=== PATIENT | female | born 1980 | race Two or more races ===

== ENCOUNTER 2017-01-30 10:25 | Emergency (ER) | payer SELFPAY ==
--- NOTE | 2017-01-30 10:45 | ER Document Report ---
ED Medical Screen (RME) - General Chief Complaint: Fever Stated Complaint: FEVER, THROAT PAIN Notes: Patient states she has fever, sore throat, nausea, headache and body aches since yesterday. States entire family has the flu. Denies anybody in the family having strep at this time. Patient denies receiving flu shot this year. I have greeted and performed a rapid initial assessment of this patient. A comprehensive ED assessment and evaluation of the patient, analysis of test results and completion of the medical decision making process will be conducted by additional ED providers. TRAVEL OUTSIDE OF THE [place] IN LAST 30 DAYS: No - Related Data Allergies/Adverse Reactions: avocado [Avocado] Allergy (Severe, Verified 01/30/17 10:40) Anaphylaxis NSAIDS (Non-Steroidal Anti-Inflamma [Nsaids] Allergy (Verified 01/30/17 10:40) throat swelling pineapple [Pineapple] Allergy (Verified 01/30/17 10:40) Sulfa (Sulfonamide Antibiotics) Allergy (Verified 01/30/17 10:40) throat swelling tree nuts Allergy (Uncoded 01/30/17 10:40) Past Medical History - Social History Family history: Reviewed & Not Pertinent Neurological Medical History: Reports: Hx Migraine Endocrine Medical History: Reports: Hx Hypothyroidism GI Medical History: Reports: Hx Gastritis Musculoskeltal Medical History: Reports Hx Musculoskeletal Trauma Psychiatric Medical History: Reports: Hx Anxiety Traumatic Medical History: Reports: Hx Fractures - Elbow clavicle and ribs Past Surgical History: Reports: Hx Appendectomy, Hx Cholecystectomy, Hx Hysterectomy, Hx Thyroid Surgery - Thyroidectomy - Immunizations Immunizations up to date: Yes Hx Diphtheria, Pertussis, Tetanus Vaccination: Yes - 2010 Physical Exam - Vital signs Vitals: Temp Pulse Resp BP Pulse Ox 98.5 F 81 14 108/74 96 01/30/17 10:01/30/17 10:01/30/17 10:01/30/17 10:01/30/17 10:29 - HEENT Notes: Oropharynx with mild erythema, tonsils 2+. No exudates, patient states her tonsils are normally enlarged. No airway compromise. Course - Vital Signs Vital signs: Temp Pulse Resp BP Pulse Ox 98.5 F 81 14 108/74 96 01/30/17 10:29 01/30/17 10:01/30/17 10:29 01/30/17 10:29 01/30/17 10:29
[2017-01-30] MEDS ORDERED: ONDANSETRON ODT 4 MG TAB (6 TAB/DSPK) PO PRN (12:01)
--- NOTE | 2017-01-30 12:01 | ER Document Report ---
HPI - HPI Patient complains to provider of: sore throat Onset: This morning Onset/Duration: Sudden Quality of pain: Achy Severity: Severe Pain Level: 4 Context: She presents to the emergency department with complaints of sore throat headache nausea vomiting diarrhea. Patient reports symptoms started today. Patient reports she took Pepto-Bismol for the diarrhea and that has stopped. Patient reports family sick with the flu. She reports fever of 102 earlier today. Associated Symptoms: Diarrhea, Fever, Vomiting Exacerbated by: Denies Relieved by: Denies Similar symptoms previously: No Recently seen / treated by doctor: No - CARDIOVASCULAR Cardiovascular: DENIES: Chest pain - REPRODUCTIVE Reproductive: DENIES: : - DERM Skin Color: Normal Past Medical History - General Information source: Patient Last Menstrual Period: 7 years ago - Social History Smoking Status: Never Smoker Chew tobacco use (# tins/day): No Frequency of alcohol use: None Drug Abuse: None Occupation: [employer] Lives with: Family Family History: DM, Hyperlipidemia, Hypertension, Thyroid Disfunction, Other - Epilepsy Patient has suicidal ideation: No Patient has homicidal ideation: No Neurological Medical History: Reports: Hx Migraine Endocrine Medical History: Reports: Hx Hypothyroidism Renal/ Medical History: Denies: Hx Peritoneal Dialysis GI Medical History: Reports: Hx Gastritis Musculoskeltal Medical History: Reports Hx Musculoskeletal Trauma Psychiatric Medical History: Reports: Hx Anxiety Traumatic Medical History: Reports: Hx Fractures - Elbow clavicle and ribs Past Surgical History: Reports: Hx Appendectomy - 2005, Hx Cholecystectomy - 2009, Hx Hysterectomy, Hx Thyroid Surgery - Thyroidectomy 2005 - Immunizations Immunizations up to date: Yes Hx Diphtheria, Pertussis, Tetanus Vaccination: Yes - 2010 Vertical Provider Document - CONSTITUTIONAL Agree With Documented VS: Yes Exam Limitations: No Limitations General Appearance: WD/WN, No Apparent Distress - INFECTION CONTROL TRAVEL OUTSIDE OF THE [place] IN LAST 30 DAYS: No - HEENT HEENT: Atraumatic, Normocephalic, PERRLA, Pharyngeal Erythema - No peritonsillar abscess good clear voice no trismus. negative: Conjuctival Injection, Pharyngeal Exudate, Tympanic Membrane Red, Tympanic Membrane Bulging - NECK Neck: Normal Inspection, Supple. negative: Lymphadenopathy-Left, Lymphadenopathy-Right - RESPIRATORY Respiratory: Breath Sounds Normal, No Respiratory Distress O2 Sat by Pulse Oximetry: 96 - CARDIOVASCULAR Cardiovascular: Regular Rate - GI/ABDOMEN Gastrointestinal: Abdomen Soft, Abdomen Non-Tender - MUSCULOSKELETAL/EXTREMETIES Musculoskeletal/Extremeties: VICTORIA, FROM - NEURO Level of Consciousness: Awake, Alert, Appropriate Motor/Sensory: No Motor Deficit - DERM Integumentary: Warm, Dry, No Rash Course - Re-evaluation Re-evalutation: 01/30/17 12:06 Patient looks nontoxic. Instructed on Zofran. Instructed to follow up with her primary care provider Dr. Henriquez within 1 week for recheck. She verbalized understanding to all instructions. - Vital Signs Vital signs: Temp Pulse Resp BP Pulse Ox 98.5 F 81 14 108/74 96 01/30/17 10:29 01/30/17 10:29 01/30/17 10:29 01/30/17 10:29 01/30/17 10:29 Discharge - Discharge Clinical Impression: Sore throat Vomiting Qualifiers: Vomiting type: unspecified Vomiting Intractability: non-intractable Nausea presence: with nausea Qualified Code(s): R11.2 - Nausea with vomiting, unspecified Diarrhea Qualifiers: Diarrhea type: unspecified type Qualified Code(s): R19.7 - Diarrhea, unspecified Fever Qualifiers: Fever type: unspecified Qualified Code(s): R50.9 - Fever, unspecified Condition: Stable Disposition: HOME, SELF-CARE Instructions: Fever ([facility]), Vomiting ([facility]), Diarrhea, Nonspecific ([facility]), Acetaminophen, Antinausea Medication ([facility]), OTC Antidiarrhea Medication ([facility]) Additional Instructions: *You have been evaluated for sore throat, fever, nausea/vomiting/diarrhea *Take medication as prescribed *Take tylenol or motrin for your headache *Good handwashing *Over the counter anti-diarrheal as indicated *Ensure adequate fluid intake as discussed to prevent dehydration *Follow up with a primary care provider within one week for recheck *Return to ED for worsening condition, changes, needs, concerns Forms: Return to Work Referrals: JUSTINE GARIBAY FNP [Primary Care Provider] - Follow up as needed
[2017-01-30 12:15] VITALS: BP 110/75
== END 2017-01-30 12:15 | disposition home or self-care (01) ==
LOC: ER 10:25
DX: J02.9 Acute pharyngitis, unspecified (principal); R51 Headache; R11.2 Nausea with vomiting, unspecified; R50.9 Fever, unspecified; R19.7 Diarrhea, unspecified; Z90.49 Acquired absence of other specified parts of digestive tract; Z90.710 Acquired absence of both cervix and uterus
CPT/HCPCS: 87070; 87804; 87880; 99283

== ENCOUNTER 2017-02-16 00:45 | Emergency (ER) | payer SELFPAY ==
[2017-02-16 01:02] VITALS: BP 110/68
== END 2017-02-16 06:30 | disposition left against medical advice (07) ==
LOC: ER 00:45
DX: Z53.21 Procedure and treatment not carried out due to patient leaving prior to being seen by health care provider (principal)

== ENCOUNTER 2017-05-13 21:48 | Emergency (ER) | payer SELFPAY ==
[2017-05-13 22:36] VITALS: BP 125/80
[2017-05-13] MEDS ORDERED: PENICILLIN V POTASSIUM 500 MG TABLET PO ONE (22:45)
[2017-05-13] MEDS ORDERED: HYDROCODONE/ACETAMINOPHEN 5-325 MG 6 TAB/DSPK PO PRN (22:45)
--- NOTE | 2017-05-13 22:47 | ER Document Report ---
HPI - HPI Patient complains to provider of: Dental pain Pain Level: 4 Context: Patient is a 36-year-old female who comes emergency department for chief complaint of right lower tooth pain, she states she has a known fracture in that area, she has had a lot of dental work done in the past, she currently does not have dental insurance and is looking for a place to takes pain meds. She states symptoms of increased pain started yesterday, today she had swelling of the right cheek area. She denies sore throat, neck pain, fever. LMP last month. - REPRODUCTIVE LMP: na Reproductive: DENIES: : - DERM Skin Color: Normal Past Medical History - General Information source: Patient - Social History Smoking Status: Never Smoker Frequency of alcohol use: None Drug Abuse: None Lives with: Family Family History: DM, Hyperlipidemia, Hypertension, Thyroid Disfunction, Other - Epilepsy Patient has suicidal ideation: No Patient has homicidal ideation: No Neurological Medical History: Reports: Hx Migraine Endocrine Medical History: Reports: Hx Hypothyroidism Renal/ Medical History: Denies: Hx Peritoneal Dialysis GI Medical History: Reports: Hx Gastritis Musculoskeltal Medical History: Reports Hx Musculoskeletal Trauma Psychiatric Medical History: Reports: Hx Anxiety Traumatic Medical History: Reports: Hx Fractures - Elbow clavicle and ribs Past Surgical History: Reports: Hx Appendectomy - 2005, Hx Cholecystectomy - 2009, Hx Hysterectomy, Hx Thyroid Surgery - Thyroidectomy 2005 - Immunizations Immunizations up to date: Yes Hx Diphtheria, Pertussis, Tetanus Vaccination: Yes - 2010 Vertical Provider Document - CONSTITUTIONAL General Appearance: WD/WN, No Apparent Distress - INFECTION CONTROL TRAVEL OUTSIDE OF THE [place] IN LAST 30 DAYS: No - HEENT HEENT: Atraumatic, Normocephalic. negative: Normal ENT Exam Mouth Diagram: 1 - Dental fracture, surrounding dental decay with multiple previous fillings on both sides of the lower teeth. No abscess. Normal oral exam otherwise. - NECK Neck: Normal Inspection - RESPIRATORY Respiratory: Breath Sounds Normal, No Respiratory Distress O2 Sat by Pulse Oximetry: 98 - CARDIOVASCULAR Cardiovascular: Regular Rate, Regular Rhythm - GI/ABDOMEN Gastrointestinal: Abdomen Soft, Abdomen Non-Tender - BACK Back: Normal Inspection - NEURO Level of Consciousness: Awake, Alert, Appropriate - DERM Integumentary: Warm, Dry, No Rash Course - Re-evaluation Re-evalutation: Patient requesting and was provided with discount dental list contact information - Vital Signs Vital signs: Temp Pulse Resp BP Pulse Ox 99.1 F 76 20 125/80 98 05/13/17 22:34 05/13/17 22:34 05/13/17 22:34 05/13/17 22:34 05/13/17 22:34 Discharge - Discharge Clinical Impression: Dental infection Condition: Stable Disposition: HOME, SELF-CARE Additional Instructions: Take the antibiotics to completion. Take pain medication as prescribed if needed. Follow-up with the dentist for repair or this will continue to happen. Return to the emergency department for any concerning or worsening symptoms including increased swelling. Prescriptions: Hydrocodone/Acetaminophen [Desha 5-325 mg Tablet] 1 - 2 tab PO ASDIR #12 tablet Penicillin V Potassium [Penicillin Vk 500 mg Tablet] 500 mg PO BID #20 tablet Forms: Return to Work
== END 2017-05-13 22:53 | disposition home or self-care (01) ==
LOC: ER 21:48
DX: K04.7 Periapical abscess without sinus (principal); K08.9 Disorder of teeth and supporting structures, unspecified; E03.9 Hypothyroidism, unspecified; Z90.49 Acquired absence of other specified parts of digestive tract; Z90.710 Acquired absence of both cervix and uterus
CPT/HCPCS: 99282

== ENCOUNTER 2017-05-19 23:33 | Emergency (ER) | payer SELFPAY ==
[2017-05-20] MEDS ORDERED: MORPHINE SULFATE IR 15 MG TABLET PO ONE (00:49)
[2017-05-20] MEDS ORDERED: PENICILLIN V POTASSIUM 500 MG TABLET PO ONE (00:49)
--- NOTE | 2017-05-20 00:49 | ER Document Report ---
ED General - General Chief Complaint: Toothache Stated Complaint: TOOTHPAIN Time Seen by Provider: 05/20/17 00:20 Notes: Patient is a 37-year-old female who presents with concerns of dental pain. Patient states that she had a tooth extracted today in [place] but that her pain medications were never returned her at that clinic. She notes that they also took her antibiotics away. She is requesting a refill of these medications. She does note a severe, constant, throbbing pain to her right lower jaw. Moving the jaw or trying to eat worsens the pain. Nothing improves the pain. Denies any difficulty breathing, swallowing or fever. TRAVEL OUTSIDE OF THE [place] IN LAST 30 DAYS: No - Related Data Allergies/Adverse Reactions: avocado [Avocado] Allergy (Severe, Verified 01/30/17 10:40) Anaphylaxis NSAIDS (Non-Steroidal Anti-Inflamma [Nsaids] Allergy (Verified 01/30/17 10:40) throat swelling pineapple [Pineapple] Allergy (Verified 01/30/17 10:40) Sulfa (Sulfonamide Antibiotics) Allergy (Verified 01/30/17 10:40) throat swelling tree nuts Allergy (Uncoded 01/30/17 10:40) Past Medical History - General Information source: Patient - Social History Smoking Status: Never Smoker Chew tobacco use (# tins/day): No Frequency of alcohol use: None Drug Abuse: None Lives with: Family Family History: DM, Hyperlipidemia, Hypertension, Thyroid Disfunction, Other - Epilepsy Patient has suicidal ideation: No Patient has homicidal ideation: No Neurological Medical History: Reports: Hx Migraine Endocrine Medical History: Reports: Hx Hypothyroidism Renal/ Medical History: Denies: Hx Peritoneal Dialysis GI Medical History: Reports: Hx Gastritis Musculoskeltal Medical History: Reports Hx Musculoskeletal Trauma Psychiatric Medical History: Reports: Hx Anxiety Traumatic Medical History: Reports: Hx Fractures - Elbow clavicle and ribs Past Surgical History: Reports: Hx Appendectomy - 2005, Hx Cholecystectomy - 2009, Hx Hysterectomy, Hx Thyroid Surgery - Thyroidectomy 2005 - Immunizations Immunizations up to date: Yes Hx Diphtheria, Pertussis, Tetanus Vaccination: Yes - 2010 Review of Systems - Review of Systems Notes: Constitutional: Negative for fever. Cardiovascular: Negative for chest pain. Respiratory: Negative for shortness of breath. Gastrointestinal: Negative for vomiting Musculoskeletal: Negative for back pain. Skin: Negative for rash. Neurological: Negative for weakness or numbness. 10 point ROS negative except as marked above and in HPI. Physical Exam - Vital signs Vitals: Temp Pulse Resp BP Pulse Ox 98.1 F 67 18 126/88 H 96 05/19/17 23:35 05/19/17 23:35 05/19/17 23:35 05/19/17 23:35 05/19/17 23:35 Interpretation: Normal Notes: PHYSICAL EXAMINATION: GENERAL: Well-appearing, well-nourished and in no acute distress. HEAD: Atraumatic, normocephalic. EYES: Pupils equal round and reactive to light, extraocular movements intact, sclera anicteric, conjunctiva are normal. ENT: nares patent, oropharynx clear without exudates. Moist mucous membranes. Extraction tooth #30 site without any evidence of purulent drainage, mucosal swelling. No lymphadenopathy. Airway is patent. NECK: Normal range of motion, supple without lymphadenopathy LUNGS: Breath sounds clear to auscultation bilaterally and equal. No wheezes rales or rhonchi. HEART: Regular rate and rhythm without murmurs ABDOMEN: Soft, nontender, normoactive bowel sounds. No guarding, no rebound. No masses appreciated. EXTREMITIES: Normal range of motion, no pitting or edema. No cyanosis. NEUROLOGICAL: No focal neurological deficits. Moves all extremities spontaneously and on command. PSYCH: Normal mood, normal affect. SKIN: Warm, Dry, normal turgor, no rashes or lesions noted. Course - Re-evaluation Re-evalutation: 05/20/17 00:46 Patient presents with concerns about lost narcotic and antibiotic prescription. She had tooth #30 pulled today had a dental clinic stating she needs a refill of these medications. I have informed that there is not an indication for the pain medication nor will I refill her lost narcotic prescription. Patient is a frequent visitor to the emergency department for pain related complaints and review of the [place] controlled substance database shows 5 narcotic prescriptions in the 2016 calendar year from different providers. At this time will discharge with return precautions and follow-up recommendations. Verbal discharge instructions given a the bedside and opportunity for questions given. Medication warnings reviewed. Patient is in agreement with this plan and has verbalized understanding of return precautions and the need for primary care follow-up in the next 24-72 hours. - Vital Signs Vital signs: Temp Pulse Resp BP Pulse Ox 98.1 F 71 18 119/76 99 05/19/17 23:35 05/20/17 01:08 05/20/17 01:08 05/20/17 01:08 05/20/17 01:08 Discharge - Discharge Clinical Impression: Pain, dental Condition: Good Disposition: HOME, SELF-CARE Additional Instructions: You have been seen for dental pain. Please return if you develop fever greater than 101, swelling in your face, vomiting, difficulty breathing or swallowing, or any other symptoms that are concerning to you. Take tylenol as needed for pain. Prescriptions: Penicillin V Potassium [Penicillin Vk 500 mg Tablet] 500 mg PO BID #14 tablet
[2017-05-20 01:08] VITALS: BP 119/76
== END 2017-05-20 01:07 | disposition home or self-care (01) ==
LOC: ER 23:33
DX: K08.9 Disorder of teeth and supporting structures, unspecified (principal); Z88.2 Allergy status to sulfonamides; Z98.818 Other dental procedure status
CPT/HCPCS: 99282

== ENCOUNTER 2017-07-14 00:36 | Emergency (ER) | payer SELFPAY ==
[2017-07-14] MEDS ORDERED: ONDANSETRON HCL INJ/PF 4 MG/2 ML SDV IV ONE (01:54)
[2017-07-14] MEDS ORDERED: NORMAL SALINE 1000 ML 1,000 ML IV ONE (01:54)
[2017-07-14] MEDS ORDERED: DIPHENHYDRAMINE HCL 50 MG/ML VIAL IV ONE (01:54)
--- NOTE | 2017-07-14 01:57 | ER Document Report ---
ED GI/ - General Chief Complaint: Abdominal Pain Stated Complaint: VOMITING,ABDOMINAL PAIN Time Seen by Provider: 07/14/17 01:45 Notes: Patient is a 37 year old female that comes to the ED for chief complaint of mid to lower abdominal pain. Symptoms started about 4 days ago. She states had an episode of nonbloody emesis earlier today. She denies any vaginal discharge or irritation, she denies dysuria, she does report some flank pain. She reports normal bowel movements, also non-bloody. She has had a total hysterectomy, appendectomy, cholecystectomy. She is treated for hypothyroidism. TRAVEL OUTSIDE OF THE [place] IN LAST 30 DAYS: No - Related Data Allergies/Adverse Reactions: avocado [Avocado] Allergy (Severe, Verified 01/30/17 10:40) Anaphylaxis NSAIDS (Non-Steroidal Anti-Inflamma [Nsaids] Allergy (Verified 01/30/17 10:40) throat swelling pineapple [Pineapple] Allergy (Verified 01/30/17 10:40) Sulfa (Sulfonamide Antibiotics) Allergy (Verified 01/30/17 10:40) throat swelling tree nuts Allergy (Uncoded 01/30/17 10:40) Past Medical History - General Information source: Patient - Social History Smoking Status: Never Smoker Frequency of alcohol use: None Drug Abuse: None Lives with: Family Family History: DM, Hyperlipidemia, Hypertension, Thyroid Disfunction, Other - Epilepsy Patient has suicidal ideation: No Patient has homicidal ideation: No Neurological Medical History: Reports: Hx Migraine Endocrine Medical History: Reports: Hx Hypothyroidism Renal/ Medical History: Denies: Hx Peritoneal Dialysis GI Medical History: Reports: Hx Gastritis Musculoskeltal Medical History: Reports Hx Musculoskeletal Trauma Psychiatric Medical History: Reports: Hx Anxiety Traumatic Medical History: Reports: Hx Fractures - Elbow clavicle and ribs Past Surgical History: Reports: Hx Appendectomy - 2005, Hx Cholecystectomy - 2009, Hx Hysterectomy, Hx Thyroid Surgery - Thyroidectomy 2005 - Immunizations Immunizations up to date: Yes Hx Diphtheria, Pertussis, Tetanus Vaccination: Yes - 2010 Review of Systems - Review of Systems Constitutional: No symptoms reported EENT: No symptoms reported Cardiovascular: No symptoms reported Respiratory: No symptoms reported Gastrointestinal: See HPI Genitourinary: No symptoms reported Female Genitourinary: No symptoms reported Musculoskeletal: No symptoms reported Skin: No symptoms reported Hematologic/Lymphatic: No symptoms reported Neurological/Psychological: No symptoms reported Physical Exam - Vital signs Vitals: Temp Pulse Resp BP Pulse Ox 98.6 F 74 16 120/76 98 07/14/17 01:18 07/14/17 01:18 07/14/17 01:18 07/14/17 01:18 07/14/17 01:18 Interpretation: Normal - General General appearance: Appears well In distress: None - HEENT Head: Normocephalic, Atraumatic Eyes: Normal Conjunctiva: Normal Extraocular movements intact: Yes Eyelashes: Normal Pupils: PERRL Ears: Normal External canal: Normal Tympanic membrane: Normal Sinus: Normal Nasal: Normal Mouth/Lips: Normal Mucous membranes: Normal Pharynx: Normal Neck: Normal - Respiratory Respiratory status: No respiratory distress Chest status: Nontender Breath sounds: Normal. No: Decreased air movement, Wheezing Chest palpation: Normal - Cardiovascular Rhythm: Regular. No: Tachycardia Heart sounds: Normal auscultation, S1 appreciated, S2 appreciated Murmur: No - Abdominal Inspection: Normal Distension: No distension Bowel sounds: Normal Tenderness: Tender - Mild generalized tenderness, nonspecific, no guarding or rigidity Organomegaly: No organomegaly - Back Back: Normal, Nontender. No: Tender, CVA tenderness - Extremities General upper extremity: Normal inspection, Nontender, Normal color, Normal ROM , Normal temperature General lower extremity: Normal inspection, Nontender, Normal color, Normal ROM , Normal temperature, Normal weight bearing. No: Brennan's sign - Neurological Neuro grossly intact: Yes Cognition: Normal Orientation: AAOx4 [place] Coma Scale Eye Opening: Spontaneous [place] Coma Scale Verbal: Oriented [place] Coma Scale Motor: Obeys Commands [place] Coma Scale Total: 15 Speech: Normal Motor strength normal: LUE, RUE, LLE, RLE Sensory: Normal - Psychological Associated symptoms: Normal affect, Normal mood - Skin Skin Temperature: Warm Skin Moisture: Dry Skin Color: Normal Course - Re-evaluation Re-evalutation: Abdominal exam is nonspecific and unremarkable. No guarding, no evidence of surgical abnormality. CBC, chemistry, urinalysis are all completely unremarkable. Patient has already had an appendectomy, cholecystectomy, complete hysterectomy. Patient has been evaluated in this emergency department very numerous times for the same symptoms. Patient actually does state that she feels much better after Zofran, Benadryl, IV fluids. Tolerating fluids by mouth without any difficulty. Discussed workup and possibilities, most likely colon source because of normal urinalysis and previous surgeries. Discussed gastroenterology follow-up, treatment with Bentyl, Phenergan, Colace. Discussed return precautions, patient states understanding and agreement. - Vital Signs Vital signs: Temp Pulse Resp BP Pulse Ox 98.3 F 83 16 106/76 100 07/14/17 05:26 07/14/17 05:26 07/14/17 05:26 07/14/17 05:26 07/14/17 05:26 - Laboratory Result Diagrams: 07/14/17 02:05 07/14/17 02:05 Discharge - Discharge Clinical Impression: Abdominal pain Qualifiers: Abdominal location: generalized Qualified Code(s): R10.84 - Generalized abdominal pain Nausea & vomiting Qualifiers: Vomiting type: unspecified Vomiting Intractability: non-intractable Qualified Code(s): R11.2 - Nausea with vomiting, unspecified Condition: Stable Disposition: HOME, SELF-CARE Additional Instructions: Your workup and examination do not indicate any concerning abnormalities at this time. Take the stool softener Colace as prescribed, take the Phenergan if needed for nausea, take the Bentyl for abdominal cramping. Follow-up with primary care and also follow-up with the gastroenterology referral for additional workup and management. Return to the emergency department for any concerning or worsening symptoms including return or uncontrolled vomiting, severe abdominal pain, fever, or any other concerning symptoms. Prescriptions: Dicyclomine HCl [Bentyl 20 mg Tablet] 20 mg PO QID #20 tablet Docusate Sodium [Colace 100 mg Capsule] 100 mg PO DAILY #30 capsule Promethazine HCl [Phenergan 25 mg Tablet] 1 - 2 tab PO Q6H PRN #20 tablet PRN Reason: Referrals: LISSY BUNCH MD [ACTIVE STAFF] - Follow up as needed
[2017-07-14 02:20] LABS: ABSOLUTE EOSINOPHILS # (AUTO) 0.2 10^3/uL (0.0-0.6); ABSOLUTE LYMPHOCYTES (AUTO) 3.9 10^3/uL (0.5-4.7); ABSOLUTE MONOCYTES (AUTO) 0.6 10^3/uL (0.1-1.4); ABSOLUTE NEUT (AUTO) 4.2 10^3/uL (1.7-8.2); BASOPHILS % (AUTO) 0.4 % (0-2); EOSINOPHILS % (AUTO) 1.8 % (0-6); HEMATOCRIT 39.3 % (36.0-47.0); HEMOGLOBIN 13.3 g/dL (12.0-15.5); HGB HCT DIFFERENCE 0.6; LYMPHOCYTES % (AUTO) 44.1 % (13-45); MEAN CORPUSCULAR HEMOGLOBIN 29.4 pg (27.0-33.4); MEAN CORPUSCULAR HGB CONC 33.7 g/dL (32.0-36.0); MEAN CORPUSCULAR VOLUME 87 fl (80-97); MONOCYTES % (AUTO) 6.3 % (3-13); RED BLOOD COUNT 4.52 10^6/uL (3.72-5.28); RED CELL DISTRIBUTION WIDTH 13.3 % (11.5-14.0); SEGMENTED NEUTROPHILS % (AUTO) 47.4 % (42-78); WHITE BLOOD COUNT 8.9 10^3/uL (4.0-10.5)
[2017-07-14 02:24] LABS: APPEARANCE,URINE CLEAR; BILIRUBIN,URINE NEGATIVE (NEGATIVE); GLUCOSE, URINE NEGATIVE (NEGATIVE); KETONES,URINE NEGATIVE (NEGATIVE); LEUKOCYTE ESTERASE,URINE NEGATIVE (NEGATIVE); NITRITE,URINE NEGATIVE (NEGATIVE); PROTEIN,URINE NEGATIVE (NEGATIVE); URINE SPECIFIC GRAVITY 1.004; UROBILINOGEN,URINE NEGATIVE mg/dL (<2.0)
[2017-07-14 02:36] LABS: ALANINE AMINOTRANSFERASE 26 U/L (9-52); ALBUMIN 4.4 g/dL (3.5-5.0); ALKALINE PHOSPHATASE 78 U/L (38-126); ANION GAP 14 (5-19); ASPARTATE AMINO TRANSFERASE 20 U/L (14-36); BILIRUBIN,DIRECT 0.3 mg/dL (0.0-0.4); BILIRUBIN,TOTAL 0.5 mg/dL (0.2-1.3); BLOOD UREA NITROGEN 12 mg/dL (7-20); CALCIUM 10.1 mg/dL (8.4-10.2); CARBON DIOXIDE 24 mmol/L (22-30); CHLORIDE 105 mmol/L (98-107); CREATININE RESULT 0.91 mg/dL (0.52-1.25); GLUCOSE 96 mg/dL (75-110); POTASSIUM 3.9 mmol/L (3.6-5.0); SODIUM 142.8 mmol/L (137-145); TOTAL PROTEIN 7.5 g/dL (6.3-8.2)
[2017-07-14 05:32] VITALS: BP 106/76
== END 2017-07-14 05:32 | disposition home or self-care (01) ==
LOC: ER 00:36
DX: R11.2 Nausea with vomiting, unspecified (principal); R10.84 Generalized abdominal pain; Z90.710 Acquired absence of both cervix and uterus; Z90.49 Acquired absence of other specified parts of digestive tract; E03.9 Hypothyroidism, unspecified; Z91.018 Allergy to other foods
CPT/HCPCS: 99284; 96374; 96375; 36415; 85025; 80053; 81001; J1200; J2405; J7030

== ENCOUNTER 2017-12-03 00:23 | Emergency (ER) | payer SELFPAY ==
[2017-12-03] MEDS ORDERED: MORPHINE SULFATE 10 MG/ML INJ IV ONE ×2 (03:44→11:42)
[2017-12-03] MEDS ORDERED: ONDANSETRON HCL INJ/PF 4 MG/2 ML SDV IV ONE ×2 (03:44→07:45)
--- NOTE | 2017-12-03 03:44 | ER Document Report ---
ED GI/ - General TRAVEL OUTSIDE OF THE [place] IN LAST 30 DAYS: No <ALIS ROMERO - Last Filed: 12/03/17 06:24> <GREER BEGUM - Last Filed: 12/03/17 12:35> - General Chief Complaint: Abdominal Pain Stated Complaint: ABDOMINAL PAIN Time Seen by Provider: 12/03/17 02:51 Notes: Patient is a 37-year-old female who presents emergency department with a chief complaint of abdominal distention with associated nausea over the past 24 hours with no bowel movement. Patient states that on Thursday she had a normal appetite normal diet, but she states she felt kind of "queasy, off". States on Thursday she woke up with nausea and diarrhea. she states she had multiple loose bowel movement throughout the day. Then, on Thursday she woke up feeling bloated that only got worse throughout the day with nausea. She states she did not eat much today due to decreased appetite but she denies any vomiting. States that she was able to have a bowel movement at all today. States she took MiraLAX kept that down but without any improvement. States that her stomach is never this distended or bloated. Does not have a primary care doctor Past medical history significant for hypothyroidism. Denies any history of ulcerative colitis, Crohn's disease, diverticulitis, bowel obstruction Past surgical history significant for appendectomy, cholecystectomy, hysterectomy, thyroid ectomy Social history significant for rare alcohol use. Denies any tobacco or drug use. (ALIS ROMERO) - Related Data Allergies/Adverse Reactions: avocado [Avocado] Allergy (Severe, Verified 09/29/17 23:31) Anaphylaxis NSAIDS (Non-Steroidal Anti-Inflamma [Nsaids] Allergy (Verified 09/29/17 23:31) throat swelling pineapple [Pineapple] Allergy (Verified 09/29/17 23:31) Sulfa (Sulfonamide Antibiotics) Allergy (Verified 09/29/17 23:31) throat swelling tree nuts Allergy (Uncoded 01/30/17 10:40) Past Medical History - Social History Smoking Status: Unknown if Ever Smoked Chew tobacco use (# tins/day): No Frequency of alcohol use: None Drug Abuse: None Family History: DM, Hyperlipidemia, Hypertension, Thyroid Disfunction, Other - Epilepsy. denies: Arthritis, CAD, COPD, CVA, Malignancy Patient has suicidal ideation: No Patient has homicidal ideation: No Neurological Medical History: Reports: Hx Migraine Endocrine Medical History: Reports: Hx Hypothyroidism Renal/ Medical History: Denies: Hx Peritoneal Dialysis GI Medical History: Reports: Hx Gastritis Musculoskeltal Medical History: Reports Hx Musculoskeletal Deformity, Reports Hx Musculoskeletal Trauma Psychiatric Medical History: Reports: Hx Anxiety Traumatic Medical History: Reports: Hx Fractures - Elbow clavicle and ribs Past Surgical History: Reports: Hx Appendectomy - 2005, Hx Cholecystectomy - 2009, Hx Hysterectomy, Hx Thyroid Surgery - Thyroidectomy 2005 - Immunizations Immunizations up to date: Yes Hx Diphtheria, Pertussis, Tetanus Vaccination: Yes - 2010 <ALIS ROMERO - Last Filed: 12/03/17 06:24> Review of Systems - Review of Systems Constitutional: No symptoms reported Cardiovascular: No symptoms reported Respiratory: No symptoms reported Gastrointestinal: See HPI Musculoskeletal: No symptoms reported Neurological/Psychological: No symptoms reported -: Yes All other systems reviewed and negative <ALIS ROMERO - Last Filed: 12/03/17 06:24> Physical Exam <ALIS ROMERO - Last Filed: 12/03/17 06:24> <GREER BEGUM - Last Filed: 12/03/17 12:35> - Vital signs Vitals: Temp Pulse Resp BP Pulse Ox 97.8 F 75 16 123/75 97 12/03/17 00:23 12/03/17 00:23 12/03/17 00:23 12/03/17 00:23 12/03/17 00:23 - Notes Notes: PHYSICAL EXAM GENERAL: Alert, interacts well. HEAD: Normocephalic, atraumatic. LUNGS: Clear to auscultation bilaterally, no wheezes, rales, or rhonchi. No respiratory distress. HEART: Regular rate and rhythm. No murmurs, gallops, or rubs. ABDOMEN: Moderately distended with diffuse tenderness. No guarding, rebound, or rigidity.. Hypoactive bowel sounds present in all 4 quadrants EXTREMITIES: Moves all 4 extremities spontaneously. No edema, radial and dorsalis pedis pulses 2/4 bilaterally. No cyanosis. NEUROLOGICAL: Alert and oriented x4. Normal speech. PSYCH: Normal affect, normal mood. SKIN: Warm, dry, normal turgor. No rashes or lesions noted. (ALIS ROMERO) Course - Laboratory Result Diagrams: 12/03/17 04:30 12/03/17 04:30 - Diagnostic Test Radiology reviewed: Image reviewed, Reports reviewed <ALIS ROMERO - Last Filed: 12/03/17 06:24> - Laboratory Result Diagrams: 12/03/17 04:30 12/03/17 04:30 <GREER BEGUM - Last Filed: 12/03/17 12:35> - Re-evaluation Re-evalutation: 12/03/17 05:02 Patient is a 37-year-old female is hemodynamically stable, no acute distress afebrile. CBC stable without any leukocytosis or anemia. Chemistry stable without any evidence of elevated liver function, lipase or AK I. Electrolytes stable. Acute abdomen series with nonspecific bowel gas pattern but without any evidence of free air. Patient to be sent for CT abdomen and pelvis to rule out small bowel obstruction. (ALIS ROMERO) 0720-position given by BECKY Swann. This patient at bedside to evaluate patient. Patient is not in any distress. Patient is drinking oral contrast for her CT abdomen and pelvis with IV and oral contrast. Rechecked the patient who is resting comfortably. On re-exam, patient is symptomatically improved. Discussed the results of the labs/radiology as well as the diagnosis at great length. Discussed the need to return to the ER for any new or worsening sx. Patient understands to take the Rx as directed. All questions answered. Patient comfortable with the decision to go home. Patient was seen today for abdominal pain. After review of laboratory studies and radiologic studies there are no signs of acute abdomen or other life- threatening ailments. I did consider acute appendicitis, peritonitis, urinary tract infection, cholelithiasis, cholecystitis, abdominal aortic aneurysm, intestinal obstruction, diverticulitis/ diverticulosis and pyelonephritis. At this time I feel the patient is stable for discharge is instructed to follow up with her primary care physician in 2-3 days return to emergency department for worsening symptoms or lack of resolution of symptoms in the next 24-48 hours. 12/03/17 11:43 (GREER BEGUM) - Vital Signs Vital signs: Temp Pulse Resp BP Pulse Ox 98.4 F 85 16 114/73 97 12/03/17 11:35 12/03/17 11:35 12/03/17 11:35 12/03/17 11:35 12/03/17 11:35 Discharge <ALIS ROMERO - Last Filed: 12/03/17 06:24> <GREER BEGUM - Last Filed: 12/03/17 12:35> - Discharge Clinical Impression: Constipation Qualifiers: Constipation type: other constipation type Qualified Code(s): K59.09 - Other constipation Abdominal pain Qualifiers: Abdominal location: generalized Qualified Code(s): R10.84 - Generalized abdominal pain Condition: Good Disposition: HOME, SELF-CARE Instructions: Abdominal Pain ([facility]), Constipation ([facility]) Additional Instructions: ABDOMINAL PAIN: There are many causes of abdominal pain. Pain can mean a serious problem requiring surgery (such as appendicitis). It can also be an innocent problem that goes away on its own (such as a viral infection). Often, time must pass to determine the cause of pain. The physician does not feel that hospitalization is necessary, at present. Things may change within the next 24 hours. Call the doctor or come back for re- examination if any problems occur, such as: (1) Pain that becomes more severe, steady, or becomes concentrated in one specific area. Also, pain that is more severe with movement or coughing. (2) Vomiting that persists or becomes more frequent. (3) Blood in the vomitus, urine, or bowel movements. Blood in the stool may have a tarry or black appearance. (4) Shaking chills or fever greater than 100 degrees F. (5) The abdomen becomes more distended or swollen. (6) Bowel movements cease. (7) Failure to improve as expected. NORMAL EXAM AND WORKUP: At this time, your examination and workup show no significant abnormality. No significant abnormal physical findings are noted. All laboratory, EKG, and imaging (x-ray, CT scans, ultrasound) studies that were ordered show no significant abnormality. Although your examination and all studies that were ordered showed no significant abnormal finding, there are no examinations and no studies that are 100% accurate. There is always the possibility that some abnormality could exist and not be detected with physical examination or within the limits and capabilities of laboratory and other studies. You should return or follow up as you were instructed on your visit today for further evaluation if your symptoms do not resolve. CONSTIPATION: Constipation is a common problem. It is especially likely as you get older. Constipation is a common cause of abdominal pain, but sometimes causes no symptoms at all. Causes of constipation include certain medications, dehydration, diets, inactivity, and low-fiber intake. Rarely, it can be a symptom of underlying disease. The physician has evaluated you for this. Avoid constipation by eating a diet high in fiber, fruits, and vegetables. Drink plenty of liquids. Get regular exercise. If possible, avoid constipating medicines like narcotic pain medication. Some vitamin tablets can cause constipation. Stool softeners may be needed for difficult cases. An excellent stool softener is Konsyl which is available at [employer], [employer]. Just add a teaspoon to a glass of pineapple or orange juice daily or twice a day if needed. Laxatives are useful for occasional constipation. You should use them only when necessary. Too-frequent use can make your bowels dependent on them. Some over the counter laxatives available without prescription are: Milk of Magnesia, 1-2 tablespoons twice a day Dulcolax, 5 mg pill or 10 mg suppository. Citrate of Magnesia, 4-5 ounces a day for a day or two For acute constipation, Fleet's Enemas and Dulcolax suppositories are helpful. Chronic, product designer use of laxatives or enemas is not a good idea. Your bowel may become dependant on them. You do not need to have a bowel movement every day. Many people do fine with a bowel movement every three or four days. You should call your doctor or return for re-evaluation if you pass blood in the stool, or if you develop fever or increasing abdominal pain. BULK LAXATIVES: Bulk laxatives make the stool softer and bulkier. They're useful for preventing constipation. You can choose between psyllium, methylcellulose, and polycarbophil. They are available without a prescription. Psyllium brand names include Konsyl, Metamucil, Perdiem, Effer-Syllium and Hydrocil. It's available as powder, flavored drink powder, or chewable. The usual dose of psyllium powder is one heaping teaspoon in water each morning, increasing to twice a day if needed. Miner juice can disguise the slightly grainy texture. Methylcellulose is marketed as Citrucel and other brands. The average dose is two grams in a cup of water one to three times a day. Polycarbophil is marketed as Fiber-Con. Take two tablets with a cup of water one to three times a day. LAXATIVE: A laxative agent has been prescribed for your condition. This should result in passage of stool within 12 hours. Some mild intestinal cramping is common as the hard stool begins to move. You may have loose or runny stools for a short time. Contact your doctor if there is severe cramping, vomiting, or passage of blood. Return for further care if this medicine fails to improve your condition. FOLLOW-UP CARE: If you have been referred to a physician for follow-up care, call the physician s office for an appointment as you were instructed or within the next two days. If you experience worsening or a significant change in your symptoms, notify the physician immediately or return to the Emergency Department at any time for re-evaluation.ABDOMINAL PAIN: There are many causes of abdominal pain. Pain can mean a serious problem requiring surgery (such as appendicitis). It can also be an innocent problem that goes away on its own (such as a viral infection). Often, time must pass to determine the cause of pain. The physician does not feel that hospitalization is necessary, at present. Things may change within the next 24 hours. Call the doctor or come back for re- examination if any problems occur, such as: (1) Pain that becomes more severe, steady, or becomes concentrated in one specific area. Also, pain that is more severe with movement or coughing. (2) Vomiting that persists or becomes more frequent. (3) Blood in the vomitus, urine, or bowel movements. Blood in the stool may have a tarry or black appearance. (4) Shaking chills or fever greater than 100 degrees F. (5) The abdomen becomes more distended or swollen. (6) Bowel movements cease. (7) Failure to improve as expected. NORMAL EXAM AND WORKUP: At this time, your examination and workup show no significant abnormality. No significant abnormal physical findings are noted. All laboratory, EKG, and imaging (x-ray, CT scans, ultrasound) studies that were ordered show no significant abnormality. Although your examination and all studies that were ordered showed no significant abnormal finding, there are no examinations and no studies that are 100% accurate. There is always the possibility that some abnormality could exist and not be detected with physical examination or within the limits and capabilities of laboratory and other studies. You should return or follow up as you were instructed on your visit today for further evaluation if your symptoms do not resolve. TORADOL INJECTION: You have been given an injection of ketorolac tromethamine (Toradol). This is an excellent, safe drug for pain control. It also has potent antiinflammatory action. You should have significant pain relief within about one hour. Toradol is not addicting and is non-sedating. It does not interfere with driving or work. Call or return if you develop itching, hives, shortness of breath, or rash. PAIN MEDICATION INJECTION: You have received an injection of a pain medication. You should experience significant pain relief within 45 minutes. This drug is a narcotic - - it will impair your judgement, slow your reaction time and make you sleepy ( as well as relieve your pain). Narcotics also can cause nausea. You should not drive, work with machinery, or perform any task requiring mental alertness until all effects of the medication are gone -- six to eight hours. Do not take any alcohol, or sedatives, and do not take any other medication without checking with your physician. ANTINAUSEA MEDICATION: You have been given a medication to suppress nausea and vomiting. This type of medication can be given as a shot, pill, or suppository. It will usually last for many hours. Pills and shots usually last six to eight hours, suppositories last about 12 hours. For the typical illness, only one or two doses of the medication may be necessary. Mild lightheadedness may occur. This type of medicine can cause drowsiness. Do not drive or operate dangerous machinery while under its influence. Do not mix with alcohol. See your doctor at once if you have muscle spasms or tightness, or uncontrollable motions (particularly of the neck, mouth, or jaw). Persistent vomiting or severe lightheadedness should also be evaluated by the physician. ANTISPASMODICS: You have been given a prescription for an antispasmodic medicine. This type of drug is used to decrease cramping and pain in the intestines. It is also used to decrease secretion of internal fluids (such as stomach acid in ulcer disease or pancreatic juice in pancreas disease). This medicine may cause drowsiness, especially with the first dose. Do not operate machinery or drive until all side effects have resolved. Do not combine with alcohol. Other common side effects include dry mouth and eyes. In older persons, antispasmodics can occasionally cause urinary retention, constipation, or trouble focusing the eyes. Glaucoma may be worsened by this medicine. ORAL NARCOTIC MEDICATION: You have been given a prescription for pain control. This medication is a narcotic. It's best taken with food, as nausea can result if taken on an empty stomach. Don't operate machinery or drive within six hours of taking this medication. Do not combine this medicine with alcohol, or with any medication which can cause sedation (such as cold tablets or sleeping pills) unless you get permission from the physician. Narcotics tend to cause constipation. If possible, drink plenty of fluids and eat a diet high in fiber and fruits. Please be aware that prescription narcotics also have the potential for abuse. People become addicted to these medications because of the general sense of wellbeing that they induce. This feeling along with a significant reduction in tension, anxiety, and aggression provides a stimulating seductive quality to these drugs. Once your pain is under control, we encourage you to discard your unused narcotics. FOLLOW-UP CARE: If you have been referred to a physician for follow-up care, call the physician s office for an appointment as you were instructed or within the next two days. If you experience worsening or a significant change in your symptoms, notify the physician immediately or return to the Emergency Department at any time for re-evaluation. FOLLOW-UP CARE: You should return for re-evaluation in 12 hours. This follow-up visit is important. If you are unable to return, or feel that the return visit is unnecessary, please call us. Return immediately for any new or worsening symptoms. Follow up with primary care provider, call tomorrow to make followup appointment. Prescriptions: Docusate Sodium [Colace 100 mg Capsule] 100 mg PO DAILY #30 capsule
--- NOTE | 2017-12-03 04:34 | RADIOLOGY REPORT (SQ) ---
EXAM DESCRIPTION: ACUTE ABDOMEN SERIES CLINICAL HISTORY: constipation, distended, COMPARISON: 05/17/2015 FINDINGS: Single view of the chest with upright and spine views of the abdomen. Cardiac mediastinal silhouette has normal size and contour. No consolidation, pneumothorax, or pleural effusion. No free intraperitoneal air. Nonobstructive bowel gas pattern. Moderate amount of stool. No definite abnormal calcifications. No acute osseous abnormalities. IMPRESSION: 1. No acute pulmonary process. 2. Nonobstructive bowel gas pattern.
[2017-12-03 04:40] LABS: ABSOLUTE BASOPHILS # (AUTO) 0.1 10^3/uL (0.0-0.2); ABSOLUTE EOSINOPHILS # (AUTO) 0.1 10^3/uL (0.0-0.6); ABSOLUTE LYMPHOCYTES (AUTO) 3.2 10^3/uL (0.5-4.7); ABSOLUTE MONOCYTES (AUTO) 0.4 10^3/uL (0.1-1.4); ABSOLUTE NEUT (AUTO) 4.9 10^3/uL (1.7-8.2); BASOPHILS % (AUTO) 0.7 % (0-2); EOSINOPHILS % (AUTO) 1.6 % (0-6); HEMATOCRIT 36.6 % (36.0-47.0); HEMOGLOBIN 12.5 g/dL (12.0-15.5); LYMPHOCYTES % (AUTO) 36.8 % (13-45); MEAN CORPUSCULAR HEMOGLOBIN 28.9 pg (27.0-33.4); MEAN CORPUSCULAR HGB CONC 34.1 g/dL (32.0-36.0); MEAN CORPUSCULAR VOLUME 85 fl (80-97); MONOCYTES % (AUTO) 4.1 % (3-13); PLATELET COUNT 305 10^3/uL (150-450); RED BLOOD COUNT 4.33 10^6/uL (3.72-5.28); RED CELL DISTRIBUTION WIDTH 12.9 % (11.5-14.0); SEGMENTED NEUTROPHILS % (AUTO) 56.8 % (42-78); TOTAL CELLS COUNTED % (AUTO) 100 %; WHITE BLOOD COUNT 8.7 10^3/uL (4.0-10.5)
[2017-12-03 04:54] LABS: ALANINE AMINOTRANSFERASE 21 U/L (9-52); ALBUMIN 4.4 g/dL (3.5-5.0); ALKALINE PHOSPHATASE 81 U/L (38-126); ANION GAP 13 (5-19); ASPARTATE AMINO TRANSFERASE 24 U/L (14-36); BILIRUBIN,DIRECT 0.3 mg/dL (0.0-0.4); BILIRUBIN,TOTAL 0.3 mg/dL (0.2-1.3); BLOOD UREA NITROGEN 17 mg/dL (7-20); CALCIUM 10.2 mg/dL (8.4-10.2); CARBON DIOXIDE 25 mmol/L (22-30); CHLORIDE 106 mmol/L (98-107); GLUCOSE 93 mg/dL (75-110); POTASSIUM 3.9 mmol/L (3.6-5.0); SODIUM 143.5 mmol/L (137-145); TOTAL PROTEIN 7.4 g/dL (6.3-8.2)
[2017-12-03] MEDS ORDERED: KETOROLAC TROMETHAMINE INJ/PF 30 MG/1 ML SDV IV ONE (05:07)
[2017-12-03 05:44] LABS: APPEARANCE,URINE CLEAR; BILIRUBIN,URINE NEGATIVE (NEGATIVE); COLOR,URINE STRAW; GLUCOSE, URINE NEGATIVE (NEGATIVE); KETONES,URINE NEGATIVE (NEGATIVE); LEUKOCYTE ESTERASE,URINE NEGATIVE (NEGATIVE); NITRITE,URINE NEGATIVE (NEGATIVE); PROTEIN,URINE NEGATIVE (NEGATIVE); URINE SPECIFIC GRAVITY 1.005; UROBILINOGEN,URINE NEGATIVE mg/dL (<2.0)
[2017-12-03 08:44] LABS: CREATINE KINASE MB 1.89 ng/mL (<4.55)
[2017-12-03 08:45] LABS: TROPONIN I < 0.012 ng/mL
--- NOTE | 2017-12-03 09:34 | RADIOLOGY REPORT (SQ) ---
EXAM DESCRIPTION: CT ABD/PELVIS WITH IV ORAL COMPLETED DATE/TIME: 12/03/2017 8:43 am REASON FOR STUDY: eval SBO, abdominal distension, constipation COMPARISON: [address] abdomen and pelvis exams 2011, most recently 04/17/2016 TECHNIQUE: CT scan of the abdomen and pelvis performed using helical scanning technique with dynamic intravenous contrast injection. Patient drank oral contrast. Images reviewed with lung, soft tissue, and bone windows. Reconstructed coronal and sagittal MPR imag es reviewed. Delayed images for evaluation of the urinary system also acquired. All images stored on PACS. All CT scanners at this facility use dose modulation, iterative reconstruction, and/or weight based d osing when appropriate to reduce radiation dose to as low as reasonably achievable (ALARA). [facility]: Dose Right [facility]: CareDose [facility]: Dose Right [facility]: Teradose 4D [facility]: mechatronic system[employer]ik CONTRAST TYPE AND DOSE: contrast/concentration: Isovue 370.00 mg/ml; Total Contrast Delivered: 81.0 ml; Total Saline Delivered: 45.9 ml RENAL FUNCTION: Creatinine 0.84 RADIATION DOSE: CT Rad equipment meets quality standard of care and radiation dose reduction techniq ues were employed. CTDIvol: 13.6 - 17.8 mGy. DLP: 1585 mGy-cm.. LIMITATIONS: None. FINDINGS: LOWER CHEST: No significant findings. No nodules or infiltrates. LIVER: Normal size. No masses. No dilated ducts. SPLEEN: Normal size. Stable 1 cm nodule in the sub-diaphragmatic surface of the spleen axial image 1 6. PANCREAS: No masses. No significant calcifications. No adjacent inflammation or peripancreatic fluid collections. Pancreatic duct not dilated. GALLBLADDER: Surgically absent. ADRENAL GLANDS: No significant masses or asymmetry. RIGHT KIDNEY AND URETER: No solid masses. No significant calcifications. No hydronephrosis or hyd roureter. LEFT KIDNEY AND URETER: No solid masses. No significant calcifications. No hydronephrosis or hydr oureter. AORTA AND VESSELS: No aneurysm. No dissection. Renal arteries, SMA, celiac without stenosis. RETROPERITONEUM: No retroperitoneal adenopathy, hemorrhage or masses. BOWEL AND PERITONEAL CAVITY: No masses or inflammatory changes. No free fluid or peritoneal masses. APPENDIX: Surgically absent post hysterectomy PELVIS: No mass. No free fluid. Normal bladder. Post hysterectomy ABDOMINAL WALL: No masses. No hernias. BONES: No significant or acute findings. OTHER: No other significant finding. IMPRESSION: NO SIGNIFICANT OR ACUTE FINDING IN THE ABDOMEN OR PELVIS ON CT SCAN WITH IV CONTRAST. TECHNICAL DOCUMENTATION: JOB ID: [id number] Quality ID # [id number]: Final reports with documentation of one or more dose reduction techniques (e.g., Au tomated exposure control, adjustment of the mA and/or kV according to patient size, use of iterative reconstruction technique) 2010 [employer]- All Rights Reserved
[2017-12-03 11:47] VITALS: BP 114/73
== END 2017-12-03 12:41 | disposition home or self-care (01) ==
LOC: ER 00:23
DX: K59.00 Constipation, unspecified (principal); R10.84 Generalized abdominal pain; R11.0 Nausea; R63.0 Anorexia; Z88.2 Allergy status to sulfonamides; Z88.8 Allergy status to other drugs, medicaments and biological substances; Z87.892 Personal history of anaphylaxis; Z91.018 Allergy to other foods
CPT/HCPCS: 96376; 99284; 96374; 96375; 36415; 82553; 83690; 84703; 85025; 82272; 80053; 81001; 84484; 74022; 74177; J1885; J2270; J2405

== ENCOUNTER 2018-02-14 16:59 | Emergency (ER) | payer SELFPAY ==
[2018-02-14] MEDS ORDERED: NORMAL SALINE 1000 ML 1,000 ML IV ONE (18:45)
[2018-02-14 19:00] LABS: ABSOLUTE EOSINOPHILS # (AUTO) 0.1 10^3/uL (0.0-0.6); ABSOLUTE LYMPHOCYTES (AUTO) 2.4 10^3/uL (0.5-4.7); ABSOLUTE MONOCYTES (AUTO) 0.3 10^3/uL (0.1-1.4); ABSOLUTE NEUT (AUTO) 4.7 10^3/uL (1.7-8.2); BASOPHILS % (AUTO) 0.6 % (0-2); EOSINOPHILS % (AUTO) 1.6 % (0-6); HEMATOCRIT 40.7 % (36.0-47.0); HEMOGLOBIN 13.3 g/dL (12.0-15.5); INTERNATIONAL RATION (INR) 0.97; LYMPHOCYTES % (AUTO) 31.3 % (13-45); MEAN CORPUSCULAR HEMOGLOBIN 28.2 pg (27.0-33.4); MEAN CORPUSCULAR HGB CONC 32.7 g/dL (32.0-36.0); MEAN CORPUSCULAR VOLUME 86 fl (80-97); MONOCYTES % (AUTO) 4.3 % (3-13); PLATELET COUNT 304 10^3/uL (150-450); PROTHROMBIN TIME 13.5 SEC (11.4-15.4); RED BLOOD COUNT 4.72 10^6/uL (3.72-5.28); RED CELL DISTRIBUTION WIDTH 14.2 % (11.5-14.0); SEGMENTED NEUTROPHILS % (AUTO) 62.2 % (42-78); TOTAL CELLS COUNTED % (AUTO) 100 %; WHITE BLOOD COUNT 7.6 10^3/uL (4.0-10.5)
[2018-02-14 19:02] LABS: ALANINE AMINOTRANSFERASE 25 U/L (9-52); ALBUMIN 4.4 g/dL (3.5-5.0); ALKALINE PHOSPHATASE 72 U/L (38-126); ANION GAP 11 (5-19); ASPARTATE AMINO TRANSFERASE 20 U/L (14-36); BILIRUBIN,DIRECT 0.2 mg/dL (0.0-0.4); BILIRUBIN,TOTAL 0.5 mg/dL (0.2-1.3); BLOOD UREA NITROGEN 15 mg/dL (7-20); CALCIUM 10.2 mg/dL (8.4-10.2); CARBON DIOXIDE 26 mmol/L (22-30); CHLORIDE 105 mmol/L (98-107); CREATINE KINASE 193 U/L (30-135); GLUCOSE 136 mg/dL (75-110); LIPASE 73.2 U/L (23-300); POTASSIUM 3.9 mmol/L (3.6-5.0); SODIUM 142.2 mmol/L (137-145); TOTAL PROTEIN 7.4 g/dL (6.3-8.2)
[2018-02-14 19:14] LABS: CREATINE KINASE MB 1.95 ng/mL (<4.55)
[2018-02-14 19:15] LABS: TROPONIN I < 0.012 ng/mL
[2018-02-14 19:23] LABS: D-DIMER < 0.27 ug/mL (0.00-0.50)
--- NOTE | 2018-02-14 20:22 | RADIOLOGY REPORT (SQ) ---
EXAM DESCRIPTION: CHEST PA/LAT COMPLETED DATE/TIME: 02/14/2018 8:15 pm REASON FOR STUDY: cp COMPARISON: Chest films 10/11/2016, 11/14/2015 EXAM PARAMETERS: NUMBER OF VIEWS: two views TECHNIQUE: Digital Frontal and Lateral radiographic views of the chest acquired. RADIATION DOSE: NA LIMITATIONS: none FINDINGS: LUNGS AND PLEURA: No opacities, masses or pneumothorax. No pleural effusion. MEDIASTINUM AND HILAR STRUCTURES: No masses or contour abnormalities. HEART AND VASCULAR STRUCTURES: Heart normal size. No evidence for failure. BONES: No acute findings. HARDWARE: None in the chest. OTHER: No other significant finding. IMPRESSION: NO SIGNIFICANT RADIOGRAPHIC FINDING IN THE CHEST. TECHNICAL DOCUMENTATION: JOB ID: [id number] [employer]- All Rights Reserved Reading location - IP/workstation name: [email or web address]
--- NOTE | 2018-02-14 20:53 | ER Document Report ---
ED General - General Chief Complaint: Chest Pain Stated Complaint: CHEST PAIN Time Seen by Provider: 02/14/18 17:18 TRAVEL OUTSIDE OF THE [place] IN LAST 30 DAYS: No - HPI Patient complains to provider of: Chest tightness chest pain Notes: Patient coming in with sternal chest tightness and chest pain. Patient states ongoing for approximately 2 days. Patient denies any recent travel denies fevers chills nausea vomiting diarrhea states pain is not associated with deep breath or eating. Patient resting comfortably upon my evaluation. - Related Data Allergies/Adverse Reactions: avocado [Avocado] Allergy (Severe, Verified 09/29/17 23:31) Anaphylaxis NSAIDS (Non-Steroidal Anti-Inflamma [Nsaids] Allergy (Verified 09/29/17 23:31) throat swelling pineapple [Pineapple] Allergy (Verified 09/29/17 23:31) Sulfa (Sulfonamide Antibiotics) Allergy (Verified 09/29/17 23:31) throat swelling tree nuts Allergy (Uncoded 01/30/17 10:40) Past Medical History - Social History Smoking Status: Former Smoker Chew tobacco use (# tins/day): No Frequency of alcohol use: None Drug Abuse: None Family History: DM, Hyperlipidemia, Hypertension, Thyroid Disfunction, Other - Epilepsy. denies: Arthritis, CAD, COPD, CVA, Malignancy Patient has suicidal ideation: No Patient has homicidal ideation: No Neurological Medical History: Reports: Hx Migraine Endocrine Medical History: Reports: Hx Hypothyroidism Renal/ Medical History: Denies: Hx Peritoneal Dialysis GI Medical History: Reports: Hx Gastritis Musculoskeltal Medical History: Reports Hx Musculoskeletal Deformity, Reports Hx Musculoskeletal Trauma Psychiatric Medical History: Reports: Hx Anxiety Traumatic Medical History: Reports: Hx Fractures - Elbow clavicle and ribs Past Surgical History: Reports: Hx Appendectomy - 2005, Hx Cholecystectomy - 2009, Hx Hysterectomy, Hx Thyroid Surgery - Thyroidectomy 2005 - Immunizations Immunizations up to date: Yes Hx Diphtheria, Pertussis, Tetanus Vaccination: Yes - 2010 Review of Systems - Review of Systems Constitutional: No symptoms reported EENT: No symptoms reported Cardiovascular: Chest pain Respiratory: No symptoms reported Gastrointestinal: No symptoms reported Genitourinary: No symptoms reported Female Genitourinary: No symptoms reported Musculoskeletal: No symptoms reported Skin: No symptoms reported Hematologic/Lymphatic: No symptoms reported Neurological/Psychological: No symptoms reported Physical Exam - Vital signs Vitals: Temp Resp 97.9 F 19 02/14/18 17:20 02/14/18 17:20 Interpretation: Normal - General General appearance: Appears well, Alert - HEENT Head: Normocephalic, Atraumatic Eyes: Normal Pupils: PERRL - Respiratory Respiratory status: No respiratory distress Chest status: Nontender Breath sounds: Normal Chest palpation: Normal - Cardiovascular Rhythm: Regular Heart sounds: Normal auscultation Murmur: No - Abdominal Inspection: Normal Distension: No distension Bowel sounds: Normal Tenderness: Nontender Organomegaly: No organomegaly - Back Back: Normal, Nontender - Extremities General upper extremity: Normal inspection, Nontender, Normal color, Normal ROM , Normal temperature General lower extremity: Normal inspection, Nontender, Normal color, Normal ROM , Normal temperature, Normal weight bearing. No: Brennan's sign - Neurological Neuro grossly intact: Yes Cognition: Normal Orientation: AAOx4 [place] Coma Scale Eye Opening: Spontaneous [place] Coma Scale Verbal: Oriented [place] Coma Scale Motor: Obeys Commands Pietro Coma Scale Total: 15 Speech: Normal Motor strength normal: LUE, RUE, LLE, RLE Sensory: Normal - Psychological Associated symptoms: Normal affect, Normal mood - Skin Skin Temperature: Warm Skin Moisture: Dry Skin Color: Normal Course - Re-evaluation Re-evalutation: 02/14/18 23:45 The patient has atypical chest pain as the patient's chest pain is not suggestive of pulmonary embolus, cardiac ischemia, aortic dissection, or other serious etiology. Given the extremely low risk of these diagnoses further testing and evaluation for these possibilities does not appear to be indicated at this time. The patient has been instructed to return if the symptoms worsen or change in any way. - Vital Signs Vital signs: Temp Pulse Resp BP Pulse Ox 97.9 F 23 H 104/75 96 02/14/18 17:20 02/14/18 20:03 02/14/18 20:03 02/14/18 20:03 - Laboratory Result Diagrams: 02/14/18 17:30 02/14/18 17:30 Laboratory results interpreted by me: 02/14/18 02/14/18 17:30 17:30 RDW 14.2 H Glucose 136 H Creatine Kinase 193 H Discharge - Discharge Clinical Impression: Chest tightness or pressure Condition: Good Disposition: HOME, SELF-CARE Instructions: Antacid Therapy ([facility]), Chest Wall Pain ([facility]), Chest Pain of Unclear Cause ([facility]), Reflux Disease (GERD) ([facility]) Additional Instructions: At this time your laboratory studies and chest x-ray did not show any clear cause of your symptoms. I recommend she follow-up primary care physician or clinics provided. I will start you on omeprazole to see if this will aid in your symptoms. Also recommend taking Tylenol and/or anti-inflammatory medication to about your pain return to ER symptoms worsen. Prescriptions: Omeprazole 20 mg PO DAILY #14 capsule.dr Forms: Return to Work
[2018-02-14 20:59] VITALS: BP 104/75
--- NOTE | 2018-02-15 07:12 | EKG REPORT ---
SEVERITY:- NORMAL ECG - SINUS RHYTHM : Confirmed by: Raymond Gross MD 15-Feb-2018 07:11:40
--- NOTE | 2018-02-15 07:13 | EKG REPORT ---
SEVERITY:- NORMAL ECG - SINUS RHYTHM : Confirmed by: Raymond Gross MD 15-Feb-2018 07:12:29
== END 2018-02-14 21:10 | disposition home or self-care (01) ==
LOC: ER 16:59
DX: R07.89 Other chest pain (principal); Z88.2 Allergy status to sulfonamides; Z88.8 Allergy status to other drugs, medicaments and biological substances; Z87.892 Personal history of anaphylaxis; Z91.018 Allergy to other foods; Z87.891 Personal history of nicotine dependence
CPT/HCPCS: 93005; 99285; 96361; 96374; 96375; 36415; 82553; 82550; 83690; 85025; 85610; 80053; 84484; 85379; 71046; 93010; J7030

== ENCOUNTER 2018-03-19 19:06 | Emergency (ER) | payer SELFPAY ==
[2018-03-19] MEDS ORDERED: MORPHINE SULFATE 10 MG/ML INJ IV ONE (19:39)
[2018-03-19] MEDS ORDERED: ONDANSETRON HCL INJ/PF 4 MG/2 ML SDV IV ONE (19:39)
[2018-03-19] MEDS ORDERED: NORMAL SALINE 1000 ML 1,000 ML IV ONE (19:39)
--- NOTE | 2018-03-19 19:41 | ER Document Report ---
ED GI/ - General Chief Complaint: Abdominal Pain Stated Complaint: ABDOMINAL PAIN LEFT SIDE Time Seen by Provider: 03/19/18 19:32 Notes: Patient is a 37 year old female that comes to the ED for chief complaint of abdominal pain that started last night. She states that it worsened today and became sharp, pain is still intermittent, she states occasionally it became sharp and she vomited. Pain is located in the left upper abdomen, she denies any lower abdominal pain. She denies hematemesis, she had a normal bowel movement a few hours ago, she denies flank pain, she denies fever or chills. Patient has had surgeries including hysterectomy, appendectomy, cholecystectomy , only home medication is for thyroid, previous frequent alcohol drinker, states she has not had any alcohol while, denies smoking or recreational drugs. TRAVEL OUTSIDE OF THE [place] IN LAST 30 DAYS: No - Related Data Allergies/Adverse Reactions: avocado [Avocado] Allergy (Severe, Verified 03/19/18 19:08) Anaphylaxis NSAIDS (Non-Steroidal Anti-Inflamma [Nsaids] Allergy (Verified 03/19/18 19:08) throat swelling pineapple [Pineapple] Allergy (Verified 03/19/18 19:08) Sulfa (Sulfonamide Antibiotics) Allergy (Verified 03/19/18 19:08) throat swelling tree nuts Allergy (Uncoded 03/19/18 19:08) Past Medical History - General Information source: Patient - Social History Smoking Status: Never Smoker Frequency of alcohol use: None Drug Abuse: None Lives with: Family Family History: DM, Hyperlipidemia, Hypertension, Thyroid Disfunction, Other - Epilepsy. denies: Arthritis, CAD, COPD, CVA, Malignancy Neurological Medical History: Reports: Hx Migraine Endocrine Medical History: Reports: Hx Hypothyroidism Renal/ Medical History: Denies: Hx Peritoneal Dialysis GI Medical History: Reports: Hx Gastritis Musculoskeltal Medical History: Reports Hx Musculoskeletal Deformity, Reports Hx Musculoskeletal Trauma Psychiatric Medical History: Reports: Hx Anxiety Traumatic Medical History: Reports: Hx Fractures - Elbow clavicle and ribs Past Surgical History: Reports: Hx Appendectomy - 2005, Hx Cholecystectomy - 2009, Hx Hysterectomy, Hx Thyroid Surgery - Thyroidectomy 2005 - Immunizations Immunizations up to date: Yes Hx Diphtheria, Pertussis, Tetanus Vaccination: Yes - 2010 Review of Systems - Review of Systems Constitutional: No symptoms reported EENT: No symptoms reported Cardiovascular: No symptoms reported Respiratory: No symptoms reported Gastrointestinal: See HPI Genitourinary: No symptoms reported Female Genitourinary: No symptoms reported Musculoskeletal: No symptoms reported Skin: No symptoms reported Hematologic/Lymphatic: No symptoms reported Neurological/Psychological: No symptoms reported Physical Exam - Vital signs Vitals: Temp Pulse Resp BP Pulse Ox 98.6 F 82 18 111/71 96 03/19/18 19:11 03/19/18 19:11 03/19/18 19:11 03/19/18 19:11 03/19/18 19:11 Interpretation: Normal - General General appearance: Appears well, Alert - HEENT Head: Normocephalic, Atraumatic Eyes: Normal Pupils: PERRL - Respiratory Respiratory status: No respiratory distress Chest status: Nontender Breath sounds: Normal Chest palpation: Normal - Cardiovascular Rhythm: Regular Heart sounds: Normal auscultation Murmur: No - Abdominal Inspection: Normal Distension: No distension Bowel sounds: Normal Tenderness: Tender - Left upper quadrant tenderness, epigastric, right upper quadrant, and lower abdomen benign. No: Guarding, Rebound Organomegaly: No organomegaly - Back Back: Normal, Nontender - Extremities General upper extremity: Normal inspection, Nontender, Normal color, Normal ROM , Normal temperature General lower extremity: Normal inspection, Nontender, Normal color, Normal ROM , Normal temperature, Normal weight bearing. No: Brennan's sign - Neurological Neuro grossly intact: Yes Cognition: Normal Orientation: AAOx4 [place] Coma Scale Eye Opening: Spontaneous [place] Coma Scale Verbal: Oriented [place] Coma Scale Motor: Obeys Commands Pietro Coma Scale Total: 15 Speech: Normal Motor strength normal: LUE, RUE, LLE, RLE Sensory: Normal - Psychological Associated symptoms: Normal affect, Normal mood - Skin Skin Temperature: Warm Skin Moisture: Dry Skin Color: Normal Course - Re-evaluation Re-evalutation: Patient with left upper quadrant tenderness on evaluation, no guarding, patient does not appear to be in any distress, remaining abdomen is benign. Vital signs unremarkable. CBC, chemistry, lipase unremarkable. Examination does not suggest acute abdomen , suspect this is gastritis. Patient treated with Pepcid, Carafate, patient was reevaluated, patient has had improvement, she is tolerating p.o. without any difficulty. Patient provided with medications, discussed follow-up, return precautions, treatment in detail. Patient states satisfaction and agreement. - Vital Signs Vital signs: Temp Pulse Resp BP Pulse Ox 98.6 F 80 16 105/70 98 03/19/18 19:11 03/20/18 00:21 03/20/18 00:21 03/20/18 00:21 03/20/18 00:21 - Laboratory Result Diagrams: 03/19/18 20:16 03/19/18 20:16 Laboratory results interpreted by me: 03/19/18 03/19/18 20:16 22:08 Est GFR (Non-Af Amer) 57 L Ur Leukocyte Esterase TRACE H Discharge - Discharge Clinical Impression: Left upper quadrant pain Condition: Stable Disposition: HOME, SELF-CARE Additional Instructions: Your laboratory workup does not show any concerning a normality's. Your symptoms and evaluation are most suggestive of gastritis, we are treating this with both Carafate and Pepcid, avoid alcohol, smoking, caffeine, spicy food. Start with bland diet. Follow-up with primary care for additional evaluation and management. Return if you worsen including vomiting, vomiting blood, black stools, severe pain, etc. Prescriptions: Famotidine [Pepcid 20 mg Tablet] 20 mg PO BID #20 tablet Sucralfate [Carafate 1 gm Tablet] 1 gm PO QID #40 tablet
[2018-03-19 20:35] LABS: ABSOLUTE EOSINOPHILS # (AUTO) 0.1 10^3/uL (0.0-0.6); ABSOLUTE LYMPHOCYTES (AUTO) 2.4 10^3/uL (0.5-4.7); ABSOLUTE MONOCYTES (AUTO) 0.4 10^3/uL (0.1-1.4); ABSOLUTE NEUT (AUTO) 3.9 10^3/uL (1.7-8.2); BASOPHILS % (AUTO) 0.6 % (0-2); EOSINOPHILS % (AUTO) 1.5 % (0-6); HEMOGLOBIN 12.7 g/dL (12.0-15.5); LYMPHOCYTES % (AUTO) 34.7 % (13-45); MEAN CORPUSCULAR HEMOGLOBIN 28.6 pg (27.0-33.4); MEAN CORPUSCULAR HGB CONC 33.3 g/dL (32.0-36.0); MEAN CORPUSCULAR VOLUME 86 fl (80-97); PLATELET COUNT 276 10^3/uL (150-450); RED BLOOD COUNT 4.42 10^6/uL (3.72-5.28); RED CELL DISTRIBUTION WIDTH 13.5 % (11.5-14.0); SEGMENTED NEUTROPHILS % (AUTO) 57.2 % (42-78); TOTAL CELLS COUNTED % (AUTO) 100 %; WHITE BLOOD COUNT 6.8 10^3/uL (4.0-10.5)
[2018-03-19 20:54] LABS: ALANINE AMINOTRANSFERASE 27 U/L (9-52); ALBUMIN 4.2 g/dL (3.5-5.0); ALKALINE PHOSPHATASE 65 U/L (38-126); ANION GAP 14 (5-19); ASPARTATE AMINO TRANSFERASE 29 U/L (14-36); BILIRUBIN,DIRECT 0.4 mg/dL (0.0-0.4); BILIRUBIN,TOTAL 0.4 mg/dL (0.2-1.3); BLOOD UREA NITROGEN 20 mg/dL (7-20); CALCIUM 9.5 mg/dL (8.4-10.2); CARBON DIOXIDE 25 mmol/L (22-30); CHLORIDE 106 mmol/L (98-107); GLUCOSE 107 mg/dL (75-110); LIPASE 67.1 U/L (23-300); POTASSIUM 3.7 mmol/L (3.6-5.0); SODIUM 144.8 mmol/L (137-145); TOTAL PROTEIN 7.6 g/dL (6.3-8.2)
[2018-03-19] MEDS ORDERED: SUCRALFATE 1 GM TABLET PO ONE (21:06)
[2018-03-19] MEDS ORDERED: FAMOTIDINE 20 MG TABLET PO ONE (21:06)
[2018-03-19 22:43] LABS: APPEARANCE,URINE CLEAR; BILIRUBIN,URINE NEGATIVE (NEGATIVE); COLOR,URINE YELLOW; GLUCOSE, URINE NEGATIVE (NEGATIVE); KETONES,URINE NEGATIVE (NEGATIVE); LEUKOCYTE ESTERASE,URINE TRACE (NEGATIVE); NITRITE,URINE NEGATIVE (NEGATIVE); PROTEIN,URINE NEGATIVE (NEGATIVE); URINE SPECIFIC GRAVITY 1.013; UROBILINOGEN,URINE NEGATIVE mg/dL (<2.0)
[2018-03-19] MEDS ORDERED: HYDROCODONE/ACETAMINOPHEN 5-325 MG (6 TAB/ER DISP) PO PRN (23:06)
[2018-03-20 00:21] VITALS: BP 105/70
== END 2018-03-20 00:07 | disposition home or self-care (01) ==
LOC: ER 19:06
DX: R10.12 Left upper quadrant pain (principal); R11.10 Vomiting, unspecified; Z88.2 Allergy status to sulfonamides; Z90.710 Acquired absence of both cervix and uterus
CPT/HCPCS: 99284; 96361; 96374; 96375; 36415; 83690; 85025; 80053; 81001; J2270; J2405; J7030

== ENCOUNTER 2018-03-27 13:38 | Emergency (ER) | payer SELFPAY ==
--- NOTE | 2018-03-27 14:40 | ER Document Report ---
ED Medical Screen (RME) - General Chief Complaint: Abdominal Pain Stated Complaint: ABDOMINAL PAIN,VOMITING Time Seen by Provider: 03/27/18 14:32 Notes: This 37-year-old female patient comes emergency room complaining of worsening left upper quadrant and left lateral abdomen pain. She is seen here 8 days ago , had a essentially negative workup at the time with normal CBC, Chem-12, lipase. She was felt to have most likely have gastritis. She states she has not had any alcohol to drink in over a year now. She woke up with nausea and vomiting and worsening pain this morning. Brief exam, she is obese, she is exquisitely tender in her left upper quadrant and left mid abdomen. I have greeted and performed a rapid initial assessment of this patient. A comprehensive ED assessment and evaluation of the patient, analysis of test results and completion of the medical decision making process will be conducted by additional ED providers. TRAVEL OUTSIDE OF THE [place] IN LAST 30 DAYS: No - Related Data Allergies/Adverse Reactions: avocado [Avocado] Allergy (Severe, Verified 03/27/18 14:31) Anaphylaxis NSAIDS (Non-Steroidal Anti-Inflamma [Nsaids] Allergy (Verified 03/27/18 14:31) throat swelling pineapple [Pineapple] Allergy (Verified 03/27/18 14:31) Sulfa (Sulfonamide Antibiotics) Allergy (Verified 03/27/18 14:31) throat swelling tree nuts Allergy (Uncoded 03/27/18 14:31) Past Medical History - Social History Chew tobacco use (# tins/day): No Frequency of alcohol use: None Drug Abuse: None Family history: Reviewed & Not Pertinent Neurological Medical History: Reports: Hx Migraine Endocrine Medical History: Reports: Hx Hypothyroidism Renal/ Medical History: Denies: Hx Peritoneal Dialysis GI Medical History: Reports: Hx Gastritis Musculoskeltal Medical History: Reports Hx Musculoskeletal Deformity, Reports Hx Musculoskeletal Trauma Psychiatric Medical History: Reports: Hx Anxiety Traumatic Medical History: Reports: Hx Fractures - Elbow clavicle and ribs Past Surgical History: Reports: Hx Appendectomy - 2005, Hx Cholecystectomy - 2009, Hx Hysterectomy, Hx Thyroid Surgery - Thyroidectomy 2005 - Immunizations Immunizations up to date: Yes Hx Diphtheria, Pertussis, Tetanus Vaccination: Yes - 2010 Physical Exam - Vital signs Vitals: Temp Pulse Resp BP Pulse Ox 98.6 F 93 16 127/77 H 97 03/27/18 13:42 03/27/18 13:42 03/27/18 13:42 03/27/18 13:42 03/27/18 13:42 Course - Vital Signs Vital signs: Temp Pulse Resp BP Pulse Ox 98.6 F 93 16 127/77 H 97 03/27/18 13:42 03/27/18 13:42 03/27/18 13:42 03/27/18 13:42 03/27/18 13:42
--- NOTE | 2018-03-27 15:40 | RADIOLOGY REPORT (SQ) ---
EXAM DESCRIPTION: CT LTD RENAL STONE PROTOCOL ON COMPLETED DATE/TIME: 03/27/2018 3:27 pm REASON FOR STUDY: LUQ and left abd pain COMPARISON: [id number]. TECHNIQUE: CT scan of the abdomen and pelvis performed without intravenous or oral contrast. Images reviewed with lung, soft tissue, and bone windows. Reconstructed coronal and sagittal MPR images revi ewed. All images stored on PACS. All CT scanners at this facility use dose modulation, iterative reconstruction, and/or weight based d osing when appropriate to reduce radiation dose to as low as reasonably achievable (ALARA). [facility]: Dose Right [facility]: CareDose [facility]: Dose Right [facility]: Teradose 4D [facility]: Smart Labtiva RADIATION DOSE: CT Rad equipment meets quality standard of care and radiation dose reduction techniq ues were employed. CTDIvol: 11.8 mGy. DLP: 638 mGy-cm.mGy. LIMITATIONS: None. FINDINGS: LOWER CHEST: No significant findings. No nodules or infiltrates. NON-CONTRASTED LIVER, SPLEEN, ADRENALS: Evaluation limited by lack of IV contrast. No identified sign ificant masses. PANCREAS: No masses. No peripancreatic inflammatory changes. GALLBLADDER: Surgically absent. RIGHT KIDNEY AND URETER: No solid masses. No significant calcification. No hydronephrosis or hydroure ter. LEFT KIDNEY AND URETER: No stones. Very slight fullness in the renal pelvis which is not seen before . No ureteral dilatation or perinephric stranding, however. AORTA AND RETROPERITONEUM: No aneurysm. No retroperitoneal masses or adenopathy. BOWEL AND PERITONEAL CAVITY: No obvious masses or inflammatory changes. No free fluid. APPENDIX: Surgically absent. PELVIS, BLADDER, AND ABDOMINAL WALL:No abnormal masses. No free fluid. Bladder normal. BONES: No significant findings. OTHER: No other significant finding. IMPRESSION: 1. New slight fullness in the left renal collecting system could reflect recently passe d stone (although no stones are noted on CT from November) or be related to urinary tract infection. Kidneys, ureters and bladder free of stones. 2. Otherwise unremarkable study. No acute or suspiciou s findings. TECHNICAL DOCUMENTATION: JOB ID: [id number] Quality ID # [id number]: Final reports with documentation of one or more dose reduction techniques (e.g., Au tomated exposure control, adjustment of the mA and/or kV according to patient size, use of iterative reconstruction technique) 2010 [employer]- All Rights Reserved Reading location - IP/workstation name: [email or web address]
[2018-03-27 15:48] LABS: ABSOLUTE EOSINOPHILS # (AUTO) 0.1 10^3/uL (0.0-0.6); ABSOLUTE LYMPHOCYTES (AUTO) 1.9 10^3/uL (0.5-4.7); ABSOLUTE MONOCYTES (AUTO) 0.4 10^3/uL (0.1-1.4); ABSOLUTE NEUT (AUTO) 4.9 10^3/uL (1.7-8.2); BASOPHILS % (AUTO) 0.3 % (0-2); EOSINOPHILS % (AUTO) 0.8 % (0-6); HEMOGLOBIN 13.4 g/dL (12.0-15.5); LYMPHOCYTES % (AUTO) 26.4 % (13-45); MEAN CORPUSCULAR HEMOGLOBIN 28.8 pg (27.0-33.4); MEAN CORPUSCULAR HGB CONC 33.5 g/dL (32.0-36.0); MEAN CORPUSCULAR VOLUME 86 fl (80-97); MONOCYTES % (AUTO) 5.5 % (3-13); PLATELET COUNT 284 10^3/uL (150-450); RED BLOOD COUNT 4.65 10^6/uL (3.72-5.28); RED CELL DISTRIBUTION WIDTH 13.4 % (11.5-14.0); TOTAL CELLS COUNTED % (AUTO) 100 %; WHITE BLOOD COUNT 7.4 10^3/uL (4.0-10.5)
[2018-03-27 16:03] LABS: ALANINE AMINOTRANSFERASE 134 U/L (9-52); ALBUMIN 4.3 g/dL (3.5-5.0); ALKALINE PHOSPHATASE 84 U/L (38-126); ANION GAP 15 (5-19); ASPARTATE AMINO TRANSFERASE 209 U/L (14-36); BILIRUBIN,DIRECT 0.3 mg/dL (0.0-0.4); BILIRUBIN,TOTAL 0.5 mg/dL (0.2-1.3); BLOOD UREA NITROGEN 14 mg/dL (7-20); CALCIUM 9.7 mg/dL (8.4-10.2); CARBON DIOXIDE 26 mmol/L (22-30); CHLORIDE 103 mmol/L (98-107); GLUCOSE 90 mg/dL (75-110); POTASSIUM 4.2 mmol/L (3.6-5.0); TOTAL PROTEIN 7.7 g/dL (6.3-8.2)
[2018-03-27 16:11] LABS: APPEARANCE,URINE CLEAR; BILIRUBIN,URINE NEGATIVE (NEGATIVE); COLOR,URINE YELLOW; GLUCOSE, URINE NEGATIVE (NEGATIVE); KETONES,URINE NEGATIVE (NEGATIVE); LEUKOCYTE ESTERASE,URINE NEGATIVE (NEGATIVE); NITRITE,URINE NEGATIVE (NEGATIVE); PROTEIN,URINE NEGATIVE (NEGATIVE); URINE SPECIFIC GRAVITY 1.023
[2018-03-27] MEDS ORDERED: ONDANSETRON 4 MG TAB.RAPDIS PO ONE (16:31)
[2018-03-27] MEDS ORDERED: HYDROMORPHONE HCL INJ/PF 2 MG/ML AMPULE IM ONE (16:31)
[2018-03-27] MEDS ORDERED: ONDANSETRON HCL INJ/PF 4 MG/2 ML SDV IV ONE (16:38)
[2018-03-27] MEDS ORDERED: HYDROMORPHONE HCL INJ/PF 2 MG/ML AMPULE IV ONE ×2 (16:38→19:58)
--- NOTE | 2018-03-27 17:09 | ER Document Report ---
ED General - General Chief Complaint: Abdominal Pain Stated Complaint: ABDOMINAL PAIN,VOMITING Time Seen by Provider: 03/27/18 14:32 Mode of Arrival: Ambulatory Information source: Patient Notes: 37-year-old female with no reported past medical history presents with complaint of left upper quadrant abdominal pain. Patient states that pain started 1 week prior to arrival. She was seen in the emergency department at that time and diagnosed with gastritis. She said she has been taking her Carafate since that time without relief. She also states that abdominal pain became worse today and she had multiple episodes of nonbloody nonbilious vomiting. Patient's last bowel movement was this morning. She denies any black or bloody stools. Patient denies any injury to the back, history of kidney stones, vaginal discharge, dysuria. Patient has had multiple visits for abdominal pain. She denies any alcohol use. TRAVEL OUTSIDE OF THE [place] IN LAST 30 DAYS: No - HPI Onset: Last week Onset/Duration: Gradual, Intermittent, Worse Quality of pain: Throbbing Severity: Mild Associated symptoms: Nausea, Vomiting. denies: Diarrhea Exacerbated by: Movement Relieved by: Remaining still Similar symptoms previously: Yes Recently seen / treated by doctor: Yes - Related Data Allergies/Adverse Reactions: avocado [Avocado] Allergy (Severe, Verified 03/27/18 14:31) Anaphylaxis NSAIDS (Non-Steroidal Anti-Inflamma [Nsaids] Allergy (Verified 03/27/18 14:31) throat swelling pineapple [Pineapple] Allergy (Verified 03/27/18 14:31) Sulfa (Sulfonamide Antibiotics) Allergy (Verified 03/27/18 14:31) throat swelling tree nuts Allergy (Uncoded 03/27/18 14:31) Past Medical History - General Information source: Patient, [facility] Records - Social History Smoking Status: Former Smoker Chew tobacco use (# tins/day): No Frequency of alcohol use: None Drug Abuse: None Family History: DM, Hyperlipidemia, Hypertension, Thyroid Disfunction, Other - Epilepsy. denies: Arthritis, CAD, COPD, CVA, Malignancy Patient has suicidal ideation: No Patient has homicidal ideation: No Neurological Medical History: Reports: Hx Migraine Endocrine Medical History: Reports: Hx Hypothyroidism Renal/ Medical History: Denies: Hx Peritoneal Dialysis GI Medical History: Reports: Hx Gastritis Musculoskeltal Medical History: Reports Hx Musculoskeletal Deformity, Reports Hx Musculoskeletal Trauma Psychiatric Medical History: Reports: Hx Anxiety Traumatic Medical History: Reports: Hx Fractures - Elbow clavicle and ribs Past Surgical History: Reports: Hx Appendectomy - 2005, Hx Cholecystectomy - 2009, Hx Hysterectomy, Hx Thyroid Surgery - Thyroidectomy 2005 - Immunizations Immunizations up to date: Yes Hx Diphtheria, Pertussis, Tetanus Vaccination: Yes - 2010 Review of Systems - Review of Systems Notes: Patient denies fever, chills, nausea, vomiting, headache, ear pain, sore throat , cough, chest pain, shortness of breath, back pain, dysuria, hematuria, vaginal discharge rash, SI/HI. Physical Exam - Vital signs Vitals: Temp Pulse Resp BP Pulse Ox 98.6 F 93 16 127/77 H 97 03/27/18 13:42 03/27/18 13:42 03/27/18 13:42 03/27/18 13:42 03/27/18 13:42 Interpretation: Normal. No: Tachycardic, Febrile - Notes Notes: PHYSICAL EXAMINATION: GENERAL: Well-appearing, well-nourished and in no acute distress. HEAD: Atraumatic, normocephalic. EYES: Pupils equal round and reactive to light, extraocular movements intact, conjunctiva are normal. ENT: Nares patent, oropharynx clear without exudates. Moist mucous membranes. NECK: Normal range of motion, supple without lymphadenopathy LUNGS: Breath sounds clear to auscultation bilaterally and equal. No wheezes rales or rhonchi. HEART: Regular rate and rhythm without murmurs ABDOMEN: Diffuse abdominal tenderness. No guarding, no rebound. No masses appreciated. Female : deferred Musculoskeletal: Normal range of motion, no pitting or edema. No cyanosis. NEUROLOGICAL: Cranial nerves grossly intact. Normal speech, normal gait. Normal sensory, motor exams PSYCH: Normal mood, normal affect. SKIN: Warm, Dry, normal turgor, no rashes or lesions noted. Course - Re-evaluation Re-evalutation: Laboratory 03/27/18 03/27/18 03/27/18 15:00 15:00 15:00 WBC 7.4 RBC 4.65 Hgb 13.4 Hct 40.0 MCV 86 MCH 28.8 MCHC 33.5 RDW 13.4 Plt Count 284 Seg Neutrophils % 67.0 Lymphocytes % 26.4 Monocytes % 5.5 Eosinophils % 0.8 Basophils % 0.3 Absolute Neutrophils 4.9 Absolute Lymphocytes 1.9 Absolute Monocytes 0.4 Absolute Eosinophils 0.1 Absolute Basophils 0.0 Sodium 144.0 Potassium 4.2 Chloride 103 Carbon Dioxide 26 Anion Gap 15 BUN 14 Creatinine 0.92 Est GFR ( Amer) > 60 Est GFR (Non-Af Amer) > 60 Glucose 90 Calcium 9.7 Total Bilirubin 0.5 Direct Bilirubin 0.3 Neonat Total Bilirubin Not Reportable Neonat Direct Bilirubin Not Reportable Neonat Indirect Bili Not Reportable AST 209 H ALT 134 H Alkaline Phosphatase 84 Total Protein 7.7 Albumin 4.3 Lipase 83.0 Urine Color YELLOW Urine Appearance CLEAR Urine pH 5.0 Ur Specific [place] 1.023 Urine Protein NEGATIVE Urine Glucose (UA) NEGATIVE Urine Ketones NEGATIVE Urine Blood NEGATIVE Urine Nitrite NEGATIVE Urine Bilirubin NEGATIVE Urine Urobilinogen 4.0 H Ur Leukocyte Esterase NEGATIVE Urine WBC (Auto) 2 Urine RBC (Auto) 2 Squamous Epi Cells Auto 1 Urine Mucus (Auto) OCC Urine Ascorbic Acid NEGATIVE Abdomen/Pelvis CT 03/27/18 00:00 IMPRESSION: Gradual increase in size of the low-density mass in the spleen since 2011. Now measures 1.2 cm. Possibly cyst. No acute intra-abdominal process. Limited or Localized CT 03/27/18 14:40 IMPRESSION: 1. New slight fullness in the left renal collecting system could reflect recently passed stone (although no stones are noted on CT from November) or be related to urinary tract infection. Kidneys, ureters and bladder free of stones. 2. Otherwise unremarkable study. No acute or suspicious findings. 03/27/18 20:20 37-year-old female with no reported past medical history presents with complaint of left upper quadrant abdominal pain. Patient states that pain started 1 week prior to arrival. She was seen in the emergency department at that time and diagnosed with gastritis. She said she has been taking her Carafate since that time without relief. She also states that abdominal pain became worse today and she had multiple episodes of nonbloody nonbilious vomiting. Patient's last bowel movement was this morning. She denies any black or bloody stools. Patient denies any injury to the back, history of kidney stones, vaginal discharge, dysuria. Patient has had multiple visits for abdominal pain. She denies any alcohol use. Patient was seen by myself upon arrival. Vital signs were reviewed. Patient is afebrile, normotensive and not hypoxic. Patient does not appear toxic or dehydrated. They are in no acute distress. Previous medical records and nursing notes reviewed. Significant findings include significant abdominal pain with palpation to the left upper quadrant and left flank. CT of the abdomen and pelvis shows new slight fullness of the left renal collecting system, and a gradual increase in size of a nodule on the spleen now measuring 1.2 cm. Patient has no significant laboratory findings. She has had more than 15 CAT scans. I did discuss the risk of cancer if she continues to undergo CAT scan imaging. Patient has had no vomiting during her ED course. She has an upcoming appointment with her primary care physician Dr. Jolley on April 08. report of her imaging today will be provided to the patient. A prescription for Zofran will be provided. 03/28/18 19:05 - Vital Signs Vital signs: Temp Pulse Resp BP Pulse Ox 98.6 F 77 16 119/70 96 03/27/18 13:42 03/27/18 21:09 03/27/18 21:09 03/27/18 21:09 03/27/18 21:09 - Laboratory Result Diagrams: 03/27/18 15:00 03/27/18 15:00 Laboratory results interpreted by me: 03/27/18 03/27/18 15:00 15:00 AST 209 H ALT 134 H Urine Urobilinogen 4.0 H - Diagnostic Test Radiology reviewed: Image reviewed, Reports reviewed Discharge - Discharge Clinical Impression: Abdominal pain Qualifiers: Abdominal location: left upper quadrant Qualified Code(s): R10.12 - Left upper quadrant pain Condition: Good Disposition: HOME, SELF-CARE Instructions: Abdominal Pain ([facility]) Additional Instructions: Follow up with your physician tomorrow for further care or return to the ED IMMEDIATELY if symptoms worsen or new concerns occur. If you cannot afford to follow up with your primary care physician a list of low cost clinics have been provided at the end of your discharge papers as well.After performing a Medical Screening Examination, I estimate there is LOW risk for ACUTE APPENDICITIS, BOWEL OBSTRUCTION, ACUTE CHOLECYSTITIS, PERFORATED DIVERTICULITIS, INCARCERATED HERNIA, PANCREATITIS, PERFORATED ULCER, TUBO-OVARIAN ABSCESS, thus I consider the discharge disposition reasonable. Also, there is no evidence or peritonitis , sepsis, or toxicity. I have reevaluated this patient multiple times and no significant life threatening changes are noted. The patient and I have discussed the diagnosis and risks, and we agree with discharging home with close follow-up with the understanding that symptoms and presentations can change. We also discussed returning to the Emergency Department immediately if new or worsening symptoms occur. We have discussed the symptoms which are most concerning (e.g., bloody stool, fever, changing or worsening pain, vomiting) that necessitate immediate return. Prescriptions: Promethazine HCl 25 mg PO Q8H PRN #12 tablet PRN Reason: For Nausea/Vomiting Forms: Return to Work Referrals: RANDA JOLLEY MD [HONORARY] - 04/08/18
[2018-03-27] MEDS ORDERED: PROMETHAZINE HCL INJ 25 MG/1 ML VIAL IV ONE (19:58)
[2018-03-27] MEDS ORDERED: MAG HYDROX/AL HYDROX/SIMETH SUSP 30 ML UDCUP PO ONE (19:59)
[2018-03-27] MEDS ORDERED: METOCLOPRAMIDE HCL ORAL SOLN 10 MG/10 ML UDCUP PO ONE (19:59)
[2018-03-27] MEDS ORDERED: LIDOCAINE 2% VISCOUS SOLN 20 ML UDCUP PO ONE (19:59)
--- NOTE | 2018-03-27 20:00 | RADIOLOGY REPORT (SQ) ---
EXAM DESCRIPTION: CT ABD/PELVIS WITH IV ORAL COMPLETED DATE/TIME: 03/27/2018 7:44 pm REASON FOR STUDY: luq pain COMPARISON: 2011, 2012, 2013, 2016 x 2, 12/03/2017 TECHNIQUE: CT scan of the abdomen and pelvis performed using helical scanning technique with dynamic intravenous contrast injection. With oral contrast. Images reviewed with lung, soft tissue, and bon e windows. Reconstructed coronal and sagittal MPR images reviewed. Delayed images for evaluation of t he urinary system also acquired. All images stored on PACS. All CT scanners at this facility use dose modulation, iterative reconstruction, and/or weight based d osing when appropriate to reduce radiation dose to as low as reasonably achievable (ALARA). [facility]: Dose Right [facility]: CareDose [facility]: Dose Right [facility]: Teradose 4D [facility]: ROBLOX CONTRAST TYPE AND DOSE: contrast/concentration: Isovue 370.00 mg/ml; Total Contrast Delivered: 90.0 ml; Total Saline Delivered: 70.1 ml RENAL FUNCTION: None required. The patient is less than 50 years old. RADIATION DOSE: CT Rad equipment meets quality standard of care and radiation dose reduction techniq ues were employed. CTDIvol: 12.6 - 16.6 mGy. DLP: 1579 mGy-cm.. LIMITATIONS: None. FINDINGS: LOWER CHEST: No significant findings. No nodules or infiltrates. LIVER: Normal size. No masses. No dilated ducts. SPLEEN: There is small low-density lesion in the spleen. Is gradually increased in size since 2012. Now measures 1.2 cm. PANCREAS: No masses. No significant calcifications. No adjacent inflammation or peripancreatic fluid collections. Pancreatic duct not dilated. GALLBLADDER: Surgically absent. ADRENAL GLANDS: No significant masses or asymmetry. RIGHT KIDNEY AND URETER: No solid masses. No significant calcifications. No hydronephrosis or hyd roureter. LEFT KIDNEY AND URETER: No solid masses. No significant calcifications. No hydronephrosis or hydr oureter. AORTA AND VESSELS: No aneurysm. No dissection. Renal arteries, SMA, celiac without stenosis. RETROPERITONEUM: No retroperitoneal adenopathy, hemorrhage or masses. BOWEL AND PERITONEAL CAVITY: No masses or inflammatory changes. No free fluid or peritoneal masses. APPENDIX: Surgically absent. PELVIS: No mass. No free fluid. Normal bladder. ABDOMINAL WALL: No masses. No hernias. BONES: No significant or acute findings. OTHER: No other significant finding. IMPRESSION: Gradual increase in size of the low-density mass in the spleen since 2011. Now measures 1.2 cm. Possibly cyst. No acute intra-abdominal process. TECHNICAL DOCUMENTATION: JOB ID: [id number] Quality ID # [id number]: Final reports with documentation of one or more dose reduction techniques (e.g., Au tomated exposure control, adjustment of the mA and/or kV according to patient size, use of iterative reconstruction technique) 2010 [employer]- All Rights Reserved Reading location - IP/workstation name: [email or web address]
[2018-03-27 21:10] VITALS: BP 119/70
== END 2018-03-27 21:08 | disposition home or self-care (01) ==
LOC: ER 13:38
DX: R10.12 Left upper quadrant pain (principal); R11.10 Vomiting, unspecified; Z87.891 Personal history of nicotine dependence
CPT/HCPCS: 96376; 99284; 96374; 96375; 36415; 83690; 85025; 80053; 81001; 76380; 74177; J3490; J1170; J2550; J2405

== ENCOUNTER → 2018-04-08 | Outpatient (CLI) | payer MEDICAID, OTHER | LOC: OD 15:33 | DX: E03.9 Hypothyroidism, unspecified (principal) | CPT/HCPCS: 36415; 84443 ==

== ENCOUNTER 2018-05-14 22:52 | Emergency (ER) | payer SELFPAY ==
[2018-05-15] MEDS ORDERED: FENTANYL CITRATE INJ/PF 100 MCG/2 ML AMPUL IV ONE (00:51)
--- NOTE | 2018-05-15 00:52 | ER Document Report ---
ED General - General Chief Complaint: Abdominal Pain Stated Complaint: UPPER LEFT BELLY PAIN,VOMITING Time Seen by Provider: 05/15/18 00:11 Notes: 38-year-old female to the emergency department complaining of left upper quadrant pain. Chronic problem. Has been seen multiple times for left upper quadrant abdominal pain. No fever, chills, sweats. No vomiting. Has had multiple CT scans which revealed a cyst in her spleen. Has not seen a specialist. Denies any change in bowel or bladder function. TRAVEL OUTSIDE OF THE [place] IN LAST 30 DAYS: No - HPI Onset/Duration: Gradual, Constant Quality of pain: Achy Severity: Moderate Pain Level: 3 - Related Data Allergies/Adverse Reactions: avocado [Avocado] Allergy (Severe, Verified 03/27/18 14:31) Anaphylaxis NSAIDS (Non-Steroidal Anti-Inflamma [Nsaids] Allergy (Verified 03/27/18 14:31) throat swelling pineapple [Pineapple] Allergy (Verified 03/27/18 14:31) Sulfa (Sulfonamide Antibiotics) Allergy (Verified 03/27/18 14:31) throat swelling tree nuts Allergy (Uncoded 03/27/18 14:31) Past Medical History - General Information source: Patient - Social History Smoking Status: Former Smoker Chew tobacco use (# tins/day): No Frequency of alcohol use: None Drug Abuse: None Lives with: Spouse/Significant other Family History: DM, Hyperlipidemia, Hypertension, Thyroid Disfunction, Other - Epilepsy. denies: Arthritis, CAD, COPD, CVA, Malignancy Patient has suicidal ideation: No Patient has homicidal ideation: No Neurological Medical History: Reports: Hx Migraine Endocrine Medical History: Reports: Hx Hypothyroidism Renal/ Medical History: Denies: Hx Peritoneal Dialysis GI Medical History: Reports: Hx Gastritis Musculoskeltal Medical History: Reports Hx Musculoskeletal Deformity, Reports Hx Musculoskeletal Trauma Psychiatric Medical History: Reports: Hx Anxiety Traumatic Medical History: Reports: Hx Fractures - Elbow clavicle and ribs Past Surgical History: Reports: Hx Appendectomy - 2005, Hx Cholecystectomy - 2009, Hx Hysterectomy, Hx Thyroid Surgery - Thyroidectomy 2005 - Immunizations Immunizations up to date: Yes Hx Diphtheria, Pertussis, Tetanus Vaccination: Yes - 2010 Review of Systems - Review of Systems Constitutional: No symptoms reported EENT: No symptoms reported Cardiovascular: No symptoms reported Respiratory: No symptoms reported Gastrointestinal: Abdominal pain. denies: Diarrhea, Nausea, Vomiting Genitourinary: No symptoms reported Female Genitourinary: No symptoms reported Musculoskeletal: No symptoms reported Skin: No symptoms reported Hematologic/Lymphatic: No symptoms reported Neurological/Psychological: No symptoms reported Physical Exam - Vital signs Vitals: Temp Pulse Resp BP Pulse Ox 98.7 F 68 18 113/76 97 05/14/18 22:56 05/14/18 22:56 05/14/18 22:56 05/14/18 22:56 05/14/18 22:56 Interpretation: Normal - General General appearance: Appears well, Alert - HEENT Head: Normocephalic, Atraumatic Eyes: Normal Pupils: PERRL - Respiratory Respiratory status: No respiratory distress Chest status: Nontender Breath sounds: Normal Chest palpation: Normal - Cardiovascular Rhythm: Regular Heart sounds: Normal auscultation Murmur: No - Abdominal Inspection: Normal Distension: No distension Bowel sounds: Normal Tenderness: Tender, Other - Wall tenderness in the left upper quadrant. No splenomegaly. No obvious masses. Organomegaly: No organomegaly - Back Back: Normal, Nontender - Extremities General upper extremity: Normal inspection, Nontender, Normal color, Normal ROM , Normal temperature General lower extremity: Normal inspection, Nontender, Normal color, Normal ROM , Normal temperature, Normal weight bearing. No: Brennan's sign - Neurological Neuro grossly intact: Yes Cognition: Normal Orientation: AAOx4 [place] Coma Scale Eye Opening: Spontaneous [place] Coma Scale Verbal: Oriented [place] Coma Scale Motor: Obeys Commands [place] Coma Scale Total: 15 Speech: Normal Motor strength normal: LUE, RUE, LLE, RLE Sensory: Normal - Psychological Associated symptoms: Normal affect, Normal mood - Skin Skin Temperature: Warm Skin Moisture: Dry Skin Color: Normal Course - Re-evaluation Re-evalutation: 05/15/18 03:30 Patient has had multiple CT scans. I have done a conference for review of the records. Has had approximately 12-13 CAT scans. Do not feel compelled at this time to order CT scan. Ordered ultrasound of the left upper quadrant just to look for free fluid or significant pathology. Ultrasound was negative. Labs are completely normal. I have sat down and explained to the patient that she needs to see a surgeon for possible evaluation of splenic operation versus colonoscopy versus other pathology. Patient may also benefit from seeing a plate painter apprentice. I have given patient a shot of fentanyl and have discharged her with a small supply of some pain medication. I have explained to her that she will need to follow-up with her regular doctor. We will discharge at this time in stable condition. - Vital Signs Vital signs: Temp Pulse Resp BP Pulse Ox 98.7 F 68 18 113/76 97 05/14/18 22:56 05/14/18 22:56 05/14/18 22:56 05/14/18 22:56 05/14/18 22:56 - Laboratory Result Diagrams: 05/15/18 01:10 05/15/18 01:10 Laboratory results interpreted by me: 05/15/18 01:10 Chloride 109 H Discharge - Discharge Clinical Impression: Left upper quadrant abdominal pain of unknown etiology Condition: Good Disposition: HOME, SELF-CARE Instructions: Abdominal Pain ([facility]), Oral Narcotic Medication ([facility]) Additional Instructions: Uncertain clear etiology of your pain. You do have known cyst on your spleen which has gotten larger but the ultrasound performed today is unremarkable for any acute pathology. You have had multiple CAT scans. Please follow-up with a surgeon as you may need some sort of operative intervention. Return for any worsening symptoms or concerns. Referrals: [facility] [Primary Care Provider] - Follow up as needed PAVEL VU MD [ACTIVE STAFF] - Follow up in 1 week
[2018-05-15 01:19] LABS: ABSOLUTE BASOPHILS # (AUTO) 0.1 10^3/uL (0.0-0.2); ABSOLUTE EOSINOPHILS # (AUTO) 0.1 10^3/uL (0.0-0.6); ABSOLUTE MONOCYTES (AUTO) 0.4 10^3/uL (0.1-1.4); ABSOLUTE NEUT (AUTO) 3.4 10^3/uL (1.7-8.2); BASOPHILS % (AUTO) 0.7 % (0-2); EOSINOPHILS % (AUTO) 1.7 % (0-6); HEMATOCRIT 39.7 % (36.0-47.0); HEMOGLOBIN 13.5 g/dL (12.0-15.5); LYMPHOCYTES % (AUTO) 43.2 % (13-45); MEAN CORPUSCULAR HEMOGLOBIN 29.3 pg (27.0-33.4); MEAN CORPUSCULAR VOLUME 86 fl (80-97); MONOCYTES % (AUTO) 5.3 % (3-13); PLATELET COUNT 277 10^3/uL (150-450); RED BLOOD COUNT 4.61 10^6/uL (3.72-5.28); RED CELL DISTRIBUTION WIDTH 13.5 % (11.5-14.0); SEGMENTED NEUTROPHILS % (AUTO) 49.1 % (42-78); TOTAL CELLS COUNTED % (AUTO) 100 %; WHITE BLOOD COUNT 6.9 10^3/uL (4.0-10.5)
[2018-05-15 02:05] LABS: ALANINE AMINOTRANSFERASE 27 U/L (9-52); ALBUMIN 4.3 g/dL (3.5-5.0); ALKALINE PHOSPHATASE 75 U/L (38-126); ANION GAP 12 (5-19); ASPARTATE AMINO TRANSFERASE 31 U/L (14-36); BILIRUBIN,DIRECT 0.4 mg/dL (0.0-0.4); BILIRUBIN,TOTAL 0.5 mg/dL (0.2-1.3); BLOOD UREA NITROGEN 15 mg/dL (7-20); CALCIUM 9.8 mg/dL (8.4-10.2); CARBON DIOXIDE 23 mmol/L (22-30); CHLORIDE 109 mmol/L (98-107); GLUCOSE 98 mg/dL (75-110); POTASSIUM 3.9 mmol/L (3.6-5.0); SODIUM 144.4 mmol/L (137-145); TOTAL PROTEIN 7.7 g/dL (6.3-8.2)
--- NOTE | 2018-05-15 02:11 | RADIOLOGY REPORT (SQ) ---
EXAM DESCRIPTION: XR ABDOMEN 3 VIEWS COMPLETED DATE/TME: 05/15/2018 00:51 CLINICAL HISTORY: 38 years Female, spleenic pain, hx of spleenic cyst Comparison: CT, March 27, 2018 LIMITATIONS: Bowel gas artifact. FINDINGS: Cholecystectomy, moderate hepatic steatosis, a 0.5-cm diameter common bile duct, no intrahepatic ductal dilation, 1.0 cm echogenicity likely benign splenic cyst, 10-cm right kidney, 10-cm left kidney, obscured pancreas, visualized vasculature/abdominal aorta, and no significant ascites appear otherwise unremarkable. IMPRESSION: No acute findings. Cholecystectomy.
[2018-05-15] MEDS ORDERED: HYDROCODONE/ACETAMINOPHEN 5-325 MG (6 TAB/ER DISP) PO PRN (03:03)
[2018-05-15 03:32] VITALS: BP 111/64
== END 2018-05-15 03:32 | disposition home or self-care (01) ==
LOC: ER 22:52
DX: R10.12 Left upper quadrant pain (principal); D73.4 Cyst of spleen; Z88.2 Allergy status to sulfonamides; Z88.8 Allergy status to other drugs, medicaments and biological substances; Z87.892 Personal history of anaphylaxis; Z91.018 Allergy to other foods; Z87.891 Personal history of nicotine dependence; Z90.49 Acquired absence of other specified parts of digestive tract
CPT/HCPCS: 99284; 96374; 36415; 83690; 85025; 80053; 76700; J3010

== ENCOUNTER 2018-05-26 03:54 | Emergency (ER) | payer SELFPAY ==
[2018-05-26 05:33] LABS: APPEARANCE,URINE CLEAR; BILIRUBIN,URINE NEGATIVE (NEGATIVE); COLOR,URINE STRAW; GLUCOSE, URINE NEGATIVE (NEGATIVE); KETONES,URINE NEGATIVE (NEGATIVE); LEUKOCYTE ESTERASE,URINE NEGATIVE (NEGATIVE); NITRITE,URINE NEGATIVE (NEGATIVE); PROTEIN,URINE NEGATIVE (NEGATIVE); URINE SPECIFIC GRAVITY 1.008; UROBILINOGEN,URINE NEGATIVE mg/dL (<2.0)
[2018-05-26] MEDS ORDERED: FENTANYL CITRATE INJ/PF 100 MCG/2 ML AMPUL IM ONE (06:16)
[2018-05-26] MEDS ORDERED: ONDANSETRON 4 MG TAB.RAPDIS PO ONE (06:17)
--- NOTE | 2018-05-26 06:18 | ER Document Report ---
ED General - General Chief Complaint: Abdominal Pain Stated Complaint: ABDOMINAL PAIN Time Seen by Provider: 05/26/18 06:09 Information source: Patient Notes: 38-year-old female presents emergency department with complaints of epigastric and left upper quadrant abdominal pain has been present for the last 3 months. Patient states that it is a sharp and stabbing sensation. No radiation. No alleviating or exacerbating factors. Patient states that she was seen in the emergency department for this pain and diagnosed with a splenic cyst. She is followed up outpatient with her primary care physician. She states that she had additional blood work done but does not know the results of those tests. Patient states that she was also referred to general surgeon. She has not seen a general surgeon yet. Patient denies any nausea, vomiting, diarrhea, constipation. Patient states that she is able to consume food and fluids. TRAVEL OUTSIDE OF THE [place] IN LAST 30 DAYS: No - HPI Onset: Other - 2 weeks Onset/Duration: Intermittent Quality of pain: Sharp, Stabbing, Throbbing Pain Level: 3 Associated symptoms: None Exacerbated by: Denies Relieved by: Denies Similar symptoms previously: Yes Recently seen / treated by doctor: Yes - Related Data Allergies/Adverse Reactions: avocado [Avocado] Allergy (Severe, Verified 03/27/18 14:31) Anaphylaxis NSAIDS (Non-Steroidal Anti-Inflamma [Nsaids] Allergy (Verified 03/27/18 14:31) throat swelling pineapple [Pineapple] Allergy (Verified 03/27/18 14:31) Sulfa (Sulfonamide Antibiotics) Allergy (Verified 03/27/18 14:31) throat swelling tree nuts Allergy (Uncoded 03/27/18 14:31) Past Medical History - Social History Smoking Status: Former Smoker Chew tobacco use (# tins/day): No Frequency of alcohol use: None Drug Abuse: None Family History: DM, Hyperlipidemia, Hypertension, Thyroid Disfunction, Other - Epilepsy. denies: Arthritis, CAD, COPD, CVA, Malignancy Patient has suicidal ideation: No Patient has homicidal ideation: No Neurological Medical History: Reports: Hx Migraine Endocrine Medical History: Reports: Hx Hypothyroidism Renal/ Medical History: Denies: Hx Peritoneal Dialysis GI Medical History: Reports: Hx Gastritis Musculoskeltal Medical History: Reports Hx Musculoskeletal Deformity, Reports Hx Musculoskeletal Trauma Psychiatric Medical History: Reports: Hx Anxiety Traumatic Medical History: Reports: Hx Fractures - Elbow clavicle and ribs Past Surgical History: Reports: Hx Appendectomy - 2005, Hx Cholecystectomy - 2009, Hx Hysterectomy, Hx Thyroid Surgery - Thyroidectomy 2005 - Immunizations Immunizations up to date: Yes Hx Diphtheria, Pertussis, Tetanus Vaccination: Yes - 2010 Review of Systems - Review of Systems Constitutional: No symptoms reported EENT: No symptoms reported Cardiovascular: No symptoms reported Respiratory: No symptoms reported Gastrointestinal: Abdominal pain Genitourinary: No symptoms reported Female Genitourinary: No symptoms reported Musculoskeletal: No symptoms reported Skin: No symptoms reported Hematologic/Lymphatic: No symptoms reported Neurological/Psychological: No symptoms reported -: Yes All other systems reviewed and negative Physical Exam - Vital signs Vitals: Temp Pulse Resp BP Pulse Ox 97.7 F 70 18 106/71 98 05/26/18 04:17 05/26/18 04:17 05/26/18 04:17 05/26/18 04:05/26/18 04:17 Interpretation: Normal - Notes Notes: PHYSICAL EXAMINATION: GENERAL: Well-appearing, well-nourished and in no acute distress. HEAD: Atraumatic, normocephalic. EYES: Pupils equal round and reactive to light, extraocular movements intact, conjunctiva are normal. ENT: Nares patent, oropharynx clear without exudates. Moist mucous membranes. NECK: Normal range of motion, supple without lymphadenopathy LUNGS: Breath sounds clear to auscultation bilaterally and equal. No wheezes rales or rhonchi. HEART: Regular rate and rhythm without murmurs ABDOMEN: Soft, tenderness to palpation in the epigastric and left upper quadrant area. No guarding, no rebound. No masses appreciated. Female : deferred Musculoskeletal: Normal range of motion, no pitting or edema. No cyanosis. NEUROLOGICAL: Cranial nerves grossly intact. Normal speech, normal gait. Normal sensory, motor exams PSYCH: Normal mood, normal affect. SKIN: Warm, Dry, normal turgor, no rashes or lesions noted. Course - Re-evaluation Re-evalutation: 05/26/18 07:57 Labs done and are within normal limits. XR obtained. LUQ borderline, non- specific, dilated small bowel loops appreciated by the radiologist. Patient re- evaluated. Currently symptom free. No abdominal tenderness to palpation. Denies pain, nausea, vomiting. I discussed the results with the patient. I told her we could order a CT scan to evaluate the dilated small bowel loops. Patient says that she feels better and doesn't want exposed to the radiation. I told her to continue following up with her primary care physician, to schedule the appointment with the general surgeon as directed, and to return for worsening symptoms. Patient is agreeable with the plan of care. 05/26/18 08:05 - Vital Signs Vital signs: Temp Pulse Resp BP Pulse Ox 97.7 F 70 18 106/71 98 05/26/18 04:17 05/26/18 04:17 05/26/18 04:17 05/26/18 04:17 05/26/18 04:17 - Laboratory Result Diagrams: 05/26/18 06:20 05/26/18 06:20 Laboratory results interpreted by me: 05/26/18 05/26/18 05:13 06:20 Sodium 145.5 H Urine Ascorbic Acid 20 H Discharge - Discharge Clinical Impression: Left upper quadrant pain Condition: Good Disposition: HOME, SELF-CARE Instructions: Abdominal Pain ([facility]), Antinausea Medication ([facility]) Prescriptions: Ondansetron [Zofran Odt 4 mg Tablet] 1 - 2 tab PO Q4H PRN #15 tab.rapdis PRN Reason: For Nausea/Vomiting Referrals: FELICITY BARRIOS MD [[facility]] - Follow up as needed JT MORRIS MD [[facility]] - Follow up as needed
[2018-05-26 06:36] LABS: ABSOLUTE EOSINOPHILS # (AUTO) 0.1 10^3/uL (0.0-0.6); ABSOLUTE LYMPHOCYTES (AUTO) 2.3 10^3/uL (0.5-4.7); ABSOLUTE MONOCYTES (AUTO) 0.4 10^3/uL (0.1-1.4); BASOPHILS % (AUTO) 0.6 % (0-2); EOSINOPHILS % (AUTO) 1.6 % (0-6); HEMATOCRIT 38.3 % (36.0-47.0); HEMOGLOBIN 13.2 g/dL (12.0-15.5); LYMPHOCYTES % (AUTO) 39.4 % (13-45); MEAN CORPUSCULAR HEMOGLOBIN 29.5 pg (27.0-33.4); MEAN CORPUSCULAR HGB CONC 34.4 g/dL (32.0-36.0); MEAN CORPUSCULAR VOLUME 86 fl (80-97); MONOCYTES % (AUTO) 6.2 % (3-13); PLATELET COUNT 269 10^3/uL (150-450); RED BLOOD COUNT 4.47 10^6/uL (3.72-5.28); RED CELL DISTRIBUTION WIDTH 13.1 % (11.5-14.0); SEGMENTED NEUTROPHILS % (AUTO) 52.2 % (42-78); TOTAL CELLS COUNTED % (AUTO) 100 %; WHITE BLOOD COUNT 5.7 10^3/uL (4.0-10.5)
[2018-05-26 06:51] LABS: ALANINE AMINOTRANSFERASE 35 U/L (9-52); ALBUMIN 4.2 g/dL (3.5-5.0); ALKALINE PHOSPHATASE 66 U/L (38-126); ANION GAP 13 (5-19); ASPARTATE AMINO TRANSFERASE 22 U/L (14-36); BILIRUBIN,DIRECT 0.3 mg/dL (0.0-0.4); BILIRUBIN,TOTAL 0.7 mg/dL (0.2-1.3); BLOOD UREA NITROGEN 12 mg/dL (7-20); CALCIUM 9.7 mg/dL (8.4-10.2); CARBON DIOXIDE 26 mmol/L (22-30); CHLORIDE 107 mmol/L (98-107); GLUCOSE 97 mg/dL (75-110); POTASSIUM 4.2 mmol/L (3.6-5.0); SODIUM 145.5 mmol/L (137-145); TOTAL PROTEIN 7.3 g/dL (6.3-8.2)
--- NOTE | 2018-05-26 07:38 | RADIOLOGY REPORT (SQ) ---
EXAM DESCRIPTION: ACUTE ABDOMEN SERIES COMPLETED DATE/TIME: 05/26/2018 7:24 am REASON FOR STUDY: epigastric abdominal pain COMPARISON: None. NUMBER OF VIEWS: Three views. TECHNIQUE: Frontal chest, supine abdomen and upright abdomen radiographic images acquired. LIMITATIONS: None. FINDINGS: CHEST: Lungs clear of infiltrates. No pleural effusion. No pneumothorax. Cardiac silhou ette size, mellisa, bony structures unremarkable. FREE AIR: None. No abnormal gas collections. BOWEL GAS PATTERN: Moderate stool in the colon. 2 borderline dilated small bowel loops are seen in t he left upper quadrant, abnormal but nonspecific bowel gas pattern. CALCIFICATIONS: No suspicious calcifications. HARDWARE: None in the abdomen. SOFT TISSUES: No gross mass or suggestion of organomegaly. BONES: No acute fracture. No worrisome bone lesions. OTHER: No other significant finding. IMPRESSION: No acute infiltrates. No free subdiaphragmatic air. Moderate stool in the colon. Left upper quadrant air-filled nonspecific dilated small bowel loops TECHNICAL DOCUMENTATION: JOB ID: [id number] [employer]- All Rights Reserved Reading location - IP/workstation name: [email or web address]
[2018-05-26 08:28] VITALS: BP 104/65
== END 2018-05-26 08:26 | disposition home or self-care (01) ==
LOC: ER 03:54
DX: K56.2 Volvulus (principal); R10.12 Left upper quadrant pain; R10.13 Epigastric pain; Z87.891 Personal history of nicotine dependence; Z88.8 Allergy status to other drugs, medicaments and biological substances; Z88.2 Allergy status to sulfonamides; Z87.892 Personal history of anaphylaxis; Z91.018 Allergy to other foods; Z87.19 Personal history of other diseases of the digestive system; Z90.49 Acquired absence of other specified parts of digestive tract
CPT/HCPCS: 99284; 96372; 36415; 83690; 85025; 81025; 80053; 81001; 74022; S0119; J3010

== ENCOUNTER 2018-07-11 13:37 | Emergency (ER) | payer SELFPAY ==
--- NOTE | 2018-07-11 14:34 | ER Document Report ---
ED GI/ <KEVON MENSAH - Last Filed: 07/11/18 15:55> - General Mode of Arrival: Ambulatory Information source: Patient TRAVEL OUTSIDE OF THE [place] IN LAST 30 DAYS: No <AR HAWLEY - Last Filed: 07/11/18 16:06> - General Chief Complaint: Diarrhea Stated Complaint: BLOODY STOOLS Time Seen by Provider: 07/11/18 14:13 Notes: Patient is a 38 year old female with chronic left upper quadrant abdominal pain presents to the emergency department complaining of hematemeis and bloody stools. Patient states that she has been vomiting and having diarrhea for 5 days but noticed the blood in her vomit the last 2 episodes. She describes the vomit as dark red in appearance and describes her stool as dark red as well. She states she also has the same chronic left upper abdominal pain as well as some left lower abdominal pain. Patient states she is following up with [facility] although she is unable to see her PCP until late July. Patient is currently taking Cynthroid. In November of 2017 patient was found to have a benign splenic cyst. (AR HAWLEY) - Related Data Allergies/Adverse Reactions: avocado [Avocado] Allergy (Severe, Verified 07/11/18 13:42) Anaphylaxis NSAIDS (Non-Steroidal Anti-Inflamma [Nsaids] Allergy (Verified 07/11/18 13:42) throat swelling pineapple [Pineapple] Allergy (Verified 07/11/18 13:42) Sulfa (Sulfonamide Antibiotics) Allergy (Verified 07/11/18 13:42) throat swelling tree nuts Allergy (Uncoded 07/11/18 13:42) Past Medical History - General Information source: Patient - Social History Smoking Status: Former Smoker Cigarette use (# per day): No Chew tobacco use (# tins/day): No Smoking Education Provided: No Frequency of alcohol use: None Family History: DM, Hyperlipidemia, Hypertension, Thyroid Disfunction, Other - Epilepsy Neurological Medical History: Reports: Hx Migraine Endocrine Medical History: Reports: Hx Hypothyroidism GI Medical History: Reports: Hx Gastritis Musculoskeletal Medical History: Reports Hx Musculoskeletal Deformity, Reports Hx Musculoskeletal Trauma Psychiatric Medical History: Reports: Hx Anxiety Traumatic Medical History: Reports: Hx Fractures - Elbow clavicle and ribs Past Surgical History: Reports: Hx Appendectomy - 2005, Hx Cholecystectomy - 2009, Hx Hysterectomy, Hx Thyroid Surgery - Thyroidectomy 2005 - Immunizations Immunizations up to date: Yes Hx Diphtheria, Pertussis, Tetanus Vaccination: Yes - 2010 <AR HAWLEY - Last Filed: 07/11/18 16:06> Review of Systems - Review of Systems Constitutional: No symptoms reported EENT: No symptoms reported Cardiovascular: No symptoms reported Respiratory: No symptoms reported Gastrointestinal: See HPI, Abdominal pain, Nausea, Vomiting, Blood in vomit Genitourinary: No symptoms reported Female Genitourinary: No symptoms reported Musculoskeletal: No symptoms reported Skin: No symptoms reported Hematologic/Lymphatic: No symptoms reported Neurological/Psychological: No symptoms reported -: Yes All other systems reviewed and negative <AR HAWLEY - Last Filed: 07/11/18 16:06> Physical Exam <KEVON MENSAH - Last Filed: 07/11/18 15:55> - General General appearance: Appears well, Alert In distress: None - HEENT Head: Normocephalic, Atraumatic Eyes: Normal Conjunctiva: Normal Extraocular movements intact: Yes Pupils: PERRL Mucous membranes: Moist Neck: Normal - Respiratory Respiratory status: No respiratory distress Chest status: Nontender Breath sounds: Normal Chest palpation: Normal - Cardiovascular Rhythm: Regular Heart sounds: Normal auscultation Murmur: No Friction rub: No Gallop: None auscultated - Abdominal Inspection: Normal Distension: No distension Bowel sounds: Normal Tenderness: Tender - LUQ tenderness to palpation. LLQ Minimally tender to palpation - Rectal Tenderness: No Hemorrhoids: None. No: Anal fissure - Back Back: Normal - Extremities General upper extremity: Normal ROM General lower extremity: Normal ROM - Neurological Neuro grossly intact: Yes Cognition: Normal Orientation: AAOx4 Lee Coma Scale Eye Opening: Spontaneous Lee Coma Scale Verbal: Oriented Lee Coma Scale Motor: Obeys Commands Pietro Coma Scale Total: 15 Speech: Normal - Psychological Associated symptoms: Normal affect, Normal mood - Skin Skin Temperature: Warm Skin Moisture: Dry Skin Color: Normal <AR HAWLEY - Last Filed: 07/11/18 16:06> - Vital signs Vitals: Temp Pulse Resp BP Pulse Ox 98.9 F 76 18 114/65 97 07/11/18 13:42 07/11/18 13:42 07/11/18 13:42 07/11/18 13:42 07/11/18 13:42 - Rectal Notes: No gross amount of blood, no hemorrhoids, no fissures. Residue sent to lab. ( AR HAWLEY) Course - Laboratory Result Diagrams: 07/11/18 14:40 07/11/18 14:40 <KEVON MENSAH - Last Filed: 07/11/18 15:55> - Laboratory Result Diagrams: 07/11/18 14:40 07/11/18 14:40 <AR HAWLEY - Last Filed: 07/11/18 16:06> - Re-evaluation Re-evalutation: 07/11/18 15:13 Stool Hemoccult is negative. This makes it highly unlikely that she has been having the dark bloody diarrhea she claims. Hemoglobin is essentially unchanged over the past 2-3 months. (KEVON MENSAH) - Vital Signs Vital signs: Temp Pulse Resp BP Pulse Ox 98.9 F 76 18 114/65 97 07/11/18 13:42 07/11/18 13:42 07/11/18 13:42 07/11/18 13:42 07/11/18 13:42 - Laboratory Laboratory results interpreted by me: 07/11/18 07/11/18 14:40 15:23 Chloride 109 H Glucose 115 H Urine Ascorbic Acid 20 H Discharge <KEVON MENSAH - Last Filed: 07/11/18 15:55> <AR HAWLEY - Last Filed: 07/11/18 16:06> - Discharge Clinical Impression: Abdominal pain Qualifiers: Abdominal location: left upper quadrant Qualified Code(s): R10.12 - Left upper quadrant pain Condition: Stable Disposition: HOME, SELF-CARE Additional Instructions: The lab testing of the residual stool in the rectum was negative for blood. When someone has been passing blood in the stool, this test will usually stay positive for many weeks. The hemoglobin level in your blood is essentially unchanged from the last 2-3 months. This would mean that you have not had any significant loss of blood. Your abdominal pain does not seem to be significantly different from what you have been experiencing off and on for a long time. You have had 7 CT scans of your abdomen and pelvis in the last 6 years without any significant findings. You have also had several x-rays of your abdomen. The only significant findings have been constipation. You should take something like MiraLAX every day to keep your bowels moving regularly. Drink plenty of water every day to keep your stool hydrated and soft. Take Tylenol for pain as needed. Follow-up with a head men's golf coach to more fully evaluate your chronic abdominal pain. RETURN TO THE EMERGENCY ROOM IF ANY NEW OR WORSENING SYMPTOMS. Mikaelaibe Attestation: 07/11/18 15:12 I personally performed the services described in the documentation, reviewed and edited the documentation which was dictated to the scribe in my presence, and it accurately records my words and actions. (KEVON MENSAH) Mikaelaibe Documentation - Scribe Written by Phi:: Phi Cazares, 07/11/2018 14:40 acting as scribe for :: [place] <AR HAWLEY - Last Filed: 07/11/18 16:06>
[2018-07-11 14:56] LABS: ABSOLUTE EOSINOPHILS # (AUTO) 0.1 10^3/uL (0.0-0.6); ABSOLUTE LYMPHOCYTES (AUTO) 2.1 10^3/uL (0.5-4.7); ABSOLUTE MONOCYTES (AUTO) 0.3 10^3/uL (0.1-1.4); BASOPHILS % (AUTO) 0.3 % (0-2); EOSINOPHILS % (AUTO) 1.3 % (0-6); HEMATOCRIT 38.3 % (36.0-47.0); LYMPHOCYTES % (AUTO) 32.4 % (13-45); MEAN CORPUSCULAR HEMOGLOBIN 29.3 pg (27.0-33.4); MEAN CORPUSCULAR HGB CONC 33.9 g/dL (32.0-36.0); MEAN CORPUSCULAR VOLUME 86 fl (80-97); MONOCYTES % (AUTO) 4.7 % (3-13); PLATELET COUNT 271 10^3/uL (150-450); RED BLOOD COUNT 4.43 10^6/uL (3.72-5.28); RED CELL DISTRIBUTION WIDTH 13.3 % (11.5-14.0); SEGMENTED NEUTROPHILS % (AUTO) 61.3 % (42-78); TOTAL CELLS COUNTED % (AUTO) 100 %; WHITE BLOOD COUNT 6.5 10^3/uL (4.0-10.5)
[2018-07-11 15:14] LABS: ALANINE AMINOTRANSFERASE 21 U/L (9-52); ALBUMIN 3.8 g/dL (3.5-5.0); ALKALINE PHOSPHATASE 61 U/L (38-126); ANION GAP 10 (5-19); ASPARTATE AMINO TRANSFERASE 20 U/L (14-36); BILIRUBIN,DIRECT 0.2 mg/dL (0.0-0.4); BILIRUBIN,TOTAL 0.6 mg/dL (0.2-1.3); BLOOD UREA NITROGEN 11 mg/dL (7-20); CALCIUM 9.5 mg/dL (8.4-10.2); CARBON DIOXIDE 25 mmol/L (22-30); CHLORIDE 109 mmol/L (98-107); GLUCOSE 115 mg/dL (75-110); SODIUM 144.1 mmol/L (137-145); TOTAL PROTEIN 7.1 g/dL (6.3-8.2)
[2018-07-11 15:40] LABS: AMORPHOUS SEDIMENT,URINE TRACE /HPF; APPEARANCE,URINE CLOUDY; BILIRUBIN,URINE NEGATIVE (NEGATIVE); COLOR,URINE YELLOW; GLUCOSE, URINE NEGATIVE (NEGATIVE); KETONES,URINE NEGATIVE (NEGATIVE); LEUKOCYTE ESTERASE,URINE NEGATIVE (NEGATIVE); NITRITE,URINE NEGATIVE (NEGATIVE); PROTEIN,URINE NEGATIVE (NEGATIVE); URINE SPECIFIC GRAVITY 1.018; UROBILINOGEN,URINE NEGATIVE mg/dL (<2.0)
[2018-07-11 16:05] VITALS: BP 111/71
== END 2018-07-11 16:05 | disposition home or self-care (01) ==
LOC: ER 13:37
DX: R10.12 Left upper quadrant pain (principal); R19.7 Diarrhea, unspecified; G89.29 Other chronic pain; K92.0 Hematemesis; Z88.2 Allergy status to sulfonamides; Z87.891 Personal history of nicotine dependence; Z90.49 Acquired absence of other specified parts of digestive tract; Z90.710 Acquired absence of both cervix and uterus
CPT/HCPCS: 36415; 80053; 81001; 82272; 85025; 99284

== ENCOUNTER 2018-07-23 01:01 | Emergency (ER) | payer OTHER ==
[2018-07-23 01:09] VITALS: BP 113/66
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
== END 2018-07-23 01:58 | disposition home or self-care (01) ==
LOC: ER 01:01
DX: S50.11XA Contusion of right forearm, initial encounter (principal); R20.0 Anesthesia of skin; Y08.89XA Assault by other specified means, initial encounter
CPT/HCPCS: 99283

== ENCOUNTER 2018-08-16 03:03 | Emergency (ER) | payer MEDICAID, OTHER ==
--- NOTE | 2018-08-16 08:20 | ER Document Report ---
ED Medical Screen (RME) - General Chief Complaint: Probable Seizure Stated Complaint: DIZZINESS Time Seen by Provider: 08/16/18 08:18 Mode of Arrival: Ambulatory Information source: Patient Notes: Patient presents to emergency department with reports that she has had 2 episodes of a flash that makes her go down to her knees within the past week. She reports her nosebleeds. She reports her whole body hurts she has a metal taste in her mouth. She also reports extreme dizziness.. Patient is alert and oriented no apparent distress. TRAVEL OUTSIDE OF THE [place] IN LAST 30 DAYS: No - Related Data Allergies/Adverse Reactions: avocado [Avocado] Allergy (Severe, Verified 07/11/18 13:42) Anaphylaxis NSAIDS (Non-Steroidal Anti-Inflamma [Nsaids] Allergy (Verified 07/11/18 13:42) throat swelling pineapple [Pineapple] Allergy (Verified 07/11/18 13:42) Sulfa (Sulfonamide Antibiotics) Allergy (Verified 07/11/18 13:42) throat swelling tree nuts Allergy (Uncoded 07/11/18 13:42) Past Medical History - Social History Family history: Reviewed & Not Pertinent Neurological Medical History: Reports: Hx Migraine Endocrine Medical History: Reports: Hx Hypothyroidism Renal/ Medical History: Denies: Hx Peritoneal Dialysis GI Medical History: Reports: Hx Gastritis Musculoskeltal Medical History: Reports Hx Musculoskeletal Deformity, Reports Hx Musculoskeletal Trauma Psychiatric Medical History: Reports: Hx Anxiety Traumatic Medical History: Reports: Hx Fractures - Elbow clavicle and ribs Past Surgical History: Reports: Hx Appendectomy - 2005, Hx Cholecystectomy - 2009, Hx Hysterectomy, Hx Thyroid Surgery - Thyroidectomy 2005 - Immunizations Immunizations up to date: Yes Hx Diphtheria, Pertussis, Tetanus Vaccination: Yes - 2010 Physical Exam - Vital signs Vitals: Temp Pulse Resp BP Pulse Ox 98.8 F 74 18 111/72 96 08/16/18 03:17 08/16/18 03:17 08/16/18 03:17 08/16/18 03:17 08/16/18 03:17 Course - Vital Signs Vital signs: Temp Pulse Resp BP Pulse Ox 98.8 F 74 18 111/72 96 08/16/18 03:17 08/16/18 03:17 08/16/18 03:17 08/16/18 03:17 08/16/18 03:17
[2018-08-16 09:05] LABS: ABSOLUTE EOSINOPHILS # (AUTO) 0.2 10^3/uL (0.0-0.6); ABSOLUTE LYMPHOCYTES (AUTO) 2.9 10^3/uL (0.5-4.7); ABSOLUTE MONOCYTES (AUTO) 0.4 10^3/uL (0.1-1.4); ABSOLUTE NEUT (AUTO) 3.2 10^3/uL (1.7-8.2); BASOPHILS % (AUTO) 0.6 % (0-2); EOSINOPHILS % (AUTO) 2.7 % (0-6); HEMATOCRIT 42.2 % (36.0-47.0); HEMOGLOBIN 14.4 g/dL (12.0-15.5); LYMPHOCYTES % (AUTO) 42.5 % (13-45); MEAN CORPUSCULAR HEMOGLOBIN 29.6 pg (27.0-33.4); MEAN CORPUSCULAR HGB CONC 34.2 g/dL (32.0-36.0); MEAN CORPUSCULAR VOLUME 87 fl (80-97); PLATELET COUNT 283 10^3/uL (150-450); RED BLOOD COUNT 4.88 10^6/uL (3.72-5.28); RED CELL DISTRIBUTION WIDTH 13.5 % (11.5-14.0); SEGMENTED NEUTROPHILS % (AUTO) 48.2 % (42-78); TOTAL CELLS COUNTED % (AUTO) 100 %; WHITE BLOOD COUNT 6.7 10^3/uL (4.0-10.5)
[2018-08-16 09:23] LABS: ALANINE AMINOTRANSFERASE 27 U/L (9-52); ALBUMIN 4.7 g/dL (3.5-5.0); ALKALINE PHOSPHATASE 84 U/L (38-126); ANION GAP 13 (5-19); ASPARTATE AMINO TRANSFERASE 25 U/L (14-36); BILIRUBIN,DIRECT 0.3 mg/dL (0.0-0.4); BILIRUBIN,TOTAL 0.9 mg/dL (0.2-1.3); BLOOD UREA NITROGEN 12 mg/dL (7-20); CALCIUM 10.1 mg/dL (8.4-10.2); CARBON DIOXIDE 26 mmol/L (22-30); CHLORIDE 103 mmol/L (98-107); GLUCOSE 96 mg/dL (75-110); POTASSIUM 3.8 mmol/L (3.6-5.0); SODIUM 142.4 mmol/L (137-145); TOTAL PROTEIN 8.2 g/dL (6.3-8.2)
[2018-08-16 11:29] LABS: APPEARANCE,URINE CLEAR; BILIRUBIN,URINE NEGATIVE (NEGATIVE); COLOR,URINE YELLOW; GLUCOSE, URINE NEGATIVE (NEGATIVE); KETONES,URINE NEGATIVE (NEGATIVE); LEUKOCYTE ESTERASE,URINE MODERATE (NEGATIVE); NITRITE,URINE NEGATIVE (NEGATIVE); PROTEIN,URINE NEGATIVE (NEGATIVE); UROBILINOGEN,URINE NEGATIVE mg/dL (<2.0)
[2018-08-16] MEDS ORDERED: ACETAMINOPHEN 325 MG TABLET PO ONE (11:44)
--- NOTE | 2018-08-16 11:44 | ER Document Report ---
ED General - General Chief Complaint: Probable Seizure Stated Complaint: DIZZINESS Time Seen by Provider: 08/16/18 08:18 Mode of Arrival: Ambulatory TRAVEL OUTSIDE OF THE [place] IN LAST 30 DAYS: No - HPI Notes: Patient is a 38-year-old female that presents to the emergency department for chief complaint of headache and visual disturbance. Patient has had 3 episodes over the past 6 days where she has acute onset of a flash of light in her vision followed by feeling dizzy and aching throughout her entire body as well as jaw clenching. She does not lose consciousness during these episodes. She states the headache is severely painful and diffuse. The episode lasted 15-30 seconds and then completely resolved. She denies any history of seizures in the past. She has had migraines when she was younger but has not had any recently. There is no family history of seizures. She has no loss of consciousness or incontinence during these episodes. Currently she states she just feels achy all over. She denies any recent illness. Past Medical History: Migraines, hypothyroidism Past Surgical History: Thyroidectomy, cholecystectomy, hysterectomy, appendectomy Social History: Former smoker, denies drugs or alcohol Family History: Reviewed and noncontributory for presenting illness Allergies: Reviewed, see documented allergy list. REVIEW OF SYSTEMS: CONSTITUTIONAL : No fever No chills No diaphoresis No recent illness EENT: vision changes No congestion No sore throat CARDIOVASCULAR: No chest pain No palpitations RESPIRATORY: No shortness of breath No cough No difficulty breathing GASTROINTESTINAL: No abdominal pain No nausea No vomiting No diarrhea GENITOURINARY: No dysuria No hematuria No difficulty urinating MUSCULOSKELETAL: No back pain No leg pain No arm pain myalgia SKIN: No rashes No lesions LYMPHATIC: No swollen, enlarged glands. NEUROLOGICAL: No lightheadedness headache No weakness No paresthesias PSYCHIATRIC: No anxiety No depression PHYSICAL EXAMINATION: Vital signs reviewed, nursing noted reviewed. GENERAL: Well-appearing, well-nourished and in no acute distress. HEAD: Atraumatic, normocephalic. EYES: Eyes appear normal, extraocular movements intact, sclera anicteric, conjunctiva are normal. ENT: nares patent, oropharynx clear without exudates. Moist mucous membranes. NECK: Normal range of motion, supple without lymphadenopathy LUNGS: Breath sounds clear to auscultation bilaterally and equal. No wheezes rales or rhonchi. HEART: Regular rate and rhythm without murmurs ABDOMEN: Soft, nontender, normoactive bowel sounds. No rebound, guarding, or rigidity. No masses appreciated. EXTREMITIES: Nontender, good range of motion, no pitting or edema. NEUROLOGICAL: No focal neurological deficits. Moves all extremities spontaneously Motor and sensory grossly intact on exam. PSYCH: Normal mood, normal affect. SKIN: Warm, Dry, normal turgor, no rashes or lesions noted on exposed skin - Related Data Allergies/Adverse Reactions: avocado [Avocado] Allergy (Severe, Verified 07/11/18 13:42) Anaphylaxis NSAIDS (Non-Steroidal Anti-Inflamma [Nsaids] Allergy (Verified 07/11/18 13:42) throat swelling pineapple [Pineapple] Allergy (Verified 07/11/18 13:42) Sulfa (Sulfonamide Antibiotics) Allergy (Verified 07/11/18 13:42) throat swelling tree nuts Allergy (Uncoded 07/11/18 13:42) Past Medical History - General Information source: Patient - Social History Smoking Status: Unknown if Ever Smoked Chew tobacco use (# tins/day): No Frequency of alcohol use: None Drug Abuse: None Family History: DM, Hyperlipidemia, Hypertension, Thyroid Disfunction, Other - Epilepsy Patient has suicidal ideation: No Patient has homicidal ideation: No Neurological Medical History: Reports: Hx Migraine Endocrine Medical History: Reports: Hx Hypothyroidism Renal/ Medical History: Denies: Hx Peritoneal Dialysis GI Medical History: Reports: Hx Gastritis Musculoskeletal Medical History: Reports Hx Musculoskeletal Deformity, Reports Hx Musculoskeletal Trauma Psychiatric Medical History: Reports: Hx Anxiety Traumatic Medical History: Reports: Hx Fractures - Elbow clavicle and ribs Past Surgical History: Reports: Hx Appendectomy - 2005, Hx Cholecystectomy - 2009, Hx Hysterectomy, Hx Thyroid Surgery - Thyroidectomy 2005 - Immunizations Immunizations up to date: Yes Hx Diphtheria, Pertussis, Tetanus Vaccination: Yes - 2010 Review of Systems - Review of Systems Notes: Dictated Physical Exam - Vital signs Vitals: Temp Pulse Resp BP Pulse Ox 98.8 F 74 18 111/72 96 08/16/18 03:17 08/16/18 03:17 08/16/18 03:17 08/16/18 03:17 08/16/18 03:17 - Notes Notes: Dictated Course - Re-evaluation Re-evalutation: 08/16/18 11:44 Vitals reviewed. Nursing notes reviewed. Patient in no acute distress. She was given Tylenol for her myalgias. EKG showed no acute ischemia or dysrhythmia. Lab work shows no electrolyte abnormalities. She is well hydrated. There are no signs of infection. Laboratory 08/16/18 08/16/18 08/16/18 08:45 08:45 10:35 WBC 6.7 RBC 4.88 Hgb 14.4 Hct 42.2 MCV 87 MCH 29.6 MCHC 34.2 RDW 13.5 Plt Count 283 Seg Neutrophils % 48.2 Lymphocytes % 42.5 Monocytes % 6.0 Eosinophils % 2.7 Basophils % 0.6 Absolute Neutrophils 3.2 Absolute Lymphocytes 2.9 Absolute Monocytes 0.4 Absolute Eosinophils 0.2 Absolute Basophils 0.0 Sodium 142.4 Potassium 3.8 Chloride 103 Carbon Dioxide 26 Anion Gap 13 BUN 12 Creatinine 0.77 Est GFR ( Amer) > 60 Est GFR (Non-Af Amer) > 60 Glucose 96 Calcium 10.1 Total Bilirubin 0.9 Direct Bilirubin 0.3 Neonat Total Bilirubin Not Reportable Neonat Direct Bilirubin Not Reportable Neonat Indirect Bili Not Reportable AST 25 ALT 27 Alkaline Phosphatase 84 Total Protein 8.2 Albumin 4.7 Urine Color YELLOW Urine Appearance CLEAR Urine pH 5.0 Ur Specific [place] 1.010 Urine Protein NEGATIVE Urine Glucose (UA) NEGATIVE Urine Ketones NEGATIVE Urine Blood NEGATIVE Urine Nitrite NEGATIVE Urine Bilirubin NEGATIVE Urine Urobilinogen NEGATIVE Ur Leukocyte Esterase MODERATE H Urine WBC (Auto) 16 Squamous Epi Cells Auto <1 Urine Mucus (Auto) RARE Urine Ascorbic Acid NEGATIVE 08/16/18 12:[address] 08/16/18 11:18 IMPRESSION: No acute findings. EVIDENCE OF ACUTE STROKE: NO. Patient has remained stable. She has no focal neurologic deficits. CT brain shows no mass lesion or bleeding. Patient will be referred to neurology for further workup of possible atypical migraine. She will return for new or worsening symptoms. Stable at time of discharge. - Vital Signs Vital signs: Temp Pulse Resp BP Pulse Ox 98.0 F 75 18 102/73 100 08/16/18 08:27 08/16/18 08:27 08/16/18 08:27 08/16/18 08:27 08/16/18 08:27 - Laboratory Result Diagrams: 08/16/18 08:45 08/16/18 08:45 Laboratory results interpreted by me: 08/16/18 10:35 Ur Leukocyte Esterase MODERATE H - EKG Interpretation by Me Additional EKG results interpreted by me: 08/16/18 11:44 1036: Normal sinus rhythm, rate 75, normal axis, no ectopy Discharge - Discharge Clinical Impression: Vision changes, Myalgia Headache Qualifiers: Headache type: unspecified Headache chronicity pattern: acute headache Intractability: not intractable Qualified Code(s): R51 - Headache Condition: Stable Disposition: HOME, SELF-CARE Instructions: Headache ([facility]) Additional Instructions: Please return to the emergency department if you have any worsening, or concern of your symptoms. Please return to the emergency department if you develop chest pain, difficulty breathing, severe abdominal pain, or ongoing vomiting. Please follow-up with your primary care physician in 2-3 days and any other recommended physicians. If prescribed, take all medications as directed. If you have any questions or concerns do not hesitate to return the emergency department for evaluation. [] Referrals: SABRINA GUTIERREZ MD [NO LOCAL MD] - Follow up in 3-5 days
--- NOTE | 2018-08-16 12:30 | RADIOLOGY REPORT (SQ) ---
EXAM DESCRIPTION: CT HEAD WITHOUT COMPLETED DATE/TIME: 08/16/2018 12:21 pm REASON FOR STUDY: headache COMPARISON: 16 16 TECHNIQUE: Axial images acquired through the brain without intravenous contrast. Images reviewed wi th bone, brain and subdural windows. Additional sagittal and coronal reconstructions were generated. Images stored on PACS. All CT scanners at this facility use dose modulation, iterative reconstruction, and/or weight based d osing when appropriate to reduce radiation dose to as low as reasonably achievable (ALARA). [facility]: Dose Right [facility]: CareDose [facility]: Dose Right [facility]: Teradose 4D [facility]: Smart Zendrive RADIATION DOSE: CT Rad equipment meets quality standard of care and radiation dose reduction techniq ues were employed. CTDIvol: 53.2 mGy. DLP: 1070 mGy-cm. mGy. LIMITATIONS: None. FINDINGS: VENTRICLES: Stable pineal cyst. CEREBRUM: No masses. No hemorrhage. No midline shift. No evidence for acute infarction. Normal gra y/white matter differentiation. No areas of low density in the white matter. CEREBELLUM: No masses. No hemorrhage. No alteration of density. No evidence for acute infarction. EXTRAAXIAL SPACES: No fluid collections. No masses. ORBITS AND GLOBE: No intra- or extraconal masses. Normal contour of globe without masses. CALVARIUM: No fracture. PARANASAL SINUSES: No fluid or mucosal thickening. SOFT TISSUES: No mass or hematoma. OTHER: No other significant finding. IMPRESSION: No acute findings. EVIDENCE OF ACUTE STROKE: NO. COMMENT: Quality ID # [id number]: Final reports with documentation of one or more dose reduction techniques (e.g., Automated exposure control, adjustment of the mA and/or kV according to patient size, use of iterative reconstruction technique) TECHNICAL DOCUMENTATION: JOB ID: [id number] [employer]- All Rights Reserved Reading location - IP/workstation name: [email or web address]
[2018-08-16 12:58] VITALS: BP 104/66
--- NOTE | 2018-08-16 21:53 | EKG REPORT ---
SEVERITY:- NORMAL ECG - SINUS RHYTHM : Confirmed by: Tanja Davidson MD 16-Aug-2018 21:53:02
== END 2018-08-16 12:58 | disposition home or self-care (01) ==
LOC: ER 03:03
DX: R42 Dizziness and giddiness (principal); M79.1 Myalgia; H53.9 Unspecified visual disturbance; R51 Headache; Z90.49 Acquired absence of other specified parts of digestive tract; Z90.710 Acquired absence of both cervix and uterus; Z88.2 Allergy status to sulfonamides
CPT/HCPCS: 93005; 99284; 36415; 85025; 81025; 80053; 81001; 70450; 93010; J3490

== ENCOUNTER 2018-09-01 03:42 | Emergency (ER) | payer MEDICAID ==
--- NOTE | 2018-09-01 04:23 | ER Document Report ---
ED General - General Chief Complaint: Abdominal Pain Stated Complaint: ABDOMINAL PAIN Time Seen by Provider: 09/01/18 04:22 Notes: Patient is a 33-year-old female presents with complaint of going to bed last night with having a "upset stomach". She went to bed and woke up this morning with pain in her left side of her abdomen. She went to the bathroom and had a bowel movement and also passed some blood. She did bring a picture on her cell phone of what was in the toilet. The picture showed several pieces of stool with some red blood tinge to the water system with a small amount of blood. She does have a previous history of hemorrhoids but has not noticed any problems with hemorrhoids recently. She has had some chills but no fevers. She did have a previous colonoscopy to help diagnosis small bowel obstruction. Said this was several years ago. She does have a previous history of surgeries including cholecystectomy, appendectomy, hysterectomy, and surgery to reverse her small bowel obstruction. TRAVEL OUTSIDE OF THE [place] IN LAST 30 DAYS: No - Related Data Allergies/Adverse Reactions: avocado [Avocado] Allergy (Severe, Verified 07/11/18 13:42) Anaphylaxis NSAIDS (Non-Steroidal Anti-Inflamma [Nsaids] Allergy (Verified 07/11/18 13:42) throat swelling pineapple [Pineapple] Allergy (Verified 07/11/18 13:42) Sulfa (Sulfonamide Antibiotics) Allergy (Verified 07/11/18 13:42) throat swelling tree nuts Allergy (Uncoded 07/11/18 13:42) Past Medical History - Social History Smoking Status: Unknown if Ever Smoked Frequency of alcohol use: None Drug Abuse: None Family History: DM, Hyperlipidemia, Hypertension, Thyroid Disfunction, Other - Epilepsy Neurological Medical History: Reports: Hx Migraine Endocrine Medical History: Reports: Hx Hypothyroidism Renal/ Medical History: Denies: Hx Peritoneal Dialysis GI Medical History: Reports: Hx Gastritis Musculoskeletal Medical History: Reports Hx Musculoskeletal Deformity, Reports Hx Musculoskeletal Trauma Psychiatric Medical History: Reports: Hx Anxiety Traumatic Medical History: Reports: Hx Fractures - Elbow clavicle and ribs Past Surgical History: Reports: Hx Appendectomy - 2005, Hx Cholecystectomy - 2009, Hx Hysterectomy, Hx Thyroid Surgery - Thyroidectomy 2005 - Immunizations Immunizations up to date: Yes Hx Diphtheria, Pertussis, Tetanus Vaccination: Yes - 2010 Review of Systems - Review of Systems Notes: My Normal Review Basic REVIEW OF SYSTEMS: CONSTITUTIONAL : Denies fever, chills, or sweats. Denies recent illness. Well-appearing. EENT: Denies eye, ear, throat, or mouth pain or symptoms. Denies nasal or sinus congestion. CARDIOVASCULAR: Denies chest pain. RESPIRATORY: Denies cough, cold, or chest congestion. Denies shortness of breath, difficulty breathing, or wheezing. GASTROINTESTINAL: Left-sided abdominal pain. Some blood-tinged stool. GENITOURINARY: Denies difficulty urinating, painful urination, burning, frequency, or blood in urine. FEMALE GENITOURINARY: Denies vaginal bleeding, abnormal or irregular periods. LMP: Has had a hysterectomy MUSCULOSKELETAL: Denies neck or back pain or joint pain or swelling. SKIN: Denies rash or skin lesions. NEUROLOGICAL: Denies altered mental status or loss of consciousness. Denies headache. Denies weakness or paralysis or loss of use of either side. Denies problems with gait or speech. Denies sensory or motor loss. ALL OTHER SYSTEMS REVIEWED AND NEGATIVE. Physical Exam - Vital signs Vitals: Pulse Ox 96 09/01/18 04:37 - Notes Notes: General Appearance: Well nourished, alert, cooperative, no acute distress, moderate obvious discomfort. Vitals: reviewed, See vital signs table. Eyes: PERRL, EOMI, Conjuctiva clear Mouth: No decreasd moisture Throat: No tonsillar inflammation, No airway obstruction, No lymphadenopathy Neck: Supple, no neck tenderness, No thyromegaly Lungs: No wheezing, No rales, No rhonci, No accessory muscle use, good air exchange bilaterally. Heart: Normal rate, Regular rythm, No murmur, no rub Abdomen: Normal BS, soft, No rigidity, some left-sided abdominal tenderness to palpation on exam. Right side of abdomen is nontender. No rebound or guarding. Rectal exam: Rectal exam performed with female nurse local driver, Inna, and kristopher. Patient has no evidence of external hemorrhoids or active blood coming from the rectum. Anal fissure seen. Extremities: strength 5/5 in all extremities, good pulses in all extremities, no swelling or tenderness in the extremities, no edema. Skin: warm, dry, appropriate color, no rash Neuro: speech clear, oriented x 3, normal affect, responds appropriately to questions. Course - Re-evaluation Re-evalutation: 09/01/18 06:02 Patient's workup is negative. I have reviewed her previous records it appears that she has been here several times for the same complaint. Patient initially told me that this was new however after I brought up her previous visits for that she does mention now that this has been ongoing for some time. Pain is intermittent. She will occasionally have some blood in her stool. She has been referred to GI doctor but says she has been unable to make an appointment to see 1 because she works long hours. I informed her that ultimately that is what she needs. She probably needs repeat colonoscopy. Currently her hemoglobin is normal. The picture she showed me had just a very small amount of blood in the toilet water. Her vital signs are normal. I feel she is safe to be discharged home. Her abdominal exam is benign. I encouraged her return to ER if she has worsening pain, vomiting, or increasing amounts of blood in her stool. Patient agrees with plan will be discharged home. Once again reinforced the importance of following up with a GI physician. Dictation of this chart was performed using voice recognition software; therefore, there may be some unintended grammatical errors. - Vital Signs Vital signs: Temp Pulse Resp BP Pulse Ox 106/73 99 09/01/18 05:25 09/01/18 05:25 - Laboratory Result Diagrams: 09/01/18 04:34 09/01/18 04:34 Discharge - Discharge Clinical Impression: Hematochezia Abdominal pain Qualifiers: Abdominal location: left lower quadrant Qualified Code(s): R10.32 - Left lower quadrant pain Condition: Good Disposition: HOME, SELF-CARE Additional Instructions: Please make an appointment to see the GI physician, Dr. Bunch, for reevaluation. You will likely need a colonoscopy due to your history of recurrent abdominal pain and blood in stool. Please eat a bland diet. Please return to the ER immediately if you develop worsening pain, increasing blood in your stool, intractable vomiting, or feel unwell. Prescriptions: Dicyclomine HCl [Bentyl 10 mg Capsule] 1 cap PO TID PRN #30 cap PRN Reason: abdominal pain Promethazine HCl [Phenergan 25 mg Tablet] 1 tab PO Q6H PRN #15 tablet PRN Reason: Forms: Return to Work Referrals: LISSY BUNCH MD [ACTIVE STAFF] - 09/03/18 (call office to make a close follow up appointment.)
[2018-09-01] MEDS ORDERED: ONDANSETRON HCL INJ/PF 4 MG/2 ML SDV IV ONE (04:24)
[2018-09-01] MEDS ORDERED: MORPHINE SULFATE 10 MG/ML INJ IV ONE (04:24)
[2018-09-01] MEDS ORDERED: NORMAL SALINE 1000 ML 1,000 ML IV ONE (04:24)
[2018-09-01 04:49] LABS: ABSOLUTE BASOPHILS # (AUTO) 0.1 10^3/uL (0.0-0.2); ABSOLUTE EOSINOPHILS # (AUTO) 0.2 10^3/uL (0.0-0.6); ABSOLUTE LYMPHOCYTES (AUTO) 2.8 10^3/uL (0.5-4.7); ABSOLUTE MONOCYTES (AUTO) 0.5 10^3/uL (0.1-1.4); ABSOLUTE NEUT (AUTO) 4.9 10^3/uL (1.7-8.2); BASOPHILS % (AUTO) 0.6 % (0-2); HEMATOCRIT 37.4 % (36.0-47.0); HEMOGLOBIN 12.9 g/dL (12.0-15.5); LYMPHOCYTES % (AUTO) 33.1 % (13-45); MEAN CORPUSCULAR HEMOGLOBIN 29.9 pg (27.0-33.4); MEAN CORPUSCULAR HGB CONC 34.5 g/dL (32.0-36.0); MEAN CORPUSCULAR VOLUME 87 fl (80-97); MONOCYTES % (AUTO) 5.9 % (3-13); PLATELET COUNT 287 10^3/uL (150-450); RED BLOOD COUNT 4.31 10^6/uL (3.72-5.28); RED CELL DISTRIBUTION WIDTH 13.3 % (11.5-14.0); SEGMENTED NEUTROPHILS % (AUTO) 58.4 % (42-78); TOTAL CELLS COUNTED % (AUTO) 100 %; WHITE BLOOD COUNT 8.5 10^3/uL (4.0-10.5)
[2018-09-01 05:00] LABS: ALANINE AMINOTRANSFERASE 25 U/L (9-52); ALBUMIN 4.2 g/dL (3.5-5.0); ALKALINE PHOSPHATASE 80 U/L (38-126); ANION GAP 10 (5-19); ASPARTATE AMINO TRANSFERASE 20 U/L (14-36); BILIRUBIN,DIRECT 0.1 mg/dL (0.0-0.4); BILIRUBIN,TOTAL 0.5 mg/dL (0.2-1.3); BLOOD UREA NITROGEN 20 mg/dL (7-20); CARBON DIOXIDE 26 mmol/L (22-30); CHLORIDE 105 mmol/L (98-107); GLUCOSE 81 mg/dL (75-110); POTASSIUM 3.8 mmol/L (3.6-5.0); SODIUM 141.3 mmol/L (137-145); TOTAL PROTEIN 7.4 g/dL (6.3-8.2)
[2018-09-01] MEDS ORDERED: DICYCLOMINE HCL INJ 20 MG/2 ML AMPULE IM ONE (05:16)
--- NOTE | 2018-09-01 05:27 | RADIOLOGY REPORT (SQ) ---
CLINICAL HISTORY: left sided abdominal pain with rectal bleeding COMPARISON: March 27, 2018. TECHNIQUE: CT ABDOMEN PELVIS WITHOUT THEN WITH IV CONTRAST on 09/01/2018 4:24 AM CDT This exam was performed according to our departmental dose-optimization program, which includes automated exposure control, adjustment of the mA and/or kV according to patient size and/or use of iterative reconstruction technique. FINDINGS: Lower lungs are clear. Abdomen: The liver is normal in appearance. There is no biliary dilatation. Gallbladder is not seen. The pancreas and spleen are normal in appearance. The adrenal glands and kidneys are unremarkable. Abdominal aorta is normal in course and caliber without aneurysm. There is no free air. There is no retroperitoneal adenopathy. Pelvis: There is no bowel obstruction. Urinary bladder is unremarkable. There is no free fluid. Hysterectomy was performed. Appendectomy was performed. Skeleton: There are no acute osseous findings. No suspicious bony lesions. IMPRESSION: No acute inflammatory process. No renal or ureteral calculi.
[2018-09-01 06:06] VITALS: BP 91/66
== END 2018-09-01 06:06 | disposition home or self-care (01) ==
LOC: ER 03:42
DX: K92.1 Melena (principal); R10.32 Left lower quadrant pain; Z90.49 Acquired absence of other specified parts of digestive tract; Z90.710 Acquired absence of both cervix and uterus; Z88.2 Allergy status to sulfonamides
CPT/HCPCS: 99284; 96372; 96361; 96374; 96375; 36415; 85025; 80053; 74178; J0500; J2270; J2405; J7030

== ENCOUNTER 2018-09-29 19:44 | Emergency (ER) | payer MEDICAID ==
[2018-09-29 19:51] VITALS: BP 104/63
--- NOTE | 2018-09-29 19:59 | ER Document Report ---
ED General - General Chief Complaint: Eye Pain Stated Complaint: EYE PAIN Time Seen by Provider: 09/29/18 19:56 Mode of Arrival: Ambulatory Information source: Patient Notes: Chief complaint: Right eye pain History of complain:( obtained from----patient) 38 years old female presents today with 2 weeks history of periorbital pain and right maxillary sinus pain. Progressively increase in intensity. Denies any runny nose denies any sore throat denies any fever chills cough or other constitutional symptoms. The pain causing blurring of the vision in the right eye. Onset: Gradual Duration: 2 weeks Severity: Moderate Quality: Sharp Context: Possible sinusitis Exacerbating factor and relieving factors: As above REVIEW OF SYSTEMS: CONSTITUTIONAL : Denies fever, chills, or sweats. Denies recent illness. EENT: Denies eye, ear, throat, or mouth pain or symptoms. Denies nasal or sinus congestion or discharge. Denies throat, tongue, or mouth swelling or difficulty swallowing. CARDIOVASCULAR: Denies chest pain. Denies palpitations or racing or irregular heart beat. Denies ankle edema. RESPIRATORY: Denies cough, cold, or chest congestion. Denies shortness of breath, difficulty breathing, or wheezing. GASTROINTESTINAL: Denies distention. Denies nausea, vomiting, or diarrhea. Denies blood in vomitus, stools, or per rectum. Denies black, tarry stools. Denies constipation. GENITOURINARY: Denies difficulty urinating, painful urination, burning, frequency, blood in urine, or discharge. FEMALE GENITOURINARY: Denies vaginal bleeding, heavy or abnormal periods, irregular periods. Denies vaginal discharge or odor. MUSCULOSKELETAL: Denies back or neck pain or stiffness. Denies joint pain or swelling. SKIN: Denies rash, lesions or sores. HEMATOLOGIC : Denies easy bruising or bleeding. LYMPHATIC: Denies swollen, enlarged glands. NEUROLOGICAL: Denies confusion or altered mental status. Denies passing out or loss of consciousness. Denies dizziness or lightheadedness. Denies headache. Denies weakness or paralysis or loss of use of either side. Denies problems with gait or speech. Denies sensory loss, numbness, or tingling. Denies seizures. PSYCHIATRIC: Denies anxiety or stress. Denies depression, suicidal ideation, or homicidal ideation. ALL OTHER SYSTEMS REVIEWED AND NEGATIVE. PHYSICAL EXAMINATION: GENERAL: Well-appearing, well-nourished and in no acute distress. HEAD: Atraumatic, normocephalic. EYES: Pupils equal round and reactive to light, extraocular movements intact, conjunctiva are normal. ENT: Periorbital tenderness particularly right frontal sinus right maxillary sinus right sphenoidal sinus were extremely tender on palpation. Nares patent, oropharynx clear without exudates. Moist mucous membranes. NECK: Normal range of motion, supple without lymphadenopathy LUNGS: Breath sounds clear to auscultation bilaterally and equal. No wheezes rales or rhonchi. HEART: Regular rate and rhythm without murmurs ABDOMEN: Soft, nontender, nondistended abdomen. No guarding, no rebound. No masses appreciated. Examination of genitals-deferred Musculoskeletal: Normal range of motion, no pitting or edema. No cyanosis. NEUROLOGICAL: Cranial nerves grossly intact. Normal speech, normal gait. Normal sensory, motor exams PSYCH: Normal mood, normal affect. SKIN: Warm, Dry, normal turgor, no rashes or lesions noted. Dictation was performed using [employer] voice recognition software TRAVEL OUTSIDE OF THE [place] IN LAST 30 DAYS: No - HPI Notes: Dictated - Related Data Allergies/Adverse Reactions: avocado [Avocado] Allergy (Severe, Verified 07/11/18 13:42) Anaphylaxis NSAIDS (Non-Steroidal Anti-Inflamma [Nsaids] Allergy (Verified 07/11/18 13:42) throat swelling pineapple [Pineapple] Allergy (Verified 07/11/18 13:42) Sulfa (Sulfonamide Antibiotics) Allergy (Verified 07/11/18 13:42) throat swelling tree nuts Allergy (Uncoded 07/11/18 13:42) Past Medical History - Social History Smoking Status: Never Smoker Frequency of alcohol use: None Drug Abuse: None Lives with: Family Family History: Reviewed & Not Pertinent, DM, Hyperlipidemia, Hypertension, Thyroid Disfunction, Other - Epilepsy Patient has suicidal ideation: No Patient has homicidal ideation: No Neurological Medical History: Reports: Hx Migraine Endocrine Medical History: Reports: Hx Hypothyroidism Renal/ Medical History: Denies: Hx Peritoneal Dialysis GI Medical History: Reports: Hx Gastritis Musculoskeletal Medical History: Reports Hx Musculoskeletal Deformity, Reports Hx Musculoskeletal Trauma Psychiatric Medical History: Reports: Hx Anxiety Traumatic Medical History: Reports: Hx Fractures - Elbow clavicle and ribs Past Surgical History: Reports: Hx Appendectomy - 2005, Hx Cholecystectomy - 2009, Hx Hysterectomy, Hx Thyroid Surgery - Thyroidectomy 2005 - Immunizations Immunizations up to date: Yes Hx Diphtheria, Pertussis, Tetanus Vaccination: Yes - 2010 Review of Systems - Review of Systems Notes: Dictated Physical Exam - Vital signs Vitals: Temp Pulse Resp BP Pulse Ox 98.2 F 84 17 104/63 96 09/29/18 19:49 09/29/18 19:49 09/29/18 19:49 09/29/18 19:49 09/29/18 19:49 - Notes Notes: Dictated Course - Vital Signs Vital signs: Temp Pulse Resp BP Pulse Ox 98.2 F 84 17 104/63 96 09/29/18 19:49 09/29/18 19:49 09/29/18 19:49 09/29/18 19:49 09/29/18 19:49 - Diagnostic Test Radiology reviewed: Reports reviewed - CT of the head and sinuses reported by radiologist as no acute finding Discharge - Discharge Clinical Impression: Sinusitis Qualifiers: Sinusitis location: sphenoidal Chronicity: acute Recurrence: non-recurrent Qualified Code(s): J01.30 - Acute sphenoidal sinusitis, unspecified Pain in periorbital region Qualifiers: Laterality: right Qualified Code(s): H57.11 - Ocular pain, right eye Condition: Fair Disposition: HOME, SELF-CARE Instructions: Sinusitis ([facility]) Prescriptions: Amox Tr/Potassium Clavulanate [Augmentin 875-125 Tablet] 1 tab PO BID 10 Days tablet Hydrocodone Bit/Acetaminophen [Hydrocodon-Acetaminophen 5-325] 1 each PO TID # 10 tablet
--- NOTE | 2018-09-29 20:33 | RADIOLOGY REPORT (SQ) ---
EXAM DESCRIPTION: CT HEAD WITHOUT COMPLETED DATE/TIME: 09/29/2018 8:20 pm REASON FOR STUDY: Periorbital/sphenoidal pain COMPARISON: 08/16/2018 TECHNIQUE: Axial images acquired through the brain without intravenous contrast. Images reviewed wi th bone, brain and subdural windows. Additional sagittal and coronal reconstructions were generated. Images stored on PACS. All CT scanners at this facility use dose modulation, iterative reconstruction, and/or weight based d osing when appropriate to reduce radiation dose to as low as reasonably achievable (ALARA). [facility]: Dose Right [facility]: CareDose [facility]: Dose Right [facility]: Teradose 4D [facility]: Smart [employer] RADIATION DOSE: CT Rad equipment meets quality standard of care and radiation dose reduction techniq ues were employed. CTDIvol: 53.2 mGy. DLP: 964 mGy-cm. mGy. LIMITATIONS: None. FINDINGS: VENTRICLES: Ventricles are normal in size and contour. 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 CEREBRUM: No masses. No hemorrhage. No midline shift. No evidence for acute infarction. Normal gra y/white matter differentiation. No areas of low density in the white matter. CEREBELLUM: No masses. No hemorrhage. No alteration of density. No evidence for acute infarction. EXTRAAXIAL SPACES: No fluid collections. No masses. ORBITS AND GLOBE: No intra- or extraconal masses. Normal contour of globe without masses. CALVARIUM: No fracture. PARANASAL SINUSES: No fluid or mucosal thickening. SOFT TISSUES: No mass or hematoma. OTHER: No other significant finding. IMPRESSION: No acute findings in the brain. Stable pineal cyst. EVIDENCE OF ACUTE STROKE: NO. COMMENT: Quality ID # [id number]: Final reports with documentation of one or more dose reduction techniques (e.g., Automated exposure control, adjustment of the mA and/or kV according to patient size, use of iterative reconstruction technique) TECHNICAL DOCUMENTATION: JOB ID: [id number] [employer]- All Rights Reserved Reading location - IP/workstation name: [email or web address]
--- NOTE | 2018-09-29 20:35 | RADIOLOGY REPORT (SQ) ---
EXAM DESCRIPTION: CT FACIAL AREA WITHOUT COMPLETED DATE/TIME: 09/29/2018 8:20 pm REASON FOR STUDY: Periorbital/sphenoidal pain COMPARISON: None. TECHNIQUE: Noncontrasted images through the facial bones and orbits windowed for bone and soft tissu e. Additional coronal and sagittal reconstructed images reviewed. All images stored on PACS. All CT scanners at this facility use dose modulation, iterative reconstruction, and/or weight based d osing when appropriate to reduce radiation dose to as low as reasonably achievable (ALARA). [facility]: Dose Right [facility]: CareDose [facility]: Dose Right [facility]: Teradose 4D [facility]: Smart [employer] RADIATION DOSE: CT Rad equipment meets quality standard of care and radiation dose reduction techniq ues were employed. CTDIvol: 30.4 mGy. DLP: 524 mGy-cm. mGy. LIMITATIONS: None. FINDINGS: FACIAL BONES: No fracture or bone lesion. ORBITS: Intact. No fracture. Symmetric intact globes and retroorbital soft tissues. PARANASAL SINUSES: Clear. No significant mucosal thickening, mass or fluid. No nasal polyps. Maxill case sinus outlets are patent. SOFT TISSUES: No mass or edema. INFERIOR BRAIN: See separate report for CT of the brain. OTHER: No other significant finding. IMPRESSION: NO ACUTE FINDINGS. TECHNICAL DOCUMENTATION: JOB ID: [id number] Quality ID # [id number]: Final reports with documentation of one or more dose reduction techniques (e.g., Au tomated exposure control, adjustment of the mA and/or kV according to patient size, use of iterative reconstruction technique) 2010 [employer]- All Rights Reserved Reading location - IP/workstation name: [email or web address]
== END 2018-09-29 20:45 | disposition home or self-care (01) ==
LOC: ER 19:44
DX: J01.30 Acute sphenoidal sinusitis, unspecified (principal); H57.11 Ocular pain, right eye; H53.8 Other visual disturbances; Z88.8 Allergy status to other drugs, medicaments and biological substances; Z88.2 Allergy status to sulfonamides; Z91.018 Allergy to other foods; Z87.892 Personal history of anaphylaxis
CPT/HCPCS: 70450; 70486; 99283

== ENCOUNTER 2018-10-25 03:11 | Emergency (ER) | payer MEDICAID ==
[2018-10-25 03:18] VITALS: BP 123/76
--- NOTE | 2018-10-25 03:42 | ER Document Report ---
ED General <KEVON MENSAH - Last Filed: 10/25/18 05:43> - General Mode of Arrival: Ambulatory Information source: Patient TRAVEL OUTSIDE OF THE [place] IN LAST 30 DAYS: No <AR HAWLEY - Last Filed: 10/25/18 05:46> - General Chief Complaint: Abdominal Pain Stated Complaint: ABDOMINAL PAIN Time Seen by Provider: 10/25/18 03:22 Notes: Patient is a 38 year old female presenting to the emergency department complaining of lower abdominal pain, nausea and vomiting onset yesterday evening. Patient states she began to have abdominal pain while at work yesterday and took Pepto Bismol which did not provide any relief. She states she went to bed and woke up a few hours ago with worsening abdominal pain and nausea. She states she proceeded to vomit dark red blood followed by another vomiting episode described as containing red streaks. She also complains of intermittent fever. Patient states she had a normal bowel movement this morning. Her PCP is Dr[facility] at the [facility]. Patient is currently only taking a multi-vitamin. (AR HAWLEY) - Related Data Allergies/Adverse Reactions: avocado [Avocado] Allergy (Severe, Verified 07/11/18 13:42) Anaphylaxis NSAIDS (Non-Steroidal Anti-Inflamma [Nsaids] Allergy (Verified 07/11/18 13:42) throat swelling pineapple [Pineapple] Allergy (Verified 07/11/18 13:42) Sulfa (Sulfonamide Antibiotics) Allergy (Verified 07/11/18 13:42) throat swelling tree nuts Allergy (Uncoded 07/11/18 13:42) Past Medical History - General Information source: Patient - Social History Smoking Status: Former Smoker Cigarette use (# per day): No Chew tobacco use (# tins/day): No Smoking Education Provided: No Frequency of alcohol use: None Drug Abuse: None Family History: Reviewed & Not Pertinent, DM, Hyperlipidemia, Hypertension, Thyroid Disfunction, Other - Epilepsy Neurological Medical History: Reports: Hx Migraine Endocrine Medical History: Reports: Hx Hypothyroidism GI Medical History: Reports: Hx Gastritis Musculoskeletal Medical History: Reports Hx Musculoskeletal Deformity, Reports Hx Musculoskeletal Trauma Psychiatric Medical History: Reports: Hx Anxiety Traumatic Medical History: Reports: Hx Fractures - Elbow clavicle and ribs Past Surgical History: Reports: Hx Appendectomy - 2005, Hx Cholecystectomy - 2009, Hx Hysterectomy, Hx Thyroid Surgery - Thyroidectomy 2005 - Immunizations Immunizations up to date: Yes Hx Diphtheria, Pertussis, Tetanus Vaccination: Yes - 2010 <MARLEENAR - Last Filed: 10/25/18 05:46> Review of Systems - Review of Systems Constitutional: See HPI, Fever EENT: No symptoms reported Cardiovascular: No symptoms reported Respiratory: No symptoms reported Gastrointestinal: See HPI, Abdominal pain, Vomiting Genitourinary: No symptoms reported Female Genitourinary: No symptoms reported Musculoskeletal: No symptoms reported Skin: No symptoms reported Hematologic/Lymphatic: No symptoms reported Neurological/Psychological: No symptoms reported -: Yes All other systems reviewed and negative <AR HAWLEY - Last Filed: 10/25/18 05:46> Physical Exam <KEVON MENSAH - Last Filed: 10/25/18 05:43> <AR HAWLEY - Last Filed: 10/25/18 05:46> - Vital signs Vitals: Temp Pulse Resp BP Pulse Ox 98.5 F 86 18 123/76 97 10/25/18 03:18 18 03:18 10/25/18 03:18 10/25/18 03:18 10/25/18 03:18 - Notes Notes: GENERAL: Alert, interacts well. No acute distress. HEAD: Normocephalic, atraumatic. EYES: Pupils equal, round, and reactive to light. Extraocular movements intact. ENT: Oral mucosa moist, tongue midline. NECK: Full range of motion. Supple. Trachea midline. LUNGS: Clear to auscultation bilaterally, no wheezes, rales, or rhonchi. No respiratory distress. HEART: Regular rate and rhythm. No murmurs, gallops, or rubs. ABDOMEN: Soft, diffusely tender to palpation. Non-distended. Bowel sounds present in all 4 quadrants. EXTREMITIES: Moves all 4 extremities spontaneously. NEUROLOGICAL: Alert and oriented x3. Normal speech. PSYCH: Normal affect, normal mood. SKIN: Warm, dry, normal turgor. No rashes or lesions noted. (AR HAWLEY) Course - Laboratory Result Diagrams: 10/25/18 03:36 10/25/18 03:36 - Diagnostic Test Radiology reviewed: Image reviewed, Reports reviewed - KUB shows a mildly prominent air-filled loop of small bowel centrally. There is moderate stool in the colon. <KEVON MENSAH - Last Filed: 10/25/18 05:43> - Laboratory Result Diagrams: 10/25/18 03:36 10/25/18 03:36 <AR HAWLEY - Last Filed: 10/25/18 05:46> - Re-evaluation Re-evalutation: 10/25/18 05:43 On reevaluation, patient seems to have been sleeping, there has been no vomiting. She does seem quite comfortable at this time. She will be discharged with some Zofran for nausea if she needs it, encouraged to drink cool clear liquids today, try taking a stool softener to help decrease the fecal load in her colon, and follow-up with her primary care provider if not improving. (KEVON MENSAH) - Vital Signs Vital signs: Temp Pulse Resp BP Pulse Ox 98.5 F 86 18 123/76 97 10/25/18 03:18 10/25/18 03:18 10/25/18 03:18 10/25/18 03:18 10/25/18 03:18 - Laboratory Laboratory results interpreted by me: 10/25/18 10/25/18 03:36 05:12 Total Protein 8.3 H Ur Leukocyte Esterase SMALL H Discharge <KEVON MENSAH - Last Filed: 10/25/18 05:43> <AR HAWLEY - Last Filed: 10/25/18 05:46> - Discharge Clinical Impression: Abdominal pain Qualifiers: Abdominal location: generalized Qualified Code(s): R10.84 - Generalized abdominal pain Nausea & vomiting Qualifiers: Vomiting type: unspecified Vomiting Intractability: non-intractable Qualified Code(s): R11.2 - Nausea with vomiting, unspecified Constipation Qualifiers: Constipation type: unspecified constipation type Qualified Code(s): K59.00 - Constipation, unspecified Condition: Stable Disposition: HOME, SELF-CARE Additional Instructions: Abdominal Pain There are many causes of abdominal pain. Pain can mean a serious problem requiring surgery (such as appendicitis). It can also be an innocent problem that goes away on its own (such as a viral infection). Often, time must pass to determine the cause of pain. The physician does not feel that hospitalization is necessary, at present. Things may change within the next 24 hours. Call the doctor or come back for re- examination if any problems occur, such as: (1) Pain that becomes more severe, steady, or becomes concentrated in one specific area. Also, pain that is more severe with movement or coughing. (2) Vomiting that persists or becomes more frequent. (3) Blood in the vomitus, urine, or bowel movements. Blood in the stool may have a tarry or black appearance. (4) Shaking chills or fever greater than 100 degrees F. (5) The abdomen becomes more distended or swollen. (6) Bowel movements cease. (7) Failure to improve as expected. Your evaluation did not show a precise cause for your abdominal discomfort. X-ray did show moderate amount of stool in the colon and some prominent air- filled loops of small bowel in the mid abdomen. Either of those findings could be the cause for your discomfort. For now you should drink small sips of cool clear liquids, and stay hydrated. Take the Zofran that is dispensed with you for nausea if needed. Take stool softeners until your bowels are moving well. Follow-up with your primary care provider if not improving. RETURN TO THE EMERGENCY ROOM IF ANY NEW OR WORSENING SYMPTOMS. Referrals: DAMIEN WISE MD [Primary Care Provider] - Follow up as needed Scribe Attestation: 10/25/18 03:49 I personally performed the services described in the documentation, reviewed and edited the documentation which was dictated to the scribe in my presence, and it accurately records my words and actions. (KEVON MENSAH) Scribe Documentation - Scribe Written by Phi:: Phi Cazares, 10/25/2018 03:44 acting as scribe for :: [place] <AR HAWLEY - Last Filed: 10/25/18 05:46>
[2018-10-25 03:47] LABS: ABSOLUTE BASOPHILS # (AUTO) 0.1 10^3/uL (0.0-0.2); ABSOLUTE EOSINOPHILS # (AUTO) 0.1 10^3/uL (0.0-0.6); ABSOLUTE MONOCYTES (AUTO) 0.4 10^3/uL (0.1-1.4); ABSOLUTE NEUT (AUTO) 4.4 10^3/uL (1.7-8.2); BASOPHILS % (AUTO) 0.8 % (0-2); EOSINOPHILS % (AUTO) 1.7 % (0-6); HEMATOCRIT 39.9 % (36.0-47.0); HEMOGLOBIN 13.7 g/dL (12.0-15.5); LYMPHOCYTES % (AUTO) 37.6 % (13-45); MEAN CORPUSCULAR HEMOGLOBIN 29.8 pg (27.0-33.4); MEAN CORPUSCULAR HGB CONC 34.3 g/dL (32.0-36.0); MEAN CORPUSCULAR VOLUME 87 fl (80-97); MONOCYTES % (AUTO) 4.6 % (3-13); PLATELET COUNT 338 10^3/uL (150-450); RED BLOOD COUNT 4.59 10^6/uL (3.72-5.28); RED CELL DISTRIBUTION WIDTH 13.2 % (11.5-14.0); SEGMENTED NEUTROPHILS % (AUTO) 55.3 % (42-78); TOTAL CELLS COUNTED % (AUTO) 100 %; WHITE BLOOD COUNT 7.9 10^3/uL (4.0-10.5)
[2018-10-25 04:09] LABS: ALANINE AMINOTRANSFERASE 13 U/L (9-52); ALBUMIN 4.5 g/dL (3.5-5.0); ALKALINE PHOSPHATASE 84 U/L (38-126); ANION GAP 11 (5-19); ASPARTATE AMINO TRANSFERASE 28 U/L (14-36); BILIRUBIN,DIRECT 0.3 mg/dL (0.0-0.4); BILIRUBIN,TOTAL 0.7 mg/dL (0.2-1.3); BLOOD UREA NITROGEN 14 mg/dL (7-20); CALCIUM 9.8 mg/dL (8.4-10.2); CARBON DIOXIDE 29 mmol/L (22-30); CHLORIDE 105 mmol/L (98-107); GLUCOSE 109 mg/dL (75-110); LIPASE 68.7 U/L (23-300); POTASSIUM 3.9 mmol/L (3.6-5.0); SODIUM 144.7 mmol/L (137-145); TOTAL PROTEIN 8.3 g/dL (6.3-8.2)
--- NOTE | 2018-10-25 04:27 | RADIOLOGY REPORT (SQ) ---
EXAM DESCRIPTION: XR ABDOMEN 1 VIEW (KUB) COMPLETED DATE/TME: 10/25/2018 03:35 CLINICAL HISTORY: 38 years, Female, Diffuse abdominal pain COMPARISON: None. NUMBER OF VIEWS: 1 TECHNIQUE: AP abdomen LIMITATIONS: None. FINDINGS: The bowel gas pattern is nonspecific. Mildly prominent air-filled loop of small bowel centrally. Moderate stool in the colon. Evaluation for free air limited on a supine view. Osseous structures are grossly intact IMPRESSION: Mild prominent air-filled loop of small bowel centrally. Moderate stool in the colon.. copyright 2010 [email or web address]- All Rights Reserved
[2018-10-25 05:40] LABS: APPEARANCE,URINE CLEAR; BILIRUBIN,URINE NEGATIVE (NEGATIVE); COLOR,URINE STRAW; GLUCOSE, URINE NEGATIVE (NEGATIVE); KETONES,URINE NEGATIVE (NEGATIVE); LEUKOCYTE ESTERASE,URINE SMALL (NEGATIVE); NITRITE,URINE NEGATIVE (NEGATIVE); PROTEIN,URINE NEGATIVE (NEGATIVE); URINE SPECIFIC GRAVITY 1.008; UROBILINOGEN,URINE NEGATIVE mg/dL (<2.0)
[2018-10-25] MEDS ORDERED: ONDANSETRON ODT 4 MG TAB (6 TAB/ER DISP) PO PRN (05:41)
== END 2018-10-25 05:54 | disposition home or self-care (01) ==
LOC: ER 03:11
DX: K59.00 Constipation, unspecified (principal); R10.84 Generalized abdominal pain; R11.2 Nausea with vomiting, unspecified; R10.30 Lower abdominal pain, unspecified; Z87.891 Personal history of nicotine dependence
CPT/HCPCS: 36415; 74018; 80053; 81001; 83690; 85025; 99284

== ENCOUNTER 2018-11-18 18:51 | Emergency (ER) | payer MEDICAID ==
[2018-11-18] MEDS ORDERED: PROMETHAZINE HCL 25 MG TABLET PO ONE (20:27)
[2018-11-18] MEDS ORDERED: FAMOTIDINE 20 MG TABLET PO ONE (20:27)
[2018-11-18] MEDS ORDERED: SUCRALFATE 1 GM TABLET PO ONE (20:27)
--- NOTE | 2018-11-18 20:29 | ER Document Report ---
ED Medical Screen (RME) - General Chief Complaint: Nausea/Vomiting Stated Complaint: VOMITING Time Seen by Provider: 11/18/18 20:23 Notes: 38-year-old female with chief complaint of upper abdominal pain and 2 episodes of vomiting today, states she also vomited some blood. Normal bowel movements. Has had cholecystectomy, appendectomy, hysterectomy. Pending referral to gastroenterology. Never had an endoscopy. Denies smoking, alcohol, re creational drugs, NSAID use. TRAVEL OUTSIDE OF THE [place] IN LAST 30 DAYS: No - Related Data Allergies/Adverse Reactions: avocado [Avocado] Allergy (Severe, Verified 07/11/18 13:42) Anaphylaxis NSAIDS (Non-Steroidal Anti-Inflamma [Nsaids] Allergy (Verified 07/11/18 13:42) throat swelling pineapple [Pineapple] Allergy (Verified 07/11/18 13:42) Sulfa (Sulfonamide Antibiotics) Allergy (Verified 07/11/18 13:42) throat swelling tree nuts Allergy (Uncoded 07/11/18 13:42) Past Medical History - Social History Family history: Reviewed & Not Pertinent Neurological Medical History: Reports: Hx Migraine Endocrine Medical History: Reports: Hx Hypothyroidism Renal/ Medical History: Denies: Hx Peritoneal Dialysis GI Medical History: Reports: Hx Gastritis Musculoskeltal Medical History: Reports Hx Musculoskeletal Deformity, Reports Hx Musculoskeletal Trauma Psychiatric Medical History: Reports: Hx Anxiety Traumatic Medical History: Reports: Hx Fractures - Elbow clavicle and ribs Past Surgical History: Reports: Hx Appendectomy - 2005, Hx Cholecystectomy - 2 010, Hx Hysterectomy, Hx Thyroid Surgery - Thyroidectomy 2005 - Immunizations Immunizations up to date: Yes Hx Diphtheria, Pertussis, Tetanus Vaccination: Yes - 2010 Physical Exam - Vital signs Vitals: Temp Pulse Resp BP Pulse Ox 99.1 F 80 18 113/71 99 11/18/18 18:56 11/18/18 18:56 11/18/18 18:56 11/18/18 18:56 11/18/18 18:56 - Abdominal Tenderness: Tender - Tender left upper abdomen, minimally tender in the epigastric area, remaining unremarkable. Exam limited by sitting position Course - Re-evaluation Re-evalutation: I have greeted and performed a rapid initial assessment of this patient. A comprehensive ED assessment and evaluation of the patient, analysis of test results and completion of the medical decision making process will be conducted by additional ED providers. - Vital Signs Vital signs: Temp Pulse Resp BP Pulse Ox 99.1 F 80 18 113/71 99 11/18/18 18:56 11/18/18 18:56 11/18/18 18:56 11/18/18 18:56 11/18/18 18:56 Doctor's Discharge - Discharge Referrals: DAMIEN KAT MD [Primary Care Provider] - Follow up as needed
[2018-11-18 21:17] LABS: ABSOLUTE BASOPHILS # (AUTO) 0.1 10^3/uL (0.0-0.2); ABSOLUTE EOSINOPHILS # (AUTO) 0.1 10^3/uL (0.0-0.6); ABSOLUTE LYMPHOCYTES (AUTO) 2.5 10^3/uL (0.5-4.7); ABSOLUTE MONOCYTES (AUTO) 0.4 10^3/uL (0.1-1.4); ABSOLUTE NEUT (AUTO) 4.1 10^3/uL (1.7-8.2); BASOPHILS % (AUTO) 1.2 % (0-2); EOSINOPHILS % (AUTO) 1.3 % (0-6); HEMATOCRIT 42.5 % (36.0-47.0); HEMOGLOBIN 14.3 g/dL (12.0-15.5); LYMPHOCYTES % (AUTO) 34.9 % (13-45); MEAN CORPUSCULAR HGB CONC 33.5 g/dL (32.0-36.0); MEAN CORPUSCULAR VOLUME 87 fl (80-97); MONOCYTES % (AUTO) 5.3 % (3-13); PLATELET COUNT 310 10^3/uL (150-450); RED BLOOD COUNT 4.91 10^6/uL (3.72-5.28); RED CELL DISTRIBUTION WIDTH 13.3 % (11.5-14.0); SEGMENTED NEUTROPHILS % (AUTO) 57.3 % (42-78); TOTAL CELLS COUNTED % (AUTO) 100 %; WHITE BLOOD COUNT 7.2 10^3/uL (4.0-10.5)
[2018-11-18 21:24] LABS: APPEARANCE,URINE CLEAR; BILIRUBIN,URINE NEGATIVE (NEGATIVE); COLOR,URINE YELLOW; GLUCOSE, URINE NEGATIVE (NEGATIVE); KETONES,URINE NEGATIVE (NEGATIVE); LEUKOCYTE ESTERASE,URINE LARGE (NEGATIVE); NITRITE,URINE NEGATIVE (NEGATIVE); PROTEIN,URINE NEGATIVE (NEGATIVE); URINE SPECIFIC GRAVITY 1.016; UROBILINOGEN,URINE NEGATIVE mg/dL (<2.0)
--- NOTE | 2018-11-18 21:34 | ER Document Report ---
ED General - General Chief Complaint: Nausea/Vomiting Stated Complaint: VOMITING Time Seen by Provider: 11/18/18 20:23 Notes: 38-year-old female with history of cholecystectomy, total hysterectomy, and appendectomy presents to the emergency department with tearing left lower quadrant abdominal pain, nausea, and hematemesis one time this morning. She states she has been having the abdominal pain since before [place]. She does state that she is around sick contacts at her house. She endorses fever, chills, vomiting, nausea, abdominal pain. She denies dizziness, lightheadedness, redness of breath, chest pain, urinary frequency, dysur. She states that she has had stomach problems going on 3-4 years. She denies any previous endoscopy or colonoscopy. TRAVEL OUTSIDE OF THE [place] IN LAST 30 DAYS: No - HPI Patient complains to provider of: LLQ abdominal pain, nausea, vomiting - Related Data Allergies/Adverse Reactions: avocado [Avocado] Allergy (Severe, Verified 07/11/18 13:42) Anaphylaxis NSAIDS (Non-Steroidal Anti-Inflamma [Nsaids] Allergy (Verified 07/11/18 13:42) throat swelling pineapple [Pineapple] Allergy (Verified 07/11/18 13:42) Sulfa (Sulfonamide Antibiotics) Allergy (Verified 07/11/18 13:42) throat swelling tree nuts Allergy (Uncoded 07/11/18 13:42) Past Medical History - General Information source: Patient - Social History Smoking Status: Never Smoker Frequency of alcohol use: None Family History: Reviewed & Not Pertinent, DM, Hyperlipidemia, Hypertension, Thyroid Disfunction, Other - Epilepsy Patient has suicidal ideation: No Patient has homicidal ideation: No Neurological Medical History: Reports: Hx Migraine Endocrine Medical History: Reports: Hx Hypothyroidism Renal/ Medical History: Denies: Hx Peritoneal Dialysis GI Medical History: Reports: Hx Gastritis Musculoskeletal Medical History: Reports Hx Musculoskeletal Deformity, Reports Hx Musculoskeletal Trauma Psychiatric Medical History: Reports: Hx Anxiety Traumatic Medical History: Reports: Hx Fractures - Elbow clavicle and ribs Past Surgical History: Reports: Hx Appendectomy - 2005, Hx Cholecystectomy - 2009, Hx Hysterectomy, Hx Thyroid Surgery - Thyroidectomy 2005 - Immunizations Immunizations up to date: Yes Hx Diphtheria, Pertussis, Tetanus Vaccination: Yes - 2010 Review of Systems - Review of Systems Constitutional: See HPI EENT: See HPI Cardiovascular: See HPI Respiratory: See HPI Gastrointestinal: See HPI Genitourinary: See HPI Female Genitourinary: No symptoms reported Musculoskeletal: No symptoms reported Skin: No symptoms reported Hematologic/Lymphatic: No symptoms reported Neurological/Psychological: No symptoms reported Physical Exam - Vital signs Vitals: Temp Pulse Resp BP Pulse Ox 99.1 F 80 18 113/71 99 11/18/18 18:56 11/18/18 18:56 11/18/18 18:56 11/18/18 18:56 11/18/18 18:56 Interpretation: Normal - Notes Notes: Reviewed vital signs and nursing note as charted by RN. CONSTITUTIONAL: Well-appearing, well-nourished, acting appropriately for age HEAD: Normocephalic, atraumatic, no swelling EYES: PERRL, Conjunctivae clear, no drainage, EOMI, no scleral icterus ENT: External ears without lesions, External auditory canal is patent, airway patent, mucous membranes pink and moist NECK: Supple, no cervical lymphadenopathy, no masses CARD: Regular rate and rhythm, no murmurs, no rubs, no gallop, symmetric pulses RESP: The lungs are clear to auscultation bilaterally, no wheezing, no rales, no rhonchi. Respiratory rate and effort are normal, normal chest excursion. No respiratory distress, no retractions, no stridor, no nasal flaring, no a ccessory muscle use. ABD/GI: Normal bowel sounds, non-distended, soft, tenderness to palpation left lower quadrant, no rebound, no guarding, no palpable organomegaly EXT: Normal ROM in all joints, non-tender to palpation, no edema SKIN: Normal color for age and race, warm, dry, good turgor, no acute lesions noted NEURO: No facial asymmetry, moves all extremities equally, motor and sensory function intact Course - Re-evaluation Re-evalutation: 11/18/18 21:32 38-year-old female presents to the emergency department after an episode of hematemesis this morning and severe left lower quadrant abdominal pain. She has been complaining of abdominal pain chronically over the last 3-4 years and has been unable to see a canine service teacher up to this point. She she has not had any upper or lower endoscopy performed. She denies any blood in her stool. Urinalysis was positive for a UTI which could explain her vomiting. She is allergic to NSAIDs and therefore would not exacerbate a bleeding peptic ulcer or gastritis. Patient was given 1 dose of pain medication and occult blood stool was performed to assess for GI bleed, which was negative. At this time there is no apparent life-threatening pathology and patient is stable to discharge with close follow-up with gastroenterology. 11/18/18 23:26 - Vital Signs Vital signs: Temp Pulse Resp BP Pulse Ox 98.0 F 72 16 112/72 98 11/18/18 22:55 11/18/18 22:55 11/18/18 22:55 11/18/18 22:55 11/18/18 22:55 - Laboratory Result Diagrams: 11/18/18 21:00 11/18/18 21:48 Laboratory results interpreted by me: 11/18/18 21:00 Ur Leukocyte Esterase LARGE H Discharge - Discharge Clinical Impression: Abdominal pain Qualifiers: Abdominal location: left lower quadrant Qualified Code(s): R10.32 - Left lower quadrant pain Disposition: HOME, SELF-CARE Instructions: Abdominal Pain ([facility]), Oral Narcotic Medication ([facility]) Additional Instructions: You were seen in the emergency department this evening for lower abdominal pain on your left side. Your test that was performed to check for blood in your GI tract was negative. It is unclear why you had blood in your vomit this morning but because it only happened one time that reassures us that you do not have an active GI bleed. It is important to follow-up with a canine service teacher as soon as possible. If you continue to have blood in your vomit, if you see blood in your stool, if he develops severe abdominal pain that does not resolve, pass out, or have any other concerns please immediately return to the emergency department. I have sent you home with a couple of doses of pain medication. Please take them when you have severe pain and do not drive or work when you take them as it can cause drowsiness. Forms: Return to Work Referrals: DAMIEN KAT MD [Primary Care Provider] - Follow up as needed
[2018-11-18] MEDS ORDERED: OXYCODONE-ACETAMINOPHEN 5-325 MG TABLET PO ONE (22:31)
[2018-11-18 22:36] LABS: ALANINE AMINOTRANSFERASE 20 U/L (9-52); ALBUMIN 4.4 g/dL (3.5-5.0); ALKALINE PHOSPHATASE 76 U/L (38-126); ANION GAP 10 (5-19); ASPARTATE AMINO TRANSFERASE 23 U/L (14-36); BILIRUBIN,DIRECT 0.3 mg/dL (0.0-0.4); BILIRUBIN,TOTAL 0.5 mg/dL (0.2-1.3); BLOOD UREA NITROGEN 12 mg/dL (7-20); CALCIUM 9.7 mg/dL (8.4-10.2); CARBON DIOXIDE 26 mmol/L (22-30); CHLORIDE 105 mmol/L (98-107); GLUCOSE 84 mg/dL (75-110); LIPASE 65.1 U/L (23-300); POTASSIUM 4.3 mmol/L (3.6-5.0); SODIUM 140.6 mmol/L (137-145); TOTAL PROTEIN 7.6 g/dL (6.3-8.2)
[2018-11-18] MEDS ORDERED: HYDROCODONE/ACETAMINOPHEN 5-325 MG (6 TAB/ER DISP) PO PRN (23:29)
[2018-11-18] MEDS ORDERED: CEPHALEXIN 500 MG CAPSULE PO ONE (23:31)
[2018-11-19 00:59] VITALS: BP 108/62
== END 2018-11-19 00:55 | disposition home or self-care (01) ==
LOC: ER 18:51
DX: N39.0 Urinary tract infection, site not specified (principal); R10.32 Left lower quadrant pain; K92.0 Hematemesis; R50.9 Fever, unspecified; Z88.8 Allergy status to other drugs, medicaments and biological substances; Z88.2 Allergy status to sulfonamides; Z91.018 Allergy to other foods; Z87.892 Personal history of anaphylaxis; Z90.49 Acquired absence of other specified parts of digestive tract; Z90.710 Acquired absence of both cervix and uterus
CPT/HCPCS: 99284; 36415; 83690; 85025; 82272; 80053; 81001; J3490 ×3

== ENCOUNTER 2019-01-07 23:29 | Emergency (ER) | payer BC, MEDICAID ==
[2019-01-08] MEDS ORDERED: ACETAMINOPHEN 325 MG TABLET PO ONE (02:01)
[2019-01-08] MEDS ORDERED: PROMETHAZINE HCL INJ 25 MG/1 ML VIAL IM ONE (02:01)
--- NOTE | 2019-01-08 02:04 | ER Document Report ---
ED General - General Chief Complaint: Abdominal Pain Stated Complaint: RIGHT SIDED PAIN Time Seen by Provider: 01/08/19 01:55 Primary Care Provider: DAMIEN KAT MD [NO LOCAL MD] - 01/10/19 Notes: Patient is a 38-year-old female presents with complaint of right upper quadrant dull pain that radiates around to the back and into her shoulder blade. Patient has had a cholecystectomy, appendectomy, and hysterectomy. She complains of some nausea but no vomiting. She says it is worse with some movement. No fevers. No dysuria. In reviewing the patient's records she has been here many times for abdominal pain and/or vomiting over the course of the last 2 years. I asked her if this was similar to her previous pain and she says no. She says her other pains are usually in the left side. No other complaints at this time. TRAVEL OUTSIDE OF THE [place] IN LAST 30 DAYS: No - Related Data Allergies/Adverse Reactions: avocado [Avocado] Allergy (Severe, Verified 01/08/19 02:07) Anaphylaxis NSAIDS (Non-Steroidal Anti-Inflamma [Nsaids] Allergy (Verified 01/08/19 02:07) throat swelling pineapple [Pineapple] Allergy (Verified 01/08/19 02:07) Sulfa (Sulfonamide Antibiotics) Allergy (Verified 01/08/19 02:07) throat swelling tree nuts Allergy (Uncoded 07/11/18 13:42) Past Medical History - Social History Smoking Status: Unknown if Ever Smoked Frequency of alcohol use: None Drug Abuse: None Family History: Reviewed & Not Pertinent, DM, Hyperlipidemia, Hypertension, Thyroid Disfunction, Other - Epilepsy Neurological Medical History: Reports: Hx Migraine Endocrine Medical History: Reports: Hx Hypothyroidism Renal/ Medical History: Denies: Hx Peritoneal Dialysis GI Medical History: Reports: Hx Gastritis Musculoskeletal Medical History: Reports Hx Musculoskeletal Deformity, Reports Hx Musculoskeletal Trauma Psychiatric Medical History: Reports: Hx Anxiety Traumatic Medical History: Reports: Hx Fractures - Elbow clavicle and ribs Past Surgical History: Reports: Hx Appendectomy - 2005, Hx Cholecystectomy - 2009, Hx Hysterectomy, Hx Thyroid Surgery - Thyroidectomy 2005 - Immunizations Immunizations up to date: Yes Hx Diphtheria, Pertussis, Tetanus Vaccination: Yes - 2010 Review of Systems - Review of Systems Notes: My Normal Review Basic REVIEW OF SYSTEMS: CONSTITUTIONAL : Denies fever, chills, or sweats. Denies recent illness. EENT: Denies eye, ear, throat, or mouth pain or symptoms. Denies nasal or sinus congestion. CARDIOVASCULAR: Denies chest pain. RESPIRATORY: Denies cough, cold, or chest congestion. Denies shortness of breath, difficulty breathing, or wheezing. GASTROINTESTINAL: Abdominal pain. Some nausea. No vomiting. GENITOURINARY: Denies difficulty urinating, painful urination, burning, frequency, or blood in urine. MUSCULOSKELETAL: Denies neck or back pain or joint pain or swelling. SKIN: Denies rash or skin lesions. NEUROLOGICAL: Denies altered mental status or loss of consciousness. Denies headache. Denies weakness or paralysis or loss of use of either side. Denies problems with gait or speech. Denies sensory or motor loss. ALL OTHER SYSTEMS REVIEWED AND NEGATIVE. Physical Exam - Vital signs Vitals: Temp Pulse Resp BP Pulse Ox 98.4 F 69 18 124/69 97 01/07/19 23:57 01/07/19 23:57 01/07/19 23:57 01/07/19 23:57 01/07/19 23:57 - Notes Notes: General Appearance: Well nourished, alert, cooperative, no acute distress, no obvious discomfort. Well-appearing. Vitals: reviewed, See vital signs table. Head: no swelling or tenderness to the head Eyes: PERRL, EOMI, Conjuctiva clear Mouth: No decreasd moisture Lungs: No wheezing, No rales, No rhonci, No accessory muscle use, good air exchange bilaterally. Heart: Normal rate, Regular rythm, No murmur, no rub Abdomen: Normal BS, soft, No rigidity, mild right upper quadrant abdominal tenderness to palpation., No guarding, no rebound, no abdominal masses, no organomegaly Extremities: strength 5/5 in all extremities, good pulses in all extremities, no swelling or tenderness in the extremities, no edema. Skin: warm, dry, appropriate color, no rash. No shingles-like rash in the location of the patient's pain. Neuro: speech clear, oriented x 3, normal affect, responds appropriately to questions. Course - Re-evaluation Re-evalutation: 01/08/19 05:30 Patient's laboratory evaluation is unremarkable. She was sleeping comfortably when into the room. She says she was feeling better after the Phenergan. She does not have a gallbladder. She does not have an appendix. Her abdominal exam was very benign. I do not see any evidence of any serious or life-threatening causes of her pain. Informed her that would be discharged home with Phenergan. I informed her to have a low threshold to return to ER if she has recurrent worsening pain, fevers, or vomiting. I will have her return to the ER follow-up with your doctor in 2 days for reevaluation if she still having ongoing symptoms. Patient agrees with plan will be discharged home. Dictation of this chart was performed using voice recognition software; therefore, there may be some unintended grammatical errors. - Vital Signs Vital signs: Temp Pulse Resp BP Pulse Ox 97.7 F 61 16 113/64 100 01/08/19 03:22 01/08/19 03:22 01/08/19 03:22 01/08/19 03:22 01/08/19 03:22 - Laboratory Result Diagrams: 01/08/19 02:12 01/08/19 02:12 Laboratory results interpreted by me: 01/08/19 02:19 Ur Leukocyte Esterase SMALL H Discharge - Discharge Clinical Impression: Abdominal pain Condition: Good Disposition: HOME, SELF-CARE Additional Instructions: Currently your workup for abdominal pain does not show any acutely concerning findings. We still want you to have a low threshold to return to the ER if you have worsening abdominal pain, vomiting, fevers, or feel that you are worsening in any way. Return to the ER or follow-up with your doctor within 2 days if you are still having any recurrent abdominal pain. Please take the Phenergan as prescribed for nausea. Please be aware that sometimes Phenergan can make you sleepy. Be careful not to drive if you are feeling sleepy after taking the medi cation. Prescriptions: Promethazine HCl [Phenergan 25 mg Tablet] 1 tab PO Q6H PRN #10 tablet PRN Reason: Forms: Return to Work Referrals: DAMIEN KAT MD [NO LOCAL MD] - 01/10/19
[2019-01-08 02:20] LABS: ABSOLUTE EOSINOPHILS # (AUTO) 0.1 10^3/uL (0.0-0.6); ABSOLUTE LYMPHOCYTES (AUTO) 3.3 10^3/uL (0.5-4.7); ABSOLUTE MONOCYTES (AUTO) 0.4 10^3/uL (0.1-1.4); ABSOLUTE NEUT (AUTO) 3.4 10^3/uL (1.7-8.2); BASOPHILS % (AUTO) 0.6 % (0-2); HEMATOCRIT 38.7 % (36.0-47.0); HEMOGLOBIN 13.1 g/dL (12.0-15.5); MEAN CORPUSCULAR HGB CONC 33.8 g/dL (32.0-36.0); MEAN CORPUSCULAR VOLUME 86 fl (80-97); PLATELET COUNT 297 10^3/uL (150-450); RED BLOOD COUNT 4.52 10^6/uL (3.72-5.28); RED CELL DISTRIBUTION WIDTH 13.4 % (11.5-14.0); SEGMENTED NEUTROPHILS % (AUTO) 46.4 % (42-78); TOTAL CELLS COUNTED % (AUTO) 100 %; WHITE BLOOD COUNT 7.3 10^3/uL (4.0-10.5)
[2019-01-08 02:35] LABS: ALANINE AMINOTRANSFERASE 16 U/L (9-52); ALBUMIN 4.3 g/dL (3.5-5.0); ALKALINE PHOSPHATASE 81 U/L (38-126); ANION GAP 11 (5-19); ASPARTATE AMINO TRANSFERASE 17 U/L (14-36); BILIRUBIN,DIRECT 0.2 mg/dL (0.0-0.4); BILIRUBIN,TOTAL 0.6 mg/dL (0.2-1.3); BLOOD UREA NITROGEN 16 mg/dL (7-20); CALCIUM 9.6 mg/dL (8.4-10.2); CARBON DIOXIDE 26 mmol/L (22-30); CHLORIDE 106 mmol/L (98-107); GLUCOSE 94 mg/dL (75-110); LIPASE 98.8 U/L (23-300); SODIUM 142.6 mmol/L (137-145); TOTAL PROTEIN 7.2 g/dL (6.3-8.2)
[2019-01-08 02:39] LABS: APPEARANCE,URINE CLEAR; BILIRUBIN,URINE NEGATIVE (NEGATIVE); COLOR,URINE STRAW; GLUCOSE, URINE NEGATIVE (NEGATIVE); KETONES,URINE NEGATIVE (NEGATIVE); LEUKOCYTE ESTERASE,URINE SMALL (NEGATIVE); NITRITE,URINE NEGATIVE (NEGATIVE); PROTEIN,URINE NEGATIVE (NEGATIVE); URINE SPECIFIC GRAVITY 1.012; UROBILINOGEN,URINE NEGATIVE mg/dL (<2.0)
[2019-01-08 03:23] VITALS: BP 113/64
== END 2019-01-08 03:23 | disposition home or self-care (01) ==
LOC: ER 23:29
DX: R10.11 Right upper quadrant pain (principal); R11.0 Nausea; Z90.710 Acquired absence of both cervix and uterus; Z87.19 Personal history of other diseases of the digestive system; Z90.49 Acquired absence of other specified parts of digestive tract; Z88.2 Allergy status to sulfonamides; Z88.8 Allergy status to other drugs, medicaments and biological substances; Z91.018 Allergy to other foods
CPT/HCPCS: 99284; 96372; 36415; 83690; 85025; 80053; 81001; J2550

== ENCOUNTER 2019-03-03 01:04 | Emergency (ER) | payer BC ==
[2019-03-03 03:47] LABS: ABSOLUTE EOSINOPHILS # (AUTO) 0.1 10^3/uL (0.0-0.6); ABSOLUTE LYMPHOCYTES (AUTO) 2.8 10^3/uL (0.5-4.7); ABSOLUTE MONOCYTES (AUTO) 0.3 10^3/uL (0.1-1.4); APPEARANCE,URINE CLEAR; BASOPHILS % (AUTO) 0.6 % (0-2); BILIRUBIN,URINE NEGATIVE (NEGATIVE); COLOR,URINE YELLOW; EOSINOPHILS % (AUTO) 2.2 % (0-6); GLUCOSE, URINE NEGATIVE (NEGATIVE); HEMATOCRIT 38.4 % (36.0-47.0); HEMOGLOBIN 13.1 g/dL (12.0-15.5); KETONES,URINE NEGATIVE (NEGATIVE); LEUKOCYTE ESTERASE,URINE TRACE (NEGATIVE); LYMPHOCYTES % (AUTO) 44.3 % (13-45); MEAN CORPUSCULAR HEMOGLOBIN 29.4 pg (27.0-33.4); MEAN CORPUSCULAR HGB CONC 34.1 g/dL (32.0-36.0); MEAN CORPUSCULAR VOLUME 86 fl (80-97); MONOCYTES % (AUTO) 5.5 % (3-13); NITRITE,URINE NEGATIVE (NEGATIVE); PLATELET COUNT 314 10^3/uL (150-450); PROTEIN,URINE NEGATIVE (NEGATIVE); RED BLOOD COUNT 4.45 10^6/uL (3.72-5.28); RED CELL DISTRIBUTION WIDTH 13.8 % (11.5-14.0); SEGMENTED NEUTROPHILS % (AUTO) 47.4 % (42-78); TOTAL CELLS COUNTED % (AUTO) 100 %; URINE SPECIFIC GRAVITY 1.021; UROBILINOGEN,URINE NEGATIVE mg/dL (<2.0); WHITE BLOOD COUNT 6.2 10^3/uL (4.0-10.5)
[2019-03-03 04:06] LABS: ALANINE AMINOTRANSFERASE 30 U/L (9-52); ALBUMIN 4.2 g/dL (3.5-5.0); ALKALINE PHOSPHATASE 74 U/L (38-126); ANION GAP 9 (5-19); ASPARTATE AMINO TRANSFERASE 29 U/L (14-36); BILIRUBIN,DIRECT 0.3 mg/dL (0.0-0.4); BILIRUBIN,TOTAL 0.3 mg/dL (0.2-1.3); BLOOD UREA NITROGEN 19 mg/dL (7-20); CARBON DIOXIDE 26 mmol/L (22-30); CHLORIDE 107 mmol/L (98-107); GLUCOSE 107 mg/dL (75-110); LIPASE 109.6 U/L (23-300); SODIUM 142.1 mmol/L (137-145)
--- NOTE | 2019-03-03 05:23 | ER Document Report ---
ED Medical Screen (RME) - General Chief Complaint: Abdominal Pain Stated Complaint: SIDE PAIN Time Seen by Provider: 03/03/19 05:07 TRAVEL OUTSIDE OF THE [place] IN LAST 30 DAYS: No - HPI Notes: 03/03/19 05:18 Patient is a 38-year-old female with a history of an appendectomy, a cholecystectomy and hysterectomy who arrives in the emergency department today for the chief complaint of right lower quadrant pain. States that this started about 1 week ago, has been intermittent, and more constant over the past 24 hours. He does report nausea, one episode of vomiting, and a small amount of diarrhea this morning. States she did have a fever at home of 101, took some Tylenol, and felt better. She states that he she has had similar symptoms in the past. Last time she was seen for the symptoms was a few months ago and was told to follow-up with GI. Patient states she is on the waiting list for GI. S he does report having a colonoscopy about 7 years ago and reports no abnormalities or diagnoses. Denies urinary symptoms 03/03/19 05:25 - Related Data Allergies/Adverse Reactions: avocado [Avocado] Allergy (Severe, Verified 03/03/19 01:06) Anaphylaxis NSAIDS (Non-Steroidal Anti-Inflamma [Nsaids] Allergy (Verified 03/03/19 01:06) throat swelling pineapple [Pineapple] Allergy (Verified 03/03/19 01:06) Sulfa (Sulfonamide Antibiotics) Allergy (Verified 03/03/19 01:06) throat swelling tree nuts Allergy (Uncoded 03/03/19 01:06) Past Medical History - Social History Chew tobacco use (# tins/day): No Frequency of alcohol use: Rare Drug Abuse: None Family history: Reviewed & Not Pertinent Neurological Medical History: Reports: Hx Migraine Endocrine Medical History: Reports: Hx Hypothyroidism Renal/ Medical History: Denies: Hx Peritoneal Dialysis GI Medical History: Reports: Hx Gastritis Musculoskeltal Medical History: Reports Hx Musculoskeletal Deformity, Reports Hx Musculoskeletal Trauma Psychiatric Medical History: Reports: Hx Anxiety Traumatic Medical History: Reports: Hx Fractures - Elbow clavicle and ribs Past Surgical History: Reports: Hx Appendectomy - 2005, Hx Cholecystectomy - 2009, Hx Hysterectomy, Hx Thyroid Surgery - Thyroidectomy 2005 - Immunizations Immunizations up to date: Yes Hx Diphtheria, Pertussis, Tetanus Vaccination: Yes - 2010 Physical Exam - Vital signs Vitals: Temp Pulse Resp BP Pulse Ox 97.9 F 75 16 114/77 97 03/03/19 01:11 03/03/19 01:11 03/03/19 01:11 03/03/19 01:11 03/03/19 01:11 - Abdominal Inspection: Normal Distension: No distension Bowel sounds: Normal Tenderness: Tender Notes: Tenderness with palpation to right mid to lower quadrant. Course - Re-evaluation Re-evalutation: 03/03/19 05:24 I have greeted and performed a rapid initial assessment of this patient. A comprehensive ED assessment and evaluation of the patient, analysis of test results and completion of the medical decision making process will be conducted by additional ED providers. - Vital Signs Vital signs: Temp Pulse Resp BP Pulse Ox 97.9 F 75 16 114/77 97 03/03/19 01:11 03/03/19 01:11 03/03/19 01:11 03/03/19 01:11 03/03/19 01:11 - Laboratory Result Diagrams: 03/03/19 03:17 03/03/19 03:17 Laboratory results interpreted by me: 03/03/19 03/03/19 03:17 03:17 Est GFR ( Amer) 59 L Est GFR (Non-Af Amer) 48 L Ur Leukocyte Esterase TRACE H
[2019-03-03] MEDS ORDERED: FAMOTIDINE INJ/PF 20 MG/2 ML SDV IV ONE (05:41)
[2019-03-03] MEDS ORDERED: PROMETHAZINE HCL 25 MG TABLET PO ONE (05:41)
[2019-03-03] MEDS ORDERED: NORMAL SALINE 1000 ML 1,000 ML IV ONE (05:41)
--- NOTE | 2019-03-03 07:32 | RADIOLOGY REPORT (SQ) ---
EXAM DESCRIPTION: XR ABDOMEN SUPINE AND ERECT WITH CHEST (ABD ACUTE SERIES) COMPLETED DATE/TME: 03/03/2019 07:05 CLINICAL HISTORY: 38 years Female, abd pain Comparison: None. NUMBER OF VIEWS/TECHNIQUE: 3 LIMITATIONS: None. FINDINGS: Intestinal gas pattern is within normal limits. Right colonic stool retention. No suspicious calcification. Grossly intact skeletal structures. No acute cardiopulmonary findings. IMPRESSION: No acute findings.
--- NOTE | 2019-03-03 07:37 | ER Document Report ---
ED GI/ - General Chief Complaint: Abdominal Pain Stated Complaint: SIDE PAIN Time Seen by Provider: 03/03/19 05:07 Primary Care Provider: AFTAB GRAY MD [ACTIVE STAFF] - Follow up as needed Notes: 38-year-old female to emergency department chief complaint of abdominal pain in the right upper quadrant and right mid abdomen area. No fever. Some intermittent nausea and vomiting. Patient does not have an appendix, gallbladder, uterus or ovaries. No other major symptoms at this time. Had some diarrhea and may have seen some blood in the diarrhea but did not see anything today. Patient is a food sanitarian. TRAVEL OUTSIDE OF THE [place] IN LAST 30 DAYS: No - HPI Patient complains to provider of: Abdominal pain, Diarrhea, Vomiting Onset: Yesterday Timing/Duration: Gradual, Constant Quality of pain: Achy Severity at maximum: Moderate Severity in ED: Moderate Pain Level: 3 Location: RUQ, RLQ, Right flank - Related Data Allergies/Adverse Reactions: avocado [Avocado] Allergy (Severe, Verified 03/03/19 01:06) Anaphylaxis NSAIDS (Non-Steroidal Anti-Inflamma [Nsaids] Allergy (Verified 03/03/19 01:06) throat swelling pineapple [Pineapple] Allergy (Verified 03/03/19 01:06) Sulfa (Sulfonamide Antibiotics) Allergy (Verified 03/03/19 01:06) throat swelling tree nuts Allergy (Uncoded 03/03/19 01:06) Past Medical History - General Information source: Patient - Social History Smoking Status: Former Smoker Chew tobacco use (# tins/day): No Frequency of alcohol use: Rare Drug Abuse: None Family History: Reviewed & Not Pertinent, DM, Hyperlipidemia, Hypertension, Thyroid Disfunction, Other - Epilepsy Patient has suicidal ideation: No Patient has homicidal ideation: No Neurological Medical History: Reports: Hx Migraine Endocrine Medical History: Reports: Hx Hypothyroidism Renal/ Medical History: Denies: Hx Peritoneal Dialysis GI Medical History: Reports: Hx Gastritis Musculoskeletal Medical History: Reports Hx Musculoskeletal Deformity, Reports Hx Musculoskeletal Trauma Psychiatric Medical History: Reports: Hx Anxiety Traumatic Medical History: Reports: Hx Fractures - Elbow clavicle and ribs Past Surgical History: Reports: Hx Appendectomy - 2005, Hx Cholecystectomy - 2009, Hx Hysterectomy, Hx Thyroid Surgery - Thyroidectomy 2005 - Immunizations Immunizations up to date: Yes Hx Diphtheria, Pertussis, Tetanus Vaccination: Yes - 2010 Review of Systems - Review of Systems Notes: Constitutional: denies: Chills, Diaphoresis, Fever, Malaise, Weakness EENT: denies: Eye discharge, Blurred vision, Tearing, Double vision, Nose congestion, Nose discharge, Throat swelling, Mouth pain Cardiovascular: denies: Palpitations, Heart racing, Orthopnea, Dyspnea, Chest pain Respiratory: denies: Cough, Hurts to breathe, Wheezing, Shortness of breath Gastrointestinal: +abdominal pain, nausea, vomiting, diarrhea Genitourinary: denies: Burning, Dysuria, Discharge, Frequency, Flank pain, Hematuria Musculoskeletal: denies: Joint pain, Joint swelling, Muscle pain, Muscle stiffness, back pain Hematologic/Lymphatic: denies: Anemia, Easy bleeding, Easy bruising, Blood clots Neurological/Psychological: denies: Confusion, Dementia, Depression, Loss of consciousness Skin: No lesions, no masses, no skin breakdown, no abscesses Physical Exam - Vital signs Vitals: Temp Pulse Resp BP Pulse Ox 97.9 F 75 16 114/77 97 03/03/19 01:11 03/03/19 01:11 03/03/19 01:11 03/03/19 01:11 03/03/19 01:11 Interpretation: Normal - General General appearance: Appears well, Alert - HEENT Head: Normocephalic, Atraumatic Eyes: Normal Pupils: PERRL - Respiratory Respiratory status: No respiratory distress Chest status: Nontender Breath sounds: Normal Chest palpation: Normal - Cardiovascular Rhythm: Regular Heart sounds: Normal auscultation Murmur: No - Abdominal Inspection: Normal Distension: No distension Bowel sounds: Normal Tenderness: Nontender Organomegaly: No organomegaly - Back Back: Normal, Nontender - Extremities General upper extremity: Normal inspection, Nontender, Normal color, Normal ROM, Normal temperature General lower extremity: Normal inspection, Nontender, Normal color, Normal ROM, Normal temperature, Normal weight bearing. No: Brennan's sign - Neurological Neuro grossly intact: Yes Cognition: Normal Orientation: AAOx4 Pietro Coma Scale Eye Opening: Spontaneous Grimes Coma Scale Verbal: Oriented Grimes Coma Scale Motor: Obeys Commands Grimes Coma Scale Total: 15 Speech: Normal Motor strength normal: LUE, RUE, LLE, RLE Sensory: Normal - Psychological Associated symptoms: Normal affect, Normal mood - Skin Skin Temperature: Warm Skin Moisture: Dry Skin Color: Normal Course - Re-evaluation Re-evalutation: 03/03/19 07:33 This is a well-appearing 30-year-old female who comes in with abdominal pain. Patient does not have a gallbladder, appendix, uterus. Does not have any pain in the right lower quadrant. She has pain over a surgical incision scar. It is possible that she has another hernia. Patient has been seen here at least 12 times in the last year for various abdominal complaints. The x-ray is unremarkable. Her labs are normal. At this time I feel confident saying that she has no significant acute intra-abdominal pathology. We will give her follow-up information for general surgery. Will DC at this time in stable condition. Laboratory 03/03/19 03/03/19 03/03/19 03:17 03:17 03:17 WBC 6.2 RBC 4.45 Hgb 13.1 Hct 38.4 MCV 86 MCH 29.4 MCHC 34.1 RDW 13.8 Plt Count 314 Seg Neutrophils % 47.4 Lymphocytes % 44.3 Monocytes % 5.5 Eosinophils % 2.2 Basophils % 0.6 Absolute Neutrophils 3.0 Absolute Lymphocytes 2.8 Absolute Monocytes 0.3 Absolute Eosinophils 0.1 Absolute Basophils 0.0 Sodium 142.1 Potassium 4.0 Chloride 107 Carbon Dioxide 26 Anion Gap 9 BUN 19 Creatinine 1.24 Est GFR ( Amer) 59 L Est GFR (Non-Af Amer) 48 L Glucose 107 Calcium 10.0 Total Bilirubin 0.3 Direct Bilirubin 0.3 Neonat Total Bilirubin Not Reportable Neonat Direct Bilirubin Not Reportable Neonat Indirect Bili Not Reportable AST 29 ALT 30 Alkaline Phosphatase 74 Total Protein 8.0 Albumin 4.2 Lipase 109.6 Urine Color YELLOW Urine Appearance CLEAR Urine pH 6.0 Ur Specific Ewing 1.021 Urine Protein NEGATIVE Urine Glucose (UA) NEGATIVE Urine Ketones NEGATIVE Urine Blood NEGATIVE Urine Nitrite NEGATIVE Urine Bilirubin NEGATIVE Urine Urobilinogen NEGATIVE Ur Leukocyte Esterase TRACE H Urine WBC (Auto) 2 Squamous Epi Cells Auto <1 Urine Mucus (Auto) RARE Urine Ascorbic Acid NEGATIVE Urine HCG, Qual NEGATIVE Acute Abdomen Series 03/03/19 07:05 IMPRESSION: No acute findings. - Vital Signs Vital signs: Temp Pulse Resp BP Pulse Ox 97.6 F 82 18 104/57 L 99 03/03/19 07:50 03/03/19 07:50 03/03/19 07:50 03/03/19 07:50 03/03/19 07:50 - Laboratory Result Diagrams: 03/03/19 03:17 03/03/19 03:17 Laboratory results interpreted by me: 03/03/19 03/03/19 03:17 03:17 Est GFR ( Amer) 59 L Est GFR (Non-Af Amer) 48 L Ur Leukocyte Esterase TRACE H Discharge - Discharge Clinical Impression: Right lateral abdominal pain Condition: Good Disposition: HOME, SELF-CARE Instructions: Abdominal Pain ([facility]) Additional Instructions: In the event that your abdominal pain is getting worse over the next 24-48 hours please return for repeat evaluation. The workup today does not reveal anything significant or abnormal. This is reassuring however things can change. If you have worsening diarrhea with bloody diarrhea than it will require that you return so that we can get a sample and send it to the lab to see if it is an infectious diarrhea. 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 Follow-up information has been provided for general surgeon as you may indeed have a hernia. Please make an appointment to see the general surgeon for an evaluation if the symptoms persist. Prescriptions: Ondansetron [Zofran Odt 4 mg Tablet] 1 - 2 tab PO Q4H PRN #15 tab.rapdis PRN Reason: For Nausea/Vomiting Forms: Return to Work Referrals: AFTAB GRAY MD [ACTIVE STAFF] - Follow up as needed
[2019-03-03 08:11] VITALS: BP 104/57
== END 2019-03-03 08:11 | disposition home or self-care (01) ==
LOC: ER 01:04
DX: R10.11 Right upper quadrant pain (principal); R11.2 Nausea with vomiting, unspecified; R19.7 Diarrhea, unspecified; R06.2 Wheezing; Z87.891 Personal history of nicotine dependence
CPT/HCPCS: 99284; 96361; 96374; 36415; 83690; 85025; 81025; 80053; 81001; 74022; J7030; S0028

== ENCOUNTER 2019-05-16 00:23 | Emergency (ER) | payer BC ==
[2019-05-16] MEDS ORDERED: ONDANSETRON HCL INJ/PF 4 MG/2 ML SDV IV ONE (00:55)
[2019-05-16] MEDS ORDERED: FENTANYL CITRATE INJ/PF 100 MCG/2 ML AMPUL IV ONE (00:55)
--- NOTE | 2019-05-16 00:57 | ER Document Report ---
ED Medical Screen (RME) - General Chief Complaint: Abdominal Pain Stated Complaint: ABDOMINAL PAIN Time Seen by Provider: 05/16/19 00:55 Notes: Patient is a 39-year-old female presents to the emergency department for left lower abdominal pain, nausea for the last 4 days. Patient has a history of a hysterectomy, appendectomy, cholecystectomy. Denies any diarrhea, dysuria, vaginal discharge. Denies any history of diverticulitis or diverticulosis. Denies any pelvic pain. ABDOMEN: Soft, generalized left lower abdominal pain noted. Non-distended. Bowel sounds present in all 4 quadrants. I have greeted and performed a rapid initial assessment of this patient. A comprehensive ED assessment and evaluation of the patient, analysis of test results and completion of the medical decision making process will be conducted by additional ED providers. I have specifically instructed the patient or family members with the patient to immediately return to any nursing staff should anything change in the patient's condition or with their chief complaint. This medical record was dictated with voice recognizing software. There may be grammatical, syntax errors that are unintended. TRAVEL OUTSIDE OF THE [place] IN LAST 30 DAYS: No - Related Data Allergies/Adverse Reactions: avocado [Avocado] Allergy (Severe, Verified 03/03/19 01:06) Anaphylaxis NSAIDS (Non-Steroidal Anti-Inflamma [Nsaids] Allergy (Verified 03/03/19 01:06) throat swelling pineapple [Pineapple] Allergy (Verified 03/03/19 01:06) Sulfa (Sulfonamide Antibiotics) Allergy (Verified 03/03/19 01:06) throat swelling tree nuts Allergy (Uncoded 03/03/19 01:06) Past Medical History - Social History Family history: Reviewed & Not Pertinent Neurological Medical History: Reports: Hx Migraine Endocrine Medical History: Reports: Hx Hypothyroidism Renal/ Medical History: Denies: Hx Peritoneal Dialysis GI Medical History: Reports: Hx Gastritis Musculoskeltal Medical History: Reports Hx Musculoskeletal Deformity, Reports Hx Musculoskeletal Trauma Psychiatric Medical History: Reports: Hx Anxiety Traumatic Medical History: Reports: Hx Fractures - Elbow clavicle and ribs Past Surgical History: Reports: Hx Appendectomy - 2005, Hx Cholecystectomy - 2009, Hx Hysterectomy, Hx Thyroid Surgery - Thyroidectomy 2005 - Immunizations Immunizations up to date: Yes Hx Diphtheria, Pertussis, Tetanus Vaccination: Yes - 2010
[2019-05-16 01:33] LABS: ABSOLUTE EOSINOPHILS # (AUTO) 0.1 10^3/uL (0.0-0.6); ABSOLUTE LYMPHOCYTES (AUTO) 3.1 10^3/uL (0.5-4.7); ABSOLUTE MONOCYTES (AUTO) 0.4 10^3/uL (0.1-1.4); ABSOLUTE NEUT (AUTO) 3.6 10^3/uL (1.7-8.2); BASOPHILS % (AUTO) 0.6 % (0-2); EOSINOPHILS % (AUTO) 1.6 % (0-6); HEMATOCRIT 38.7 % (36.0-47.0); HEMOGLOBIN 13.2 g/dL (12.0-15.5); LYMPHOCYTES % (AUTO) 43.1 % (13-45); MEAN CORPUSCULAR VOLUME 85 fl (80-97); MONOCYTES % (AUTO) 5.3 % (3-13); PLATELET COUNT 272 10^3/uL (150-450); RED BLOOD COUNT 4.54 10^6/uL (3.72-5.28); RED CELL DISTRIBUTION WIDTH 13.6 % (11.5-14.0); SEGMENTED NEUTROPHILS % (AUTO) 49.4 % (42-78); TOTAL CELLS COUNTED % (AUTO) 100 %; WHITE BLOOD COUNT 7.2 10^3/uL (4.0-10.5)
[2019-05-16 01:38] LABS: APPEARANCE,URINE CLEAR; BILIRUBIN,URINE NEGATIVE (NEGATIVE); COLOR,URINE STRAW; GLUCOSE, URINE NEGATIVE (NEGATIVE); KETONES,URINE NEGATIVE (NEGATIVE); LEUKOCYTE ESTERASE,URINE SMALL (NEGATIVE); NITRITE,URINE NEGATIVE (NEGATIVE); PROTEIN,URINE NEGATIVE (NEGATIVE); URINE SPECIFIC GRAVITY 1.009; UROBILINOGEN,URINE NEGATIVE mg/dL (<2.0)
[2019-05-16 01:50] LABS: ALANINE AMINOTRANSFERASE 24 U/L (9-52); ALBUMIN 4.3 g/dL (3.5-5.0); ALKALINE PHOSPHATASE 78 U/L (38-126); ANION GAP 7 (5-19); ASPARTATE AMINO TRANSFERASE 23 U/L (14-36); BILIRUBIN,DIRECT 0.2 mg/dL (0.0-0.4); BILIRUBIN,TOTAL 0.3 mg/dL (0.2-1.3); BLOOD UREA NITROGEN 18 mg/dL (7-20); CALCIUM 9.5 mg/dL (8.4-10.2); CARBON DIOXIDE 25 mmol/L (22-30); CHLORIDE 107 mmol/L (98-107); GLUCOSE 100 mg/dL (75-110); POTASSIUM 3.9 mmol/L (3.6-5.0); SODIUM 139.3 mmol/L (137-145); TOTAL PROTEIN 7.7 g/dL (6.3-8.2)
[2019-05-16] MEDS ORDERED: MORPHINE SULFATE 10 MG/ML INJ IV PRN (02:14)
[2019-05-16] MEDS ORDERED: NORMAL SALINE 1000 ML 1,000 ML IV ONE (02:15)
--- NOTE | 2019-05-16 02:16 | ER Document Report ---
ED General - General Chief Complaint: Abdominal Pain Stated Complaint: ABDOMINAL PAIN Time Seen by Provider: 05/16/19 00:55 Notes: Patient is a 39-year-old female with past medical history of chronic intermittent abdominal pain, surgical history of appendectomy, cholecystectomy, hysterectomy, bilateral salpingo-oophorectomy, presents with 4 days of left lower quadrant abdominal pain with associated nausea and intermittent vomiting. States the pain started gradually and has been progressively worsening since onset. Describes it as a shooting, stabbing pain to her left lower abdomen. Has been constant since onset. No exacerbating or alleviating factors. States that she has a long-standing history of intermittent abdominal pain but it has been gone for quite some time and was concerned about its recurrence today. She has not had diarrhea, no melena, hematochezia or hematemesis. She has not seen her primary care physician regarding today's concerns. Denies fever or constitutional symptoms. Has been able to tolerate oral intake in between episodes of vomiting. TRAVEL OUTSIDE OF THE [place] IN LAST 30 DAYS: No - Related Data Allergies/Adverse Reactions: avocado [Avocado] Allergy (Severe, Verified 03/03/19 01:06) Anaphylaxis NSAIDS (Non-Steroidal Anti-Inflamma [Nsaids] Allergy (Verified 03/03/19 01:06) throat swelling pineapple [Pineapple] Allergy (Verified 03/03/19 01:06) Sulfa (Sulfonamide Antibiotics) Allergy (Verified 03/03/19 01:06) throat swelling tree nuts Allergy (Uncoded 03/03/19 01:06) Past Medical History - General Information source: Patient - Social History Smoking Status: Former Smoker Frequency of alcohol use: Rare Drug Abuse: None Lives with: Family Family History: Reviewed & Not Pertinent, DM, Hyperlipidemia, Hypertension, Thyroid Disfunction, Other - Epilepsy Patient has suicidal ideation: No Patient has homicidal ideation: No Neurological Medical History: Reports: Hx Migraine Endocrine Medical History: Reports: Hx Hypothyroidism Renal/ Medical History: Denies: Hx Peritoneal Dialysis GI Medical History: Reports: Hx Gastritis Musculoskeletal Medical History: Reports Hx Musculoskeletal Deformity, Reports Hx Musculoskeletal Trauma Psychiatric Medical History: Reports: Hx Anxiety Traumatic Medical History: Reports: Hx Fractures - Elbow clavicle and ribs Past Surgical History: Reports: Hx Appendectomy - 2005, Hx Cholecystectomy - 2009, Hx Hysterectomy, Hx Thyroid Surgery - Thyroidectomy 2006 - Immunizations Immunizations up to date: Yes Hx Diphtheria, Pertussis, Tetanus Vaccination: Yes - 2010 Review of Systems - Review of Systems Notes: Constitutional: Negative for fever. HENT: Negative for sore throat. Eyes: Negative for visual changes. Cardiovascular: Negative for chest pain. Respiratory: Negative for shortness of breath. Gastrointestinal: Positive for lower abdominal pain, vomiting Genitourinary: Negative for dysuria. Musculoskeletal: Negative for back pain. Skin: Negative for rash. Neurological: Negative for headaches, weakness or numbness. 10 point ROS negative except as marked above and in HPI. Physical Exam - Vital signs Vitals: BP Pulse Ox 123/68 98 05/16/19 01:26 05/16/19 01:26 Interpretation: Normal Notes: PHYSICAL EXAMINATION: GENERAL: Appears moderately uncomfortable but in no acute distress HEAD: Atraumatic, normocephalic. EYES: Pupils equal round and reactive to light, extraocular movements intact, sclera anicteric, conjunctiva are normal. ENT: nares patent, oropharynx clear without exudates. Moist mucous membranes. NECK: Normal range of motion, supple without lymphadenopathy LUNGS: Breath sounds clear to auscultation bilaterally and equal. No wheezes rales or rhonchi. HEART: Regular rate and rhythm without murmurs ABDOMEN: Soft, Focal tenderness to the left lower quadrant, abdomen is otherwise nontender, normoactive bowel sounds. No guarding, no rebound. No masses appreciated. EXTREMITIES: Normal range of motion, no pitting or edema. No cyanosis. NEUROLOGICAL: No focal neurological deficits. Moves all extremities spontaneou sly and on command. PSYCH: Normal mood, normal affect. SKIN: Warm, Dry, normal turgor, no rashes or lesions noted. Course - Re-evaluation Re-evalutation: 05/16/19 02:15 Patient presents with 4 days of left lower quadrant abdominal pain with associated nausea and vomiting. On abdominal exam she does have focal tenderness to the left lower quadrant without rebound or guarding. Patient has an extensive surgical history including bilateral oophorectomy, hysterectomy, appendectomy, and cholecystectomy removing multiple differential possibilities. Certainly diverticulitis is of concern. I did discuss the patient proceeding with CT versus empiric treatment with outpatient observation and close return precautions. Patient did elect to proceed with CT and understands the risks of radiation exposure. CT is pending. Will continue to control symptoms. 05/16/19 03:36 CT scan of the abdomen pelvis is completely unremarkable. Repeat abdominal exam is benign now without any areas of focal tenderness, rebound or guarding. Patient has been advised about the lack of diagnostic certainty although at this point given her repeat abdominal exam remaining benign, reassuring labs, vitals and imaging I believe she is stable and appropriate for discharge. Have advised outpatient follow-up with her primary care physician as well as potentially GI for endoscopy and colonoscopy given the chronic nature of her symptoms. At this time will discharge with return precautions and follow-up recommendations. Verbal discharge instructions given a the bedside and opportunity for questions given. Medication warnings reviewed. Patient is in agreement with this plan and has verbalized understanding of return precautions and the need for primary care follow-up in the next 24-72 hours. - Vital Signs Vital signs: Temp Pulse Resp BP Pulse Ox 126/89 H 95 05/16/19 03:01 05/16/19 03:01 - Laboratory Result Diagrams: 05/16/19 01:13 05/16/19 01:13 Laboratory results interpreted by me: 05/16/19 01:13 Ur Leukocyte Esterase SMALL H - Diagnostic Test Radiology reviewed: Reports reviewed Discharge - Discharge Clinical Impression: Left lower quadrant abdominal pain, Chronic abdominal pain Nausea & vomiting Qualifiers: Vomiting type: unspecified Vomiting Intractability: non-intractable Qualified Code(s): R11.2 - Nausea with vomiting, unspecified Condition: Good Disposition: HOME, SELF-CARE Additional Instructions: You have been seen in the Emergency Department (ED) for abdominal pain. Your evaluation did not identify a clear cause of your symptoms but was generally reassuring. Please follow up with your doctor within the next 2 to 3 days regarding today's emergent visit and the symptoms that are bothering you. Return to the ED if your abdominal pain worsens or fails to improve, you develop bloody vomiting, bloody diarrhea, you are unable to tolerate fluids due to vomiting, fever greater than 101, or other symptoms that concern you. Prescriptions: Hyoscyamine Sulfate [Levsin 0.125 Tablet] 0.125 mg PO TID PRN #30 tablet PRN Reason:
--- NOTE | 2019-05-16 03:21 | RADIOLOGY REPORT (SQ) ---
EXAM DESCRIPTION: CT ABDOMEN PELVIS WITH IV CONTRAST COMPLETED DATE/TME: 05/16/2019 02:14 CLINICAL HISTORY: 39 years Female, llq pain, eval diverticulitis Comparison:Sep 01 2018 Technique: IV contrast. Coronal and sagittal reformat. This exam was performed according to our departmental dose-optimization program, which includes automated exposure control, adjustment of the mA and/or kV according to patient size and/or use of iterative reconstruction technique. [facility]: Dose Right [facility]: CareDose [facility]: Dose Right [facility]: Teradose 4D [facility]: Contorion LIMITATIONS: None Findings: Chronic fat containing component of the duodenum, second and proximal third portions suggestive of duodenal lipoma. No obstruction. There is a 3 cm bulky lipomatous component involving the second portion of the duodenum, image 26 of series 3 and image 51 of series 602. No ascites. No evidence of diverticulitis, as queried. Appendectomy. No gross evidence of gallbladder inflammation or hepatobiliary obstruction. No bowel obstruction. No hydronephrosis or hydroureter. No renal/ureteral stone. No evidence of abdominal aortic aneurysm. Inferior thorax, liver, gallbladder, pancreas, spleen, adrenals, renal system, gastrointestinal tract, pelvic organs, lymphatics, vasculature, and musculoskeleton appear otherwise unremarkable. IMPRESSION: No acute findings. Duodenal lipoma.
[2019-05-16] MEDS ORDERED: DICYCLOMINE HCL INJ 20 MG/2 ML AMPULE IM ONE (03:33)
[2019-05-16] MEDS ORDERED: ONDANSETRON ODT 4 MG TAB (6 TAB/ER DISP) PO PRN (03:37)
[2019-05-16 04:24] VITALS: BP 105/73
== END 2019-05-16 04:24 | disposition home or self-care (01) ==
LOC: ER 00:23
DX: R10.32 Left lower quadrant pain (principal); G89.29 Other chronic pain; R10.814 Left lower quadrant abdominal tenderness; R11.2 Nausea with vomiting, unspecified; Z87.891 Personal history of nicotine dependence; Z87.19 Personal history of other diseases of the digestive system; Z90.49 Acquired absence of other specified parts of digestive tract; Z90.710 Acquired absence of both cervix and uterus; Z90.79 Acquired absence of other genital organ(s); Z90.722 Acquired absence of ovaries, bilateral; Z87.892 Personal history of anaphylaxis; Z91.018 Allergy to other foods; Z88.8 Allergy status to other drugs, medicaments and biological substances; Z88.2 Allergy status to sulfonamides
CPT/HCPCS: 99284; 96372; 96374; 96375; 36415; 85025; 80053; 81001; 74177; J0500; J3010; J2270; J2405; J7030

== ENCOUNTER 2019-06-19 03:20 | Emergency (ER) | payer BC ==
[2019-06-19] MEDS ORDERED: HYDROMORPHONE HCL INJ/PF 2 MG/ML AMPULE IM ONE (04:39)
[2019-06-19] MEDS ORDERED: METRONIDAZOLE 500 MG TABLET PO ONE (04:40)
[2019-06-19] MEDS ORDERED: ONDANSETRON 4 MG TAB.RAPDIS PO ONE (04:40)
[2019-06-19] MEDS ORDERED: AMOXICILLIN TR/POT CLAVULANATE 500-125 MG TAB PO ONE (04:40)
--- NOTE | 2019-06-19 04:43 | ER Document Report ---
ED General - General Chief Complaint: Abdominal Pain Stated Complaint: ABDOMINAL PAIN Time Seen by Provider: 06/19/19 04:33 Mode of Arrival: Ambulatory Information source: Patient Notes: 39-year-old female with migraine headaches, hypothyroidism, gastritis, chronic abdominal pain presents for the third time in 3 weeks with complaint of abdominal pain and nausea. Patient's pain is described as cramping, intermittent and located in the left lower quadrant. Patient was seen 2 days prior to this visit for similar symptoms and at that time reported maroon stools which she is now states has stopped. Patient denies any fever, chest pain, shortness of breath, dysuria, hematuria, vaginal discharge. She does have an upcoming appointment with gastroenterology for a colonoscopy. Patient has a surgical history of cholecystectomy, appendectomy, hysterectomy. TRAVEL OUTSIDE OF THE [place] IN LAST 30 DAYS: No - HPI Onset: Other Onset/Duration: Intermittent, Worse Quality of pain: Cramping Severity: Moderate Pain Level: 2 Associated symptoms: Nausea. denies: Chest pain, Diarrhea, Fever, Vomiting, Shortness of breath, Weakness Exacerbated by: Denies Relieved by: Denies Similar symptoms previously: Yes Recently seen / treated by doctor: Yes - Related Data Allergies/Adverse Reactions: avocado [Avocado] Allergy (Severe, Verified 06/19/19 05:02) Anaphylaxis NSAIDS (Non-Steroidal Anti-Inflamma [Nsaids] Allergy (Verified 06/19/19 05:02) throat swelling pineapple [Pineapple] Allergy (Verified 06/19/19 05:02) Sulfa (Sulfonamide Antibiotics) Allergy (Verified 06/19/19 05:02) throat swelling tree nuts Allergy (Uncoded 06/19/19 05:02) Past Medical History - General Information source: Patient, [facility] Records - Social History Smoking Status: Never Smoker Frequency of alcohol use: None Drug Abuse: None Lives with: Family, Spouse/Significant other Family History: Reviewed & Not Pertinent, DM, Hyperlipidemia, Hypertension, Thyroid Disfunction, Other - Epilepsy Neurological Medical History: Reports: Hx Migraine Endocrine Medical History: Reports: Hx Hypothyroidism Renal/ Medical History: Denies: Hx Peritoneal Dialysis GI Medical History: Reports: Hx Gastritis Musculoskeletal Medical History: Reports Hx Musculoskeletal Deformity, Reports Hx Musculoskeletal Trauma Psychiatric Medical History: Reports: Hx Anxiety Traumatic Medical History: Reports: Hx Fractures - Elbow clavicle and ribs Past Surgical History: Reports: Hx Appendectomy - 2005, Hx Cholecystectomy - 2009, Hx Hysterectomy, Hx Thyroid Surgery - Thyroidectomy 2006 - Immunizations Immunizations up to date: Yes Hx Diphtheria, Pertussis, Tetanus Vaccination: Yes - 2010 Review of Systems - Review of Systems Notes: REVIEW OF SYSTEMS: CONSTITUTIONAL : Denies fever, chills, or sweats. Denies recent illness. Denies weight loss, recent hospitalizations. EENT: Denies visual changes, eye pain. Denies sore throat, oral lesions, difficulty swallowing. CARDIOVASCULAR: Denies chest pain. Denies palpitations. Denies lower extremity edema. RESPIRATORY: Denies cough. Denies shortness of breath, wheezing. GASTROINTESTINAL: Denies abdominal distention. Denies vomiting, or diarrhea. Denies blood in vomitus, stools, or per rectum. Denies black, tarry stools. Denies constipation. GENITOURINARY: Denies difficulty urinating, painful urination, frequency, blood in urine, or vaginal discharge. MUSCULOSKELETAL: Denies back or neck pain or stiffness. Denies joint pain or swelling. SKIN: Denies rash, lesions or sores. HEMATOLOGIC : Denies easy bruising or bleeding. LYMPHATIC: Denies swollen glands. NEUROLOGICAL: Denies confusion or altered mental status. Denies loss of consciousness. Denies dizziness or lightheadedness. Denies headache. Denies weakness or paralysis. Denies problems difficulty with ambulation, slurred speech. Denies sensory loss, numbness, or tingling. Denies seizures. PSYCHIATRIC: Denies anxiety or stress. Denies depression, suicidal ideation, or homicidal ideation. Denies visual or auditory hallucinations. Physical Exam - Vital signs Vitals: Temp Pulse Resp BP Pulse Ox 98 F 89 16 123/80 98 06/19/19 03:20 06/19/19 03:20 06/19/19 03:20 06/19/19 03:20 06/19/19 03:20 - Notes Notes: PHYSICAL EXAMINATION: GENERAL: Well-appearing, well-nourished and in no acute distress. HEAD: Atraumatic, normocephalic. EYES: Pupils equal round and reactive to light, extraocular movements intact, conjunctiva are normal. ENT: Nares patent, oropharynx clear without exudates. Moist mucous membranes. NECK: Normal range of motion, supple without lymphadenopathy LUNGS: Breath sounds clear to auscultation bilaterally and equal. No wheezes rales or rhonchi. HEART: Regular rate and rhythm without murmurs ABDOMEN: Generalized tenderness with palpation. No guarding, no rebound. No masses appreciated. Female : deferred Musculoskeletal: Normal range of motion, no pitting or edema. No cyanosis. NEUROLOGICAL: Cranial nerves grossly intact. Normal speech, normal gait. Normal sensory, motor exams PSYCH: Normal mood, normal affect. SKIN: Warm, Dry, normal turgor, no rashes or lesions noted. Course - Re-evaluation Re-evalutation: Temp Pulse Resp BP Pulse Ox 98 F 89 16 123/80 98 06/19/19 03:20 06/19/19 03:20 06/19/19 03:20 06/19/19 03:20 06/19/19 03:06/19/19 05:25 39-year-old female presents with complaint of abdominal pain. Vital signs reviewed and within normal limits. Patient does not appear toxic or dehydrated. She is in no acute distress. Patient has a benign abdominal exam but states her pain is greatest in the left lower quadrant. Previous medical records and nursing notes reviewed including patient's 9 CAT scans that were performed in the last 3 years which has never shown any acute process in the abdomen. I did discuss the importance of the patient declining future CAT scan of the abdomen and pelvis unless it is absolutely necessary due to her chance of cancer in the future. Patient will be treated for diverticulitis. She has Zofran at home. She does have an upcoming appointment with gastroenterology for colonoscopy on [facility]. Patient will be discharged home with promethazine, Flagyl and Augmentin. Patient was evaluated and treated as appropriate for the patient's presenting symptoms and complaint, with consideration of any critical or life threatening conditions that may be associated with their obtained history and exam as noted above. All results were discussed with patient. Patient provided the opportunity to ask questions, and express concerns. Patient was educated on treatments based on their presumed diagnosis as noted above. At this time we will discharge the patient with return precautions and follow-up recommendations. Verbal discharge instructions given a the bedside. Medication warnings reviewed. Patient is in agreement with this plan and has verbalized understanding of return precautions. After careful consideration I feel that that patient can be safely discharged from the emergency department, they were advised to followup with a primary care physician in 2-3 days. Dictation on this chart was performed using voice recognition software and may result in unintended grammatical, spelling, syntax or errors. - Vital Signs Vital signs: Temp Pulse Resp BP Pulse Ox 98 F 89 16 123/80 98 06/19/19 03:20 06/19/19 03:20 06/19/19 03:20 06/19/19 03:20 06/19/19 03:20 Discharge - Discharge Clinical Impression: Abdominal pain Qualifiers: Abdominal location: left lower quadrant Qualified Code(s): R10.32 - Left lower quadrant pain Nausea & vomiting Qualifiers: Vomiting type: unspecified Vomiting Intractability: non-intractable Qualified Code(s): R11.2 - Nausea with vomiting, unspecified Condition: Good Disposition: HOME, SELF-CARE Instructions: Abdominal Pain ([facility]), Diverticulitis ([facility]), Vomiting ([facility]) Additional Instructions: Please complete your antibiotic course. Please keep your follow-up appointment with Dr. Medrano for your colonoscopy. Prescriptions: Amox Tr/Potassium Clavulanate [Augmentin 875-125 Tablet] 1 tab PO BID 7 Days #14 tablet Metronidazole [Flagyl 500 mg Tablet] 500 mg PO BID 7 Days #14 tablet Promethazine HCl [Phenergan 25 mg Tablet] 25 mg PO Q8H PRN #12 tablet PRN Reason: For Nausea/Vomiting
[2019-06-19 05:40] VITALS: BP 116/72
== END 2019-06-19 05:39 | disposition home or self-care (01) ==
LOC: ER 03:20
DX: R10.32 Left lower quadrant pain (principal); R11.2 Nausea with vomiting, unspecified; Z88.2 Allergy status to sulfonamides; Z90.49 Acquired absence of other specified parts of digestive tract; Z90.710 Acquired absence of both cervix and uterus
CPT/HCPCS: 99283; 96374; S0119; J1170

== ENCOUNTER 2019-07-12 03:08 | Emergency (ER) | payer BC ==
[2019-07-12 06:58] LABS: ABSOLUTE BASOPHILS # (AUTO) 0.1 10^3/uL (0.0-0.2); ABSOLUTE EOSINOPHILS # (AUTO) 0.1 10^3/uL (0.0-0.6); ABSOLUTE LYMPHOCYTES (AUTO) 2.8 10^3/uL (0.5-4.7); ABSOLUTE MONOCYTES (AUTO) 0.3 10^3/uL (0.1-1.4); BASOPHILS % (AUTO) 1.1 % (0-2); EOSINOPHILS % (AUTO) 1.6 % (0-6); HEMATOCRIT 38.3 % (36.0-47.0); HEMOGLOBIN 12.9 g/dL (12.0-15.5); LYMPHOCYTES % (AUTO) 37.8 % (13-45); MEAN CORPUSCULAR HEMOGLOBIN 29.2 pg (27.0-33.4); MEAN CORPUSCULAR HGB CONC 33.8 g/dL (32.0-36.0); MEAN CORPUSCULAR VOLUME 86 fl (80-97); MONOCYTES % (AUTO) 4.8 % (3-13); PLATELET COUNT 273 10^3/uL (150-450); RED BLOOD COUNT 4.44 10^6/uL (3.72-5.28); RED CELL DISTRIBUTION WIDTH 13.5 % (11.5-14.0); SEGMENTED NEUTROPHILS % (AUTO) 54.7 % (42-78); TOTAL CELLS COUNTED % (AUTO) 100 %; WHITE BLOOD COUNT 7.3 10^3/uL (4.0-10.5)
[2019-07-12 07:01] LABS: APPEARANCE,URINE CLEAR; BILIRUBIN,URINE NEGATIVE (NEGATIVE); COLOR,URINE YELLOW; GLUCOSE, URINE NEGATIVE (NEGATIVE); KETONES,URINE NEGATIVE (NEGATIVE); LEUKOCYTE ESTERASE,URINE NEGATIVE (NEGATIVE); NITRITE,URINE NEGATIVE (NEGATIVE); PROTEIN,URINE NEGATIVE (NEGATIVE); UROBILINOGEN,URINE NEGATIVE mg/dL (<2.0)
[2019-07-12 07:18] LABS: ALBUMIN 4.4 g/dL (3.5-5.0); ALKALINE PHOSPHATASE 82 U/L (38-126); ANION GAP 10 (5-19); ASPARTATE AMINO TRANSFERASE 24 U/L (14-36); BILIRUBIN,DIRECT 0.2 mg/dL (0.0-0.4); BILIRUBIN,TOTAL 0.5 mg/dL (0.2-1.3); BLOOD UREA NITROGEN 15 mg/dL (7-20); CALCIUM 9.6 mg/dL (8.4-10.2); CARBON DIOXIDE 26 mmol/L (22-30); CHLORIDE 103 mmol/L (98-107); GLUCOSE 95 mg/dL (75-110); POTASSIUM 3.7 mmol/L (3.6-5.0); TOTAL PROTEIN 7.4 g/dL (6.3-8.2)
--- NOTE | 2019-07-12 07:55 | RADIOLOGY REPORT (SQ) ---
CLINICAL HISTORY: Sharp left-sided abdominal pain COMPARISON: None. TECHNIQUE: XR ABDOMEN SUPINE AND ERECT WITH CHEST (ABD ACUTE SERIES) 07/12/2019 6:30 AM CDT FINDINGS: Bowel gas pattern is nonspecific. There are no abnormal radiopaque foreign bodies or abnormal calcifications. Osseous structures are grossly unremarkable. The heart is normal in size. Lungs are clear. IMPRESSION: No bowel obstruction.
[2019-07-12] MEDS ORDERED: DICYCLOMINE HCL 20 MG TABLET PO ONE (08:38)
[2019-07-12 08:51] VITALS: BP 136/70
--- NOTE | 2019-07-13 12:54 | ER Document Report ---
Entered by GAVI WILLIAMSON SCRIBE 07/12/19 2754 Acting as scribe for:KEVON MENSAH MD ED GI/ - General Chief Complaint: Abdominal Pain Stated Complaint: ABDOMINAL PAIN Time Seen by Provider: 07/12/19 06:21 Mode of Arrival: Ambulatory Information source: Patient Notes: 39 year old female that presents to the emergency department today with complaints of sharp stabbing abdominal pain with associated nausea and vomiting. Patient has been seen here approximately every other month for this same abdominal pain. Patient states that she went to a GI doctor (Audra) for the first time last thursday for blood work but she mentions that she "did not see the doctor". The patient was seen here x3 weeks ago for abdominal pain and was prescribed antibiotics which upon review of pharmacy records it does not appear as if this script was filled. TRAVEL OUTSIDE OF THE [place] IN LAST 30 DAYS: No - Related Data Allergies/Adverse Reactions: avocado [Avocado] Allergy (Severe, Verified 06/19/19 05:02) Anaphylaxis NSAIDS (Non-Steroidal Anti-Inflamma [Nsaids] Allergy (Verified 06/19/19 05:02) throat swelling pineapple [Pineapple] Allergy (Verified 06/19/19 05:02) Sulfa (Sulfonamide Antibiotics) Allergy (Verified 06/19/19 05:02) throat swelling tree nuts Allergy (Uncoded 06/19/19 05:02) Past Medical History - General Information source: Patient - Social History Smoking Status: Never Smoker Cigarette use (# per day): No Frequency of alcohol use: None Drug Abuse: None Lives with: Family Family History: Reviewed & Not Pertinent, DM, Hyperlipidemia, Hypertension, Thyroid Disfunction, Other - Epilepsy Patient has suicidal ideation: No Patient has homicidal ideation: No Neurological Medical History: Reports: Hx Migraine Endocrine Medical History: Reports: Hx Hypothyroidism GI Medical History: Reports: Hx Gastritis Musculoskeletal Medical History: Reports Hx Musculoskeletal Deformity, Reports Hx Musculoskeletal Trauma Psychiatric Medical History: Reports: Hx Anxiety Traumatic Medical History: Reports: Hx Fractures - Elbow clavicle and ribs Past Surgical History: Reports: Hx Appendectomy - 2005, Hx Cholecystectomy - 2009, Hx Hysterectomy, Hx Thyroid Surgery - Thyroidectomy 2005 - Immunizations Immunizations up to date: Yes Hx Diphtheria, Pertussis, Tetanus Vaccination: Yes - 2010 Review of Systems - Review of Systems Constitutional: No symptoms reported EENT: No symptoms reported Cardiovascular: No symptoms reported Respiratory: No symptoms reported Gastrointestinal: See HPI, Abdominal pain, Nausea, Vomiting Genitourinary: No symptoms reported Female Genitourinary: No symptoms reported Musculoskeletal: No symptoms reported Skin: No symptoms reported Hematologic/Lymphatic: No symptoms reported Neurological/Psychological: No symptoms reported -: Yes All other systems reviewed and negative Physical Exam - Vital signs Vitals: Temp Pulse Resp BP Pulse Ox 98.4 F 90 22 H 119/73 97 07/12/19 03:14 07/12/19 03:14 07/12/19 03:14 07/12/19 03:14 07/12/19 03:14 - Notes Notes: Physical Exam: General: Alert, appears well. Obese. HEENT: Normocephalic. Atraumatic. PERRL. Extraocular movements intact. Oropharynx clear. Neck: Supple. Non-tender. Respiratory: No respiratory distress. Clear and equal breath sounds bilaterally. Cardiovascular: Regular rate and rhythm. Abdominal: Obese. Active bowel sounds. Left sided abdominal tenderness with palpation. No distension. Back: Non-tender. No deformity or step off. Extremities: Moves all four extremities. Upper extremities: Normal inspection. Normal ROM. Lower extremities: Normal inspection. No edema. Normal ROM. Neurological: Normal cognition. AAOx4. Normal speech. Psychological: Normal affect. Normal Mood. Skin: Warm. Dry. Normal color. Course - Re-evaluation Re-evalutation: 07/12/19 08:31 Patient laboratory evaluation, x-rays, and physical exam are consistent with several prior visits for this problem. There is nothing to suggest that this is an infectious problem at this time. - Vital Signs Vital signs: Temp Pulse Resp BP Pulse Ox 98.4 F 90 22 H 119/73 97 07/12/19 03:14 07/12/19 03:14 07/12/19 03:14 07/12/19 03:14 07/12/19 03:14 - Laboratory Result Diagrams: 07/12/19 06:45 07/12/19 06:45 - Diagnostic Test Radiology reviewed: Image reviewed, Reports reviewed - Your abdominal series does not show any acute process. There is a lot of stool in the colon. Discharge - Discharge Clinical Impression: Chronic abdominal pain Condition: Stable Disposition: HOME, SELF-CARE Additional Instructions: Abdominal Pain There are many causes of abdominal pain. Pain can mean a serious problem requiring surgery (such as appendicitis). It can also be an innocent problem that goes away on its own (such as a viral infection). Often, time must pass to determine the cause of pain. The physician does not feel that hospitalization is necessary, at present. Things may change within the next 24 hours. Call the doctor or come back for re- examination if any problems occur, such as: (1) Pain that becomes more severe, steady, or becomes concentrated in one specific area. Also, pain that is more severe with movement or coughing. (2) Vomiting that persists or becomes more frequent. (3) Blood in the vomitus, urine, or bowel movements. Blood in the stool may have a tarry or black appearance. (4) Shaking chills or fever greater than 100 degrees F. (5) The abdomen becomes more distended or swollen. (6) Bowel movements cease. (7) Failure to improve as expected. Irritable Bowel Syndrome The cause of irritable bowel syndrome is unknown. Although often called "colitis", it is not an infection or inflammatory condition. Symptoms vary, but can include periodic abdominal cramping, migratory abdominal pains, diarrhea, or constipation. Commonly, a few days of constipation is followed by loose stools, then constipation begins again. There is no specific test for irritable bowel syndrome. The disease is diagnosed by history and exam findings, and by finding no evidence of other disease. Irritable bowel syndrome is treated by making the stool softer and bulkier. Regular meals, including plenty of soluble fiber, help. Avoid foods which provoke cramping. Stool "bulking agents," such as Metamucil, help. Expect occasional flare-ups. Call the physician if symptoms worsen, such as severe or constant abdominal pain, fever, blood in the stool, increasing constipation, or more frequent or severe diarrhea. You most likely have Irritable Bowel Syndrome also called "IBS". Your lab work today was unremarkable. There was no suggestion of any infectious process. Your x-ray showed a large amount of stool in the colon which is not uncommon with "IBS". You should drink plenty of fluids, and take stool softeners to keep your bowels moving regularly. We will try you on a short course of Bentyl(dicyclomine) to help with some of the abdominal cramping. Follow-up with Dr. Zhu as planned. RETURN TO THE EMERGENCY ROOM IF ANY NEW OR WORSENING SYMPTOMS. Prescriptions: Dicyclomine HCl [Bentyl 10 mg Capsule] 1 cap PO TID #30 cap Scribe Attestation: 07/12/19 08:32 I personally performed the services described in the documentation, reviewed and edited the documentation which was dictated to the scribe in my presence, and it accurately records my words and actions. I personally performed the services described in the documentation, reviewed and edited the documentation which was dictated to the scribe in my presence, and it accurately records my words and actions.
== END 2019-07-12 08:51 | disposition home or self-care (01) ==
LOC: ER 03:08
DX: R10.9 Unspecified abdominal pain (principal); G89.29 Other chronic pain; R10.819 Abdominal tenderness, unspecified site; R11.2 Nausea with vomiting, unspecified; Z87.892 Personal history of anaphylaxis; Z91.018 Allergy to other foods; Z88.8 Allergy status to other drugs, medicaments and biological substances; Z88.2 Allergy status to sulfonamides; Z90.49 Acquired absence of other specified parts of digestive tract; Z90.710 Acquired absence of both cervix and uterus; E66.9 Obesity, unspecified
CPT/HCPCS: 99284; 36415; 85025; 80053; 81001; 74022; J3490

== ENCOUNTER 2019-09-10 03:05 | Emergency (ER) | payer BC ==
[2019-09-10 03:55] LABS: ABSOLUTE EOSINOPHILS # (AUTO) 0.1 10^3/uL (0.0-0.6); ABSOLUTE LYMPHOCYTES (AUTO) 2.7 10^3/uL (0.5-4.7); ABSOLUTE MONOCYTES (AUTO) 0.4 10^3/uL (0.1-1.4); ABSOLUTE NEUT (AUTO) 4.6 10^3/uL (1.7-8.2); BASOPHILS % (AUTO) 0.4 % (0-2); EOSINOPHILS % (AUTO) 1.1 % (0-6); HEMATOCRIT 40.2 % (36.0-47.0); HEMOGLOBIN 13.3 g/dL (12.0-15.5); LYMPHOCYTES % (AUTO) 34.1 % (13-45); MEAN CORPUSCULAR HEMOGLOBIN 28.7 pg (27.0-33.4); MEAN CORPUSCULAR HGB CONC 33.2 g/dL (32.0-36.0); MEAN CORPUSCULAR VOLUME 86 fl (80-97); MONOCYTES % (AUTO) 5.7 % (3-13); PLATELET COUNT 299 10^3/uL (150-450); RED BLOOD COUNT 4.65 10^6/uL (3.72-5.28); RED CELL DISTRIBUTION WIDTH 13.4 % (11.5-14.0); SEGMENTED NEUTROPHILS % (AUTO) 58.7 % (42-78); TOTAL CELLS COUNTED % (AUTO) 100 %; WHITE BLOOD COUNT 7.9 10^3/uL (4.0-10.5)
[2019-09-10 04:16] LABS: ALBUMIN 4.3 g/dL (3.5-5.0); ALKALINE PHOSPHATASE 68 U/L (38-126); ANION GAP 10 (5-19); ASPARTATE AMINO TRANSFERASE 25 U/L (14-36); BILIRUBIN,DIRECT 0.1 mg/dL (0.0-0.4); BILIRUBIN,TOTAL 0.4 mg/dL (0.2-1.3); BLOOD UREA NITROGEN 17 mg/dL (7-20); CARBON DIOXIDE 25 mmol/L (22-30); CHLORIDE 105 mmol/L (98-107); CREATINE KINASE 113 U/L (30-135); GLUCOSE 109 mg/dL (75-110); TOTAL PROTEIN 7.8 g/dL (6.3-8.2)
[2019-09-10 04:28] LABS: CREATINE KINASE MB 1.14 ng/mL (<4.55); TROPONIN I < 0.012 ng/mL
--- NOTE | 2019-09-10 04:43 | RADIOLOGY REPORT (SQ) ---
EXAM DESCRIPTION: XR CHEST 2 VIEWS COMPLETED DATE/TME: 09/10/2019 00:00 CLINICAL HISTORY: 39 years, Female, chest pain x 24 hr COMPARISON: 02/14/2018 NUMBER OF VIEWS: Two TECHNIQUE: Two views of the chest LIMITATIONS: None. FINDINGS: The lungs are clear. The heart is normal in size. There is no pneumothorax or pleural effusion. The bones are unremarkable. IMPRESSION: No acute cardiopulmonary abnormality copyright 2010 [employer]- All Rights Reserved
--- NOTE | 2019-09-10 05:46 | ER Document Report ---
ED General - General Chief Complaint: Chest Pain > 30 Stated Complaint: CHEST PAIN/COUGH Information source: Patient TRAVEL OUTSIDE OF THE [place] IN LAST 30 DAYS: No - HPI Onset: Last week Onset/Duration: Intermittent. denies: Sudden, Gradual, Constant, Persistent, Waxing and waning, Better, Worse, Gone Quality of pain: denies: No pain, Achy, Burning, Cramping, Dull, Fullness, Pressure, Sharp, Stabbing, Throbbing, Other Severity: Mild Associated symptoms: Nonproductive cough. denies: None, Allergy/hay fever, Body/muscle aches, Chest pain, Chills, Productive cough, Diarrhea, Drooling, Earache, Fever, Headache, Hoarseness, Hurts to breath, Leg swelling, Nausea, Vomiting, Rhinnorhea, Sinus pain/drainage, Shortness of breath, Slow to respond, Sore throat, Sweating, Weakness, Other Exacerbated by: Supine. denies: Denies, Sitting, Standing, Movement, Walking, Coughing, Deep breathing, Food, Other Relieved by: denies: Denies, Supine, Sitting, Standing, Remaining still, Antacids, Food, Other - Related Data Allergies/Adverse Reactions: avocado [Avocado] Allergy (Severe, Verified 06/19/19 05:02) Anaphylaxis NSAIDS (Non-Steroidal Anti-Inflamma [Nsaids] Allergy (Verified 06/19/19 05:02) throat swelling pineapple [Pineapple] Allergy (Verified 06/19/19 05:02) Sulfa (Sulfonamide Antibiotics) Allergy (Verified 06/19/19 05:02) throat swelling tree nuts Allergy (Uncoded 06/19/19 05:02) Home Medications: synthroid Past Medical History - Social History Smoking Status: Never Smoker Chew tobacco use (# tins/day): No Frequency of alcohol use: None Drug Abuse: None Family History: Reviewed & Not Pertinent, DM, Hyperlipidemia, Hypertension, Thyroid Disfunction, Other - Epilepsy Patient has suicidal ideation: No Patient has homicidal ideation: No Neurological Medical History: Reports: Hx Migraine Endocrine Medical History: Reports: Hx Hypothyroidism Renal/ Medical History: Denies: Hx Peritoneal Dialysis GI Medical History: Reports: Hx Gastritis Musculoskeletal Medical History: Reports Hx Musculoskeletal Deformity, Reports Hx Musculoskeletal Trauma Psychiatric Medical History: Reports: Hx Anxiety Traumatic Medical History: Reports: Hx Fractures - Elbow clavicle and ribs Past Surgical History: Reports: Hx Appendectomy - 2005, Hx Cholecystectomy - 11 09, Hx Hysterectomy, Hx Thyroid Surgery - Thyroidectomy 2005 - Immunizations Immunizations up to date: Yes Hx Diphtheria, Pertussis, Tetanus Vaccination: Yes - 2010 Review of Systems - Review of Systems Constitutional: denies: No symptoms reported, See HPI, Chills, Diaphoresis, Fever, Malaise, Weakness, Other, Weight gain, Weight loss, Recent illness EENT: denies: No symptoms reported, See HPI, Eye pain, Eye discharge, Blurred vision, Tearing, Double vision, Ear pain, Ear discharge, Nose pain, Nose congestion, Nose discharge, Sinus pressure, Sinus discharge, Throat pain, Difficulty swallowing, Throat swelling, Mouth pain, Mouth swelling, Dental problem, Vertigo, Other Cardiovascular: denies: No symptoms reported, See HPI, Chest pain, Palpitations, Heart racing, Orthopnea, Dyspnea, Syncope, Dizziness, Lightheaded, Edema, Other, Paroxysmal Nocturnal Dysp Respiratory: Cough. denies: No symptoms reported, See HPI, Hurts to breathe, Hemoptysis, Short of breath, Sputum, Stridor, Wheezing, Other Gastrointestinal: denies: No symptoms reported, See HPI, Abdomen distended, Abdominal pain, Diarrhea, Nausea, Vomiting, Constipation, Blood streaked bowels, Poor appetite, Poor fluid intake, Blood in vomit, Black stools, Rectal bleeding, Last bowel movement, Fecal incontinence, Other Neurological/Psychological: denies: No symptoms reported, See HPI, Confusion, Dementia, Depression, Hallucinations, Anxiety, Homicidal ideation, Sensory ch mike, Weakness, Gait changes, Loss of power, Paralysis, Seizure, Lost consciousness, Headaches, Speech impairment, Numbness, Suicidal ideation, Tingling, Tremor, Other -: Yes All other systems reviewed and negative Physical Exam - Vital signs Vitals: Temp Pulse Resp BP Pulse Ox 98.1 F 87 16 110/68 98 09/10/19 03:31 09/10/19 03:31 09/10/19 03:31 09/10/19 03:31 09/10/19 03:31 Notes: PHYSICAL EXAMINATION: GENERAL: Well-appearing, well-nourished and in no acute distress. HEAD: Atraumatic, normocephalic. EYES: Pupils equal round and reactive to light, extraocular movements intact, sclera anicteric, conjunctiva are normal. ENT: nares patent, oropharynx clear without exudates. Moist mucous membranes. NECK: Normal range of motion, supple without lymphadenopathy LUNGS: Breath sounds clear to auscultation bilaterally and equal. No wheezes rales or rhonchi. HEART: Regular rate and rhythm without murmurs ABDOMEN: Soft, nontender, normoactive bowel sounds. No guarding, no rebound. No masses appreciated. EXTREMITIES: Normal range of motion, no pitting or edema. No cyanosis. NEUROLOGICAL: No focal neurological deficits. Moves all extremities spontaneously and on command. PSYCH: Normal mood, normal affect. SKIN: Warm, Dry, normal turgor, no rashes or lesions noted. Course - Vital Signs Vital signs: Temp Pulse Resp BP Pulse Ox 98.1 F 87 16 110/68 98 09/10/19 03:31 09/10/19 03:31 09/10/19 03:31 09/10/19 03:31 09/10/19 03:31 - Laboratory Result Diagrams: 09/10/19 03:35 09/10/19 03:35 - Diagnostic Test Radiology reviewed: Image reviewed, Reports reviewed - EKG Interpretation by Me Rate: Normal Rhythm: NSR When compared to previous EKG there are: No significant change - Transfer of Care Notes: 09/10/19 05:43 I believe patient has a bronchitis with bronchospasm and she describes a staccato-like cough when she lays down. Exam is essentially negative all the tests are essentially negative I feel therefore she will warrant a short course of Hycodan and an albuterol HFA. She should return if she gets worse. Discharge - Discharge Clinical Impression: Bronchitis, acute, with bronchospasm Condition: Good Disposition: HOME, SELF-CARE Additional Instructions: Give plenty of rest use her medicines as directed return if worse Prescriptions: Hydrocodone Bit/Homatropine [Hycodan Syrup 5-1.5 mg/5 ml Ud Cup] 5 ml PO Q4HP PRN #120 ml PRN Reason: Albuterol Sulfate [Proair HFA Inhalation Aerosol 8.5 gm MDI] 2 puff IH Q4H PRN #1 mdi PRN Reason:
[2019-09-10 06:33] VITALS: BP 108/72
--- NOTE | 2019-09-11 00:23 | EKG REPORT ---
SEVERITY:- NORMAL ECG - SINUS RHYTHM : Confirmed by: Pool Wright 11-Sep-2019 00:22:30
== END 2019-09-10 06:33 | disposition home or self-care (01) ==
LOC: ER 03:05
DX: R07.9 Chest pain, unspecified (principal); J20.9 Acute bronchitis, unspecified; R05 Cough
CPT/HCPCS: 36415; 71046; 80053; 82550; 82553; 84484; 85025; 93005; 93010; 99285

== ENCOUNTER 2019-10-22 13:59 | Emergency (ER) | payer BC ==
[2019-10-22] MEDS ORDERED: ONDANSETRON HCL INJ/PF 4 MG/2 ML SDV IV ONE (14:14)
[2019-10-22] MEDS ORDERED: NORMAL SALINE 1000 ML 1,000 ML IV ONE (14:14)
[2019-10-22] MEDS ORDERED: FAMOTIDINE INJ/PF 20 MG/2 ML SDV IV ONE (14:14)
[2019-10-22] MEDS ORDERED: SUCRALFATE 1 GM TABLET PO ONE (14:14)
--- NOTE | 2019-10-22 14:16 | ER Document Report ---
ED Medical Screen (RME) - General Chief Complaint: Abdominal Pain Stated Complaint: ABDOMINAL PAIN Time Seen by Provider: 10/22/19 14:11 Mode of Arrival: Ambulatory Information source: Patient Notes: Patient is a 39-year-old female presented emergency department with chief complaint of nausea, vomiting, diarrhea and abdominal pain. Patient reports symptoms started yesterday. She reports she has had maroon-colored vomit and bright red blood in her stools. She also reports intermittent fever over the last 1 to 2 days. Patient reports long-standing history of abdominal pain, states she is supposed to be seeing a credit portfolio manager but cannot see them until November. Patient has been seen here multiple times for similar symptoms. Exam: Tenderness to palpation to left upper and left lower quadrants. I have greeted and performed a rapid initial assessment of this patient. A comprehensive ED assessment and evaluation of the patient, analysis of test results and completion of the medical decision making process will be conducted by additional ED providers. I have specifically instructed the patient or family members with the patient to immediately return to any nursing staff should anything change in the patient's condition or with their chief complaint. This medical record was dictated with voice recognizing software. There may be grammatical, syntax errors that are unintended. TRAVEL OUTSIDE OF THE [place] IN LAST 30 DAYS: No - Related Data Allergies/Adverse Reactions: avocado [Avocado] Allergy (Severe, Verified 10/22/19 14:11) Anaphylaxis NSAIDS (Non-Steroidal Anti-Inflamma [Nsaids] Allergy (Verified 10/22/19 14:11) throat swelling pineapple [Pineapple] Allergy (Verified 10/22/19 14:11) Sulfa (Sulfonamide Antibiotics) Allergy (Verified 10/22/19 14:11) throat swelling tree nuts Allergy (Uncoded 10/22/19 14:11) Past Medical History - Social History Chew tobacco use (# tins/day): No Frequency of alcohol use: None Drug Abuse: None Family history: Reviewed & Not Pertinent Neurological Medical History: Reports: Hx Migraine Endocrine Medical History: Reports: Hx Hypothyroidism Renal/ Medical History: Denies: Hx Peritoneal Dialysis GI Medical History: Reports: Hx Gastritis Musculoskeltal Medical History: Reports Hx Musculoskeletal Deformity, Reports Hx Musculoskeletal Trauma Psychiatric Medical History: Reports: Hx Anxiety Traumatic Medical History: Reports: Hx Fractures - Elbow clavicle and ribs Past Surgical History: Reports: Hx Appendectomy - 2005, Hx Cholecystectomy - 2009, Hx Hysterectomy, Hx Thyroid Surgery - Thyroidectomy 2005 - Immunizations Immunizations up to date: Yes Hx Diphtheria, Pertussis, Tetanus Vaccination: Yes - 2010 Physical Exam - Vital signs Vitals: Temp Pulse Resp BP Pulse Ox 98.2 F 72 18 123/71 97 10/22/19 14:02 10/22/19 14:02 10/22/19 14:02 10/22/19 14:02 10/22/19 14:02 Course - Vital Signs Vital signs: Temp Pulse Resp BP Pulse Ox 98.2 F 72 18 123/71 97 10/22/19 14:02 10/22/19 14:02 10/22/19 14:02 10/22/19 14:02 10/22/19 14:02
[2019-10-22 15:26] LABS: ABSOLUTE EOSINOPHILS # (AUTO) 0.1 10^3/uL (0.0-0.6); ABSOLUTE LYMPHOCYTES (AUTO) 2.2 10^3/uL (0.5-4.7); ABSOLUTE MONOCYTES (AUTO) 0.3 10^3/uL (0.1-1.4); ABSOLUTE NEUT (AUTO) 4.3 10^3/uL (1.7-8.2); BASOPHILS % (AUTO) 0.5 % (0-2); HEMATOCRIT 41.4 % (36.0-47.0); MEAN CORPUSCULAR HEMOGLOBIN 29.3 pg (27.0-33.4); MEAN CORPUSCULAR HGB CONC 33.9 g/dL (32.0-36.0); MEAN CORPUSCULAR VOLUME 87 fl (80-97); MONOCYTES % (AUTO) 4.9 % (3-13); PLATELET COUNT 286 10^3/uL (150-450); RED BLOOD COUNT 4.79 10^6/uL (3.72-5.28); RED CELL DISTRIBUTION WIDTH 13.2 % (11.5-14.0); SEGMENTED NEUTROPHILS % (AUTO) 61.6 % (42-78); TOTAL CELLS COUNTED % (AUTO) 100 %; WHITE BLOOD COUNT 6.9 10^3/uL (4.0-10.5)
[2019-10-22 15:43] LABS: ALBUMIN 4.7 g/dL (3.5-5.0); ALKALINE PHOSPHATASE 73 U/L (38-126); ANION GAP 9 (5-19); ASPARTATE AMINO TRANSFERASE 39 U/L (14-36); BILIRUBIN,DIRECT 0.3 mg/dL (0.0-0.4); BILIRUBIN,TOTAL 0.8 mg/dL (0.2-1.3); BLOOD UREA NITROGEN 17 mg/dL (7-20); CALCIUM 10.1 mg/dL (8.4-10.2); CARBON DIOXIDE 27 mmol/L (22-30); CHLORIDE 104 mmol/L (98-107); GLUCOSE 88 mg/dL (75-110); POTASSIUM 4.6 mmol/L (3.6-5.0); TOTAL PROTEIN 8.7 g/dL (6.3-8.2)
--- NOTE | 2019-10-22 16:06 | ER Document Report ---
ED General - General Chief Complaint: Abdominal Pain Stated Complaint: ABDOMINAL PAIN Time Seen by Provider: 10/22/19 14:11 Primary Care Provider: YANETH SOLANO MD [ACTIVE STAFF] - Follow up as needed Mode of Arrival: Ambulatory TRAVEL OUTSIDE OF THE [place] IN LAST 30 DAYS: No - HPI Notes: Patient is a 39-year-old female with a history of chronic intermittent abdominal pain, surgical history of appendectomy, cholecystectomy, hysterectomy, bilateral salpingo-oophorectomy c/o nausea/vomiting, loose stool, and LUQ pain for the past couple days. Patient states that she noticed a maroon color to one episode of emesis, that is not recurrent. She does state that she may have seen some red in her stool, but is otherwise watery. She has been here frequently for abdominal pain with many scans in the past. Patient states that normally her pain is in her lower abdomen, but this is a little bit new for her in the left upper quadrant. She has not had any other recent illness. She has been able to drink some fluids. She is urinating normally. No other vaginal discharge, odor, or bleeding. Denies any headache, fever, neck pain, URI, sore throat, chest pain, palpitations, syncope, cough, shortness of breath, wheeze, dyspnea, urinary retention, dysuria, hematuria, loss of control of bowel or bladder, numbness/tingling, saddle anesthesia, muscle paralysis/weakness, or rash. - Related Data Allergies/Adverse Reactions: avocado [Avocado] Allergy (Severe, Verified 10/22/19 14:11) Anaphylaxis NSAIDS (Non-Steroidal Anti-Inflamma [Nsaids] Allergy (Verified 10/22/19 14:11) throat swelling pineapple [Pineapple] Allergy (Verified 10/22/19 14:11) Sulfa (Sulfonamide Antibiotics) Allergy (Verified 10/22/19 14:11) throat swelling tree nuts Allergy (Uncoded 10/22/19 14:11) Past Medical History - General Information source: Patient - Social History Smoking Status: Never Smoker Chew tobacco use (# tins/day): No Frequency of alcohol use: None Drug Abuse: None Family History: Reviewed & Not Pertinent, DM, Hyperlipidemia, Hypertension, Thyroid Disfunction, Other - Epilepsy Patient has suicidal ideation: No Patient has homicidal ideation: No Neurological Medical History: Reports: Hx Migraine Endocrine Medical History: Reports: Hx Hypothyroidism Renal/ Medical History: Denies: Hx Peritoneal Dialysis GI Medical History: Reports: Hx Gastritis Musculoskeletal Medical History: Reports Hx Musculoskeletal Deformity, Reports Hx Musculoskeletal Trauma Psychiatric Medical History: Reports: Hx Anxiety Traumatic Medical History: Reports: Hx Fractures - Elbow clavicle and ribs Past Surgical History: Reports: Hx Appendectomy - 2005, Hx Cholecystectomy - 2009, Hx Hysterectomy, Hx Thyroid Surgery - Thyroidectomy 2005 - Immunizations Immunizations up to date: Yes Hx Diphtheria, Pertussis, Tetanus Vaccination: Yes - 2010 Review of Systems - Review of Systems -: Yes All other systems reviewed and negative Physical Exam - Vital signs Vitals: Temp Pulse Resp BP Pulse Ox 98.2 F 72 18 123/71 97 10/22/19 14:02 10/22/19 14:02 10/22/19 14:02 10/22/19 14:02 10/22/19 14:02 - Notes Notes: PHYSICAL EXAMINATION: GENERAL: Well-appearing, well-nourished and in no acute distress. HEAD: Atraumatic, normocephalic. EYES: Pupils equal round and reactive to light, extraocular movements intact, sclera anicteric, conjunctiva are normal. ENT: EAC clear b/l. TM's intact b/l without erythema, fluid, or perforation. Nares patent and without discharge. oropharynx clear without exudates. No tonsilar hypertrophy or erythema. Moist mucous membranes. No sinus tenderness. NECK: Normal range of motion, supple without lymphadenopathy LUNGS: Breath sounds clear to auscultation bilaterally and equal. No wheezes rales or rhonchi. HEART: Regular rate and rhythm without murmurs, rubs, gallops. ABDOMEN: Soft, nondistended abdomen. No guarding, no rebound. Normal bowel sounds present. No CVA tenderness bilaterally. + mild tenderness LUQ. Musculoskeletal: FROM to passive/active. Strength 5+/5. Extremities: No cyanosis, clubbing, or edema b/l. Peripheral pulses 2+. Capillary refill less than 3 seconds. NEUROLOGICAL: Cranial nerves grossly intact. Normal speech, normal gait. PSYCH: Normal mood, normal affect. SKIN: Warm, Dry, normal turgor, no rashes or lesions noted. Course - Re-evaluation Re-evalutation: 10/22/19 17:09 Patient is an afebrile, well-hydrated, 39-year-old female who presents with left upper quadrant pain, unspecified. Vitals are acceptable without significant tachycardia, tachypnea, hypoxia. PE is otherwise unremarkable. Patient is nontoxic-appearing and is tolerating p.o. without difficulty. Evaluation of the abdomen is nontender. CBC, CMP, urinalysis, hCG, ultrasound unremarkable. No further work-up warranted at this time. She has not had any episodes of emesis nor loose stool throughout her stay. Pt is feeling much better. Low suspicion/risk for acute appendicitis, bowel obstruction, acute cholecystitis, acute cholangitis, perforated diverticulitis, incarcerated hernia, pancreatitis, perforated ulcer, peritonitis, sepsis, pelvic inflammatory disease, ectopic , tubo-ovarian abscess, ovarian torsion, or other systemic emergent condition at this time. Patient is aware that her condition can change from initial presentation and she needs to monitor symptoms closely and seek medical attention if any acute changes. Conservative measures otherwise for symptoms. Recheck with your PCM in 2-3 days. Keep consult with a instructor dramatic arts. Re turn to the ED with any worsening/concerning symptoms otherwise as reviewed in discharge. Patient is in agreement. - Vital Signs Vital signs: Temp Pulse Resp BP Pulse Ox 98.2 F 72 18 123/71 97 10/22/19 14:02 10/22/19 14:02 10/22/19 14:02 10/22/19 14:02 10/22/19 14:02 - Laboratory Result Diagrams: 10/22/19 15:02 10/22/19 15:02 Laboratory results interpreted by me: 10/22/19 10/22/19 15:02 16:46 AST 39 H Total Protein 8.7 H Leukocyte Esterase Rfl TRACE H Discharge - Discharge Clinical Impression: Nonspecific abdominal pain, Nausea vomiting and diarrhea Condition: Stable Disposition: HOME, SELF-CARE Instructions: Abdominal Pain ([facility]), Antinausea Medication ([facility]), Diarrhea, Nonspecific ([facility]), Vomiting ([facility]) Additional Instructions: Maintain adequate fluid and food intake [place] diet (B.R.A.T.) Bananas, rice, apples, toast, etc Zofran as needed tylenol if needed Monitor for any worsening symptoms Make sure you are staying hydrated enough to urinate and have normal BM's Recheck with your PCM in 2-3 days Keep consult with Gastroenterology, consider sooner appointment if available. Return to the ED with any worsening symptoms and/or development of fever, head ache, chest pain, palpitations, syncope, shortness of breath, trouble breathing, abdominal pain, n/v/d, blood in stool/urine, weakness, or other worsening symptoms that are concerning to you. Prescriptions: Omeprazole 20 mg PO DAILY #30 tablet. Ondansetron [Zofran Odt 4 mg Tablet] 1 - 2 tab PO Q4H PRN #15 tab.rapdis PRN Reason: For Nausea/Vomiting Referrals: YANETH SOLANO MD [ACTIVE STAFF] - Follow up as needed
[2019-10-22] MEDS ORDERED: MORPHINE SULFATE 10 MG/ML INJ IV ONE (16:43)
--- NOTE | 2019-10-22 16:47 | RADIOLOGY REPORT (SQ) ---
EXAM DESCRIPTION: U/S ABDOMEN LTD W/DOPPLER COMPLETED DATE/TIME: 10/22/2019 4:22 pm REASON FOR STUDY: LUQ abdominal pain/eval COMPARISON: None. TECHNIQUE: Dynamic and static grayscale images acquired of the left upper quadrant abdomen and recor ded on PACS. Additional selected color Doppler and spectral images recorded. LIMITATIONS: None. FINDINGS: LEFT KIDNEY: Normal size. Normal echogenicity. No solid or suspicious masses. No hydronep hrosis. No calcifications. SPLEEN: Normal size. No solid masses. PERITONEAL AND PLEURAL SPACES: No ascites or effusions. OTHER: No other significant finding. IMPRESSION: NORMAL LEFT UPPER QUADRANT ABDOMINAL ULTRASOUND. TECHNICAL DOCUMENTATION: JOB ID: [id number] [employer]- All Rights Reserved Reading location - IP/workstation name: [email or web address]
[2019-10-22 17:08] LABS: APPEARANCE,URINE CLEAR; BILIRUBIN,URINE NEGATIVE (NEGATIVE); COLOR,URINE COLORLESS; GLUCOSE, URINE NEGATIVE (NEGATIVE); KETONES,URINE NEGATIVE (NEGATIVE); PROTEIN,URINE NEGATIVE (NEGATIVE); URINE SPECIFIC GRAVITY 1.004; UROBILINOGEN,URINE NEGATIVE mg/dL (<2.0)
[2019-10-22 17:21] VITALS: BP 115/63
== END 2019-10-22 17:23 | disposition home or self-care (01) ==
LOC: ER 13:59
DX: R10.9 Unspecified abdominal pain (principal); R11.2 Nausea with vomiting, unspecified; R19.7 Diarrhea, unspecified; Z90.49 Acquired absence of other specified parts of digestive tract; Z90.710 Acquired absence of both cervix and uterus; Z88.2 Allergy status to sulfonamides
CPT/HCPCS: 99284; 36415; 83690; 84703; 85025; 80053; 81001; 76705; 93976; J2270; J2405; J7030; S0028

== ENCOUNTER 2019-10-23 07:34 | Emergency (ER) | payer BC ==
[2019-10-23 09:09] LABS: ABSOLUTE EOSINOPHILS # (AUTO) 0.1 10^3/uL (0.0-0.6); ABSOLUTE LYMPHOCYTES (AUTO) 2.3 10^3/uL (0.5-4.7); ABSOLUTE MONOCYTES (AUTO) 0.4 10^3/uL (0.1-1.4); ABSOLUTE NEUT (AUTO) 4.4 10^3/uL (1.7-8.2); BASOPHILS % (AUTO) 0.3 % (0-2); EOSINOPHILS % (AUTO) 1.5 % (0-6); HEMATOCRIT 38.5 % (36.0-47.0); HEMOGLOBIN 13.1 g/dL (12.0-15.5); LYMPHOCYTES % (AUTO) 32.2 % (13-45); MEAN CORPUSCULAR HEMOGLOBIN 29.4 pg (27.0-33.4); MEAN CORPUSCULAR HGB CONC 33.9 g/dL (32.0-36.0); MEAN CORPUSCULAR VOLUME 87 fl (80-97); MONOCYTES % (AUTO) 5.6 % (3-13); PLATELET COUNT 272 10^3/uL (150-450); RED BLOOD COUNT 4.45 10^6/uL (3.72-5.28); RED CELL DISTRIBUTION WIDTH 13.2 % (11.5-14.0); SEGMENTED NEUTROPHILS % (AUTO) 60.4 % (42-78); TOTAL CELLS COUNTED % (AUTO) 100 %; WHITE BLOOD COUNT 7.2 10^3/uL (4.0-10.5)
[2019-10-23 09:16] LABS: APPEARANCE,URINE CLEAR; BILIRUBIN,URINE NEGATIVE (NEGATIVE); COLOR,URINE STRAW; GLUCOSE, URINE NEGATIVE (NEGATIVE); KETONES,URINE NEGATIVE (NEGATIVE); LEUKOCYTE ESTERASE,URINE NEGATIVE (NEGATIVE); NITRITE,URINE NEGATIVE (NEGATIVE); PROTEIN,URINE NEGATIVE (NEGATIVE); URINE SPECIFIC GRAVITY 1.005; UROBILINOGEN,URINE NEGATIVE mg/dL (<2.0)
[2019-10-23 09:24] LABS: ALBUMIN 4.2 g/dL (3.5-5.0); ALKALINE PHOSPHATASE 71 U/L (38-126); ANION GAP 11 (5-19); ASPARTATE AMINO TRANSFERASE 23 U/L (14-36); BILIRUBIN,DIRECT 0.1 mg/dL (0.0-0.4); BILIRUBIN,TOTAL 0.5 mg/dL (0.2-1.3); BLOOD UREA NITROGEN 16 mg/dL (7-20); CALCIUM 9.5 mg/dL (8.4-10.2); CARBON DIOXIDE 26 mmol/L (22-30); CHLORIDE 104 mmol/L (98-107); GLUCOSE 93 mg/dL (75-110); POTASSIUM 4.2 mmol/L (3.6-5.0); TOTAL PROTEIN 7.5 g/dL (6.3-8.2)
[2019-10-23] MEDS ORDERED: NORMAL SALINE 1000 ML 1,000 ML IV ONE (09:40)
[2019-10-23] MEDS ORDERED: MORPHINE SULFATE 10 MG/ML INJ IV ONE ×2 (09:43→11:40)
--- NOTE | 2019-10-23 09:46 | ER Document Report ---
ED General - General Chief Complaint: Abdominal Pain Stated Complaint: LEFT SIDED ABDOMINAL PAIN Time Seen by Provider: 10/23/19 09:38 TRAVEL OUTSIDE OF THE [place] IN LAST 30 DAYS: No - HPI Notes: Patient is a 39-year-old female with a history of chronic intermittent abdominal pain, surgical history of appendectomy, cholecystectomy, hysterectomy, bilateral salpingo-oophorectomy who presents for the second time 2 days complaining of the same left abdominal pain that was present when I saw her yesterday. Patient states that the pain may have moved a little more inferior today, but her nausea/vomiting/diarrhea has resolved otherwise. She is able to eat and drink, but does have decreased p.o. intake. She is urinating normally. No vaginal discharge, odor, or bleeding. No recent illness. Patient did have an unremarkable work-up yesterday including left upper quadrant ultrasound. She was sent home on nausea medicine as well as omeprazole. Denies any headache, fever, head injury, neck pain, changes in vision/speech/mentation/hearing, URI, sore throat, chest pain, palpitations, syncope, cough, shortness of breath, wheeze, dyspnea, nausea/vomiting/diarrhea, urinary retention, dysuria, hemat uria, loss of control of bowel or bladder, numbness/tingling, saddle anesthesia, muscle paralysis/weakness, or rash. - Related Data Allergies/Adverse Reactions: avocado [Avocado] Allergy (Severe, Verified 10/23/19 07:45) Anaphylaxis NSAIDS (Non-Steroidal Anti-Inflamma [Nsaids] Allergy (Verified 10/23/19 07:45) throat swelling pineapple [Pineapple] Allergy (Verified 10/23/19 07:45) Sulfa (Sulfonamide Antibiotics) Allergy (Verified 10/23/19 07:45) throat swelling tree nuts Allergy (Uncoded 10/23/19 07:45) Home Medications: synthroid Past Medical History - Social History Smoking Status: Never Smoker Chew tobacco use (# tins/day): No Frequency of alcohol use: None Drug Abuse: None Family History: Reviewed & Not Pertinent, DM, Hyperlipidemia, Hypertension, Thyroid Disfunction, Other - Epilepsy Patient has suicidal ideation: No Patient has homicidal ideation: No Neurological Medical History: Reports: Hx Migraine Endocrine Medical History: Reports: Hx Hypothyroidism Renal/ Medical History: Denies: Hx Peritoneal Dialysis GI Medical History: Reports: Hx Gastritis Musculoskeletal Medical History: Reports Hx Musculoskeletal Deformity, Reports Hx Musculoskeletal Trauma Psychiatric Medical History: Reports: Hx Anxiety Traumatic Medical History: Reports: Hx Fractures - Elbow clavicle and ribs Past Surgical History: Reports: Hx Appendectomy - 2005, Hx Cholecystectomy - 2009, Hx Hysterectomy, Hx Thyroid Surgery - Thyroidectomy 2005 - Immunizations Immunizations up to date: Yes Hx Diphtheria, Pertussis, Tetanus Vaccination: Yes - 2010 Review of Systems - Review of Systems -: Yes All other systems reviewed and negative Physical Exam - Vital signs Vitals: Temp Pulse Resp BP Pulse Ox 98.3 F 82 18 132/76 H 96 10/23/19 07:38 10/23/19 07:38 10/23/19 07:38 10/23/19 07:38 10/23/19 07:38 - Notes Notes: PHYSICAL EXAMINATION: GENERAL: Well-appearing, well-nourished and in no acute distress. HEAD: Atraumatic, normocephalic. EYES: Pupils equal round and reactive to light, extraocular movements intact, sclera anicteric, conjunctiva are normal. ENT: EAC clear b/l. TM's intact b/l without erythema, fluid, or perforation. Nares patent and without discharge. oropharynx clear without exudates. No tonsilar hypertrophy or erythema. Moist mucous membranes. No sinus tenderness. NECK: Normal range of motion, supple without lymphadenopathy LUNGS: Breath sounds clear to auscultation bilaterally and equal. No wheezes rales or rhonchi. HEART: Regular rate and rhythm without murmurs, rubs, gallops. ABDOMEN: Soft, nondistended abdomen. No guarding, no rebound. Normal bowel sounds present. No CVA tenderness bilaterally. + left mid to LUQ tenderness on palp. Musculoskeletal: FROM to passive/active. Strength 5+/5. Extremities: No cyanosis, clubbing, or edema b/l. Peripheral pulses 2+. Capillary refill less than 3 seconds. NEUROLOGICAL: Normal speech, normal gait. PSYCH: Normal mood, normal affect. SKIN: Warm, Dry, normal turgor, no rashes or lesions noted. Course - Re-evaluation Re-evalutation: 10/23/19 09:45 Due to unremarkable work up yesterday which included labs and LUQ US, we will pursue with CT scan at this time. Pt will be given meds and fluids in the meantime. 10/23/19 11:30 Patient is an afebrile, well-hydrated, 39-year-old female who presents with left upper/mid abdominal pain, unspecified. Vitals are acceptable without significant tachycardia, tachypnea, hypoxia. PE is otherwise unremarkable. Patient is nontoxic-appearing and is tolerating p.o. without difficulty. CBC, CMP, urinalysis, hCG, CT scan unremarkable. No further work-up warranted at this time. She has not had any worsening symptoms throughout her stay. Pt is feeling better. Low suspicion/risk for acute appendicitis, bowel obstruction, acute cholecystitis, acute cholangitis, perforated diverticulitis, incarcerated hernia, pancreatitis, perforated ulcer, peritonitis, sepsis, pelvic inflammatory disease, ectopic , tubo-ovarian abscess, ovarian torsion, or other systemic emergent condition at this time. Patient is aware that her condition can change from initial presentation and she needs to monitor symptoms closely and seek medical attention if any acute changes. Conservative measures otherwise for symptoms. Recheck with your PCM in 2-3 days. Keep consult with a barber shop operator. Return to the ED with any worsening/concerning symptoms otherwise as reviewed in discharge. Patient is in agreement. - Vital Signs Vital signs: Temp Pulse Resp BP Pulse Ox 98.3 F 82 18 132/76 H 96 10/23/19 07:38 10/23/19 07:38 10/23/19 07:38 10/23/19 07:38 10/23/19 07:38 - Laboratory Result Diagrams: 10/23/19 08:55 10/23/19 08:55 Discharge - Discharge Clinical Impression: Nonspecific abdominal pain Condition: Stable Disposition: HOME, SELF-CARE Instructions: Abdominal Pain ([facility]) Additional Instructions: Maintain adequate fluid and food intake [place] diet (B.R.A.T.) Bananas, rice, apples, toast, etc tylenol if needed Monitor for any worsening symptoms Make sure you are staying hydrated enough to urinate and have normal BM's Recheck with your PCM in 2-3 days Consider consult with Gastroenterology for ongoing/worsening symptoms Return to the ED with any worsening symptoms and/or development of fever, headache, chest pain, palpitations, syncope, shortness of breath, trouble breathing, abdominal pain, n/v/d, blood in stool/urine, weakness, or other worsening symptoms that are concerning to you. Forms: Elevated Blood Pressure Referrals: YANETH SOLANO MD [ACTIVE STAFF] - Follow up as needed LISSY BUNCH MD [ACTIVE STAFF] - Follow up as needed
--- NOTE | 2019-10-23 11:16 | RADIOLOGY REPORT (SQ) ---
EXAM DESCRIPTION: CT ABD/PELVIS WITH IV ONLY COMPLETED DATE/TIME: 10/23/2019 10:58 am REASON FOR STUDY: left abd pain COMPARISON: 05/16/2019. TECHNIQUE: CT scan of the abdomen and pelvis performed using helical scanning technique with dynamic intravenous contrast injection. No oral contrast. Images reviewed with lung, soft tissue, and bone windows. Reconstructed coronal and sagittal MPR images reviewed. Delayed images for evaluation of the urinary system also acquired. All images stored on PACS. All CT scanners at this facility use dose modulation, iterative reconstruction, and/or weight based d osing when appropriate to reduce radiation dose to as low as reasonably achievable (ALARA). [facility]: Dose Right [facility]: CareDose [facility]: Dose Right [facility]: Teradose 4D [facility]: [employer] CONTRAST TYPE AND DOSE: contrast/concentration: Isovue 350.00 mg/ml; Total Contrast Delivered: 100.0 ml; Total Saline Delivered: 72.0 ml RENAL FUNCTION: BUN 16 creatinine 0.93. RADIATION DOSE: CT Rad equipment meets quality standard of care and radiation dose reduction techniq ues were employed. CTDIvol: 12.5 - 16.7 mGy. DLP: 1522 mGy-cm.. LIMITATIONS: None. FINDINGS: LOWER CHEST: No significant findings. No nodules or infiltrates. LIVER: Normal size. No masses. No dilated ducts. SPLEEN: Normal size. No focal lesions. PANCREAS: No masses. No significant calcifications. No adjacent inflammation or peripancreatic fluid collections. Pancreatic duct not dilated. GALLBLADDER: Surgically absent. ADRENAL GLANDS: No significant masses or asymmetry. RIGHT KIDNEY AND URETER: No solid masses. No significant calcifications. No hydronephrosis or hyd roureter. LEFT KIDNEY AND URETER: No solid masses. No significant calcifications. No hydronephrosis or hydr oureter. AORTA AND VESSELS: No aneurysm. No dissection. Renal arteries, SMA, celiac without stenosis. RETROPERITONEUM: No retroperitoneal adenopathy, hemorrhage or masses. BOWEL AND PERITONEAL CAVITY: No masses or inflammatory changes. No free fluid or peritoneal masses. APPENDIX: Surgically absent. PELVIS: No mass. No free fluid. Normal bladder. ABDOMINAL WALL: No masses. No hernias. BONES: No significant or acute findings. OTHER: No other significant finding. IMPRESSION: NO SIGNIFICANT OR ACUTE FINDING IN THE ABDOMEN OR PELVIS ON CT SCAN WITH IV CONTRAST. TECHNICAL DOCUMENTATION: JOB ID: [id number] Quality ID # [id number]: Final reports with documentation of one or more dose reduction techniques (e.g., Au tomated exposure control, adjustment of the mA and/or kV according to patient size, use of iterative reconstruction technique) 2010 [employer]- All Rights Reserved Reading location - IP/workstation name: [email or web address]
[2019-10-23 11:54] VITALS: BP 109/63
== END 2019-10-23 12:05 | disposition home or self-care (01) ==
LOC: ER 07:34
DX: R10.9 Unspecified abdominal pain (principal); R10.12 Left upper quadrant pain; R10.812 Left upper quadrant abdominal tenderness; Z90.49 Acquired absence of other specified parts of digestive tract; Z90.710 Acquired absence of both cervix and uterus; Z90.79 Acquired absence of other genital organ(s); Z87.892 Personal history of anaphylaxis; Z91.018 Allergy to other foods; Z88.8 Allergy status to other drugs, medicaments and biological substances; Z88.2 Allergy status to sulfonamides
CPT/HCPCS: 96376; 99284; 96361; 96374; 36415; 84702; 83690; 85025; 80053; 81001; 74177; J2270; J7030

== ENCOUNTER 2019-12-05 21:20 | Emergency (ER) | payer BC ==
[2019-12-05] MEDS ORDERED: NORMAL SALINE 1000 ML 1,000 ML IV ONE (22:48)
[2019-12-05] MEDS ORDERED: ONDANSETRON HCL INJ/PF 4 MG/2 ML SDV IV ONE (22:49)
--- NOTE | 2019-12-05 22:50 | ER Document Report ---
ED Medical Screen (RME) - General Chief Complaint: Vomiting Stated Complaint: VOMITING BLOOD Time Seen by Provider: 12/05/19 22:47 Mode of Arrival: Ambulatory Information source: Patient Notes: Patient presents complaining of feeling sick for the past 4 days. Patient reports shaking and dizziness that she had yesterday. Patient states she is vomited 3 times today and it looked as though she had blood in her emesis. Patient complains of generalized body aches as well as abdominal swelling. Patient denies any problems with bowel movements. Patient reports a history of having blood in her stool although denies any blood in her stool recently. Patient also has a history of previous appendectomy, hysterectomy, cholecystectomy and thyroidectomy. I have greeted and performed a rapid initial assessment of this patient. A comprehensive ED assessment and evaluation of the patient, analysis of test results and completion of the medical decision making process will be conducted by additional ED providers. TRAVEL OUTSIDE OF THE [place] IN LAST 30 DAYS: No - Related Data Allergies/Adverse Reactions: avocado [Avocado] Allergy (Severe, Verified 10/23/19 07:45) Anaphylaxis NSAIDS (Non-Steroidal Anti-Inflamma [Nsaids] Allergy (Verified 10/23/19 07:45) throat swelling pineapple [Pineapple] Allergy (Verified 10/23/19 07:45) Sulfa (Sulfonamide Antibiotics) Allergy (Verified 10/23/19 07:45) throat swelling tree nuts Allergy (Uncoded 10/23/19 07:45) Past Medical History - Social History Family history: Reviewed & Not Pertinent Neurological Medical History: Reports: Hx Migraine Endocrine Medical History: Reports: Hx Hypothyroidism Renal/ Medical History: Denies: Hx Peritoneal Dialysis GI Medical History: Reports: Hx Gastritis Musculoskeltal Medical History: Reports Hx Musculoskeletal Deformity, Reports Hx Musculoskeletal Trauma Psychiatric Medical History: Reports: Hx Anxiety Traumatic Medical History: Reports: Hx Fractures - Elbow clavicle and ribs Past Surgical History: Reports: Hx Appendectomy - 2005, Hx Cholecystectomy - 2009, Hx Hysterectomy, Hx Thyroid Surgery - Thyroidectomy 2005 - Immunizations Immunizations up to date: Yes Hx Diphtheria, Pertussis, Tetanus Vaccination: Yes - 2010 Physical Exam - Vital signs Vitals: Temp Pulse Resp BP Pulse Ox 98.9 F 74 20 124/74 99 12/05/19 21:38 12/05/19 21:38 12/05/19 21:38 12/05/19 21:38 12/05/19 21:38 - General General appearance: Appears well, Alert Notes: Generalized aches - Abdominal Distension: Distended Course - Vital Signs Vital signs: Temp Pulse Resp BP Pulse Ox 98.9 F 74 20 124/74 99 12/05/19 21:38 12/05/19 21:38 12/05/19 21:38 12/05/19 21:38 12/05/19 21:38
[2019-12-05 23:25] LABS: ABSOLUTE EOSINOPHILS # (AUTO) 0.1 10^3/uL (0.0-0.6); ABSOLUTE LYMPHOCYTES (AUTO) 2.5 10^3/uL (0.5-4.7); ABSOLUTE MONOCYTES (AUTO) 0.4 10^3/uL (0.1-1.4); ABSOLUTE NEUT (AUTO) 5.3 10^3/uL (1.7-8.2); BASOPHILS % (AUTO) 0.2 % (0-2); EOSINOPHILS % (AUTO) 1.2 % (0-6); HEMATOCRIT 39.2 % (36.0-47.0); HEMOGLOBIN 13.3 g/dL (12.0-15.5); LYMPHOCYTES % (AUTO) 30.3 % (13-45); MEAN CORPUSCULAR HEMOGLOBIN 29.4 pg (27.0-33.4); MEAN CORPUSCULAR HGB CONC 33.9 g/dL (32.0-36.0); MEAN CORPUSCULAR VOLUME 87 fl (80-97); MONOCYTES % (AUTO) 4.5 % (3-13); PLATELET COUNT 292 10^3/uL (150-450); RED BLOOD COUNT 4.53 10^6/uL (3.72-5.28); RED CELL DISTRIBUTION WIDTH 13.4 % (11.5-14.0); SEGMENTED NEUTROPHILS % (AUTO) 63.8 % (42-78); TOTAL CELLS COUNTED % (AUTO) 100 %; WHITE BLOOD COUNT 8.3 10^3/uL (4.0-10.5)
[2019-12-05 23:26] LABS: INTERNATIONAL RATION (INR) 0.99; PROTHROMBIN TIME 13.1 SEC (11.4-15.4)
[2019-12-05 23:27] LABS: PARTIAL THROMBOPLASTIN TIME 29.5 SEC (23.5-35.8)
[2019-12-05 23:38] LABS: ALBUMIN 4.4 g/dL (3.5-5.0); ALKALINE PHOSPHATASE 75 U/L (38-126); ANION GAP 11 (5-19); ASPARTATE AMINO TRANSFERASE 24 U/L (14-36); BILIRUBIN,DIRECT 0.2 mg/dL (0.0-0.4); BILIRUBIN,TOTAL 0.6 mg/dL (0.2-1.3); BLOOD UREA NITROGEN 14 mg/dL (7-20); CARBON DIOXIDE 24 mmol/L (22-30); CHLORIDE 104 mmol/L (98-107); GLUCOSE 99 mg/dL (75-110); POTASSIUM 4.1 mmol/L (3.6-5.0); TOTAL PROTEIN 8.1 g/dL (6.3-8.2)
[2019-12-06] MEDS ORDERED: ONDANSETRON HCL INJ/PF 4 MG/2 ML SDV IV ONE (02:57)
[2019-12-06] MEDS ORDERED: SUCRALFATE 1 GM TABLET PO ONE (03:01)
--- NOTE | 2019-12-06 03:08 | ER Document Report ---
ED GI/ - General Chief Complaint: Abdominal Pain Stated Complaint: VOMITING BLOOD Time Seen by Provider: 12/05/19 22:47 Mode of Arrival: Ambulatory Information source: Patient Notes: 39-year-old female presented to ED for complaint of feeling nauseated and sick for the last 4 days. She states yesterday she vomited 3 times and it looks like there was blood in her emesis. She states she has had generalized body aches and abdominal swelling over the last 3 days. She states she is only eating chicken because she is trying to lose weight. She states she does work at [employer] and everybody in there has been sick. She states that she is having normal bowel movements and she had a bowel movement yesterday but there was no blood noted in her stool she states. She reports a history of migraines hypothyroid gastritis fractured elbow clavicle and ribs anxiety and she has had an appendectomy cholecystectomy thyroidectomy and a hysterectomy. TRAVEL OUTSIDE OF THE [place] IN LAST 30 DAYS: No - HPI Patient complains to provider of: Abdominal pain - Distention, Vomiting Onset: Other - 4 days Timing/Duration: Intermittent Quality of pain: Burning, Pressure Severity at maximum: Moderate Severity in ED: Moderate Pain Level: 3 Location: Other - Generalized LMP: Hysterectomy Associated symptoms: Blood in emesis, Nausea, Vomiting - States she had blood in her emesis Exacerbated by: Movement Relieved by: Denies Similar symptoms previously: Yes Recently seen / treated by doctor: No - Related Data Allergies/Adverse Reactions: avocado [Avocado] Allergy (Severe, Verified 12/05/19 22:52) Anaphylaxis NSAIDS (Non-Steroidal Anti-Inflamma [Nsaids] Allergy (Verified 12/05/19 22:52) throat swelling pineapple [Pineapple] Allergy (Verified 12/05/19 22:52) Sulfa (Sulfonamide Antibiotics) Allergy (Verified 12/05/19 22:52) throat swelling tree nuts Allergy (Uncoded 12/05/19 22:52) Past Medical History - General Information source: Patient - Social History Smoking Status: Never Smoker Frequency of alcohol use: None Drug Abuse: None Lives with: Family Family History: Reviewed & Not Pertinent, DM, Hyperlipidemia, Hypertension, Thyroid Disfunction, Other - Epilepsy Patient has suicidal ideation: No Patient has homicidal ideation: No - Past Medical History Cardiac Medical History: Reports: None Pulmonary Medical History: Reports: None EENT Medical History: Reports: None Neurological Medical History: Reports: Hx Migraine Endocrine Medical History: Reports: Hx Hypothyroidism Renal/ Medical History: Reports: None Malignancy Medical History: Reports: None GI Medical History: Reports: Hx Gastritis Musculoskeletal Medical History: Reports Hx Musculoskeletal Deformity, Reports Hx Musculoskeletal Trauma Skin Medical History: Reports None Psychiatric Medical History: Reports: Hx Anxiety Traumatic Medical History: Reports: Hx Fractures - Elbow clavicle and ribs Infectious Medical History: Reports: None Past Surgical History: Reports: Hx Appendectomy - 2005, Hx Cholecystectomy - 2009, Hx Hysterectomy, Hx Thyroid Surgery - Thyroidectomy 2005 - Immunizations Immunizations up to date: Yes Hx Diphtheria, Pertussis, Tetanus Vaccination: Yes - 2010 Review of Systems - Review of Systems Constitutional: Recent illness EENT: No symptoms reported Cardiovascular: No symptoms reported Respiratory: No symptoms reported Gastrointestinal: Abdomen distended, Abdominal pain, Nausea, Vomiting, Poor appetite Genitourinary: No symptoms reported Female Genitourinary: No symptoms reported Musculoskeletal: No symptoms reported Skin: No symptoms reported Hematologic/Lymphatic: No symptoms reported Neurological/Psychological: No symptoms reported -: Yes All other systems reviewed and negative Physical Exam - Vital signs Vitals: Temp Pulse Resp BP Pulse Ox 98.9 F 74 20 124/74 99 12/05/19 21:38 12/05/19 21:38 12/05/19 21:38 12/05/19 21:38 12/05/19 21:38 Interpretation: Normal - General General appearance: Appears well, Alert - HEENT Head: Normocephalic, Atraumatic Eyes: Normal Pupils: PERRL - Respiratory Respiratory status: No respiratory distress Chest status: Nontender Breath sounds: Normal Chest palpation: Normal - Cardiovascular Rhythm: Regular Heart sounds: Normal auscultation Murmur: No - Abdominal Inspection: Normal Distension: Distended Bowel sounds: Normal Tenderness: Tender - Generalized Organomegaly: No organomegaly - Back Back: Normal, Nontender - Extremities General upper extremity: Normal inspection, Nontender, Normal color, Normal ROM, Normal temperature General lower extremity: Normal inspection, Nontender, Normal color, Normal ROM, Normal temperature, Normal weight bearing. No: Brennan's sign - Neurological Neuro grossly intact: Yes Cognition: Normal Orientation: AAOx4 [place] Coma Scale Eye Opening: Spontaneous [place] Coma Scale Verbal: Oriented Piet[place] Coma Scale Motor: Obeys Commands Pietro Coma Scale Total: 15 Speech: Normal Motor strength normal: LUE, RUE, LLE, RLE Sensory: Normal - Psychological Associated symptoms: Normal affect, Normal mood - Skin Skin Temperature: Warm Skin Moisture: Dry Skin Color: Normal Course - Re-evaluation Re-evalutation: 12/06/19 05:20 Patient has had no nausea or vomiting while in the emergency room. She states she did go to the bathroom and she is feeling much better now. Abdomen is soft nondistended at this time. Will discharge home on Carafate and Phenergan. Patient states she has appointments with her primary and a bill hiker. - Vital Signs Vital signs: Temp Pulse Resp BP Pulse Ox 98.9 F 74 20 124/74 99 12/05/19 21:38 12/05/19 21:38 12/05/19 21:38 12/05/19 21:38 12/05/19 21:38 - Laboratory Result Diagrams: 12/05/19 23:05 12/05/19 23:05 Laboratory results interpreted by me: 12/06/19 03:00 Leukocyte Esterase Rfl TRACE H - Diagnostic Test Radiology reviewed: Image reviewed, Reports reviewed Discharge - Discharge Clinical Impression: Abdominal pain Qualifiers: Abdominal location: generalized Qualified Code(s): R10.84 - Generalized abdominal pain Nausea & vomiting Qualifiers: Vomiting type: unspecified Vomiting Intractability: intractable Qualified Code(s): R11.2 - Nausea with vomiting, unspecified Condition: Stable Disposition: HOME, SELF-CARE Additional Instructions: Abdominal Pain There are many causes of abdominal pain. Pain can mean a serious problem requiring surgery (such as appendicitis). It can also be an innocent problem that goes away on its own (such as a viral infection). Often, time must pass to determine the cause of pain. The physician does not feel that hospitalization is necessary, at present. Things may change within the next 24 hours. Call the doctor or come back for re- examination if any problems occur, such as: (1) Pain that becomes more severe, steady, or becomes concentrated in one specific area. Also, pain that is more severe with movement or coughing. (2) Vomiting that persists or becomes more frequent. (3) Blood in the vomitus, urine, or bowel movements. Blood in the stool may have a tarry or black appearance. (4) Shaking chills or fever greater than 100 degrees F. (5) The abdomen becomes more distended or swollen. (6) Bowel movements cease. (7) Failure to improve as expected. VOMITING: Vomiting (or nausea without vomiting) can be caused by many other different problems. It can mean that something's wrong with the stomach, such as ulcers or inflammation or the intestinal tract, such as appendicitis. But it can also be a symptom of a problem that has nothing to do with the stomach or intestines. Vomiting is common with severe headaches, earaches, tonsillitis, and kidney infections, etc. We see it with pneumonia or heart attacks. Drugs can cause nausea and vomiting. Many abdominal problems cause vomiting; for example, gallstones, kidney stones, pancreatitis, and intestinal obstruction (blocked bowels). In most cases, curing the vomiting depends on fixing the problem that caused it. For temporary relief, we may use an anti-nausea medicine. For home use, we can prescribe suppositories, chewable pills, pills that dissolve in the mouth, or liquid anti-nausea drugs. If the vomiting seems to be caused by a problem in the stomach, acid-suppressing drugs may be prescribed as well. It's important to avoid dehydration. Sip small amounts of clear liquids (soft drinks, tea, broth, etc) . Try to take fluids frequently even if you are vomiting to prevent dehydration. Take increasing amounts of fluid and when liquids are being consumed successfully, advance to small amounts of bland food (toast, soups, mashed potatoes, etc.) until you are able to resume a regular diet. Avoid aspirin, tobacco, and alcohol. If the vomiting worsens, if the problem that's making you vomit worsens, or if there's evidence of bleeding in the stomach (such as black, tarry stool, or bloody or black vomit), you should return immediately. Also, return if abdominal pain worsens or becomes localized to one area or you develop high fever. Call your doctor if you aren't improved in 24 hours. VIRAL SYNDROME: The physician has diagnosed a viral infection. Viruses not only cause "colds," but can cause many different symptoms including generalized aching, fever, headache, cough, diarrhea, nausea, vomiting, and fatigue. The treatment, for the most part, is simply relief of symptoms. This means that antibiotics are usually not given. Rest, fluids, pain medications and, occasionally, medication for the specific symptoms that are most bothersome will be prescribed. Use good handwashing to avoid passing the virus to others. Shared toys should be cleaned with disinfectant. Clean the toilets, sinks, and counter surfaces in bathrooms. Launder clothing in hot water. Contact the physician if you develop any new or unusual symptoms such as severe headache, stiff neck, high fever, chest pain, productive cough, or shortness of breath. You should be rechecked if you don't see marked improvement within seven to 10 days. INTRAVENOUS (I V) FLUIDS: As part of your care today, you received intravenous (IV) fluids. IV fluids are administered to patients who are dehydrated or to those who have certain chemical (electrolyte) abnormalities that need correcting. ANTINAUSEA MEDICATION: You have been given a medication to suppress nausea and vomiting. This type of medication can be given as a shot, pill, or suppository. It will usually last for many hours. Pills and shots usually last six to eight hours. For the typical illness, only one or two doses of the medication may be necessary. Mild lightheadedness may occur. This type of medicine can cause drowsiness. Do not drive or operate dangerous machinery while under its influence. Do not mix with alcohol. See your doctor at once if you have muscle spasms or tightness, or uncontrollable motions (particularly of the neck, mouth, or jaw). Persistent vomiting or severe lightheadedness should also be evaluated by the physician. FOLLOW-UP CARE: If you have been referred to a physician for follow-up care, call the physicians office for an appointment as you were instructed or within the next two days. If you experience worsening or a significant change in your symptoms, notify the physician immediately or return to the Emergency Department at any time for re-evaluation. Prescriptions: Sucralfate [Carafate] 1 gm PO Q6 7 Days #280 oral.susp Promethazine HCl [Phenergan 25 mg Tablet] 25 mg PO Q6H PRN #15 tablet PRN Reason: Forms: Return to Work
[2019-12-06 03:24] LABS: APPEARANCE,URINE CLEAR; BILIRUBIN,URINE NEGATIVE (NEGATIVE); COLOR,URINE STRAW; GLUCOSE, URINE NEGATIVE (NEGATIVE); KETONES,URINE NEGATIVE (NEGATIVE); PROTEIN,URINE NEGATIVE (NEGATIVE); URINE SPECIFIC GRAVITY 1.006; UROBILINOGEN,URINE NEGATIVE mg/dL (<2.0)
--- NOTE | 2019-12-06 04:57 | RADIOLOGY REPORT (SQ) ---
Acute abdominal series on 12/06/2019 at 3:30 AM CLINICAL INDICATION: Generalized abdominal pain, vomiting blood, abdominal distention COMPARISON: CT from 10/23/2019 FINDINGS: CHEST: The lungs are clear. Cardiac, hilar and mediastinal contours are within normal limits. Pulmonary vascularity is within normal limits. ABDOMEN: There is no free air. Single mildly prominent loop of bowel is noted in the left mid abdomen. Bowel gas pattern is nonspecific. No abnormal calcification or mass effect is noted. No increased stool to suggest significant constipation is noted. No bony abnormality is noted. IMPRESSION: 1. No acute cardiopulmonary disease. 2. Nonspecific abdomen.
[2019-12-06 06:04] VITALS: BP 105/76
--- NOTE | 2019-12-06 11:21 | EKG REPORT ---
SEVERITY:- NORMAL ECG - SINUS RHYTHM : Confirmed by: Tanja Davidson MD 06-Dec-2019 11:20:11
== END 2019-12-06 06:00 | disposition home or self-care (01) ==
LOC: ER 21:20
DX: R10.84 Generalized abdominal pain (principal); R11.2 Nausea with vomiting, unspecified; M79.10 Myalgia, unspecified site; R19.00 Intra-abdominal and pelvic swelling, mass and lump, unspecified site
CPT/HCPCS: 93005; 99284; 96361; 96374; 36415; 87086; 83690; 85025; 85610; 85730; 87088; 80053; 81001; 74022; 93010; J2405; J7030

== ENCOUNTER 2020-04-11 18:12 | Emergency (ER) | payer BC ==
[2020-04-11] MEDS ORDERED: ONDANSETRON 4 MG TAB.RAPDIS PO ONE (18:38)
--- NOTE | 2020-04-11 18:41 | ER Document Report ---
ED Medical Screen (RME) - General Chief Complaint: Abdominal Pain Stated Complaint: ABDOMINAL PAIN Time Seen by Provider: 04/11/20 18:38 Mode of Arrival: Ambulatory Information source: Patient Notes: 39-year-old female presented to ED for complaint of right upper quadrant and lower abdominal pain. She states is goes through to her right shoulder. She states she did have her gallbladder out about 10 years ago. She states she is also vomited x3 had a normal stool about an hour ago. States the pain is 4/5 sharp and stabbing. She states she does have a history of thyroidectomy cholecystectomy appendectomy hysterectomy. She now has migraines and hypothyroid. She is a former smoker does not drink or use any drugs. Patient is alert oriented respirations regular and unlabored speaking in full sentences. I have greeted and performed a rapid initial assessment of this patient. A comprehensive ED assessment and evaluation of the patient, analysis of test results and completion of medical decision making process will be conducted by an additional ED providers. TRAVEL OUTSIDE OF THE [place] IN LAST 30 DAYS: No - Related Data Allergies/Adverse Reactions: avocado [Avocado] Allergy (Severe, Verified 12/05/19 22:52) Anaphylaxis NSAIDS (Non-Steroidal Anti-Inflamma [Nsaids] Allergy (Verified 12/05/19 22:52) throat swelling pineapple [Pineapple] Allergy (Verified 12/05/19 22:52) Sulfa (Sulfonamide Antibiotics) Allergy (Verified 12/05/19 22:52) throat swelling tree nuts Allergy (Uncoded 12/05/19 22:52) Home Medications: synthroid Past Medical History - Social History Chew tobacco use (# tins/day): No Frequency of alcohol use: None Drug Abuse: None Family history: Reviewed & Not Pertinent Neurological Medical History: Reports: Hx Migraine Endocrine Medical History: Reports: Hx Hypothyroidism Renal/ Medical History: Denies: Hx Peritoneal Dialysis GI Medical History: Reports: Hx Gastritis Musculoskeltal Medical History: Reports Hx Musculoskeletal Deformity, Reports Hx Musculoskeletal Trauma Psychiatric Medical History: Reports: Hx Anxiety Traumatic Medical History: Reports: Hx Fractures - Elbow clavicle and ribs Past Surgical History: Reports: Hx Appendectomy - 2005, Hx Cholecystectomy - 2009, Hx Hysterectomy, Hx Thyroid Surgery - Thyroidectomy 2005 - Immunizations Immunizations up to date: Yes Hx Diphtheria, Pertussis, Tetanus Vaccination: Yes - 2010 Physical Exam - Vital signs Vitals: Temp Pulse Resp BP Pulse Ox 98.4 F 84 16 122/71 96 04/11/20 18:15 04/11/20 18:15 04/11/20 18:15 04/11/20 18:15 04/11/20 18:15 Course - Vital Signs Vital signs: Temp Pulse Resp BP Pulse Ox 98.4 F 84 16 122/71 96 04/11/20 18:28 04/11/20 18:15 04/11/20 18:15 04/11/20 18:15 04/11/20 18:15
[2020-04-11 19:16] LABS: ABSOLUTE EOSINOPHILS # (AUTO) 0.1 10^3/uL (0.0-0.6); ABSOLUTE LYMPHOCYTES (AUTO) 2.1 10^3/uL (0.5-4.7); ABSOLUTE MONOCYTES (AUTO) 0.3 10^3/uL (0.1-1.4); ABSOLUTE NEUT (AUTO) 4.2 10^3/uL (1.7-8.2); BASOPHILS % (AUTO) 0.5 % (0-2); EOSINOPHILS % (AUTO) 1.2 % (0-6); HEMATOCRIT 39.4 % (36.0-47.0); HEMOGLOBIN 13.6 g/dL (12.0-15.5); LYMPHOCYTES % (AUTO) 31.3 % (13-45); MEAN CORPUSCULAR HEMOGLOBIN 29.9 pg (27.0-33.4); MEAN CORPUSCULAR HGB CONC 34.5 g/dL (32.0-36.0); MEAN CORPUSCULAR VOLUME 87 fl (80-97); MONOCYTES % (AUTO) 4.6 % (3-13); PLATELET COUNT 288 10^3/uL (150-450); RED BLOOD COUNT 4.56 10^6/uL (3.72-5.28); RED CELL DISTRIBUTION WIDTH 13.3 % (11.5-14.0); SEGMENTED NEUTROPHILS % (AUTO) 62.4 % (42-78); TOTAL CELLS COUNTED % (AUTO) 100 %; WHITE BLOOD COUNT 6.7 10^3/uL (4.0-10.5)
[2020-04-11 19:25] LABS: APPEARANCE,URINE CLEAR; BILIRUBIN,URINE NEGATIVE (NEGATIVE); COLOR,URINE YELLOW; GLUCOSE, URINE NEGATIVE (NEGATIVE); KETONES,URINE NEGATIVE (NEGATIVE); LEUKOCYTE ESTERASE,URINE NEGATIVE (NEGATIVE); NITRITE,URINE NEGATIVE (NEGATIVE); PROTEIN,URINE NEGATIVE (NEGATIVE); URINE SPECIFIC GRAVITY 1.015; UROBILINOGEN,URINE NEGATIVE mg/dL (<2.0)
[2020-04-11] MEDS ORDERED: DICYCLOMINE HCL 20 MG TABLET PO ONE (19:29)
--- NOTE | 2020-04-11 19:31 | ER Document Report ---
ED General - General Chief Complaint: Abdominal Pain Stated Complaint: ABDOMINAL PAIN Time Seen by Provider: 04/11/20 18:38 Mode of Arrival: Ambulatory TRAVEL OUTSIDE OF THE [place] IN LAST 30 DAYS: No - HPI Notes: Patient is a 39-year-old female who presents to the emergency department for evaluation of right-sided abdominal pain. She states it woke her from sleep this morning. She states it is a burning pain. Is constant in nature but waxes and wanes. She states it was made worse by food. Nothing seems to make it better. She had nausea with one episode of nonbloody, nonbilious emesis. Normal bowel movement earlier today. Normal urination. No hematuria, dysuria, urinary frequency. She states that she has had pain from gastritis on the left that was similar, but never on the right. She was on Bentyl in the past which did help, but she has otherwise been told to change her diet as well as her lifestyle, and this is helped somewhat. She is no longer taking any medications for her stomach. - Related Data Allergies/Adverse Reactions: avocado [Avocado] Allergy (Severe, Verified 12/05/19 22:52) Anaphylaxis NSAIDS (Non-Steroidal Anti-Inflamma [Nsaids] Allergy (Verified 12/05/19 22:52) throat swelling pineapple [Pineapple] Allergy (Verified 12/05/19 22:52) Sulfa (Sulfonamide Antibiotics) Allergy (Verified 12/05/19 22:52) throat swelling tree nuts Allergy (Uncoded 12/05/19 22:52) Home Medications: synthroid Past Medical History - General Information source: Patient - Social History Smoking Status: Former Smoker Chew tobacco use (# tins/day): No Frequency of alcohol use: None Drug Abuse: None Family History: Reviewed & Not Pertinent, DM, Hyperlipidemia, Hypertension, Thy roid Disfunction, Other - Epilepsy Patient has homicidal ideation: No Neurological Medical History: Reports: Hx Migraine Endocrine Medical History: Reports: Hx Hypothyroidism Renal/ Medical History: Denies: Hx Peritoneal Dialysis GI Medical History: Reports: Hx Gastritis Musculoskeletal Medical History: Reports Hx Musculoskeletal Deformity, Reports Hx Musculoskeletal Trauma Psychiatric Medical History: Reports: Hx Anxiety Traumatic Medical History: Reports: Hx Fractures - Elbow clavicle and ribs Past Surgical History: Reports: Hx Appendectomy - 2005, Hx Cholecystectomy - 2009, Hx Hysterectomy, Hx Thyroid Surgery - Thyroidectomy 2005 - Immunizations Immunizations up to date: Yes Hx Diphtheria, Pertussis, Tetanus Vaccination: Yes - 2010 Review of Systems - Review of Systems Constitutional: No symptoms reported Gastrointestinal: See HPI -: Yes All other systems reviewed and negative Physical Exam - Vital signs Vitals: Temp Pulse Resp BP Pulse Ox 98.4 F 84 16 122/71 96 04/11/20 18:15 04/11/20 18:15 04/11/20 18:15 04/11/20 18:15 04/11/20 18:15 - Notes Notes: Vital signs reviewed, please refer to chart. Head is normocephalic, atraumatic. Pupils equal round, reactive to light. Neck is supple without meningismus. Heart is regular rate and rhythm. Lungs are clear to auscultation bilaterally. Abdomen is soft, moderately tender in the epigastrium as well as right upper quadrant without rebound or guarding, normoactive bowel sounds throughout. Extremities without cyanosis, clubbing. Posterior calves are nontender. Peripheral pulses are equal. Skin is warm and dry. Patient is awake, alert, neurological exam is nonfocal. Course - Re-evaluation Re-evalutation: 04/11/20 19:31 Patient presents to the emergency department for evaluation. Laboratory investigations were obtained. Her vital signs are unremarkable. I did give her Bentyl, in addition to the Zofran she was offered through triage. She has already had a cholecystectomy, appendectomy. Awaiting laboratory investigations to guide further assessment is necessary. We will continue to monitor. 04/11/20 20:29 Patient's laboratory investigations failed to show any significant abnormality. I was notified by nursing, however, that the patient states her pain is worsened. I went back into evaluate the patient. She continues to have tenderness but no surgical signs. CT scan of the abdomen pelvis with IV contrast is ordered. 04/11/20 21:27 CT scan failed to reveal any acute process. Serial abdominal exams are mildly tender but nonsurgical. Patient still with pain. I will go and give her a small amount of morphine. I explained to the patient I do not have a clear etiology for her pain. Her CT scan is normal. She does not have any abnormal lab findings, and she is to follow-up with GI and her primary care provider. She voiced understanding. She understands that any worsening should prompt her to return. - Vital Signs Vital signs: Temp Pulse Resp BP Pulse Ox 98.4 F 84 16 122/71 96 04/11/20 18:28 04/11/20 18:15 04/11/20 18:15 04/11/20 18:15 04/11/20 18:15 - Laboratory Result Diagrams: 04/11/20 18:40 04/11/20 18:40 Laboratory results interpreted by me: 04/11/20 18:40 Urine Ascorbic Acid 20 H - Diagnostic Test Radiology reviewed: Reports reviewed Radiology results interpreted by me: 04/11/20 21:28 Abdomen/Pelvis CT 04/11/20 20:22 IMPRESSION: 1. Mild fatty liver. 2. Previous cholecystectomy and hysterectomy. 3. Minimal bilateral hydronephrosis secondary to moderately dilated urinary bladder. 4. No acute findings. Discharge - Discharge Clinical Impression: Right upper quadrant abdominal pain Condition: Stable Disposition: HOME, SELF-CARE Instructions: Abdominal Pain ([facility]) Additional Instructions: No clear cause is found for her abdominal pain today. Please follow-up with your primary care provider and your call center support representative. If you develop increased pain, fevers, or any other new or concerning symptoms, please return immediately to the emergency department for evaluation.
[2020-04-11 19:47] LABS: ALBUMIN 4.4 g/dL (3.5-5.0); ALKALINE PHOSPHATASE 86 U/L (38-126); ANION GAP 7 (5-19); ASPARTATE AMINO TRANSFERASE 25 U/L (14-36); BILIRUBIN,TOTAL 0.6 mg/dL (0.2-1.3); BLOOD UREA NITROGEN 17 mg/dL (7-20); CALCIUM 9.5 mg/dL (8.4-10.2); CARBON DIOXIDE 25 mmol/L (22-30); CHLORIDE 105 mmol/L (98-107); GLUCOSE 109 mg/dL (75-110); POTASSIUM 4.2 mmol/L (3.6-5.0); TOTAL PROTEIN 7.9 g/dL (6.3-8.2)
[2020-04-11] MEDS ORDERED: NORMAL SALINE 1000 ML 1,000 ML IV ONE (20:26)
[2020-04-11] MEDS ORDERED: LIDOCAINE 2% VISCOUS SOLN 15 ML UDCUP PO ONE (21:08)
[2020-04-11] MEDS ORDERED: MAG HYDROX/AL HYDROX/SIMETH SUSP 30 ML UDCUP PO ONE (21:08)
--- NOTE | 2020-04-11 21:08 | RADIOLOGY REPORT (SQ) ---
EXAM DESCRIPTION: CT abdomen pelvis with IV contrast. CLINICAL HISTORY: 39 years Female abdominal pain COMPARISON: CT from 05/16/2019 and 10/23/2019. TECHNIQUE: Axial images with 100 mL of Omnipaque 350. Sagittal coronal reconstruction. This exam was performed according to our departmental dose-optimization program, which includes automated exposure control, adjustment of the mA and/or kV according to patient size and/or use of iterative reconstruction technique.. FINDINGS: Lung bases are unremarkable. Mild fatty liver. Absent gallbladder. No surgical clips. No biliary dilatation. Spleen, pancreas, adrenal glands, aorta and peritoneal regions are unremarkable. Both kidneys demonstrated borderline hydronephrosis or hydroureter. Bowel loops and peritoneal cavity are unremarkable. Question previous appendectomy. CT of the pelvis demonstrates moderately distended urinary bladder. Absent uterus. No suspicious adenopathy or masses. Bowel loops are unremarkable. IMPRESSION: 1. Mild fatty liver. 2. Previous cholecystectomy and hysterectomy. 3. Minimal bilateral hydronephrosis secondary to moderately dilated urinary bladder. 4. No acute findings.
[2020-04-11] MEDS ORDERED: PROMETHAZINE HCL INJ 25 MG/1 ML VIAL IV ONE (21:19)
[2020-04-11] MEDS ORDERED: MORPHINE SULFATE 10 MG/ML INJ IV ONE (21:27)
[2020-04-11 22:41] VITALS: BP 117/78
== END 2020-04-11 22:41 | disposition home or self-care (01) ==
LOC: ER 18:12
DX: R10.11 Right upper quadrant pain (principal); R10.816 Epigastric abdominal tenderness; R10.811 Right upper quadrant abdominal tenderness; K76.0 Fatty (change of) liver, not elsewhere classified; N32.89 Other specified disorders of bladder; N13.30 Unspecified hydronephrosis; R11.2 Nausea with vomiting, unspecified; Z90.49 Acquired absence of other specified parts of digestive tract; Z79.899 Other long term (current) drug therapy; Z87.19 Personal history of other diseases of the digestive system; Z87.891 Personal history of nicotine dependence; Z91.018 Allergy to other foods; Z88.8 Allergy status to other drugs, medicaments and biological substances; Z88.2 Allergy status to sulfonamides; E89.0 Postprocedural hypothyroidism
CPT/HCPCS: 99284; 96361; 96374; 36415; 83690; 85025; 80053; 81001; 74177; J3490 ×2; S0119; J2270; J7030

== ENCOUNTER 2020-04-15 00:25 | Emergency (ER) | payer BC ==
[2020-04-15] MEDS ORDERED: NORMAL SALINE 1000 ML 1,000 ML IV ONE (01:14)
[2020-04-15] MEDS ORDERED: METOCLOPRAMIDE HCL INJ/PF 10 MG/2 ML SDV IV ONE (01:15)
[2020-04-15] MEDS ORDERED: MORPHINE SULFATE 10 MG/ML INJ IV ONE ×2 (01:15→02:53)
[2020-04-15 01:30] LABS: ABSOLUTE EOSINOPHILS # (AUTO) 0.1 10^3/uL (0.0-0.6); ABSOLUTE LYMPHOCYTES (AUTO) 2.4 10^3/uL (0.5-4.7); ABSOLUTE MONOCYTES (AUTO) 0.5 10^3/uL (0.1-1.4); ABSOLUTE NEUT (AUTO) 4.8 10^3/uL (1.7-8.2); BASOPHILS % (AUTO) 0.5 % (0-2); EOSINOPHILS % (AUTO) 1.2 % (0-6); HEMATOCRIT 37.7 % (36.0-47.0); HEMOGLOBIN 13.1 g/dL (12.0-15.5); LYMPHOCYTES % (AUTO) 31.1 % (13-45); MEAN CORPUSCULAR HEMOGLOBIN 29.7 pg (27.0-33.4); MEAN CORPUSCULAR HGB CONC 34.9 g/dL (32.0-36.0); MEAN CORPUSCULAR VOLUME 85 fl (80-97); PLATELET COUNT 289 10^3/uL (150-450); RED BLOOD COUNT 4.43 10^6/uL (3.72-5.28); RED CELL DISTRIBUTION WIDTH 13.5 % (11.5-14.0); SEGMENTED NEUTROPHILS % (AUTO) 61.2 % (42-78); TOTAL CELLS COUNTED % (AUTO) 100 %; WHITE BLOOD COUNT 7.8 10^3/uL (4.0-10.5)
[2020-04-15 01:59] LABS: ALBUMIN 4.3 g/dL (3.5-5.0); ALKALINE PHOSPHATASE 74 U/L (38-126); ANION GAP 9 (5-19); ASPARTATE AMINO TRANSFERASE 22 U/L (14-36); BILIRUBIN,TOTAL 0.5 mg/dL (0.2-1.3); BLOOD UREA NITROGEN 18 mg/dL (7-20); CALCIUM 9.5 mg/dL (8.4-10.2); CARBON DIOXIDE 26 mmol/L (22-30); CHLORIDE 103 mmol/L (98-107); GLUCOSE 98 mg/dL (75-110); POTASSIUM 3.9 mmol/L (3.6-5.0); TOTAL PROTEIN 7.6 g/dL (6.3-8.2)
--- NOTE | 2020-04-15 02:06 | ER Document Report ---
Entered by WOO OCHOA SCRIBE 04/15/20 0119 Acting as scribe for:DANIEL SUBRAMANIAN IV, MD ED GI/ - General Chief Complaint: Abdominal Pain Stated Complaint: ABDOMINAL PAIN/SWELLING Time Seen by Provider: 04/15/20 01:01 Mode of Arrival: Ambulatory Information source: Patient Notes: This 39 year old female patient presents to the ED today with complaints of RUQ abdominal pain that started yesterday evening. Patient states that the pain radiates to her LUQ as well. She also notes nausea, vomiting, and diarrhea x2. She reports that she was seen here x4 days ago for the same symptoms and was prescribed Bentyl and Zofran which she states provide no relief. She states that she has a family history of IBS and that her next available appointment with her GI specialist isn't until 04/30/2020. She also notes that she has started a bland diet. Past abdominal surgical history includes appendectomy, cholecystecomy, and hysterectomy. TRAVEL OUTSIDE OF THE [place] IN LAST 30 DAYS: No - Related Data Allergies/Adverse Reactions: avocado [Avocado] Allergy (Severe, Verified 12/05/19 22:52) Anaphylaxis NSAIDS (Non-Steroidal Anti-Inflamma [Nsaids] Allergy (Verified 12/05/19 22:52) throat swelling pineapple [Pineapple] Allergy (Verified 12/05/19 22:52) Sulfa (Sulfonamide Antibiotics) Allergy (Verified 12/05/19 22:52) throat swelling tree nuts Allergy (Uncoded 12/05/19 22:52) Home Medications: synthroid, MVI, bentyl, zofran Past Medical History - General Information source: Patient, [facility] Records - Social History Smoking Status: Former Smoker Cigarette use (# per day): No Chew tobacco use (# tins/day): No Smoking Education Provided: No Family History: Reviewed & Not Pertinent, DM, Hyperlipidemia, Hypertension, Thyroid Disfunction, Other - Epilepsy Patient has suicidal ideation: No Patient has homicidal ideation: No Neurological Medical History: Reports: Hx Migraine Endocrine Medical History: Reports: Hx Hypothyroidism GI Medical History: Reports: Hx Gastritis Musculoskeletal Medical History: Reports Hx Musculoskeletal Deformity, Reports Hx Musculoskeletal Trauma Psychiatric Medical History: Reports: Hx Anxiety Traumatic Medical History: Reports: Hx Fractures - Elbow clavicle and ribs Past Surgical History: Reports: Hx Appendectomy - 2005, Hx Cholecystectomy - 2009, Hx Hysterectomy, Hx Thyroid Surgery - Thyroidectomy 2005 - Immunizations Immunizations up to date: Yes Hx Diphtheria, Pertussis, Tetanus Vaccination: Yes - 2010 Review of Systems - Review of Systems Constitutional: No symptoms reported Cardiovascular: No symptoms reported Respiratory: No symptoms reported Gastrointestinal: See HPI, Abdominal pain, Diarrhea, Nausea, Vomiting Genitourinary: No symptoms reported Female Genitourinary: No symptoms reported Musculoskeletal: No symptoms reported Skin: No symptoms reported Hematologic/Lymphatic: No symptoms reported Neurological/Psychological: No symptoms reported -: Yes All other systems reviewed and negative Physical Exam - Vital signs Vitals: Temp Pulse Resp BP Pulse Ox 98.0 F 85 18 116/72 97 04/15/20 00:32 04/15/20 00:32 04/15/20 00:32 04/15/20 00:32 04/15/20 00:32 Interpretation: Normal - General General appearance: Alert In distress: None - HEENT Head: Normocephalic, Atraumatic Eyes: Normal Pupils: PERRL - Respiratory Respiratory status: No respiratory distress Chest status: Nontender Breath sounds: Normal Chest palpation: Normal - Cardiovascular Rhythm: Regular Heart sounds: Normal auscultation Murmur: No Friction rub: No Gallop: None auscultated - Abdominal Inspection: Normal Distension: No distension Bowel sounds: Normal Tenderness: Nontender - Abdomen soft Organomegaly: No organomegaly - Back Back: Normal, Nontender - Extremities General upper extremity: Normal inspection General lower extremity: Normal inspection - Neurological Neuro grossly intact: Yes Orientation: AAOx4 - Psychological Associated symptoms: Normal affect, Normal mood - Skin Skin Temperature: Warm Skin Moisture: Dry Skin Color: Normal Course - Re-evaluation Re-evalutation: 04/15/20 03:45 Results of ED MSE discussed with patient. All questions were answered prior to discharge. Emergency signs and symptoms, reasons to return to the emergency department discussed with patient. - Vital Signs Vital signs: Temp Pulse Resp BP Pulse Ox 98 F 85 18 116/72 97 04/15/20 00:42 04/15/20 00:32 04/15/20 00:32 04/15/20 00:32 04/15/20 00:32 - Laboratory Result Diagrams: 04/15/20 01:10 04/15/20 01:10 Laboratory results interpreted by me: 04/15/20 04/15/20 01:10 02:42 Creatinine 1.27 H Est GFR ( Amer) 57 L Est GFR (MDRD) Non-Af 47 L Ur Leukocyte Esterase SMALL H Discharge - Discharge Clinical Impression: Abdominal pain Qualifiers: Abdominal location: unspecified location Qualified Code(s): R10.9 - Unspecified abdominal pain Nausea & vomiting Qualifiers: Vomiting type: unspecified Vomiting Intractability: non-intractable Qualified Code(s): R11.2 - Nausea with vomiting, unspecified Condition: Good Disposition: HOME, SELF-CARE Instructions: Antinausea Medication ([facility]), Abdominal Pain ([facility]) Additional Instructions: Return to the Emergency Department without delay if any worse. HOME CARE INSTRUCTIONS & INFORMATION: Thank you for choosing us for your medical needs. We hope you're satisfied with the care you received. After you leave, you must properly care for your problem and, at the same time, observe its progress. Any condition can change. Some illnesses can change rapidly over hours or days. If your condition worsens, return to the Emergency Department or see your physician promptly. ABOUT YOUR X-RAYS AND EKG'S: If you had an EKG or X-rays taken, they have been read by the Emergency Physician. The X-rays and EKG's will also be read by a Radiologist or [employer] Operator within 24 hours. If discrepancies are noted, you will be notified by telephone. Please be certain the ED has a correct telephone number & address where you can be reached. Also, realize that some fractures or abnormalities do not show up on initial X-rays. If your symptoms continue, see your physician. ABOUT YOUR LABORATORY TEST: If you had laboratory tests, the results have been reviewed by the Emergency Physician. Some test results (for example cultures) may not be available for several days. You will be contacted if any test result shows you need additional treatment. Please be certain the ED has a correct telephone number and address where you can be reached. ABOUT YOUR MEDICATIONS: You will receive instructions on how to take your medicine on the prescription label you receive. Additional information may be provided by the Pharmacy. If you have questions afterwards, call the ED for c larification or further instructions. Some prescribed medications may cause drowsiness. Do not perform tasks such as driving a car or operating machinery without consulting your Pharmacist. If you feel you need a refill of pain medication, your condition will need re-evaluation. Please do not call for a refill of any medication. ABOUT YOUR SIGNATURE: Signature of this document acknowledges to followin. Understanding that you received emergency treatment and that you may be released before al medical problems are known or treated. Please be certain the ED has a correct phone number & address where you can be reached. 2. Acknowledgement that you will arrange for follow-up care as recommended. 3. Authorization for the Emergency Physician to provide information to your follow-up Physician in order to maximize your care. AT ANY TIME, IF YOUR SYMPTOMS CHANGE SIGNIFICANTLY OR WORSEN OR YOU DEVELOP NEW SYMPTOMS, RETURN TO THE EMERGENCY DEPARTMENT IMMEDIATELY FOR RE-EVALUATION. OUR GOAL IS TO PROVIDE EXCELLENT MEDICAL CARE! WE HOPE THAT WE HAVE MET YOUR EXPECTATIONS DURING YOUR EMERGENCY DEPARTMENT VISIT AND THAT YOU FEEL YOU HAVE RECEIVED EXCELLENT CARE! Prescriptions: Promethazine HCl [Phenergan 25 mg Tablet] 1 tab PO Q6H PRN #15 tablet PRN Reason: nausea Referrals: SHANA OLGUIN MD [HONORARY] - Follow up as needed I personally performed the services described in the documentation, reviewed and edited the documentation which was dictated to the scribe in my presence, and it accurately records my words and actions.
[2020-04-15 03:26] LABS: APPEARANCE,URINE CLEAR; BILIRUBIN,URINE NEGATIVE (NEGATIVE); COLOR,URINE STRAW; GLUCOSE, URINE NEGATIVE (NEGATIVE); KETONES,URINE NEGATIVE (NEGATIVE); LEUKOCYTE ESTERASE,URINE SMALL (NEGATIVE); NITRITE,URINE NEGATIVE (NEGATIVE); PROTEIN,URINE NEGATIVE (NEGATIVE); URINE SPECIFIC GRAVITY 1.009; UROBILINOGEN,URINE NEGATIVE mg/dL (<2.0)
[2020-04-15 04:07] VITALS: BP 112/71
== END 2020-04-15 04:08 | disposition home or self-care (01) ==
LOC: ER 00:25
DX: R10.9 Unspecified abdominal pain (principal); R11.2 Nausea with vomiting, unspecified; R10.11 Right upper quadrant pain; R10.12 Left upper quadrant pain; R19.7 Diarrhea, unspecified; Z88.8 Allergy status to other drugs, medicaments and biological substances; Z88.2 Allergy status to sulfonamides; Z79.899 Other long term (current) drug therapy; Z87.891 Personal history of nicotine dependence
CPT/HCPCS: 96376; 99284; 96361; 96374; 96375; 36415; 83690; 85025; 81025; 80053; 81001; J2765; J2270; J7030

== ENCOUNTER 2020-05-12 02:07 | Emergency (ER) | payer BC ==
--- NOTE | 2020-05-12 04:17 | RADIOLOGY REPORT (SQ) ---
CHEST 1 VIEW on 05/12/2020 at 3:48 AM CLINICAL INDICATION: Chest pain COMPARISON: 12/06/2019 FINDINGS: The lungs are clear. Cardiac, hilar and mediastinal contours are within normal limits. Pulmonary vascularity is within normal limits. No bony abnormality is noted. IMPRESSION: No active disease.
[2020-05-12 04:20] LABS: ABSOLUTE EOSINOPHILS # (AUTO) 0.1 10^3/uL (0.0-0.6); ABSOLUTE LYMPHOCYTES (AUTO) 2.5 10^3/uL (0.5-4.7); ABSOLUTE MONOCYTES (AUTO) 0.4 10^3/uL (0.1-1.4); ABSOLUTE NEUT (AUTO) 4.8 10^3/uL (1.7-8.2); BASOPHILS % (AUTO) 0.5 % (0-2); EOSINOPHILS % (AUTO) 1.5 % (0-6); HEMATOCRIT 40.3 % (36.0-47.0); HEMOGLOBIN 13.3 g/dL (12.0-15.5); LYMPHOCYTES % (AUTO) 32.1 % (13-45); MEAN CORPUSCULAR HGB CONC 33.1 g/dL (32.0-36.0); MEAN CORPUSCULAR VOLUME 88 fl (80-97); PLATELET COUNT 298 10^3/uL (150-450); RED CELL DISTRIBUTION WIDTH 13.5 % (11.5-14.0); SEGMENTED NEUTROPHILS % (AUTO) 60.9 % (42-78); TOTAL CELLS COUNTED % (AUTO) 100 %; WHITE BLOOD COUNT 7.9 10^3/uL (4.0-10.5)
[2020-05-12 04:33] LABS: ALBUMIN 4.4 g/dL (3.5-5.0); ALKALINE PHOSPHATASE 79 U/L (38-126); ANION GAP 6 (5-19); ASPARTATE AMINO TRANSFERASE 25 U/L (14-36); BILIRUBIN,TOTAL 0.6 mg/dL (0.2-1.3); BLOOD UREA NITROGEN 17 mg/dL (7-20); CALCIUM 9.6 mg/dL (8.4-10.2); CARBON DIOXIDE 25 mmol/L (22-30); CHLORIDE 106 mmol/L (98-107); CREATINE KINASE 146 U/L (30-135); GLUCOSE 101 mg/dL (75-110); POTASSIUM 3.9 mmol/L (3.6-5.0); TOTAL PROTEIN 7.8 g/dL (6.3-8.2)
[2020-05-12 04:45] LABS: CREATINE KINASE MB 1.67 ng/mL (<4.55)
[2020-05-12 04:49] LABS: TROPONIN I < 0.012 ng/mL
[2020-05-12] MEDS ORDERED: ACETAMINOPHEN 325 MG TABLET PO ONE (06:53)
--- NOTE | 2020-05-12 08:13 | ER Document Report ---
Entered by ISAIAS BOLDEN SCRIBE 05/12/20 0651 Acting as scribe for:ROJAS HARRINGTON MD ED General - General Chief Complaint: Chest Pain Stated Complaint: CHEST PAIN Time Seen by Provider: 05/12/20 06:40 Information source: Patient Notes: This 39 year old female patient presents to the emergency department today with complaints of left chest pain last night around 10-11 pm. Patient states the pain was in her left chest/breast and traveled to her shoulder blade. Patient states the pain gradually worsened, so she came this morning to the ED. Denies taking any medicine to relieve the pain or any history of heart problems. Denies any trauma, redness, or drainage from her left breast. Denies pain in her neck or back, sore throat, or dizziness. TRAVEL OUTSIDE OF THE [place] IN LAST 30 DAYS: No - Related Data Allergies/Adverse Reactions: avocado [Avocado] Allergy (Severe, Verified 12/05/19 22:52) Anaphylaxis NSAIDS (Non-Steroidal Anti-Inflamma [Nsaids] Allergy (Verified 12/05/19 22:52) throat swelling pineapple [Pineapple] Allergy (Verified 12/05/19 22:52) Sulfa (Sulfonamide Antibiotics) Allergy (Verified 12/05/19 22:52) throat swelling tree nuts Allergy (Uncoded 12/05/19 22:52) Home Medications: synthroid Past Medical History - General Information source: Patient - Social History Smoking Status: Former Smoker Cigarette use (# per day): No Chew tobacco use (# tins/day): No Frequency of alcohol use: None Drug Abuse: None Lives with: Family Family History: Reviewed & Not Pertinent, DM, Hyperlipidemia, Hypertension, Thyroid Disfunction, Other - Epilepsy Patient has homicidal ideation: No Neurological Medical History: Reports: Hx Migraine Endocrine Medical History: Reports: Hx Hypothyroidism GI Medical History: Reports: Hx Gastritis Musculoskeletal Medical History: Reports Hx Musculoskeletal Deformity, Reports Hx Musculoskeletal Trauma Psychiatric Medical History: Reports: Hx Anxiety Traumatic Medical History: Reports: Hx Fractures - Elbow clavicle and ribs Past Surgical History: Reports: Hx Appendectomy - 2005, Hx Cholecystectomy - 2009, Hx Hysterectomy, Hx Thyroid Surgery - Thyroidectomy 2005 - Immunizations Immunizations up to date: Yes Hx Diphtheria, Pertussis, Tetanus Vaccination: Yes - 2010 Review of Systems - Review of Systems Constitutional: No symptoms reported EENT: See HPI. denies: Throat pain Cardiovascular: See HPI, Chest pain - Chest pain/L breast. denies: Dizziness Respiratory: No symptoms reported Gastrointestinal: No symptoms reported Genitourinary: No symptoms reported Female Genitourinary: No symptoms reported Musculoskeletal: See HPI. denies: Back pain, Neck pain Skin: See HPI, Other - L breast - no redness, drainage, or trauma Hematologic/Lymphatic: No symptoms reported Neurological/Psychological: No symptoms reported -: Yes All other systems reviewed and negative Physical Exam - Vital signs Vitals: Temp Pulse Resp BP Pulse Ox 98.7 F 68 16 112/75 98 05/12/20 02:50 05/12/20 02:50 05/12/20 02:50 05/12/20 02:50 05/12/20 02:50 - General General appearance: Appears well, Alert - HEENT Head: Normocephalic, Atraumatic Eyes: Normal Pupils: PERRL Neck: Normal - Respiratory Respiratory status: No respiratory distress Breath sounds: Normal Notes: Tenderness with palpation to the left anterior chest wall. - Cardiovascular Rhythm: Regular Heart sounds: Normal auscultation, S1 appreciated, S2 appreciated Murmur: No - Abdominal Inspection: Normal - Soft, Obese Distension: No distension Bowel sounds: Normal Tenderness: Nontender - Extremities General upper extremity: Normal inspection. No: Edema General lower extremity: Normal inspection. No: Edema - Neurological Neuro grossly intact: Yes Cognition: Normal Orientation: AAOx4 Speech: Normal - Psychological Associated symptoms: Normal affect, Normal mood - Skin Skin Temperature: Warm Skin Moisture: Dry Skin Color: Normal Course - Re-evaluation Re-evalutation: 05/12/20 06:54 Resting comfortably. Patient has reproducible anterior chest wall pain on the left side no bruising. Patient states her pain level is about 3 out of 10. - Vital Signs Vital signs: Temp Pulse Resp BP Pulse Ox 98.7 F 75 16 110/77 99 05/12/20 02:52 05/12/20 04:52 05/12/20 04:52 05/12/20 04:52 05/12/20 04:52 05/12/20 06:55 Vital signs stable no acute process. - Laboratory Result Diagrams: 05/12/20 04:10 05/12/20 04:10 Laboratory results interpreted by me: 05/12/20 04:10 Creatine Kinase 146 H - Diagnostic Test Radiology reviewed: Image reviewed, Reports reviewed Radiology results interpreted by me: 05/12/20 06:55 Chest x-ray no acute process - EKG Interpretation by Me Additional EKG results interpreted by me: 05/12/20 06:55 Twelve-lead EKG shows normal sinus rhythm no acute process. Discharge - Discharge Clinical Impression: Anterior chest wall pain Condition: Stable Disposition: HOME, SELF-CARE Additional Instructions: Chest Wall Pain Your chest pain has been diagnosed as coming from the chest wall. This is often caused by straining the muscles or joints in the chest during physical activity, direct trauma, coughing, or vigorous vomiting. Persons with arthritis are especially prone to this type of pain, due to inflammation of the cartilage joints near the breast bone. Occasionally, no cause can be found. Rest from strenuous physical activity. This kind of chest pain is usually made worse by movement of the chest. Depending on the symptoms, we may prescribe medicine for pain, muscle relaxation, and antiinflammatory effects. If the pain is new, and seems to be due to muscle strain, cold packs can help. Otherwise, apply gentle warmth to the painful area for 15 minutes every hour or two. You should contact the doctor immediately if things change. Further evaluation is needed if you develop a fever or cough, if the nature of the pain changes, or if you become short of breath. Recommend Tylenol 2 tabs 500 mg tablets twice daily if needed for chest wall pain. I personally performed the services described in the documentation, reviewed and edited the documentation which was dictated to the scribe in my presence, and it accurately records my words and actions.
[2020-05-12 08:24] VITALS: BP 104/67
--- NOTE | 2020-05-14 06:07 | EKG REPORT ---
SEVERITY:- NORMAL ECG - SINUS RHYTHM : Confirmed by: Raymond Gross MD 14-May-2020 06:06:12
== END 2020-05-12 08:39 | disposition home or self-care (01) ==
LOC: ER 02:07
DX: R07.89 Other chest pain (principal); N64.4 Mastodynia; E89.0 Postprocedural hypothyroidism; Z79.899 Other long term (current) drug therapy; Z87.891 Personal history of nicotine dependence; Z87.892 Personal history of anaphylaxis; Z91.018 Allergy to other foods; Z88.8 Allergy status to other drugs, medicaments and biological substances; Z88.2 Allergy status to sulfonamides
CPT/HCPCS: 36415; 71045; 80053; 82550; 82553; 84484; 85025; 93005; 93010; 99284

== ENCOUNTER 2020-05-24 03:58 | Emergency (ER) | payer BC ==
[2020-05-24] MEDS ORDERED: ONDANSETRON HCL INJ/PF 4 MG/2 ML SDV IV ONE (05:15)
[2020-05-24] MEDS ORDERED: RINGERS SOLUTION,LACTATED 1,000 ML IV ONE (05:15)
[2020-05-24] MEDS ORDERED: HYDROMORPHONE HCL INJ/PF 2 MG/ML AMPULE IV ONE (05:15)
--- NOTE | 2020-05-24 05:31 | ER Document Report ---
ED General - General Chief Complaint: Nausea/Vomiting/Diarrhea Stated Complaint: NAUSEA,VOMITING,DIARRHEA,BLOOD IN STOOLS Time Seen by Provider: 05/24/20 04:28 Notes: 40-year-old female presents emergency department complaining of constant diar ariel since approximately May 20. States that is yellow and stringy and starting in the past 2 days is now full of dark maroon blood. States it is associated with nausea and some nonbloody nonbilious emesis that started yesterday. Admits to sweats, denies chills, denies checking her temperature. States she has tried treating this with Pepto-Bismol without any relief. Denies melanotic stools. Also complains of left lower quadrant abdominal pain that has been progressively worsening for the past 5 days. Has not had anything like this before. Patient is status post cholecystectomy, appendectomy and total hysterectomy. TRAVEL OUTSIDE OF THE [place] IN LAST 30 DAYS: No - Related Data Allergies/Adverse Reactions: avocado [Avocado] Allergy (Severe, Verified 12/05/19 22:52) Anaphylaxis NSAIDS (Non-Steroidal Anti-Inflamma [Nsaids] Allergy (Verified 12/05/19 22:52) throat swelling pineapple [Pineapple] Allergy (Verified 12/05/19 22:52) Sulfa (Sulfonamide Antibiotics) Allergy (Verified 12/05/19 22:52) throat swelling tree nuts Allergy (Uncoded 12/05/19 22:52) Past Medical History - General Information source: Patient - Social History Smoking Status: Former Smoker Frequency of alcohol use: None Drug Abuse: None Family History: DM, Hyperlipidemia, Hypertension, Thyroid Disfunction, Other - Epilepsy Neurological Medical History: Reports: Hx Migraine Endocrine Medical History: Reports: Hx Hypothyroidism Renal/ Medical History: Denies: Hx Peritoneal Dialysis GI Medical History: Reports: Hx Gastritis Musculoskeletal Medical History: Reports Hx Musculoskeletal Deformity, Reports Hx Musculoskeletal Trauma Psychiatric Medical History: Reports: Hx Anxiety Traumatic Medical History: Reports: Hx Fractures - Elbow clavicle and ribs Past Surgical History: Reports: Hx Appendectomy - 2005, Hx Cholecystectomy - 2009, Hx Hysterectomy, Hx Thyroid Surgery - Thyroidectomy 2005 - Immunizations Immunizations up to date: Yes Hx Diphtheria, Pertussis, Tetanus Vaccination: Yes - 2010 Review of Systems - Review of Systems Constitutional: See HPI, Diaphoresis, Malaise. denies: Chills, Fever EENT: No symptoms reported Gastrointestinal: See HPI, Abdominal pain, Diarrhea, Nausea, Vomiting, Blood streaked bowels. denies: Black stools -: Yes All other systems reviewed and negative Physical Exam - Vital signs Vitals: Temp Pulse Resp BP Pulse Ox 98.1 F 81 20 110/73 97 05/24/20 04:18 05/24/20 04:18 05/24/20 04:18 05/24/20 04:18 05/24/20 04:18 Interpretation: Normal - Notes Notes: GENERAL: Alert, interacts well. No acute distress. HEAD: Normocephalic, atraumatic EYES: Pupils equal, round and reactive to light, extraocular movements intact. ENT: Oral mucosa moist, tongue midline. NECK: Full range of motion, supple, trachea midline. LUNGS: Clear to auscultation bilaterally, no wheezes, rales or rhonchi, no respiratory distress. HEART: Regular rate and rhythm, no murmurs, gallops, rubs. ABDOMEN: Soft, left lower quadrant tenderness to palpation with a small amount of voluntary guarding, no involuntary guarding, no rigidity, no rebounding, nondistended, bowel sounds present in all 4 quadrants. RECTAL: Small amount of pain with rectal examination, no masses palpated, minimal stool, no blood, heme-negative. No hemorrhoids. EXTREMITIES: Moves all 4 extremities spontaneously, no edema. No cyanosis. NEUROLOGICAL: Alert and oriented x3, normal speech. PSYCH: Normal mood, normal affect. SKIN: Warm, Dry, normal turgor, no rashes or lesions noted. Course - Re-evaluation Re-evalutation: 05/24/20 06:49 CBC unremarkable, CMP unremarkable, lipase normal, Hemoccult negative. I was concerned about possible diverticulitis given her abdominal tenderness palpation, CT scan of the abdomen pelvis does not reveal any acute infection. There is no evidence of life-threatening GI bleed. Patient is being tested for COVID-19. - Vital Signs Vital signs: Temp Pulse Resp BP Pulse Ox 98.1 F 81 20 110/73 97 05/24/20 04:18 05/24/20 04:18 05/24/20 04:18 05/24/20 04:18 05/24/20 04:18 - Laboratory Result Diagrams: 05/24/20 05:45 05/24/20 05:45 Laboratory results interpreted by me: 05/24/20 05:45 Sodium 136.2 L Discharge - Discharge Clinical Impression: Nausea vomiting and diarrhea, Rectal bleeding Condition: Stable Disposition: HOME, SELF-CARE Additional Instructions: Today there is no sign of infection on your CAT scan. There is no sign of diverticulitis. You do not need antibiotics. There is no sign of life- threatening bleeding on your blood work. There is no sign of anemia. Your white blood cell count was normal. I do not know exactly what is causing your pain or your diarrhea. It is important that you drink plenty of water to stay hydrated. Please avoid any supplements. Please stop taking Pepto as it can turn your stool dark black or maroon and make you think you have blood in it. Please start using Imodium as directed [id number] if you are continuing to have diarrhea. Please remember that the diarrhea is not simply soft stool but it is liquid stool that happens frequently. One loose or liquid stool a day is not something you should be treating with Imodium. Abdominal Pain There are many causes of abdominal pain. Pain can mean a serious problem requiring surgery (such as appendicitis). It can also be an innocent problem t hat goes away on its own (such as a viral infection). Often, time must pass to determine the cause of pain. The physician does not feel that hospitalization is necessary, at present. Things may change within the next 24 hours. Call the doctor or come back for re- examination if any problems occur, such as: (1) Pain that becomes more severe, steady, or becomes concentrated in one specific area. Also, pain that is more severe with movement or coughing. (2) Vomiting that persists or becomes more frequent. (3) Blood in the vomitus, urine, or bowel movements. Increasing blood in the stool or stool that has a tarry or black appearance. (4) Shaking chills or fever greater than 100 degrees F. (5) The abdomen becomes more distended or swollen. (6) Bowel movements cease. (7) Failure to improve as expected. Forms: Return to Work Referrals: YANETH SOLANO MD [ACTIVE STAFF] - Follow up as needed MAIA SOOD MD [ACTIVE STAFF] - Follow up as needed
[2020-05-24 06:28] LABS: ABSOLUTE BASOPHILS # (AUTO) 0.1 10^3/uL (0.0-0.2); ABSOLUTE EOSINOPHILS # (AUTO) 0.1 10^3/uL (0.0-0.6); ABSOLUTE LYMPHOCYTES (AUTO) 2.7 10^3/uL (0.5-4.7); ABSOLUTE MONOCYTES (AUTO) 0.5 10^3/uL (0.1-1.4); ABSOLUTE NEUT (AUTO) 4.3 10^3/uL (1.7-8.2); BASOPHILS % (AUTO) 0.8 % (0-2); EOSINOPHILS % (AUTO) 1.8 % (0-6); HEMATOCRIT 40.6 % (36.0-47.0); HEMOGLOBIN 13.5 g/dL (12.0-15.5); LYMPHOCYTES % (AUTO) 34.9 % (13-45); MEAN CORPUSCULAR HEMOGLOBIN 29.1 pg (27.0-33.4); MEAN CORPUSCULAR HGB CONC 33.2 g/dL (32.0-36.0); MEAN CORPUSCULAR VOLUME 88 fl (80-97); MONOCYTES % (AUTO) 6.7 % (3-13); PLATELET COUNT 290 10^3/uL (150-450); RED BLOOD COUNT 4.63 10^6/uL (3.72-5.28); RED CELL DISTRIBUTION WIDTH 13.5 % (11.5-14.0); SEGMENTED NEUTROPHILS % (AUTO) 55.8 % (42-78); TOTAL CELLS COUNTED % (AUTO) 100 %; WHITE BLOOD COUNT 7.7 10^3/uL (4.0-10.5)
--- NOTE | 2020-05-24 06:33 | RADIOLOGY REPORT (SQ) ---
EXAM DESCRIPTION: CT ABDOMEN PELVIS WITH IV CONTRAST COMPLETED DATE/TME: 05/24/2020 05:15 CLINICAL HISTORY: 40 years, Female, LLQ abd pain and fevers Comparison: None TECHNIQUE: Contiguous axial CT images of the abdomen and pelvis were obtained. Sagittal and coronal reformats were reviewed. This exam was performed according to our departmental dose-optimization program, which includes automated exposure control, adjustment of the mA and/or kV according to patient size and/or use of iterative reconstruction technique. FINDINGS: Lung bases: Clear. Liver:Diffuse mild low-attenuation throughout the liver consistent with hepatocellular disease/fatty infiltration. No focal liver lesion seen. Gallbladder: The patient has had a cholecystectomy. Spleen:Unremarkable Pancreas: Pancreas is unremarkable. Adrenal glands:Within normal limits. Kidneys/ureters:Within normal limits Stomach/small bowel/colon: Stomach is unremarkable. There are a few mildly prominent fluid-filled loops of small bowel in the left hemiabdomen. No obstruction. No abdominal or pelvic fluid collections. Colon is unremarkable. Appendix: Appendectomy. Peritoneum: No free fluid. Vascular structures: within normal limits Lymph nodes: No abnormal lymph nodes. Bladder:Unremarkable. Pelvic organs: No acute abnormality Bones: No acute osseous abnormality. Soft tissues: Unremarkable.. IMPRESSION: Mildly prominent fluid-filled loops of small bowel in the left hemiabdomen, nonspecific may be related to enteritis. There is no obstruction. No abdominal or pelvic fluid collections.
[2020-05-24 06:38] LABS: ALBUMIN 4.2 g/dL (3.5-5.0); ALKALINE PHOSPHATASE 78 U/L (38-126); ANION GAP 7 (5-19); ASPARTATE AMINO TRANSFERASE 25 U/L (14-36); BILIRUBIN,TOTAL 0.5 mg/dL (0.2-1.3); BLOOD UREA NITROGEN 18 mg/dL (7-20); CALCIUM 9.5 mg/dL (8.4-10.2); CARBON DIOXIDE 24 mmol/L (22-30); CHLORIDE 105 mmol/L (98-107); GLUCOSE 102 mg/dL (75-110); POTASSIUM 3.8 mmol/L (3.6-5.0); TOTAL PROTEIN 7.6 g/dL (6.3-8.2)
[2020-05-24 07:42] VITALS: BP 106/67
[2020-05-24 07:59] LABS: APPEARANCE,URINE CLEAR; BILIRUBIN,URINE NEGATIVE (NEGATIVE); COLOR,URINE STRAW; GLUCOSE, URINE NEGATIVE (NEGATIVE); KETONES,URINE NEGATIVE (NEGATIVE); LEUKOCYTE ESTERASE,URINE MODERATE (NEGATIVE); NITRITE,URINE NEGATIVE (NEGATIVE); PROTEIN,URINE NEGATIVE (NEGATIVE); UROBILINOGEN,URINE NEGATIVE mg/dL (<2.0)
== END 2020-05-24 07:41 | disposition home or self-care (01) ==
LOC: ER 03:58
DX: R11.2 Nausea with vomiting, unspecified (principal); R19.7 Diarrhea, unspecified; K62.5 Hemorrhage of anus and rectum; R61 Generalized hyperhidrosis; R53.81 Other malaise; R10.32 Left lower quadrant pain; R10.814 Left lower quadrant abdominal tenderness; Z90.49 Acquired absence of other specified parts of digestive tract; Z90.710 Acquired absence of both cervix and uterus; Z87.892 Personal history of anaphylaxis; Z91.018 Allergy to other foods; Z88.8 Allergy status to other drugs, medicaments and biological substances; Z88.2 Allergy status to sulfonamides; Z87.891 Personal history of nicotine dependence; Z87.19 Personal history of other diseases of the digestive system; Z20.828 Contact with and (suspected) exposure to other viral communicable diseases
CPT/HCPCS: 99284; 36415; 83690; 85025; 82270; 87635; 80053; 81001; 74177; J1170; J2405; J7120; C9803

== ENCOUNTER 2020-06-05 02:27 | Emergency (ER) | payer BC ==
[2020-06-05] MEDS ORDERED: ONDANSETRON HCL INJ/PF 4 MG/2 ML SDV IV ONE (04:18)
[2020-06-05] MEDS ORDERED: MORPHINE SULFATE 10 MG/ML INJ IV ONE ×2 (04:18→06:26)
[2020-06-05] MEDS ORDERED: NORMAL SALINE 1000 ML 1,000 ML IV ONE (04:20)
[2020-06-05 04:52] LABS: ABSOLUTE BASOPHILS # (AUTO) 0.1 10^3/uL (0.0-0.2); ABSOLUTE EOSINOPHILS # (AUTO) 0.1 10^3/uL (0.0-0.6); ABSOLUTE LYMPHOCYTES (AUTO) 2.3 10^3/uL (0.5-4.7); ABSOLUTE MONOCYTES (AUTO) 0.4 10^3/uL (0.1-1.4); ABSOLUTE NEUT (AUTO) 5.4 10^3/uL (1.7-8.2); BASOPHILS % (AUTO) 0.7 % (0-2); EOSINOPHILS % (AUTO) 1.4 % (0-6); HEMATOCRIT 37.5 % (36.0-47.0); LYMPHOCYTES % (AUTO) 28.1 % (13-45); MEAN CORPUSCULAR HGB CONC 34.8 g/dL (32.0-36.0); MEAN CORPUSCULAR VOLUME 86 fl (80-97); PLATELET COUNT 280 10^3/uL (150-450); RED BLOOD COUNT 4.35 10^6/uL (3.72-5.28); RED CELL DISTRIBUTION WIDTH 13.3 % (11.5-14.0); SEGMENTED NEUTROPHILS % (AUTO) 64.8 % (42-78); TOTAL CELLS COUNTED % (AUTO) 100 %; WHITE BLOOD COUNT 8.3 10^3/uL (4.0-10.5)
[2020-06-05 04:59] LABS: ALBUMIN 4.2 g/dL (3.5-5.0); ALKALINE PHOSPHATASE 71 U/L (38-126); ANION GAP 8 (5-19); ASPARTATE AMINO TRANSFERASE 27 U/L (14-36); BILIRUBIN,TOTAL 0.5 mg/dL (0.2-1.3); BLOOD UREA NITROGEN 25 mg/dL (7-20); CALCIUM 9.3 mg/dL (8.4-10.2); CARBON DIOXIDE 24 mmol/L (22-30); CHLORIDE 106 mmol/L (98-107); GLUCOSE 114 mg/dL (75-110); POTASSIUM 4.2 mmol/L (3.6-5.0); TOTAL PROTEIN 7.5 g/dL (6.3-8.2)
--- NOTE | 2020-06-05 05:02 | ER Document Report ---
ED GI/ - General Chief Complaint: Nausea/Vomiting/Diarrhea Stated Complaint: NAUSEA/VOMITING/DIARRHEA Time Seen by Provider: 06/05/20 03:26 Primary Care Provider: MASON KAT MD [Primary Care Provider] - Follow up as needed YANETH ZHU MD [ACTIVE STAFF] - Follow up tomorrow Notes: Patient is a 40-year-old female who presents to the emergency department with a chief complaint of abdominal pain, nausea, and diarrhea. Patient states that the pain is on her left side. She states that she has had these issues for months and they come and go. Describes her pain as a cramping pain. She states that she has an appointment with Dr. Zhu, the pension manager for evaluation of her symptoms. Patient was seen 2 weeks ago with similar symptoms and had a CT of the abdomen and pelvis. She is still waiting her follow-up with GI. Past surgical history includes appendectomy, cholecystectomy, and hysterectomy. TRAVEL OUTSIDE OF THE [place] IN LAST 30 DAYS: No - Related Data Allergies/Adverse Reactions: avocado [Avocado] Allergy (Severe, Verified 12/05/19 22:52) Anaphylaxis NSAIDS (Non-Steroidal Anti-Inflamma [Nsaids] Allergy (Verified 12/05/19 22:52) throat swelling pineapple [Pineapple] Allergy (Verified 12/05/19 22:52) Sulfa (Sulfonamide Antibiotics) Allergy (Verified 12/05/19 22:52) throat swelling tree nuts Allergy (Uncoded 12/05/19 22:52) Home Medications: Synthroid Past Medical History - Social History Smoking Status: Never Smoker Frequency of alcohol use: None Family History: DM, Hyperlipidemia, Hypertension, Thyroid Disfunction, Other - Epilepsy Patient has homicidal ideation: No Neurological Medical History: Reports: Hx Migraine Endocrine Medical History: Reports: Hx Hypothyroidism Renal/ Medical History: Denies: Hx Peritoneal Dialysis GI Medical History: Reports: Hx Gastritis Musculoskeletal Medical History: Reports Hx Musculoskeletal Deformity, Reports Hx Musculoskeletal Trauma Psychiatric Medical History: Reports: Hx Anxiety Traumatic Medical History: Reports: Hx Fractures - Elbow clavicle and ribs Past Surgical History: Reports: Hx Appendectomy - 2005, Hx Cholecystectomy - 2009, Hx Hysterectomy, Hx Thyroid Surgery - Thyroidectomy 2005 - Immunizations Immunizations up to date: Yes Hx Diphtheria, Pertussis, Tetanus Vaccination: Yes - 2010 Review of Systems - Review of Systems Notes: REVIEW OF SYSTEMS: CONSTITUTIONAL : Denies recent illness. Denies recent unintentional weight loss. Denies fever, chills, or sweats. EENT: Denies eye, ear, throat, or mouth pain, discharge, or symptoms. Denies nasal or sinus congestion. CARDIOVASCULAR: Denies chest pain. RESPIRATORY: Denies shortness of breath, cough, congestion, difficulty breathing, or wheezing. GASTROINTESTINAL: See HPI. GENITOURINARY: Denies difficulty urinating, burning, blood in urine, urgency or frequency. MUSCULOSKELETAL: Denies neck and back pain. Denies joint pain or swelling. SKIN: Denies rash, itchiness, or lesions HEMATOLOGIC : Denies easy bruising or bleeding. LYMPHATIC: Denies swollen, painful, enlarged glands. NEUROLOGICAL: Denies no numbness or tingling denies weakness. Denies headache. Denies altered mental status. Denies alteration in speech. PSYCHIATRIC: Denies stress, anxiety, alteration in sleep patterns, or depression. All other systems reviewed and negative. Physical Exam - Vital signs Vitals: Temp Pulse Resp BP Pulse Ox 98.8 F 76 16 127/79 H 98 06/05/20 02:31 06/05/20 02:31 06/05/20 02:31 06/05/20 02:31 06/05/20 02:31 - Notes Notes: PHYSICAL EXAMINATION: GENERAL: Appears well, healthy, well-nourished, no acute distress. HEAD: Normocephalic, atraumatic. EYES: PERRL, conjunctiva normal, all extraocular movements intact, sclera nonicteric ENT: Moist mucous membranes. NECK: Supple, no noticeable swelling, redness, rash. Normal range of motion. LUNGS: Equal breath sounds bilaterally and clear to auscultation. No wheezes rales or rhonchi. CARDIOVASCULAR: S1-S2, regular rate, regular rhythm. Radial pulses 2+, normal. ABDOMEN: Normoactive bowel sounds. Soft, tender left lateral abdomen, no rebound tenderness, and no masses palpated. EXTREMITIES: Normal strength and range of motion, no pitting or edema. No cyanosis. NEUROLOGICAL: Moves all extremities upon command. Strength 5/5 in all extremities. PSYCH: Normal mood, normal affect. SKIN: Warm, dry. No rash, lesions, ulcerations noted. Normal skin turgor. Course - Re-evaluation Re-evalutation: 06/05/20 06:27 Patient states that her nausea has almost completely gone away, but states that her pain is still there. Patient has not had diarrhea and she has been here. We will give her another dose of morphine to help with her pain. I discussed the risks and benefits of having another CT scan. The patient had a CT scan 2 weeks ago. Patient states that this pain and symptoms has been going on for months. She does have close follow-up with Dr. Csota on Thursday. She will keep this appointment and follow-up with him. 06/05/20 06:28 Hematology is unremarkable. No anemia or leukocytosis noted. Chemistries are also unremarkable. Lipase is normal. Is a small amount of leukocytes and 11 WBCs. Patient denies any vaginal discharge. We will start the patient on doxycycline to treat a urinary tract infection. Urine will be sent for culture. Follow-up precautions were given. Verbal discharge instructions were given to the patient. They verbalized understanding. They are stable for discharge. - Vital Signs Vital signs: Temp Pulse Resp BP Pulse Ox 97.7 F 76 14 105/65 97 06/05/20 06:54 06/05/20 06:54 06/05/20 06:54 06/05/20 06:54 06/05/20 06:54 - Laboratory Result Diagrams: 06/05/20 04:36 06/05/20 04:36 Laboratory results interpreted by me: 06/05/20 06/05/20 04:36 06:16 BUN 25 H Est GFR (MDRD) Non-Af 53 L Glucose 114 H Leukocyte Esterase Rfl SMALL H Discharge - Discharge Clinical Impression: Abdominal pain Qualifiers: Abdominal location: unspecified location Qualified Code(s): R10.9 - Unspecified abdominal pain Nausea & vomiting Qualifiers: Vomiting type: unspecified Vomiting Intractability: unspecified Qualified Code(s): R11.2 - Nausea with vomiting, unspecified Diarrhea Qualifiers: Diarrhea type: unspecified type Qualified Code(s): R19.7 - Diarrhea, unspecified Urinary tract infection Qualifiers: Urinary tract infection type: acute cystitis Hematuria presence: without hematuria Qualified Code(s): N30.00 - Acute cystitis without hematuria Condition: Stable Disposition: HOME, SELF-CARE Additional Instructions: You were seen today in the emergency department for abdominal pain, diarrhea, nausea, and vomiting. Your labs are normal. Please continue your follow-up with Dr. Zhu. See if you are able to get an earlier appointment. You can take Zofran for nausea. Take the pain medication sparingly. Your urine also shows a urinary tract infection. Start the antibiotics as prescribed. Prescriptions: Doxycycline Hyclate 100 mg PO BID #14 tablet. Hydrocodone/Acetaminophen [Reubens 5-325 mg Tablet] 1 tab PO ASDIR PRN #10 tablet PRN Reason: Ondansetron [Zofran Odt 4 mg Tablet] 1 - 2 tab PO Q4H PRN #30 tab.rapdis PRN Reason: For Nausea/Vomiting Forms: Return to Work Referrals: MASON KAT MD [Primary Care Provider] - Follow up as needed YANETH ZHU MD [ACTIVE STAFF] - Follow up tomorrow
[2020-06-05 06:39] LABS: APPEARANCE,URINE CLEAR; BILIRUBIN,URINE NEGATIVE (NEGATIVE); COLOR,URINE STRAW; GLUCOSE, URINE NEGATIVE (NEGATIVE); KETONES,URINE NEGATIVE (NEGATIVE); PROTEIN,URINE NEGATIVE (NEGATIVE); URINE SPECIFIC GRAVITY 1.011; UROBILINOGEN,URINE NEGATIVE mg/dL (<2.0)
[2020-06-05 06:58] VITALS: BP 105/65
== END 2020-06-05 06:58 | disposition home or self-care (01) ==
LOC: ER 02:27
DX: N30.00 Acute cystitis without hematuria (principal); R11.2 Nausea with vomiting, unspecified; R19.7 Diarrhea, unspecified; R10.9 Unspecified abdominal pain; R10.819 Abdominal tenderness, unspecified site; E89.0 Postprocedural hypothyroidism; Z79.899 Other long term (current) drug therapy; Z90.49 Acquired absence of other specified parts of digestive tract; Z90.710 Acquired absence of both cervix and uterus; Z87.892 Personal history of anaphylaxis; Z91.018 Allergy to other foods; Z88.8 Allergy status to other drugs, medicaments and biological substances; Z88.2 Allergy status to sulfonamides
CPT/HCPCS: 96376; 99284; 96361; 96374; 96375; 36415; 87086; 83690; 85025; 80053; 81001; J2270; J2405; J7030

== ENCOUNTER 2020-06-23 04:58 | Emergency (ER) | payer BC ==
[2020-06-23] MEDS ORDERED: DEXAMETHASONE 4 MG TABLET PO ONE (08:43)
--- NOTE | 2020-06-23 08:48 | ER Document Report ---
ED General - General Chief Complaint: Sore Throat Stated Complaint: THROAT HURTS/CHILLS/RUNNY NOSE Primary Care Provider: MASON KAT MD [Primary Care Provider] - Follow up as needed Notes: 40-year-old female with past medical history of hypothyroidism and hysterectomy presenting today with 4 days of sore throat, chills, cough. States she works at [employer] and that her coworker notified them that he tested positive for COVID on Thursday. Patient states that she has been taking Tylenol with minimal to no relief of her symptoms. She states that her cough is nonproductive, worse at night. She denies any nausea, vomiting, abdominal pain or additional symptoms at this time. She has been afebrile. Patient is nontoxic in appearance. TRAVEL OUTSIDE OF THE [place] IN LAST 30 DAYS: No - Related Data Allergies/Adverse Reactions: avocado [Avocado] Allergy (Severe, Verified 06/23/20 08:16) Anaphylaxis NSAIDS (Non-Steroidal Anti-Inflamma [Nsaids] Allergy (Verified 06/23/20 08:16) throat swelling pineapple [Pineapple] Allergy (Verified 06/23/20 08:16) Sulfa (Sulfonamide Antibiotics) Allergy (Verified 06/23/20 08:16) throat swelling tree nuts Allergy (Uncoded 06/23/20 08:16) Past Medical History - Social History Smoking Status: Former Smoker Family History: DM, Hyperlipidemia, Hypertension, Thyroid Disfunction, Other - Epilepsy Patient has homicidal ideation: No Neurological Medical History: Reports: Hx Migraine Endocrine Medical History: Reports: Hx Hypothyroidism Renal/ Medical History: Denies: Hx Peritoneal Dialysis GI Medical History: Reports: Hx Gastritis Musculoskeletal Medical History: Reports Hx Musculoskeletal Deformity, Reports Hx Musculoskeletal Trauma Psychiatric Medical History: Reports: Hx Anxiety Traumatic Medical History: Reports: Hx Fractures - Elbow clavicle and ribs Past Surgical History: Reports: Hx Appendectomy - 2005, Hx Cholecystectomy - 2009, Hx Hysterectomy, Hx Thyroid Surgery - Thyroidectomy 2005 - Immunizations Immunizations up to date: Yes Hx Diphtheria, Pertussis, Tetanus Vaccination: Yes - 2010 Review of Systems - Review of Systems Constitutional: See HPI EENT: See HPI Cardiovascular: No symptoms reported Respiratory: No symptoms reported Gastrointestinal: No symptoms reported Genitourinary: No symptoms reported Female Genitourinary: No symptoms reported Musculoskeletal: See HPI Skin: No symptoms reported Hematologic/Lymphatic: No symptoms reported Neurological/Psychological: No symptoms reported Physical Exam - Vital signs Vitals: Temp Pulse Resp BP Pulse Ox 97.9 F 67 16 107/74 100 06/23/20 08:12 06/23/20 08:12 06/23/20 08:12 06/23/20 08:12 06/23/20 08:12 Interpretation: Normal - Notes Notes: Adult General: GENERAL: Alert, interacts well. No acute distress HEAD: Normocephalic, atraumatic EYES: Extraocular movements intact. ENT: Oral mucosa moist, tongue midline. Oropharynx unremarkable. Airway patent. Nares patent, sinuses nontender, ear canals unremarkable, TMs intact. No Trismus. NECK: Full range of motion. Supple. Trachea midline. No lymphadenopathy. LUNGS: Clear to auscultation bilaterally, no wheezes, rales, or rhonchi. No respiratory distress. Nontender chest wall. HEART: Regular rate and rhythm. No murmurs, rubs or gallops. ABDOMEN: Soft, mild tenderness to RUQ. Nondistended. (-) [place] sign. Bowel sounds present in all 4 quadrants. No rebound, guarding or masses. GENITOURINARY: Deferred EXTREMITIES: Moves all 4 extremities spontaneously. No edema, normal radial and dorsal pedis pulses bilaterally. No cyanosis. BACK: Moves all extremities with full range of motion. NEUROLOGICAL: Alert and oriented x3. Normal speech. Strength 5/ 5 in all extremities. PSYCH: Normal affect, normal mood. SKIN: Warm, dry, normal turgor. No rashes or lesions noted. Course - Re-evaluation Re-evalutation: 06/23/20 08:47 Patient's vital signs are unremarkable at this time. I will order chest x-ray and cover testing and order dexamethasone. Patient will be a person under investigation. Patients chest xray shows no acute findings. Her strep and influenza are both negative. Her covid test is pending. Her vitals remain stable and patient is nontoxic and in no acute distress. Recommend that she continue to take Tylenol for her symptoms. Her last dose was at 5 am. I will order her another dose at this time. Suspect symptoms are due to a viral illness. I also recommend that she follows up with her primary care provider. Patient knowledges and verbalizes understanding instructions and plan. All questions answered. - Vital Signs Vital signs: Temp Pulse Resp BP Pulse Ox 97.9 F 67 16 107/74 100 06/23/20 08:12 06/23/20 08:12 06/23/20 08:12 06/23/20 08:12 06/23/20 08:12 Discharge - Discharge Clinical Impression: Chills (without fever), Person under investigation for COVID-19, Cough Condition: Stable Disposition: HOME, SELF-CARE Instructions: COVID-19 Guidance for Persons Under Investigation, Sore Throat ([facility]) Additional Instructions: I discussed with patient that she is a person under investigation recovered. Also discussed with her that all of her labs at this time have back unremarkable. Her chest x-ray is negative her strep is negative influenza is negative. I recommend that you self isolate until you hear from the health department in regards to your results. You may return to the emergency department for any worsening symptoms or development of new symptoms. Also rec ommend a follow-up with your primary care provider. Prescriptions: Benzonatate [Tessalon Perles 100 mg Capsule] 100 mg PO Q8HP PRN #40 capsule PRN Reason: Forms: Return to Work Referrals: MASON KAT MD [Primary Care Provider] - Follow up as needed
--- NOTE | 2020-06-23 09:38 | RADIOLOGY REPORT (SQ) ---
EXAM DESCRIPTION: CHEST SINGLE VIEW IMAGES COMPLETED DATE/TIME: 06/23/2020 9:08 am REASON FOR STUDY: cough COMPARISON: 05/12/2020. EXAM PARAMETERS: NUMBER OF VIEWS: One view. TECHNIQUE: Single frontal radiographic view of the chest acquired. RADIATION DOSE: NA LIMITATIONS: None. FINDINGS: LUNGS AND PLEURA: No opacities, masses or pneumothorax. No pleural effusion. MEDIASTINUM AND HILAR STRUCTURES: No masses. Contour normal. HEART AND VASCULAR STRUCTURES: Heart normal in size. Normal vasculature. BONES: No acute findings. HARDWARE: None in the chest. OTHER: No other significant finding. IMPRESSION: NO ACUTE RADIOGRAPHIC FINDING IN THE CHEST. TECHNICAL DOCUMENTATION: JOB ID: [id number] 2010 [employer]- All Rights Reserved Reading location - IP/workstation name: [email or web address]
[2020-06-23 09:50] LABS: A TYPE INFLUENZA AG NEGATIVE (NEGATIVE); B INFLUENZA AG NEGATIVE (NEGATIVE)
[2020-06-23] MEDS ORDERED: ACETAMINOPHEN 325 MG TABLET PO ONE (10:21)
[2020-06-23 11:02] VITALS: BP 126/72
== END 2020-06-23 10:55 | disposition home or self-care (01) ==
LOC: ER 04:58
DX: R68.83 Chills (without fever) (principal); J02.9 Acute pharyngitis, unspecified; R09.89 Other specified symptoms and signs involving the circulatory and respiratory systems; R05 Cough; Z20.828 Contact with and (suspected) exposure to other viral communicable diseases; Z88.8 Allergy status to other drugs, medicaments and biological substances; Z87.891 Personal history of nicotine dependence; Z88.2 Allergy status to sulfonamides
CPT/HCPCS: 99283; 87070; 87880; 87635; 87804; 71045; J8540; C9803

== ENCOUNTER 2020-07-22 03:19 | Emergency (ER) | payer BC ==
[2020-07-22 04:27] LABS: ABSOLUTE EOSINOPHILS # (AUTO) 0.1 10^3/uL (0.0-0.6); ABSOLUTE LYMPHOCYTES (AUTO) 2.2 10^3/uL (0.5-4.7); ABSOLUTE MONOCYTES (AUTO) 0.4 10^3/uL (0.1-1.4); ABSOLUTE NEUT (AUTO) 3.6 10^3/uL (1.7-8.2); BASOPHILS % (AUTO) 0.4 % (0-2); HEMATOCRIT 38.5 % (36.0-47.0); MEAN CORPUSCULAR HEMOGLOBIN 29.6 pg (27.0-33.4); MEAN CORPUSCULAR HGB CONC 33.8 g/dL (32.0-36.0); MEAN CORPUSCULAR VOLUME 88 fl (80-97); MONOCYTES % (AUTO) 6.1 % (3-13); PLATELET COUNT 282 10^3/uL (150-450); RED CELL DISTRIBUTION WIDTH 13.2 % (11.5-14.0); SEGMENTED NEUTROPHILS % (AUTO) 56.5 % (42-78); TOTAL CELLS COUNTED % (AUTO) 100 %; WHITE BLOOD COUNT 6.4 10^3/uL (4.0-10.5)
[2020-07-22 04:33] LABS: APPEARANCE,URINE CLEAR; BILIRUBIN,URINE NEGATIVE (NEGATIVE); COLOR,URINE STRAW; GLUCOSE, URINE NEGATIVE (NEGATIVE); KETONES,URINE NEGATIVE (NEGATIVE); LEUKOCYTE ESTERASE,URINE LARGE (NEGATIVE); NITRITE,URINE NEGATIVE (NEGATIVE); PROTEIN,URINE NEGATIVE (NEGATIVE); URINE SPECIFIC GRAVITY 1.016; UROBILINOGEN,URINE NEGATIVE mg/dL (<2.0)
[2020-07-22 04:40] LABS: ALBUMIN 4.1 g/dL (3.5-5.0); ALKALINE PHOSPHATASE 68 U/L (38-126); ANION GAP 9 (5-19); ASPARTATE AMINO TRANSFERASE 20 U/L (14-36); BILIRUBIN,DIRECT 0.2 mg/dL (0.0-0.4); BILIRUBIN,TOTAL 0.3 mg/dL (0.2-1.3); BLOOD UREA NITROGEN 20 mg/dL (7-20); CALCIUM 9.6 mg/dL (8.4-10.2); CARBON DIOXIDE 22 mmol/L (22-30); CHLORIDE 108 mmol/L (98-107); GLUCOSE 124 mg/dL (75-110); POTASSIUM 3.8 mmol/L (3.6-5.0); TOTAL PROTEIN 7.3 g/dL (6.3-8.2)
--- NOTE | 2020-07-22 06:35 | ER Document Report ---
ED General - General Chief Complaint: Abdominal Pain Stated Complaint: ABDOMINAL PAIN Time Seen by Provider: 07/22/20 06:34 Primary Care Provider: MASON KAT MD [Primary Care Provider] - Follow up as needed TRAVEL OUTSIDE OF THE [place] IN LAST 30 DAYS: No - HPI Notes: 40-year-old female presents with abdominal pain. Patient has been experiencing left lower quadrant abdominal pain since Thursday night, 5 days ago. Patient states that it is intermittently sharp and stabbing, at times dull and achy. It is worse bending over or sitting. Does not radiate, stays fairly focal in the left lower quadrant. She states that she has had this pain for years. She has established with GI, she has upcoming endoscopy and colonoscopy. She states that typically Bentyl helps the pain, however for the past 3 days it is not really seeming to help. She reports loose stools which is normal for her. Intermittent nausea and vomiting. She has had multiple abdominal surgeries, she is status post cholecystectomy, appendectomy and total hysterectomy. She denies fever. She denies dysuria. - Related Data Allergies/Adverse Reactions: avocado [Avocado] Allergy (Severe, Verified 07/22/20 03:50) Anaphylaxis NSAIDS (Non-Steroidal Anti-Inflamma [Nsaids] Allergy (Verified 07/22/20 03:50) throat swelling pineapple [Pineapple] Allergy (Verified 07/22/20 03:50) Sulfa (Sulfonamide Antibiotics) Allergy (Verified 07/22/20 03:50) throat swelling tree nuts Allergy (Uncoded 07/22/20 03:50) Past Medical History - General Information source: Patient - Social History Smoking Status: Former Smoker Frequency of alcohol use: Rare Drug Abuse: None Family History: DM, Hyperlipidemia, Hypertension, Thyroid Disfunction, Other - Epilepsy Patient has homicidal ideation: No Neurological Medical History: Reports: Hx Migraine Endocrine Medical History: Reports: Hx Hypothyroidism Renal/ Medical History: Denies: Hx Peritoneal Dialysis GI Medical History: Reports: Hx Gastritis Musculoskeletal Medical History: Reports Hx Musculoskeletal Deformity, Reports Hx Musculoskeletal Trauma Psychiatric Medical History: Reports: Hx Anxiety Traumatic Medical History: Reports: Hx Fractures - Elbow clavicle and ribs Past Surgical History: Reports: Hx Appendectomy - 2005, Hx Cholecystectomy - 2009, Hx Hysterectomy, Hx Thyroid Surgery - Thyroidectomy 2005 - Immunizations Immunizations up to date: Yes Hx Diphtheria, Pertussis, Tetanus Vaccination: Yes - 2010 Review of Systems - Review of Systems Constitutional: Chills. denies: Fever EENT: No symptoms reported Cardiovascular: denies: Chest pain Respiratory: denies: Short of breath Gastrointestinal: Abdominal pain, Diarrhea, Nausea, Vomiting Genitourinary: denies: Dysuria Female Genitourinary: No symptoms reported Musculoskeletal: No symptoms reported Skin: No symptoms reported Hematologic/Lymphatic: No symptoms reported Neurological/Psychological: No symptoms reported Physical Exam - Vital signs Vitals: Temp Pulse Resp BP Pulse Ox 98.0 F 81 17 125/74 96 07/22/20 03:24 07/22/20 03:24 07/22/20 03:24 07/22/20 03:24 07/22/20 03:24 - General General appearance: Alert - HEENT Head: Normocephalic, Atraumatic Eyes: No: Scleral icterus Extraocular movements intact: Yes Pupils: PERRL - Respiratory Breath sounds: Normal - Cardiovascular Rhythm: Regular Heart sounds: Normal auscultation - Abdominal Distension: No distension Bowel sounds: Normal Tenderness: Tender - LLQ. No: Guarding, Rebound - Extremities General upper extremity: Normal ROM General lower extremity: Normal ROM - Neurological Neuro grossly intact: Yes Cognition: Normal Orientation: AAOx4 - Psychological Associated symptoms: Normal affect - Skin Skin Temperature: Warm Course - Re-evaluation Re-evalutation: 07/22/20 06:59 40-year-old female presents with abdominal pain, ongoing for several years, last bout of pain lasting for 5 days now. She is nontoxic-appearing on exam, afebrile. Her abdomen does have some left lower quadrant tenderness, abdomen is overall non-peritoneal. Given her multiple previous surgeries, concern for potential obstruction versus intermittent obstruction that is resolving, diverticulitis possibility as well. CT abdomen ordered to assess. Given the focal nature of it, MSK possibility as well. 07/22/20 09:32 CT abdomen pelvis report has resulted. Per radiology, overall read as unremarkable study. No bowel obstruction was seen. No inflammatory changes to the bowel as well. No hernia. Does note there is moderate stool in the ascending colon. Labs reviewed. No leukocytosis or left shift suggestive of infection. No acute anemia, hemoglobin is similar to previous values. Electrolytes within normal limits. Creatinine within normal limits. No elevation of LFTs, T bili or lipase. Urine has large leukoesterase and pyuria, will send this for culture, patient denied UTI symptoms. 07/22/20 09:35 Patient was updated on results. Encouraged GI follow-up. Have provided a work note. Return precautions were given, patient was stable at time of discharge. - Vital Signs Vital signs: Temp Pulse Resp BP Pulse Ox 97.8 F 72 18 115/69 99 07/22/20 08:56 07/22/20 08:56 07/22/20 08:56 07/22/20 08:56 07/22/20 08:56 - Laboratory Result Diagrams: 07/22/20 04:02 07/22/20 04:02 Laboratory results interpreted by me: 07/22/20 07/22/20 04:02 04:02 Chloride 108 H Glucose 124 H Ur Leukocyte Esterase LARGE H - Diagnostic Test Radiology reviewed: Image reviewed, Reports reviewed Discharge - Discharge Clinical Impression: LLQ abdominal pain Condition: Stable Disposition: HOME, SELF-CARE Instructions: Abdominal Pain ([facility]) Additional Instructions: Please follow-up with GI as planned. Continue all medications as prescribed. Please return to the emergency department for any concerning worsening symptoms. Forms: Return to Work Referrals: MASON KAT MD [Primary Care Provider] - Follow up as needed
[2020-07-22] MEDS ORDERED: MORPHINE SULFATE 10 MG/ML INJ IV ONE (06:48)
[2020-07-22 09:00] VITALS: BP 115/69
--- NOTE | 2020-07-22 09:25 | RADIOLOGY REPORT (SQ) ---
EXAM DESCRIPTION: CT ABD/PELVIS WITH IV ORAL IMAGES COMPLETED DATE/TIME: 07/22/2020 9:08 am REASON FOR STUDY: LLQ pain, hx multiple surgeries, eval obstruction COMPARISON: CT abdomen and pelvis 08/09/2012, 07/24/2013, 06/03/2014, 05/03/2016, 12/03/2017, 03/27/2018 TECHNIQUE: CT scan of the abdomen and pelvis performed using helical scanning technique with dynamic intravenous contrast injection. Patient drank oral contrast. Images reviewed with lung, soft tissue , and bone windows. Reconstructed coronal and sagittal MPR images reviewed. Delayed images for evalua tion of the urinary system also acquired. All images stored on PACS. All CT scanners at this facility use dose modulation, iterative reconstruction, and/or weight based d osing when appropriate to reduce radiation dose to as low as reasonably achievable (ALARA). [facility]: Dose Right [facility]: CareDose [facility]: Dose Right [facility]: Teradose 4D [facility]: CommitChange CONTRAST TYPE AND DOSE: contrast/concentration: Isovue 350.00 mmol/ml; Total Contrast Delivered: 100 .0 ml; Total Saline Delivered: 72.0 ml RENAL FUNCTION: None required. The patient is less than 50 years old. RADIATION DOSE: CT Rad equipment meets quality standard of care and radiation dose reduction techniq ues were employed. CTDIvol: 14.3 - 18.7 mGy. DLP: 1840 mGy-cm.. LIMITATIONS: None. FINDINGS: LOWER CHEST: No significant findings. No nodules or infiltrates. LIVER: Normal size. No masses. No dilated ducts. SPLEEN: Normal size. No focal lesions. PANCREAS: No masses. No significant calcifications. No adjacent inflammation or peripancreatic fluid collections. Pancreatic duct not dilated. GALLBLADDER: Surgically absent ADRENAL GLANDS: No significant masses or asymmetry. RIGHT KIDNEY AND URETER: No solid masses. No significant calcifications. No hydronephrosis or hyd roureter. LEFT KIDNEY AND URETER: No solid masses. No significant calcifications. No hydronephrosis or hydr oureter. AORTA AND VESSELS: No aneurysm. No dissection. Renal arteries, SMA, celiac without stenosis. RETROPERITONEUM: No retroperitoneal adenopathy, hemorrhage or masses. BOWEL AND PERITONEAL CAVITY: Patient drank oral contrast No masses or inflammatory changes. No free fluid or peritoneal masses. No bowel obstruction. Moderate stool in the ascending colon APPENDIX: Surgically absent. PELVIS: No mass. No free fluid. Normal bladder. Post hysterectomy ABDOMINAL WALL: No masses. No hernias. BONES: No significant or acute findings. OTHER: No other significant finding. IMPRESSION: Post cholecystectomy, appendectomy, hysterectomy Otherwise unremarkable study TECHNICAL DOCUMENTATION: JOB ID: [id number] Quality ID # [id number]: Final reports with documentation of one or more dose reduction techniques (e.g., Au tomated exposure control, adjustment of the mA and/or kV according to patient size, use of iterative reconstruction technique) 2010 [employer]- All Rights Reserved Reading location - IP/workstation name: [id number]
== END 2020-07-22 09:51 | disposition home or self-care (01) ==
LOC: ER 03:19
DX: R10.32 Left lower quadrant pain (principal); R68.83 Chills (without fever); Z88.2 Allergy status to sulfonamides; Z90.49 Acquired absence of other specified parts of digestive tract
CPT/HCPCS: 99285 ×2; 96374 ×2; 36415; 87086; 83690; 85025; 81025; 87088; 80053; 81001; 74177; J2270

== ENCOUNTER 2020-07-31 01:21 | Emergency (ER) | payer BC ==
[2020-07-31] MEDS ORDERED: HYDROCODONE/ACETAMINOPHEN 5-325 MG TABLET PO ONE (04:19)
[2020-07-31] MEDS ORDERED: PROMETHAZINE HCL 25 MG TABLET PO ONE (04:19)
--- NOTE | 2020-07-31 04:28 | ER Document Report ---
ED Flu Like - General Chief Complaint: Flu Symptoms Stated Complaint: SORE THROAT Time Seen by Provider: 07/31/20 04:05 Primary Care Provider: MASON KAT MD [Primary Care Provider] - Follow up as needed Notes: Patient is a 40-year-old female that comes emergency department for chief complaint of sick symptoms x4 days. She states she started off with a fever at work which was measured to be 102 F, she states that she developed a sore throat, congestion, and now cough. She reports intermittent nausea but denies vomiting. She denies headache, chest pain, diarrhea, or any other complaints. She denies smoking, recreational drugs. Past medical history of hypothyroidism, hysterectomy, cholecystectomy, appendectomy. TRAVEL OUTSIDE OF THE [place] IN LAST 30 DAYS: No - Related Data Allergies/Adverse Reactions: avocado [Avocado] Allergy (Severe, Verified 07/22/20 03:50) Anaphylaxis NSAIDS (Non-Steroidal Anti-Inflamma [Nsaids] Allergy (Verified 07/22/20 03:50) throat swelling pineapple [Pineapple] Allergy (Verified 07/22/20 03:50) Sulfa (Sulfonamide Antibiotics) Allergy (Verified 07/22/20 03:50) throat swelling tree nuts Allergy (Uncoded 07/22/20 03:50) Home Medications: synthroid Past Medical History - General Information source: Patient - Social History Smoking Status: Former Smoker Frequency of alcohol use: None Drug Abuse: None Lives with: Family Family History: DM, Hyperlipidemia, Hypertension, Thyroid Disfunction, Other - Epilepsy Neurological Medical History: Reports: Hx Migraine Endocrine Medical History: Reports: Hx Hypothyroidism Renal/ Medical History: Denies: Hx Peritoneal Dialysis GI Medical History: Reports: Hx Gastritis Musculoskeletal Medical History: Reports Hx Musculoskeletal Deformity, Reports Hx Musculoskeletal Trauma Psychiatric Medical History: Reports: Hx Anxiety Traumatic Medical History: Reports: Hx Fractures - Elbow clavicle and ribs Past Surgical History: Reports: Hx Appendectomy - 2005, Hx Cholecystectomy - 2009, Hx Hysterectomy, Hx Thyroid Surgery - Thyroidectomy 2005 - Immunizations Immunizations up to date: Yes Hx Diphtheria, Pertussis, Tetanus Vaccination: Yes - 2010 Review of Systems - Review of Systems Constitutional: See HPI EENT: See HPI Cardiovascular: No symptoms reported Respiratory: See HPI Gastrointestinal: See HPI Genitourinary: No symptoms reported Female Genitourinary: No symptoms reported Musculoskeletal: No symptoms reported Skin: No symptoms reported Hematologic/Lymphatic: No symptoms reported Neurological/Psychological: No symptoms reported Physical Exam - Vital signs Vitals: Temp Pulse Resp BP Pulse Ox 98.2 F 110 H 20 123/80 98 07/31/20 02:22 07/31/20 02:22 07/31/20 02:22 07/31/20 02:22 07/31/20 02:22 - Notes Notes: GENERAL: Patient is slightly unwell appearance but is nontoxic and alert, she is conversational HEAD: Normocephalic, atraumatic. EYES: Pupils equal, round, and reactive to light. Extraocular movements intact. ENT: Oral mucosa moist, tongue midline. Tonsillitis with some erythema the po sterior pharynx, no exudates, no peritonsillar abscess, normal uvula. Airway patent. NECK: Full range of motion. Supple. Trachea midline. No lymphadenopathy. LUNGS: Frequent nonproductive cough. No wheezes, rales, or rhonchi. Speaks in full sentences. Clear lung sounds on both sides. HEART: Regular rate and rhythm. No murmur ABDOMEN: Soft, non-tender. Non-distended. EXTREMITIES: Moves all 4 extremities spontaneously. No edema, normal radial and dorsalis pedis pulses bilaterally. No cyanosis. BACK: no cervical, thoracic, lumbar midline tenderness. No saddle anesthesia, normal distal neurovascular exam. Moves all extremities in full range of motion. NEUROLOGICAL: Alert and oriented x3. Normal speech. Cranial nerves II through XII grossly intact. Strength 5/5 in all extremities. PSYCH: Normal affect, normal mood. SKIN: Warm, dry, normal turgor. No rashes or lesions noted. Course - Re-evaluation Re-evalutation: Patient with persistent cough on my initial evaluation although her lungs are clear, she is not hypoxic. She is mildly ill-appearing but not toxic. She does have some tonsillitis but no exudative pharyngitis and no evidence of peritonsillar abscess. Soft benign abdomen, unremarkable exam otherwise, no nuchal rigidity. No fever. Chest x-ray unremarkable, strep is negative, overall I suspect patient is COVID- 19 based on her evaluation. Discussed options with patient. Patient is much better on reevaluation, vital signs rechecked and unremarkable, patient right with symptom management, code 19 testing was performed, discussed quarantine, follow-up, return precautions. Patient states understanding and agreement. Stable and well-appearing at time of discharge. - Vital Signs Vital signs: Temp Pulse Resp BP Pulse Ox 98.7 F 83 20 103/64 97 07/31/20 06:02 07/31/20 06:02 07/31/20 06:02 07/31/20 06:02 07/31/20 06:02 Discharge - Discharge Clinical Impression: Cough, Chills, Body aches, Nausea, Person under investigation for COVID-19 Pharyngitis Qualifiers: Pharyngitis/tonsillitis etiology: unspecified etiology Qualified Code(s): J02.9 - Acute pharyngitis, unspecified Condition: Stable Disposition: HOME, SELF-CARE Instructions: Oral Narcotic Medication ([facility]) Additional Instructions: Your chest x-ray is negative, your strep is negative. Your examination is consistent with a viral illness. You have been tested for COVID-19. Please see additional instructions below. Take Phenergan for nausea, drink plenty of fluids, you can take Tylenol/ibuprofen for pain/chills/fever. Please quarantine, you will be contacted with your results. Return if you worsen including chest pain, difficulty breathing, uncontrolled vomiting, or any other concerning or worsening symptoms. As a person under investigation for COVID-19, the [place] Department of Health and Human Services (division on public health) advises you to adhere to the following guidance until your test results are reported to you. If your test result is positive, you will receive additional information from your provider and your local health department at that time. Remain at home until you are cleared by the health provider or public health authorities. Keep a log of visitors to your home, notify any visitors to your home of your isolation status. If you plan to move to a new address or leave the [facility], notify the local health department in your County. Call your Doctor or seek care if you have an urgent medical need. Before seeking medical care, call him to get instructions from the provider before arriving at the medical office, clinic, or hospital. Notify them that you are being tested for the virus (COVID-19) so that arrangements can be made, as necessary, to prevent transmission to others in the healthcare setting. Next, notify the local health department in your county. If a medical emergency arises and you need to call 911, inform the first responders that you are being tested for the virus that causes COVID-19. Next, notify the local health department in your county. Prescriptions: Promethazine HCl [Phenergan 25 mg Tablet] 25 mg PO Q6H PRN #15 tablet PRN Reason: Forms: Return to Work Referrals: MASON KAT MD [Primary Care Provider] - Follow up as needed
--- NOTE | 2020-07-31 05:49 | RADIOLOGY REPORT (SQ) ---
CHEST X-RAY 1 VIEW on 07/31/2020 at 4:59 AM CLINICAL INDICATION: Fever, cough COMPARISON: 06/23/2020 FINDINGS: The lungs are clear. Cardiac, hilar and mediastinal contours are within normal limits. Pulmonary vascularity is within normal limits. No bony abnormality is noted. IMPRESSION: No active disease.
[2020-07-31] MEDS ORDERED: DEXAMETHASONE SOD PHOS INJ 10 MG/1 ML VIAL IM ONE (06:17)
[2020-07-31] MEDS ORDERED: HYDROCODONE/ACETAMINOPHEN 5-325 MG (6 TAB/ER DISP) PO PRN (06:17)
[2020-07-31 07:10] VITALS: BP 104/69
== END 2020-07-31 07:06 | disposition home or self-care (01) ==
LOC: ER 01:21
DX: J03.90 Acute tonsillitis, unspecified (principal); R05 Cough; R11.0 Nausea; Z87.891 Personal history of nicotine dependence; Z87.892 Personal history of anaphylaxis; Z91.018 Allergy to other foods; Z88.2 Allergy status to sulfonamides; Z88.8 Allergy status to other drugs, medicaments and biological substances; Z20.828 Contact with and (suspected) exposure to other viral communicable diseases
CPT/HCPCS: 99284; 96372; 87070; 87880; 71045; U0003; J1100; C9803; 87635

== ENCOUNTER 2020-08-17 04:08 | Emergency (ER) | payer BC ==
[2020-08-17 07:11] LABS: APPEARANCE,URINE CLEAR; BILIRUBIN,URINE NEGATIVE (NEGATIVE); COLOR,URINE YELLOW; GLUCOSE, URINE NEGATIVE (NEGATIVE); KETONES,URINE NEGATIVE (NEGATIVE); LEUKOCYTE ESTERASE,URINE MODERATE (NEGATIVE); NITRITE,URINE NEGATIVE (NEGATIVE); PROTEIN,URINE NEGATIVE (NEGATIVE); URINE SPECIFIC GRAVITY 1.014; UROBILINOGEN,URINE NEGATIVE mg/dL (<2.0)
[2020-08-17] MEDS ORDERED: DICYCLOMINE HCL INJ 20 MG/2 ML AMPULE IM ONE (08:39)
--- NOTE | 2020-08-17 08:40 | ER Document Report ---
ED General - General Chief Complaint: Abdominal Pain Stated Complaint: LEFT SIDE ABDOMINAL PAIN Time Seen by Provider: 08/17/20 07:52 Primary Care Provider: MASON KAT MD [Primary Care Provider] - Follow up as needed TRAVEL OUTSIDE OF THE [place] IN LAST 30 DAYS: No - HPI Notes: Chief complaint: Left lower quadrant abdominal pain History of present illness: 40-year-old female history of chronic/recurrent left lower quadrant abdominal pain returns to the ED with increased cramping in this area overnight. She intermittently has some loose stools. She does not see any blood. No fever or chills. Weight is stable. Seen here for same by another provider approximately 3-1/2 weeks ago. She had normal labs and unremarkable CT abdomen/pelvis at that time. We note that she has had multiple prior surgical procedures including hysterectomy cholecystectomy and appendectomy. Her only long-term medication is thyroid replacement for hypothyroidism. She reports allergies to NSAIDs and several types of foods. We note that she is never had a colonoscopy. She is not been seen by a lifter driver. She does have a family history is positive for colon CA in her grandmother. She reports normal appetite. She reports normal bowel movements. - Related Data Allergies/Adverse Reactions: avocado [Avocado] Allergy (Severe, Verified 07/22/20 03:50) Anaphylaxis NSAIDS (Non-Steroidal Anti-Inflamma [Nsaids] Allergy (Verified 07/22/20 03:50) throat swelling pineapple [Pineapple] Allergy (Verified 07/22/20 03:50) Sulfa (Sulfonamide Antibiotics) Allergy (Verified 07/22/20 03:50) throat swelling tree nuts Allergy (Uncoded 07/22/20 03:50) Home Medications: synthroid Past Medical History - General Information source: Patient, [facility] Records - Social History Smoking Status: Former Smoker Frequency of alcohol use: None Drug Abuse: None 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 Lives with: Family Family History: DM, Hyperlipidemia, Hypertension, Thyroid Disfunction, Other - Epilepsy Neurological Medical History: Reports: Hx Migraine Endocrine Medical History: Reports: Hx Hypothyroidism Renal/ Medical History: Denies: Hx Peritoneal Dialysis GI Medical History: Reports: Hx Gastritis Musculoskeletal Medical History: Reports Hx Musculoskeletal Deformity, Reports Hx Musculoskeletal Trauma Psychiatric Medical History: Reports: Hx Anxiety Traumatic Medical History: Reports: Hx Fractures - Elbow clavicle and ribs Past Surgical History: Reports: Hx Appendectomy - 2005, Hx Cholecystectomy - 2009, Hx Hysterectomy, Hx Thyroid Surgery - Thyroidectomy 2006 - Immunizations Immunizations up to date: Yes Hx Diphtheria, Pertussis, Tetanus Vaccination: Yes - 2010 Review of Systems - Review of Systems Notes: Constitutional: Negative for fever. HENT: Negative for sore throat. Eyes: Negative for visual changes. Cardiovascular: Negative for chest pain. Respiratory: Negative for shortness of breath. Gastrointestinal: As per HPI. Genitourinary: Negative for dysuria. Musculoskeletal: Negative for back pain. Skin: Negative for rash. Neurological: Negative for headaches, weakness or numbness. 10 point ROS negative except as marked above and in HPI. Physical Exam - Vital signs Vitals: Temp Pulse Resp BP Pulse Ox 97.9 F 84 18 102/63 95 08/17/20 05:38 08/17/20 05:38 08/17/20 05:38 08/17/20 05:38 08/17/20 05:38 - Notes Notes: GENERAL: Somewhat obese middle-aged female appearing in no acute distress. SKIN: Good turgor no rashes. HEAD: Normocephalic atraumatic. EYES: PERRLA. EOMI. Conjunctivae and sclerae clear. EARS: CANALS AND TMS CLEAR. NOSE: CLEAR. MOUTH: Moist mucosa. Good dentition. No stridor or edema. No drooling. NECK: Supple. No masses or thyromegaly. No adenopathy. Carotids 2+ without bruits. No JVD. BACK: Symmetrical without tenderness. CHEST: Respirations unlabored. Breath sounds clear and symmetrical. HEART: Regular rhythm. No murmur gallop or rub. ABDOMEN: Obese. Multiple surgical scars. Mild tenderness left lower quadrant. Soft without masses, organomegaly or rebound. Bowel sounds normally active. No bruits. GENITALIA: Deferred. EXTREMITIES: No edema. No calf tenderness. Cap refill less than 1.5 seconds. Dorsalis pedis and posterior tibial pulses 3+ and symmetrical. NEUROLOGICAL: GCS 15. Alert and oriented x3. Normal gait. Fluent speech. Cranial nerves II through XII intact. Sensorimotor and cerebellar normal. Normal tone. PSYCHIATRIC: Flat affect. Course - Re-evaluation Re-evalutation: 08/17/20 10:49 40-year-old lady with chronic recurrent left lower quadrant pain with recent negative CT abdomen pelvis. She has had multiple surgical procedures in the past including appendectomy, cholecystectomy and hysterectomy. She is never had a colonoscopy but has a family history of colon CA. She has a benign exam today and is afebrile with normal labs here. She reports normal bowel movements. Acute abdominal series was unremarkable. This lady probably has functional bowel syndrome. Given her age and her family history she needs colonoscopy. I gave her an IM injection of been ~with some symptomatic improvement. I am to put her on oral Bentyl at home and refer her to lifter driver back to her primary care doctor. We will also give her a note for the next 3 days. Findings, clinical impression and plan of treatment have been discussed with patient/family. Understanding of current findings and recommendations has been acknowledged by them and there is agreement regarding disposition and follow-up. - Vital Signs Vital signs: Temp Pulse Resp BP Pulse Ox 97.5 F 65 16 109/67 98 08/17/20 09:04 08/17/20 09:04 08/17/20 09:04 08/17/20 09:04 08/17/20 09:04 - Laboratory Result Diagrams: 08/17/20 09:02 08/17/20 09:02 Laboratory results interpreted by me: 08/17/20 05:32 Ur Leukocyte Esterase MODERATE H - Diagnostic Test Radiology reviewed: Reports reviewed - Acute abdominal series per radiologist: Normal Discharge - Discharge Clinical Impression: Left lower quadrant abdominal pain Condition: Stable Disposition: HOME, SELF-CARE Instructions: Antispasmodics ([facility]), Abdominal Pain ([facility]) Additional Instructions: See your primary care physician and also schedule a visit with a lifter driver as I feel you should have further evaluation with a colonoscopy procedure. You have been provided a work note for the next 3 days. A prescription has been provided to help deal with your symptoms until you can undergo further work-up. Return here as needed for new or worsening symptoms: Pain that is worsening or unimproved Uncontrolled vomiting High fever or shaking chills Overall worsening Prescriptions: Dicyclomine HCl [Bentyl 20 mg Tablet] 20 mg PO QID #40 tablet Forms: Return to Work Referrals: MASON KAT MD [Primary Care Provider] - Follow up as needed YANETH SOLANO MD [ACTIVE STAFF] - Follow up as needed LISSY BUNCH MD [ACTIVE STAFF] - Follow up as needed
--- NOTE | 2020-08-17 09:10 | RADIOLOGY REPORT (SQ) ---
EXAM DESCRIPTION: ACUTE ABDOMEN SERIES IMAGES COMPLETED DATE/TIME: 08/17/2020 8:46 am REASON FOR STUDY: LLQ pain COMPARISON: 12/06/2019 NUMBER OF VIEWS: Three views. TECHNIQUE: Frontal chest, supine abdomen and upright/decubitus abdomen radiographic images acquired. LIMITATIONS: None. FINDINGS: CHEST: Lungs clear of infiltrates. FREE AIR: None. No abnormal gas collections. BOWEL GAS PATTERN: Nonobstructive pattern. No dilated loops or air fluid levels. CALCIFICATIONS: No suspicious calcifications. HARDWARE: None in the abdomen. SOFT TISSUES: No gross mass or suggestion of organomegaly. BONES: No acute fracture. No worrisome bone lesions. OTHER: No other significant finding. IMPRESSION: NO RADIOGRAPHIC EVIDENCE FOR ACUTE ABDOMINAL DISEASE. TECHNICAL DOCUMENTATION: JOB ID: [id number] 2010 [employer]- All Rights Reserved Reading location - IP/workstation name: [email or web address]
[2020-08-17 09:52] LABS: ABSOLUTE EOSINOPHILS # (AUTO) 0.1 10^3/uL (0.0-0.6); ABSOLUTE MONOCYTES (AUTO) 0.3 10^3/uL (0.1-1.4); ABSOLUTE NEUT (AUTO) 2.8 10^3/uL (1.7-8.2); BASOPHILS % (AUTO) 0.6 % (0-2); EOSINOPHILS % (AUTO) 2.1 % (0-6); HEMATOCRIT 38.7 % (36.0-47.0); LYMPHOCYTES % (AUTO) 37.4 % (13-45); MEAN CORPUSCULAR HEMOGLOBIN 29.5 pg (27.0-33.4); MEAN CORPUSCULAR HGB CONC 33.7 g/dL (32.0-36.0); MEAN CORPUSCULAR VOLUME 88 fl (80-97); PLATELET COUNT 261 10^3/uL (150-450); RED BLOOD COUNT 4.42 10^6/uL (3.72-5.28); RED CELL DISTRIBUTION WIDTH 13.5 % (11.5-14.0); SEGMENTED NEUTROPHILS % (AUTO) 53.9 % (42-78); TOTAL CELLS COUNTED % (AUTO) 100 %; WHITE BLOOD COUNT 5.3 10^3/uL (4.0-10.5)
[2020-08-17 10:23] LABS: ANION GAP 10 (5-19); BLOOD UREA NITROGEN 17 mg/dL (7-20); CALCIUM 9.4 mg/dL (8.4-10.2); CARBON DIOXIDE 24 mmol/L (22-30); CHLORIDE 107 mmol/L (98-107); GLUCOSE 98 mg/dL (75-110)
[2020-08-17 11:20] VITALS: BP 113/70
== END 2020-08-17 11:19 | disposition home or self-care (01) ==
LOC: ER 04:08
DX: R10.32 Left lower quadrant pain (principal); E66.9 Obesity, unspecified; E03.9 Hypothyroidism, unspecified
CPT/HCPCS: 99284; 96372; 36415; 83690; 85025; 80048; 81001; 74022; J0500

== ENCOUNTER 2020-09-09 19:19 | Emergency (ER) | payer BC ==
[2020-09-09] MEDS ORDERED: DEXAMETHASONE SOD PHOS INJ 10 MG/1 ML VIAL IM ONE (19:34)
--- NOTE | 2020-09-09 19:37 | ER Document Report ---
ED Medical Screen (RME) - General Chief Complaint: Back Pain Stated Complaint: BACK PAIN Time Seen by Provider: 09/09/20 19:29 Primary Care Provider: MASON KAT MD [Primary Care Provider] - Follow up as needed Mode of Arrival: Ambulatory Information source: Patient Notes: 40-year-old female presents to ED for complaint of back pain since Thursday. She states it is just getting worse and worse. She states her pain is at least a 4 when she standing still much worse when she sits. She states she feels like she is having [id number] all the way down both legs. She does not complain of saddle anesthesia, loss control of bowel bladder, or loss of use of legs but she does have numbness and tingling down both legs. She does have a history of cholecystectomy appendectomy thyroidectomy and a hysterectomy. She quit smoking a while ago drinks maybe once or twice a year and does not do any illicit drugs. Patient is able to walk but she does walk with a strange gait due to the pain. We will treat her with some Decadron now she is allergic to ibuprofen and Toradol. I have ordered blood and urine x-rays of the thoracic and lumbar spine. I have greeted and performed a rapid initial assessment of this patient. A comprehensive ED assessment and evaluation of the patient, analysis of test results and completion of medical decision making process will be conducted by an additional ED providers. TRAVEL OUTSIDE OF THE [place] IN LAST 30 DAYS: No - Related Data Allergies/Adverse Reactions: avocado [Avocado] Allergy (Severe, Verified 07/22/20 03:50) Anaphylaxis NSAIDS (Non-Steroidal Anti-Inflamma [Nsaids] Allergy (Verified 07/22/20 03:50) throat swelling pineapple [Pineapple] Allergy (Verified 07/22/20 03:50) Sulfa (Sulfonamide Antibiotics) Allergy (Verified 07/22/20 03:50) throat swelling tree nuts Allergy (Uncoded 07/22/20 03:50) Home Medications: synthroid Past Medical History - Social History Chew tobacco use (# tins/day): No Frequency of alcohol use: None Drug Abuse: None Family history: Reviewed & Not Pertinent Neurological Medical History: Reports: Hx Migraine Endocrine Medical History: Reports: Hx Hypothyroidism Renal/ Medical History: Denies: Hx Peritoneal Dialysis GI Medical History: Reports: Hx Gastritis Musculoskeltal Medical History: Reports Hx Musculoskeletal Deformity, Reports Hx Musculoskeletal Trauma Psychiatric Medical History: Reports: Hx Anxiety Traumatic Medical History: Reports: Hx Fractures - Elbow clavicle and ribs Past Surgical History: Reports: Hx Appendectomy - 2005, Hx Cholecystectomy - 2009, Hx Hysterectomy, Hx Thyroid Surgery - Thyroidectomy 2005 - Immunizations Immunizations up to date: Yes Hx Diphtheria, Pertussis, Tetanus Vaccination: Yes - 2010 Physical Exam - Vital signs Vitals: Temp Pulse Resp BP Pulse Ox 98.3 F 89 15 111/72 97 09/09/20 19:25 09/09/20 19:25 09/09/20 19:25 09/09/20 19:25 09/09/20 19:25 Course - Vital Signs Vital signs: Temp Pulse Resp BP Pulse Ox 98.3 F 89 15 111/72 97 09/09/20 19:30 09/09/20 19:25 09/09/20 19:25 09/09/20 19:25 09/09/20 19:25 Doctor's Discharge - Discharge Referrals: MASON KAT MD [Primary Care Provider] - Follow up as needed
[2020-09-09 20:03] LABS: ABSOLUTE EOSINOPHILS # (AUTO) 0.1 10^3/uL (0.0-0.6); ABSOLUTE LYMPHOCYTES (AUTO) 1.9 10^3/uL (0.5-4.7); ABSOLUTE MONOCYTES (AUTO) 0.3 10^3/uL (0.1-1.4); ABSOLUTE NEUT (AUTO) 3.8 10^3/uL (1.7-8.2); BASOPHILS % (AUTO) 0.8 % (0-2); EOSINOPHILS % (AUTO) 0.9 % (0-6); HEMATOCRIT 41.4 % (36.0-47.0); HEMOGLOBIN 14.4 g/dL (12.0-15.5); LYMPHOCYTES % (AUTO) 31.5 % (13-45); MEAN CORPUSCULAR HEMOGLOBIN 29.8 pg (27.0-33.4); MEAN CORPUSCULAR HGB CONC 34.7 g/dL (32.0-36.0); MEAN CORPUSCULAR VOLUME 86 fl (80-97); MONOCYTES % (AUTO) 5.1 % (3-13); PLATELET COUNT 291 10^3/uL (150-450); RED BLOOD COUNT 4.83 10^6/uL (3.72-5.28); RED CELL DISTRIBUTION WIDTH 13.6 % (11.5-14.0); SEGMENTED NEUTROPHILS % (AUTO) 61.7 % (42-78); TOTAL CELLS COUNTED % (AUTO) 100 %; WHITE BLOOD COUNT 6.1 10^3/uL (4.0-10.5)
[2020-09-09 20:10] LABS: APPEARANCE,URINE CLEAR; BILIRUBIN,URINE NEGATIVE (NEGATIVE); COLOR,URINE YELLOW; GLUCOSE, URINE NEGATIVE (NEGATIVE); KETONES,URINE NEGATIVE (NEGATIVE); LEUKOCYTE ESTERASE,URINE TRACE (NEGATIVE); NITRITE,URINE NEGATIVE (NEGATIVE); PROTEIN,URINE NEGATIVE (NEGATIVE); URINE SPECIFIC GRAVITY 1.017; UROBILINOGEN,URINE NEGATIVE mg/dL (<2.0)
[2020-09-09 20:21] LABS: ALBUMIN 4.5 g/dL (3.5-5.0); ALKALINE PHOSPHATASE 82 U/L (38-126); ANION GAP 11 (5-19); ASPARTATE AMINO TRANSFERASE 22 U/L (14-36); BILIRUBIN,DIRECT 0.3 mg/dL (0.0-0.4); BILIRUBIN,TOTAL 0.4 mg/dL (0.2-1.3); BLOOD UREA NITROGEN 17 mg/dL (7-20); CALCIUM 10.4 mg/dL (8.4-10.2); CARBON DIOXIDE 25 mmol/L (22-30); CHLORIDE 103 mmol/L (98-107); GLUCOSE 112 mg/dL (75-110); TOTAL PROTEIN 7.9 g/dL (6.3-8.2)
--- NOTE | 2020-09-09 20:30 | RADIOLOGY REPORT (SQ) ---
EXAM DESCRIPTION: XR THORACIC SPINE 2 VIEWS COMPLETED DATE/TME: 09/09/2020 19:34 CLINICAL HISTORY: 40 years ,Female Back pain from coccyx to mid back COMPARISON: None. TECHNIQUE: Two views FINDINGS: Vertebral body alignment is unremarkable. No acute fractures are identified. IMPRESSION: No acute fracture is identified.
--- NOTE | 2020-09-09 21:02 | ER Document Report ---
ED General - General Chief Complaint: Back Pain Stated Complaint: BACK PAIN Time Seen by Provider: 09/09/20 19:29 Primary Care Provider: MASON KAT MD [Primary Care Provider] - Follow up as needed Mode of Arrival: Ambulatory TRAVEL OUTSIDE OF THE [place] IN LAST 30 DAYS: No - HPI Notes: 40-year-old female presents with back pain. Patient states she has had back pain since Thursday, almost 1 week ago. No known injury has occurred. Patient states that she feels it throughout her entire back, from her tailbone and upwards. She states it feels like a [id number] sensation. Pain is worse with walking and sitting. States that she was recently doing some mopping and thought that maybe she had pulled a muscle. She also states she has had a pins and needle sensation to the top of her thighs and intermittently her feet will feel cold. She denies fever, abdominal pain, dysuria. She states that she has been on vacation recently. - Related Data Allergies/Adverse Reactions: avocado [Avocado] Allergy (Severe, Verified 07/22/20 03:50) Anaphylaxis NSAIDS (Non-Steroidal Anti-Inflamma [Nsaids] Allergy (Verified 07/22/20 03:50) throat swelling pineapple [Pineapple] Allergy (Verified 07/22/20 03:50) Sulfa (Sulfonamide Antibiotics) Allergy (Verified 07/22/20 03:50) throat swelling tree nuts Allergy (Uncoded 07/22/20 03:50) Home Medications: synthroid Past Medical History - General Information source: Patient - Social History Smoking Status: Former Smoker Chew tobacco use (# tins/day): No Frequency of alcohol use: None Drug Abuse: None Family History: DM, Hyperlipidemia, Hypertension, Thyroid Disfunction, Other - Epilepsy Patient has homicidal ideation: No Neurological Medical History: Reports: Hx Migraine Endocrine Medical History: Reports: Hx Hypothyroidism Renal/ Medical History: Denies: Hx Peritoneal Dialysis GI Medical History: Reports: Hx Gastritis Musculoskeletal Medical History: Reports Hx Musculoskeletal Deformity, Reports Hx Musculoskeletal Trauma Psychiatric Medical History: Reports: Hx Anxiety Traumatic Medical History: Reports: Hx Fractures - Elbow clavicle and ribs Past Surgical History: Reports: Hx Appendectomy - 2005, Hx Cholecystectomy - 2009, Hx Hysterectomy, Hx Thyroid Surgery - Thyroidectomy 2005 - Immunizations Immunizations up to date: Yes Hx Diphtheria, Pertussis, Tetanus Vaccination: Yes - 2010 Review of Systems - Review of Systems Constitutional: denies: Chills, Fever EENT: No symptoms reported Cardiovascular: denies: Chest pain Respiratory: denies: Short of breath Gastrointestinal: denies: Abdominal pain Genitourinary: denies: Dysuria Female Genitourinary: No symptoms reported Musculoskeletal: Back pain Skin: No symptoms reported Hematologic/Lymphatic: No symptoms reported Neurological/Psychological: denies: Weakness Physical Exam - Vital signs Vitals: Temp Pulse Resp BP Pulse Ox 98.3 F 89 15 111/72 97 09/09/20 19:25 09/09/20 19:25 09/09/20 19:25 09/09/20 19:25 09/09/20 19:25 - General General appearance: Appears well, Alert In distress: None Notes: Sitting in bed using her cell phone on initial entrance into room - HEENT Head: Normocephalic, Atraumatic Extraocular movements intact: Yes Pupils: PERRL - Respiratory Breath sounds: Normal - Cardiovascular Rhythm: Regular Heart sounds: Normal auscultation Pulses: Normal: Dorsalis pedis Normal capillary refill: Yes - Abdominal Inspection: Obese Tenderness: Nontender - Back Back: No: CVA tenderness Notes: No midline tenderness. She has bilateral paraspinal tenderness. She is able to flex and extend spine. - Extremities General upper extremity: Normal ROM General lower extremity: Normal ROM, Normal temperature - Neurological Neuro grossly intact: Yes Cognition: Normal Orientation: AAOx4 Notes: Strength is 5/5 in the lower extremities. Sensation is intact to lower extremities. There is no saddle anesthesia. Patellar reflexes are 2+ bilaterally. - Psychological Associated symptoms: Normal affect - Skin Skin Temperature: Warm Course - Re-evaluation Re-evalutation: 40-year-old female with back pain ongoing for almost 1 week, atraumatic. On exam patient is well-appearing, resting comfortably in bed using her cell phone, vital signs stable, afebrile. She has some mild bilateral paraspinal tenderness. There is no midline tenderness. She exhibits a normal neurologic exam to her lower extremities. I suspect that her pain is muscular in origin. She has no known disc disease or previous back issues. I did review a CT abdomen from 07/22 which showed no bone abnormalities. She currently does not symptoms currently concerning for cord compression. Through the triage process she had labs and T/L x-rays done, she also has received IM Decadron. I discussed with patient her allergies, she states that she has swelling of her lips with NSAID use. Will trial a dose of Valium at this time for muscle relaxation. 09/09/20 22:15 T/L-spine x-rays reviewed. Per radiology there is no acute fracture of the thoracic spine. No fracture, subluxation, significant disc space narrowing or definite pars defect of the lumbar spine. 09/09/20 22:15 No leukocytosis or left shift. No acute anemia. Electrolytes okay. Creatinine within normal limits. No elevation of LFTs or T bili. Urine does not suggest UTI. 09/09/20 22:31 Patient feeling better. I updated her on results. Encouraged her to have close PCP follow-up. Return precautions given, stable at time of discharge. - Vital Signs Vital signs: Temp Pulse Resp BP Pulse Ox 98.3 F 89 15 111/72 97 09/09/20 19:30 09/09/20 19:25 09/09/20 19:25 09/09/20 19:25 09/09/20 19:25 - Laboratory Result Diagrams: 09/09/20 19:47 09/09/20 19:47 Laboratory results interpreted by me: 09/09/20 09/09/20 19:47 19:47 Glucose 112 H Calcium 10.4 H Ur Leukocyte Esterase TRACE H Urine Ascorbic Acid 20 H - Diagnostic Test Radiology reviewed: Image reviewed, Reports reviewed Discharge - Discharge Clinical Impression: Acute low back pain Qualifiers: Back pain laterality: bilateral Sciatica presence: without sciatica Qualified Code(s): M54.5 - Low back pain Disposition: HOME, SELF-CARE Additional Instructions: Please have close follow-up with your primary care doctor. You may continue Flexeril which is a muscle relaxer. Return the emergency department for any concerning worsening symptoms. Prescriptions: Cyclobenzaprine HCl [Flexeril 10 mg Tablet] 10 mg PO TID PRN #15 tab PRN Reason: Referrals: MASON KAT MD [Primary Care Provider] - Follow up as needed
[2020-09-09] MEDS ORDERED: DIAZEPAM 5 MG TABLET PO ONE (21:19)
--- NOTE | 2020-09-09 21:19 | RADIOLOGY REPORT (SQ) ---
EXAM DESCRIPTION: XR LUMBAR SPINE ANTEROPOSTERIOR, LATERAL, AND OBLIQUES COMPLETED DATE/TME: 09/09/2020 19:34 CLINICAL HISTORY: 40 years, Female, Back pain from coccyx to mid back COMPARISON: July 15, 2016 NUMBER OF VIEWS: 5 TECHNIQUE: AP, lateral, spot view of the lumbosacral junction, and bilateral oblique views of the lumbar spine were obtained. LIMITATIONS: None. FINDINGS: There is no evidence of fracture, subluxation, significant disc space narrowing, or definite pars defect. IMPRESSION: Examination is within normal limits. copyright 2010 [facility]- All Rights Reserved
[2020-09-09 22:48] VITALS: BP 115/69
== END 2020-09-09 22:49 | disposition home or self-care (01) ==
LOC: ER 19:19
DX: M54.5 Low back pain (principal); Z88.2 Allergy status to sulfonamides; Z90.49 Acquired absence of other specified parts of digestive tract; Z90.710 Acquired absence of both cervix and uterus
CPT/HCPCS: 99285; 96372; 36415; 87086; 85025; 80053; 81001; 72110; 72070; J1100

== ENCOUNTER 2020-10-16 12:36 | Emergency (ER) | payer BC ==
[2020-10-16] MEDS ORDERED: METHYLPREDNISOLONE INJ 125 MG/2 ML SDV IV ONE (14:20)
--- NOTE | 2020-10-16 14:25 | ER Document Report ---
ED Flu Like - General Chief Complaint: Flu Symptoms Stated Complaint: COUGH,FEVER,SORE THROAT,HEADACHE Time Seen by Provider: 10/16/20 14:07 Primary Care Provider: SHANA OLGUIN MD [HONORARY] - Follow up as needed Mode of Arrival: Ambulatory Information source: Patient Notes: Patient is a 40-year-old female comes emergency room with complaint of having fever with flu symptoms since Thursday. Patient states that she is got a sore throat with swollen glands and hurts to swallow and she is short of breath when she lays down. She has a productive yellowish cough. Patient states her temp has been as high as 102.3. She takes Tylenol to relieve the fever. Last taken this morning at 9 AM. Patient's only past medical history is pertinent for hypothyroidism. She has had surgically removed appendix cholecystectomy and a hysterectomy. Patient works currently at [employer]. She does denies any known contact with a known Covid carrier. Patient was tested for Covid 3 months ago and was negative. Patient's vital signs showed temp of 98.7 currently, 88 heart rate, 114/73 blood pressure 18 respiratory rate and saturating 96% on room air. TRAVEL OUTSIDE OF THE [place] IN LAST 30 DAYS: No - HPI Onset: Other - 3 days Timing/Duration: Persistent Quality of pain: Achy, Throbbing Pain Level: 4 CO exposure: No Shortness of breath: Moderate Associated symptoms: Body/muscle aches, Chills, Productive cough, Fever, Rhinnorhea, Sore throat Similar symptoms previously: No Recently seen / treated by doctor: No - Related Data Allergies/Adverse Reactions: avocado [Avocado] Allergy (Severe, Verified 10/16/20 13:27) Anaphylaxis NSAIDS (Non-Steroidal Anti-Inflamma [Nsaids] Allergy (Verified 10/16/20 13:27) throat swelling pineapple [Pineapple] Allergy (Verified 10/16/20 13:27) Sulfa (Sulfonamide Antibiotics) Allergy (Verified 10/16/20 13:27) throat swelling tree nuts Allergy (Uncoded 10/16/20 13:27) Home Medications: synthroid Past Medical History - General Information source: Patient - Social History Smoking Status: Former Smoker Chew tobacco use (# tins/day): No Frequency of alcohol use: Rare Drug Abuse: None Lives with: Family Family History: Reviewed & Not Pertinent, DM, Hyperlipidemia, Hypertension, Thyroid Disfunction, Other - Epilepsy Patient has homicidal ideation: No Neurological Medical History: Reports: Hx Migraine Endocrine Medical History: Reports: Hx Hypothyroidism Renal/ Medical History: Denies: Hx Peritoneal Dialysis GI Medical History: Reports: Hx Gastritis Musculoskeletal Medical History: Reports Hx Musculoskeletal Deformity, Reports Hx Musculoskeletal Trauma Psychiatric Medical History: Reports: Hx Anxiety Traumatic Medical History: Reports: Hx Fractures - Elbow clavicle and ribs Past Surgical History: Reports: Hx Appendectomy - 2005, Hx Cholecystectomy - 2009, Hx Hysterectomy, Hx Thyroid Surgery - Thyroidectomy 2005 - Immunizations Immunizations up to date: Yes Hx Diphtheria, Pertussis, Tetanus Vaccination: Yes - 2010 Review of Systems - Review of Systems Constitutional: See HPI, Chills, Fever, Malaise, Weakness EENT: See HPI, Nose congestion, Throat pain Cardiovascular: No symptoms reported Respiratory: See HPI, Short of breath, Wheezing Gastrointestinal: No symptoms reported Genitourinary: No symptoms reported Female Genitourinary: No symptoms reported Musculoskeletal: No symptoms reported Skin: No symptoms reported Hematologic/Lymphatic: No symptoms reported Neurological/Psychological: No symptoms reported -: Yes All other systems reviewed and negative Physical Exam - Vital signs Vitals: Temp Pulse Resp BP Pulse Ox 98.3 F 88 18 114/73 96 10/16/20 12:48 10/16/20 12:48 10/16/20 12:48 10/16/20 12:48 10/16/20 12:48 Interpretation: Normal - Notes Notes: PHYSICAL EXAMINATION: GENERAL: Well-appearing, well-nourished and in no acute distress. HEAD: Atraumatic, normocephalic. EYES: Pupils equal round and reactive to light, extraocular movements intact, conjunctiva are normal. ENT: Examination head and upper airway show nasal mucosa to be erythematous and edematous with some rhinorrhea noted. Rhinorrhea appears to be clear in color. No frontal or maxillary sinus tenderness to palpation. Bilateral TMs normal no bulging or retraction noted. Posterior pharynx shows bilaterally enlarged tonsils with mild erythema no exudate noted. Uvula is midline with mild erythema no exudate. There is no encroachment no deviation of the uvula. A irway is patent. To note patient does state that she has been told that she has enlarged tonsils all her life. NECK: Normal range of motion, supple with noted bilateral anterior cervical lymphadenopathy. LUNGS: Auscultation patient's lungs show bilateral breath sounds increased throughout with a faint expiratory wheeze noted left greater than right. No rhonchi is auscultated at this time. HEART: Regular rate and rhythm without murmurs Musculoskeletal: Normal range of motion, no pitting or edema. No cyanosis. NEUROLOGICAL: Normal speech, normal gait. Normal sensory, motor exams PSYCH: Normal mood, normal affect. SKIN: Warm, Dry, normal turgor, no rashes or lesions noted. Course - Re-evaluation Re-evalutation: 10/16/20 17:02 Patient's work-up came back negative for any acute findings as far as strep, mono, pneumonia. I feel the most likely is bronchitis although it could still be a COVID-19 but is well know that for a few days. At any rate of the right patient for a steroid pack for her wheezing along with albuterol MDI and I will give her some Tylenol 3 for cough. - Vital Signs Vital signs: Temp Pulse Resp BP Pulse Ox 98.3 F 78 18 128/64 H 98 10/16/20 12:48 10/16/20 17:18 10/16/20 17:18 10/16/20 17:18 10/16/20 17:18 - Laboratory Result Diagrams: 10/16/20 14:51 10/16/20 14:51 Laboratory results interpreted by me: 10/16/20 14:45 Ur Leukocyte Esterase TRACE H Urine Ascorbic Acid 20 H Discharge - Discharge Clinical Impression: Person under investigation for COVID-19, Bronchitis Upper respiratory infection Qualifiers: URI type: unspecified URI Qualified Code(s): J06.9 - Acute upper respiratory infection, unspecified Condition: Stable Disposition: HOME, SELF-CARE Instructions: COVID-19 Guidance for Persons Under Investigation, Bronchitis With Bronchospasm (Wheezing) ([facility]), Fever ([facility]), Upper Respiratory Illness ([facility]) , Viral Syndrome ([facility]) Additional Instructions: Home and rest. As we discussed this could be just not respiratory viral infection but could still be COVID-19 and in your out severe wheezing I am placing you on a steroid taper along with an inhaler and for your cough some T ylenol 3. Highly suggest that you contact your work and inform them of these findings and that you will not have any results back before your coronavirus test for the next 3 to 4 days. At any rate even if that comes back negative as we discussed the only way to be sure you do not have it is to self quarantine for 2 weeks after the test comes back. Should you have any concerns or problems increasing shortness of breath return to ER for reevaluation. You can take ibuprofen and Tylenol alternating for the fevers and aches and pains. Push fluids as much as possible. Should you have any concerns or problems please know where he will emergency room and you can be reevaluated. Prescriptions: Methylprednisolone [Medrol Dosepack (4 mg/Tab) 21 Tab/Dosepak] 21 tab PO ASDIR PRN #1 dspk PRN Reason: Albuterol Sulfate [Proair HFA Inhalation Aerosol 8.5 gm MDI] 2 puff IH Q4H PRN #1 mdi PRN Reason: Acetaminophen with Codeine [Tylenol #3 Tablet] 1 each PO ASDIR PRN #16 tablet PRN Reason: Forms: Return to Work Referrals: SHANA OLGUIN MD [HONORARY] - Follow up as needed
[2020-10-16] MEDS ORDERED: HYDROCODONE/ACETAMINOPHEN 5-325 MG TABLET PO ONE (15:22)
[2020-10-16 15:29] LABS: ABSOLUTE EOSINOPHILS # (AUTO) 0.1 10^3/uL (0.0-0.6); ABSOLUTE LYMPHOCYTES (AUTO) 2.2 10^3/uL (0.5-4.7); ABSOLUTE MONOCYTES (AUTO) 0.3 10^3/uL (0.1-1.4); ABSOLUTE NEUT (AUTO) 3.4 10^3/uL (1.7-8.2); BASOPHILS % (AUTO) 0.6 % (0-2); EOSINOPHILS % (AUTO) 1.4 % (0-6); HEMATOCRIT 39.9 % (36.0-47.0); HEMOGLOBIN 13.5 g/dL (12.0-15.5); LYMPHOCYTES % (AUTO) 36.7 % (13-45); MEAN CORPUSCULAR HEMOGLOBIN 29.5 pg (27.0-33.4); MEAN CORPUSCULAR HGB CONC 33.9 g/dL (32.0-36.0); MEAN CORPUSCULAR VOLUME 87 fl (80-97); MONOCYTES % (AUTO) 5.3 % (3-13); PLATELET COUNT 307 10^3/uL (150-450); RED BLOOD COUNT 4.59 10^6/uL (3.72-5.28); RED CELL DISTRIBUTION WIDTH 13.7 % (11.5-14.0); TOTAL CELLS COUNTED % (AUTO) 100 %; WHITE BLOOD COUNT 6.1 10^3/uL (4.0-10.5)
--- NOTE | 2020-10-16 15:33 | RADIOLOGY REPORT (SQ) ---
EXAM DESCRIPTION: CHEST SINGLE VIEW IMAGES COMPLETED DATE/TIME: 10/16/2020 3:17 pm REASON FOR STUDY: fever COMPARISON: 07/31/2028 and 08/17/2020 EXAM PARAMETERS: NUMBER OF VIEWS: One view. TECHNIQUE: Single frontal radiographic view of the chest acquired. RADIATION DOSE: NA LIMITATIONS: None. FINDINGS: LUNGS AND PLEURA: No opacities, masses or pneumothorax. No pleural effusion. MEDIASTINUM AND HILAR STRUCTURES: No masses. Contour normal. HEART AND VASCULAR STRUCTURES: Heart normal in size. Normal vasculature. BONES: No acute findings. HARDWARE: None in the chest. OTHER: No other significant finding. IMPRESSION: NO ACUTE RADIOGRAPHIC FINDING IN THE CHEST. TECHNICAL DOCUMENTATION: JOB ID: [id number] 2010 [employer]- All Rights Reserved Reading location - IP/workstation name: [email or web address]
[2020-10-16 15:37] LABS: APPEARANCE,URINE CLEAR; BILIRUBIN,URINE NEGATIVE (NEGATIVE); COLOR,URINE YELLOW; GLUCOSE, URINE NEGATIVE (NEGATIVE); KETONES,URINE NEGATIVE (NEGATIVE); LEUKOCYTE ESTERASE,URINE TRACE (NEGATIVE); NITRITE,URINE NEGATIVE (NEGATIVE); PROTEIN,URINE NEGATIVE (NEGATIVE); URINE SPECIFIC GRAVITY 1.013; UROBILINOGEN,URINE NEGATIVE mg/dL (<2.0)
[2020-10-16 15:45] LABS: ALBUMIN 4.5 g/dL (3.5-5.0); ALKALINE PHOSPHATASE 83 U/L (38-126); ANION GAP 9 (5-19); ASPARTATE AMINO TRANSFERASE 26 U/L (14-36); BILIRUBIN,TOTAL 0.5 mg/dL (0.2-1.3); BLOOD UREA NITROGEN 13 mg/dL (7-20); CALCIUM 10.2 mg/dL (8.4-10.2); CARBON DIOXIDE 26 mmol/L (22-30); CHLORIDE 105 mmol/L (98-107); GLUCOSE 90 mg/dL (75-110); POTASSIUM 4.6 mmol/L (3.6-5.0); TOTAL PROTEIN 7.9 g/dL (6.3-8.2)
[2020-10-16 15:59] LABS: A TYPE INFLUENZA AG NEGATIVE (NEGATIVE); B INFLUENZA AG NEGATIVE (NEGATIVE)
[2020-10-16 17:20] VITALS: BP 128/64
== END 2020-10-16 17:20 | disposition home or self-care (01) ==
LOC: ER 12:36
DX: J40 Bronchitis, not specified as acute or chronic (principal); R05 Cough; R50.9 Fever, unspecified; J02.9 Acute pharyngitis, unspecified; R51.9 Headache, unspecified; R59.9 Enlarged lymph nodes, unspecified; R13.10 Dysphagia, unspecified; R06.02 Shortness of breath; Z20.828 Contact with and (suspected) exposure to other viral communicable diseases
CPT/HCPCS: 99284; 96374; 36415; 87070; 87086; 87880; 85025; 87077; 86308; 80053; 81001; 87804; 71045; U0003; J2930; C9803; 87635

== ENCOUNTER 2020-10-28 00:55 | Emergency (ER) | payer BC ==
--- NOTE | 2020-10-28 03:53 | RADIOLOGY REPORT (SQ) ---
Neck soft tissue x-ray two views on 10/28/2020 at 2:37 AM CLINICAL INDICATION: Foreign body COMPARISON: Cervical spine x-ray from 03/21/2016 FINDINGS: The epiglottis and airway is unremarkable. There is no prevertebral soft tissue swelling. There is no radiopaque foreign body. There is minimal grade 1 spondylolisthesis at C4-5 again noted. No acute bony abnormality is noted. IMPRESSION: No acute abnormality.
--- NOTE | 2020-10-28 04:12 | ER Document Report ---
ED General - General Chief Complaint: Difficulty Swallowing Stated Complaint: DIFFICULTY SWALLOWING Time Seen by Provider: 10/28/20 04:11 Primary Care Provider: YANETH SOLANO MD [ACTIVE STAFF] - Follow up in 3-5 days (for GI follow up) TRAVEL OUTSIDE OF THE [place] IN LAST 30 DAYS: No - HPI Notes: 40-year-old female to the emergency department with complaints of sensation of something being stuck in her throat since yesterday morning. She states that she awoke yesterday and felt like there was something there. She states that she went about her day and then after lunch she started to feel worse. She states that it seems to be a little bit worse with eating but she can swallow food. She also states that she can drink fluids but she can still feel it in there. She denies any fevers or chills. She states it is down into the neck and not in the throat. Denies any fevers or chills. Denies any cough. Denies any chest pain. She has never had any past medical history for esophageal issues. - Related Data Allergies/Adverse Reactions: avocado [Avocado] Allergy (Severe, Verified 10/16/20 13:27) Anaphylaxis NSAIDS (Non-Steroidal Anti-Inflamma [Nsaids] Allergy (Verified 10/16/20 13:27) throat swelling pineapple [Pineapple] Allergy (Verified 10/16/20 13:27) Sulfa (Sulfonamide Antibiotics) Allergy (Verified 10/16/20 13:27) throat swelling tree nuts Allergy (Uncoded 10/16/20 13:27) Home Medications: synthroid Past Medical History - General Information source: Patient - Social History Smoking Status: Former Smoker Frequency of alcohol use: Rare Drug Abuse: None Family History: Reviewed & Not Pertinent, DM, Hyperlipidemia, Hypertension, Thyroid Disfunction, Other - Epilepsy Neurological Medical History: Reports: Hx Migraine Endocrine Medical History: Reports: Hx Hypothyroidism Renal/ Medical History: Denies: Hx Peritoneal Dialysis GI Medical History: Reports: Hx Gastritis Musculoskeletal Medical History: Reports Hx Musculoskeletal Deformity, Reports Hx Musculoskeletal Trauma Psychiatric Medical History: Reports: Hx Anxiety Traumatic Medical History: Reports: Hx Fractures - Elbow clavicle and ribs Past Surgical History: Reports: Hx Appendectomy - 2005, Hx Cholecystectomy - 2009, Hx Hysterectomy, Hx Thyroid Surgery - Thyroidectomy 2005 - Immunizations Immunizations up to date: Yes Hx Diphtheria, Pertussis, Tetanus Vaccination: Yes - 2010 Review of Systems - Review of Systems Constitutional: denies: Chills, Fever EENT: See HPI, Throat pain, Difficulty swallowing Cardiovascular: denies: Chest pain, Palpitations, Heart racing, Orthopnea, Dyspnea, Dizziness, Lightheaded Respiratory: denies: Cough, Short of breath Gastrointestinal: denies: Abdominal pain, Diarrhea, Nausea, Vomiting Genitourinary: No symptoms reported Musculoskeletal: No symptoms reported Skin: No symptoms reported Neurological/Psychological: No symptoms reported -: Yes All other systems reviewed and negative Physical Exam - Vital signs Vitals: Temp Pulse Resp BP Pulse Ox 98.0 F 87 16 121/82 99 10/28/20 00:58 10/28/20 00:58 10/28/20 00:58 10/28/20 00:58 10/28/20 00:58 Interpretation: Normal - Notes Notes: PHYSICAL EXAMINATION: GENERAL: Well-appearing, well-nourished and in no acute distress. HEAD: Atraumatic, normocephalic. EYES: Pupils equal round and reactive to light, extraocular movements intact, sclera anicteric, conjunctiva are normal. ENT: nares patent, oropharynx clear without exudates. Tonsils are mildly enlarged but patient states that they are not painful. There is no evidence for peritonsillar abscess. Uvula is midline. There is no muffled voice. There is no drooling. No Arnoldo's angina. Airway is grossly patent. Patient is tolerating her oral secretions. Moist mucous membranes. NECK: Normal range of motion, supple without lymphadenopathy. No evidence of thyromegaly LUNGS: Breath sounds clear to auscultation bilaterally and equal. No wheezes rales or rhonchi. HEART: Regular rate and rhythm without murmurs ABDOMEN: Soft, nontender, normoactive bowel sounds. No guarding, no rebound. No masses appreciated. EXTREMITIES: Normal range of motion, no pitting or edema. No cyanosis. NEUROLOGICAL: No focal neurological deficits. Moves all extremities spont aneously and on command. PSYCH: Normal mood, normal affect. SKIN: Warm, Dry, normal turgor, no rashes or lesions noted. Course - Re-evaluation Re-evalutation: 10/28/20 05:37 Impression: Odynophagia. Patient feels better after GI cocktail, states the sensation of discomfort is gone down but still she can feel it a little bit. S he has been able to tolerate drinking GI cocktail. Plan will be to discharge her home and give her information for follow-up for GI specialist. She has been advised to return immediately if she starts to vomit solid foods and cannot tolerate fluids. She agrees with the plan. X-ray soft tissue neck was negative and she was advised of this result. - Vital Signs Vital signs: Temp Pulse Resp BP Pulse Ox 98.0 F 87 16 121/82 99 10/28/20 00:58 10/28/20 00:58 10/28/20 00:58 10/28/20 00:58 10/28/20 00:58 Discharge - Discharge Clinical Impression: Foreign body sensation in throat, Odynophagia Condition: Stable Disposition: HOME, SELF-CARE Additional Instructions: Please follow-up with your GI specialist without fail. Please return immediately if he can no longer tolerate swallowing solids and fluids. Softer food for the next several days. Prescriptions: Sucralfate [Carafate Susp 1 Gm/10 Ml Udcup] 1 gm PO QID #420 ml Forms: Return to Work Referrals: YANETH SOLANO MD [ACTIVE STAFF] - Follow up in 3-5 days (for GI follow up)
[2020-10-28] MEDS ORDERED: LIDOCAINE 2% VISCOUS SOLN 15 ML UDCUP PO ONE (04:20)
[2020-10-28] MEDS ORDERED: MAG HYDROX/AL HYDROX/SIMETH SUSP 30 ML UDCUP PO ONE (04:20)
[2020-10-28 05:55] VITALS: BP 119/80
== END 2020-10-28 06:25 | disposition home or self-care (01) ==
LOC: ER 00:55
DX: R13.10 Dysphagia, unspecified (principal); R09.89 Other specified symptoms and signs involving the circulatory and respiratory systems; Z88.2 Allergy status to sulfonamides
CPT/HCPCS: 99283; 70360; J3490

== ENCOUNTER 2020-10-28 20:46 | Emergency (ER) | payer BC ==
[2020-10-28 20:52] VITALS: BP 131/81
--- NOTE | 2020-10-28 21:23 | ER Document Report ---
ED Medical Screen (RME) - General Stated Complaint: DIFFICULTY IN SWALLOWING/NECK PAIN TRAVEL OUTSIDE OF THE [place] IN LAST 30 DAYS: No - HPI Notes: 10/28/20 21:15 Rapid Medical Exam HPI: Pt is a 40yo female c/o difficulty swallowing X 1 day. seen in ED for the same yesterday. negative soft tissue XR and discharged w/ carafate. pt says sx's have worsened. says liquid and solids get stuck and she has to cough them back up. difficulty breathing when she lays down. also c/o anteiror neck pain. does not recall any specific swallowing study. Patient also reports a history of a thyroid abscess multiple years ago that caused her similar symptoms. She denies fever, chills, chest pain, shortness of breath. Physical Exam: GENERAL: Well-appearing, well-nourished and in no acute distress. HEAD: Atraumatic, normocephalic. ENT: Moist mucous membranes. Normal secretions. RESP: Respirations even and unlabored. No respiratory distress, no tripoding, no stridor or wheeze. CV- Regular rate. NEURO: No focal neurological deficits. Moves all extremities spontaneously and on command. My involvement in this patients care was limited to a rapid initial assessment. A comprehensive ED assessment and evaluation of the patient, analysis of test results, treatment, and completion of the medical decision making process will be performed by other ER providers. 10/28/20 21:33 - Related Data Allergies/Adverse Reactions: avocado [Avocado] Allergy (Severe, Verified 10/16/20 13:27) Anaphylaxis NSAIDS (Non-Steroidal Anti-Inflamma [Nsaids] Allergy (Verified 10/16/20 13:27) throat swelling pineapple [Pineapple] Allergy (Verified 10/16/20 13:27) Sulfa (Sulfonamide Antibiotics) Allergy (Verified 10/16/20 13:27) throat swelling tree nuts Allergy (Uncoded 10/16/20 13:27) Past Medical History - Social History Family history: Reviewed & Not Pertinent Neurological Medical History: Reports: Hx Migraine Endocrine Medical History: Reports: Hx Hypothyroidism Renal/ Medical History: Denies: Hx Peritoneal Dialysis GI Medical History: Reports: Hx Gastritis Musculoskeltal Medical History: Reports Hx Musculoskeletal Deformity, Reports Hx Musculoskeletal Trauma Psychiatric Medical History: Reports: Hx Anxiety Traumatic Medical History: Reports: Hx Fractures - Elbow clavicle and ribs Past Surgical History: Reports: Hx Appendectomy - 2005, Hx Cholecystectomy - 2009, Hx Hysterectomy, Hx Thyroid Surgery - Thyroidectomy 2005 - Immunizations Immunizations up to date: Yes Hx Diphtheria, Pertussis, Tetanus Vaccination: Yes - 2010 Physical Exam - Vital signs Vitals: Temp Pulse Resp BP Pulse Ox 98.3 F 87 17 131/81 H 98 10/28/20 20:51 10/28/20 20:51 10/28/20 20:51 10/28/20 20:51 10/28/20 20:51 Course - Vital Signs Vital signs: Temp Pulse Resp BP Pulse Ox 98.3 F 87 17 131/81 H 98 10/28/20 20:51 10/28/20 20:51 10/28/20 20:51 10/28/20 20:51 10/28/20 20:51
[2020-10-28 22:11] LABS: ABSOLUTE EOSINOPHILS # (AUTO) 0.1 10^3/uL (0.0-0.6); ABSOLUTE LYMPHOCYTES (AUTO) 2.3 10^3/uL (0.5-4.7); ABSOLUTE NEUT (AUTO) 4.5 10^3/uL (1.7-8.2); HEMOGLOBIN 13.4 g/dL (12.0-15.5); TOTAL CELLS COUNTED % (AUTO) 100 %; WHITE BLOOD COUNT 7.3 10^3/uL (4.0-10.5)
[2020-10-28 22:16] LABS: ABSOLUTE MONOCYTES (AUTO) 0.3 10^3/uL (0.1-1.4); BASOPHILS % (AUTO) 0.4 % (0-2); EOSINOPHILS % (AUTO) 1.2 % (0-6); HEMATOCRIT 39.6 % (36.0-47.0); LYMPHOCYTES % (AUTO) 32.1 % (13-45); MEAN CORPUSCULAR HEMOGLOBIN 29.5 pg (27.0-33.4); MEAN CORPUSCULAR HGB CONC 33.8 g/dL (32.0-36.0); MEAN CORPUSCULAR VOLUME 87 fl (80-97); MONOCYTES % (AUTO) 4.8 % (3-13); PLATELET COUNT 301 10^3/uL (150-450); RED BLOOD COUNT 4.54 10^6/uL (3.72-5.28); RED CELL DISTRIBUTION WIDTH 13.5 % (11.5-14.0); SEGMENTED NEUTROPHILS % (AUTO) 61.5 % (42-78)
[2020-10-28 22:27] LABS: ALBUMIN 4.4 g/dL (3.5-5.0); ALKALINE PHOSPHATASE 80 U/L (38-126); ANION GAP 6 (5-19); ASPARTATE AMINO TRANSFERASE 28 U/L (14-36); BILIRUBIN,DIRECT 0.1 mg/dL (0.0-0.4); BILIRUBIN,TOTAL 0.5 mg/dL (0.2-1.3); BLOOD UREA NITROGEN 14 mg/dL (7-20); CALCIUM 10.5 mg/dL (8.4-10.2); CARBON DIOXIDE 26 mmol/L (22-30); CHLORIDE 104 mmol/L (98-107); GLUCOSE 110 mg/dL (75-110); TOTAL PROTEIN 7.8 g/dL (6.3-8.2)
[2020-10-28] MEDS ORDERED: GLUCAGON,HUMAN RECOMB 1 MG INJ IV ONE (23:11)
--- NOTE | 2020-10-28 23:11 | RADIOLOGY REPORT (SQ) ---
CT neck with contrast on 10/28/2020 at 10:06 PM CLINICAL INDICATION: Difficulty swallowing TECHNIQUE: Multiple axial images are obtained throughout the neck following the administration of IV contrast. This exam was performed according to our departmental dose-optimization program, which includes automated exposure control, adjustment of the mA and/or kV according to patient size and/or use of iterative reconstruction technique. Total DLP is 587.37 mGy*cm. COMPARISON: CT cervical spine from 01/03/[address] face from 09/29/2018 FINDINGS: The upper lungs are clear. There is nodular high density area in the midline embedded within the strap musculature seen well on axial images 50 through 61 and seen on sagittal image 42. This was also present on CT of the face previously. The patient's left thyroid lobe in its typical location is diminutive and there is no right thyroid tissue noted in the typical location. 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 There is no adenopathy in the neck. The epiglottis and airway is unremarkable. There is no prevertebral soft tissue swelling. No mucosal lesion is noted. No neck mass or fluid collection is noted. There is no radiopaque foreign body. No acute bony abnormality is noted. 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
--- NOTE | 2020-10-29 00:40 | ER Document Report ---
ED General - General Chief Complaint: Difficulty Swallowing Stated Complaint: DIFFICULTY IN SWALLOWING/NECK PAIN Time Seen by Provider: 10/28/20 23:10 Primary Care Provider: LISSY BUNCH MD [ACTIVE STAFF] - 10/31/20 (Call Dr. Bunch's office on Thursday, October 31 if your symptoms are still persistent and are not improving at all.) TRAVEL OUTSIDE OF THE [place] IN LAST 30 DAYS: No - HPI Context: Time:[0] Chief Complaint: [Difficulty swallowing] [This is a 40-year-old female who presents to the emergency department for the second time in 2 days complaining of a sensation of difficulty swallowing. Patient had soft tissue neck films done yesterday which showed no evidence of a foreign body. Patient returns today stating that she still has the sensation even with soft foods that things are getting stuck in her throat. ] History obtained from [patient] Symptoms began:[2 days ago] Onset: [Sudden] Timing: [While eating] Quality: [Sharp] Intensity: [5] Location: [Throat] Radiation: [Denies] [The pain does not migrate to a new location.] Aggravating factors: Eating or drinking Relieving factors: [none] [Denies] SOB [Denies] nausea [Denies] vomiting [Denies] sweats [Denies] fever [Denies] cough [Denies] calf or leg swelling or pain - Related Data Allergies/Adverse Reactions: avocado [Avocado] Allergy (Severe, Verified 10/16/20 13:27) Anaphylaxis NSAIDS (Non-Steroidal Anti-Inflamma [Nsaids] Allergy (Verified 10/16/20 13:27) throat swelling pineapple [Pineapple] Allergy (Verified 10/16/20 13:27) Sulfa (Sulfonamide Antibiotics) Allergy (Verified 10/16/20 13:27) throat swelling tree nuts Allergy (Uncoded 10/16/20 13:27) Past Medical History - General Information source: Patient - Social History Smoking Status: Former Smoker Family History: Reviewed & Not Pertinent, DM, Hyperlipidemia, Hypertension, Thyroid Disfunction, Other - Epilepsy Neurological Medical History: Reports: Hx Migraine Endocrine Medical History: Reports: Hx Hypothyroidism Renal/ Medical History: Denies: Hx Peritoneal Dialysis GI Medical History: Reports: Hx Gastritis Musculoskeletal Medical History: Reports Hx Musculoskeletal Deformity, Reports Hx Musculoskeletal Trauma Psychiatric Medical History: Reports: Hx Anxiety Traumatic Medical History: Reports: Hx Fractures - Elbow clavicle and ribs Past Surgical History: Reports: Hx Appendectomy - 2005, Hx Cholecystectomy - 2009, Hx Hysterectomy, Hx Thyroid Surgery - Thyroidectomy 2005 - Immunizations Immunizations up to date: Yes Hx Diphtheria, Pertussis, Tetanus Vaccination: Yes - 2010 Review of Systems - Review of Systems Notes: Review of systems as below unless otherwise stated in HPI. CONSTITUTIONAL [No] fever, [No] chills. EYES [No] eye pain. ENT [No] URI symptoms, [No] sore throat, [No] ear pain. Positive dysphagia and positive odynophagia CARDIOVASCULAR [No] chest pain, [No] palpitations, [No] edema. RESPIRATORY [No] Cough, [No] SOB, [No] wheezing. GASTROINTESTINAL [No] abdominal pain, [No] nausea, [No] Diarrhea, [No] Vomiting, [No] constipation, [No] melena, [No] rectal bleeding. GENITOURINARY [No] dysuria, [No] urinary frequency, [No] hematuria, [No] urinary urgency, [No] vaginal discharge, [No] vaginal bleeding. MUSCULOSKELETAL [No] Back pain. SKIN [No] Rash. NEUROLOGIC [No] Headache, [No] recent seizures, [No] paralysis,[No] parathesias. ENDOCRINE [No] polyuria. HEMO/LYMPATIC [No] easy brusing PSYCHIATRIC [No] depression. Physical Exam - Vital signs Vitals: Temp Pulse Resp BP Pulse Ox 98.3 F 87 17 131/81 H 98 10/28/20 20:51 10/28/20 20:51 10/28/20 20:51 10/28/20 20:51 10/28/20 20:51 - Notes Notes: CONSTITUTIONAL [Vital signs reviewed, Patient appears comfortable, Alert and oriented X 3, Normal stature.] HEAD [Atraumatic, Normocephalic.] EYES [Eyes are normal to inspection, No discharge from eyes, Extraocular muscles intact, Sclera are normal, Conjunctiva are normal.] ENT [External ears normal to inspection, Nose examination normal, Mouth normal to inspection.] NECK [Normal ROM, No jugular venous distention, No meningeal signs, ] RESPIRATORY CHEST [Chest is nontender, Breath sounds normal, No respiratory distress.] CARDIOVASCULAR [RRR, No murmurs, Normal S1 S2, No rub, No gallop.] ABDOMEN [Abdomen is nontender, No pulsatile masses, No other masses, Bowel sounds normal, No distension, No peritoneal signs, No hernias.] BACK [There is no CVA Tenderness, There is no tenderness to palpation, Normal inspection.] UPPER EXTREMITY [Inspection normal, No cyanosis, No clubbing, No edema, LOWER EXTREMITY [Inspection normal, No cyanosis, No clubbing, No edema, No calf tenderness, NEURO [No focal motor deficits, No focal sensory deficits, Speech normal.] SKIN [Skin is warm, Skin is dry, Skin is normal color.] PSYCHIATRIC [Normal affect. ] Course - Re-evaluation Re-evalutation: 10/29/20 07:19 Results of ED MSE discussed with patient. All questions were answered prior to discharge. Emergency signs and symptoms, reasons to return to the emergency department discussed with patient. - Vital Signs Vital signs: Temp Pulse Resp BP Pulse Ox 98.3 F 87 17 131/81 H 97 10/28/20 20:51 10/28/20 20:51 10/29/20 00:00 10/28/20 20:51 10/29/20 00:00 - Laboratory Result Diagrams: 10/28/20 22:00 10/28/20 22:00 Laboratory results interpreted by me: 10/28/20 22:00 Sodium 136.4 L Calcium 10.5 H ALT 37 H - Diagnostic Test Radiology reviewed: Reports reviewed Discharge - Discharge Clinical Impression: Esophageal abrasion Qualifiers: Encounter type: subsequent encounter Qualified Code(s): S27.818D - Other injury of esophagus (thoracic part), subsequent encounter Condition: Stable Disposition: HOME, SELF-CARE Additional Instructions: Return to the Emergency Department without delay if any worse. Year soft tissue neck CT shows no evidence of any type of food bolus or foreign body obstructing your esophagus. Your symptoms are most consistent with what is called a esophageal abrasion or foreign body sensation. This means that after the stuck piece of food manages to move down into the stomach, the piece of food has caused small scratches or abrasions on your esophagus. This sensation can be distressing and make you feel as though you still have food stuck in your throat. The best treatment for your symptoms is clear lukewarm liquid diet for the next 24 to 48 hours while your esophagus heals. You are being referred to a distribution a class lineman in case your symptoms fail to improve over the next 48 hours. HOME CARE INSTRUCTIONS & INFORMATION: Thank you for choosing us for your medical needs. We hope you're satisfied with the care you received. After you leave, you must properly care for your problem and, at the same time, observe its progress. Any condition can change. Some illnesses can change rapidly over hours or days. If your condition worsens, return to the Emergency Department or see your physician promptly. ABOUT YOUR X-RAYS AND EKG'S: If you had an EKG or X-rays taken, they have been read by the Emergency Physician. The X-rays and EKG's will also be read by a Radiologist or Utility Mechanic within 24 hours. If discrepancies are noted, you will be notified by telephone. Please be certain the ED has a correct telephone number & address where you can be reached. Also, realize that some fractures or abnormalities do not show up on initial X-rays. If your symptoms continue, see your physician. ABOUT YOUR LABORATORY TEST: If you had laboratory tests, the results have been reviewed by the Emergency Physician. Some test results (for example cultures) may not be available for several days. You will be contacted if any test result shows you need additional treatment. Please be certain the ED has a correct telephone number and address where you can be reached. ABOUT YOUR MEDICATIONS: You will receive instructions on how to take your medicine on the prescription label you receive. Additional information may be provided by the Pharmacy. If you have questions afterwards, call the ED for clarification or further instructions. Some prescribed medications may cause drowsiness. Do not perform tasks such as driving a car or operating machinery without consulting your Pharmacist. If you feel you need a refill of pain medication, your condition will need re-evaluation. Please do not call for a refill of any medication. ABOUT YOUR SIGNATURE: Signature of this document acknowledges to followin. Understanding that you received emergency treatment and that you may be released before al medical problems are known or treated. Please be certain the ED has a correct phone number & address where you can be reached. 2. Acknowledgement that you will arrange for follow-up care as recommended. 3. Authorization for the Emergency Physician to provide information to your follow-up Physician in order to maximize your care. AT ANY TIME, IF YOUR SYMPTOMS CHANGE SIGNIFICANTLY OR WORSEN OR YOU DEVELOP NEW SYMPTOMS, RETURN TO THE EMERGENCY DEPARTMENT IMMEDIATELY FOR RE-EVALUATION. OUR GOAL IS TO PROVIDE EXCELLENT MEDICAL CARE! WE HOPE THAT WE HAVE MET YOUR EXPECTATIONS DURING YOUR EMERGENCY DEPARTMENT VISIT AND THAT YOU FEEL YOU HAVE RECEIVED EXCELLENT CARE! Referrals: LISSY BUNCH MD [ACTIVE STAFF] - 10/31/20 (Call Dr. Bunch's office on Thursday, October 31 if your symptoms are still persistent and are not improving at all.)
== END 2020-10-29 01:14 | disposition home or self-care (01) ==
LOC: ER 20:46
DX: S27.818 Other injury of esophagus (thoracic part) (principal); R13.10 Dysphagia, unspecified; M54.2 Cervicalgia; X58.XXXD Exposure to other specified factors, subsequent encounter; Z88.2 Allergy status to sulfonamides
CPT/HCPCS: 99285; 96374; 36415; 85025; 80053; 70491; J1610

== ENCOUNTER 2020-11-05 17:08 | Emergency (ER) | payer BC ==
--- NOTE | 2020-11-05 18:39 | ER Document Report ---
ED ENT - General Chief Complaint: Difficulty Swallowing Stated Complaint: BREATHING Time Seen by Provider: 11/05/20 17:58 TRAVEL OUTSIDE OF THE [place] IN LAST 30 DAYS: No - HPI Notes: Patient is a 40-year-old female with no medical history who presents with difficulty swallowing for the past 9 days. Patient was seen in the ED 1 week ago for the same symptoms. CT of the neck was done which showed no foreign body or mass. Patient was advised to follow-up with ENT. She has an appointment on 11/19/2020 which is 2 weeks from now. Patient returns today as she continues to have difficulty and does not know what to do in the meantime until her appointment. Patient is able to tolerate fluids but has difficulty with solids. She denies any shortness of breath, fever, or any new symptoms. - Related Data Allergies/Adverse Reactions: avocado [Avocado] Allergy (Severe, Verified 10/16/20 13:27) Anaphylaxis NSAIDS (Non-Steroidal Anti-Inflamma [Nsaids] Allergy (Verified 10/16/20 13:27) throat swelling pineapple [Pineapple] Allergy (Verified 10/16/20 13:27) Sulfa (Sulfonamide Antibiotics) Allergy (Verified 10/16/20 13:27) throat swelling tree nuts Allergy (Uncoded 10/16/20 13:27) Home Medications: Synthroid Past Medical History - General Information source: Patient - Social History Smoking Status: Former Smoker Chew tobacco use (# tins/day): No Frequency of alcohol use: Rare Drug Abuse: None Family History: Reviewed & Not Pertinent, DM, Hyperlipidemia, Hypertension, Thyroid Disfunction, Other - Epilepsy Neurological Medical History: Reports: Hx Migraine Endocrine Medical History: Reports: Hx Hypothyroidism Renal/ Medical History: Denies: Hx Peritoneal Dialysis GI Medical History: Reports: Hx Gastritis Musculoskeletal Medical History: Reports Hx Musculoskeletal Deformity, Reports Hx Musculoskeletal Trauma Psychiatric Medical History: Reports: Hx Anxiety Traumatic Medical History: Reports: Hx Fractures - Elbow clavicle and ribs Past Surgical History: Reports: Hx Appendectomy - 2005, Hx Cholecystectomy - 2009, Hx Hysterectomy, Hx Thyroid Surgery - Thyroidectomy 2005 - Immunizations Immunizations up to date: Yes Hx Diphtheria, Pertussis, Tetanus Vaccination: Yes - 2010 Review of Systems - Review of Systems Constitutional: No symptoms reported EENT: See HPI Cardiovascular: No symptoms reported Respiratory: No symptoms reported Gastrointestinal: No symptoms reported Genitourinary: No symptoms reported Female Genitourinary: No symptoms reported Musculoskeletal: No symptoms reported Skin: No symptoms reported Hematologic/Lymphatic: No symptoms reported Neurological/Psychological: No symptoms reported Physical Exam - Vital signs Vitals: Temp Pulse Resp BP Pulse Ox 98.3 F 88 18 122/77 98 11/05/20 17:20 11/05/20 17:20 11/05/20 17:20 11/05/20 17:20 11/05/20 17:20 - Notes Notes: PHYSICAL EXAMINATION: VITALS: Vitals reviewed and within normal limits. GENERAL: Well-appearing, well-nourished and in no acute distress. HEAD: Atraumatic, normocephalic. EYES: Pupils equal, round, and reactive to light, extraocular movements intact, sclera anicteric, conjunctiva are normal. ENT: Nares patent. Moist mucous membranes. Oropharynx clear without exudates. Able to tolerate secretions. NECK: Normal range of motion, supple without lymphadenopathy. LUNGS: Breath sounds clear to auscultation bilaterally and equal. No wheezes, rales, or rhonchi. HEART: Regular, rate, and rhythm without murmurs. ABDOMEN: Soft, nontender, normoactive bowel sounds. No guarding, no rebound. No masses appreciated. EXTREMITIES: Normal range of motion, no pitting or edema. No cyanosis. NEUROLOGICAL: No focal neurological deficits. Moves all extremities spontaneously and on command. PSYCH: Normal mood, normal affect. SKIN: Warm, Dry, normal turgor, no rashes or lesions noted. Course - Re-evaluation Re-evalutation: Patient is a 40-year-old female who presents with difficulty swallowing for the past 9 days. Patient was seen in the ED 1 week ago and was diagnosed with esophageal abrasion and told to follow-up with ENT. She has an appointment in 2 weeks. History and exam are not consistent with a retropharyngeal abscess or peritonsillar abscess. Airway is patent. No difficulty handling oral secretions. Vitals within normal limits. No further work-up needed at this time as patient was seen recently and had a CT scan which showed no obstructing lesion or other concerning findings. Recommended that patient either follow-up with GI or ENT for further evaluation of her esophagus. Referrals for both given. Strict return precautions given. Patient understands and is in agreement with the plan. Patient will be discharged home. - Vital Signs Vital signs: Temp Pulse Resp BP Pulse Ox 98.3 F 88 18 122/77 98 11/05/20 17:20 11/05/20 17:20 11/05/20 17:20 11/05/20 17:20 11/05/20 17:20 - Laboratory Results Critical Laboratory Results Reviewed: No Critical Results - Radiology Results Critical Radiology Results Reviewed: No Critical Results Discharge - Discharge Clinical Impression: Odynophagia Esophageal abrasion Qualifiers: Encounter type: subsequent encounter Qualified Code(s): S27.818D - Other injury of esophagus (thoracic part), subsequent encounter Condition: Stable Disposition: HOME, SELF-CARE Additional Instructions: Follow up with either ENT of GI as soon as possible for your difficulty swallowing. Continue on a liquid diet until you can be evaluated by a specialist. Return to the emergency department if you unable to keep down liquids, your own saliva or if you have difficulty breathing or chest pain. Referrals: MAIA SOOD MD [ACTIVE STAFF] - Follow up as needed PIERRE GONZALES MD [ACTIVE STAFF] - Follow up as needed [facility] [Provider Group] - Follow up as needed NIC GAITAN MD [ACTIVE STAFF] - Follow up as needed (Follow up with ENT) LISSY BUNCH MD [ACTIVE STAFF] - Follow up as needed (Follow up with GI)
[2020-11-05 19:22] VITALS: BP 132/70
== END 2020-11-05 19:20 | disposition home or self-care (01) ==
LOC: ER 17:08
DX: R13.10 Dysphagia, unspecified (principal); S27.818 Other injury of esophagus (thoracic part); X58.XXXD Exposure to other specified factors, subsequent encounter
CPT/HCPCS: 99282

== ENCOUNTER 2020-11-18 12:35 | Emergency (ER) | payer BC ==
[2020-11-18] MEDS ORDERED: ONDANSETRON 4 MG TAB.RAPDIS PO ONE (13:41)
--- NOTE | 2020-11-18 13:45 | ER Document Report ---
ED Medical Screen (RME) - General Chief Complaint: Abdominal Pain Stated Complaint: VOMITING,DIARRHEA,ABDOMINAL PAIN Time Seen by Provider: 11/18/20 13:38 Mode of Arrival: Ambulatory Information source: Patient Notes: 40-year-old female presented to ED for complaint of abdominal pain nausea and vomiting. She states this all started around noon time. She states she was okay earlier but now she has severe cramping. She states she is a former smoker drinks once or twice a year. She states she has not had a Covid test recently and she does work at [employer]. Will order blood urine strep flu and Covid test and she will be seen by another provider. I have given her Sharona ODT. I have greeted and performed a rapid initial assessment of this patient. A comprehensive ED assessment and evaluation of the patient, analysis of test results and completion of medical decision making process will be conducted by an additional ED providers. TRAVEL OUTSIDE OF THE [place] IN LAST 30 DAYS: No - Related Data Allergies/Adverse Reactions: avocado [Avocado] Allergy (Severe, Verified 11/18/20 13:28) Anaphylaxis NSAIDS (Non-Steroidal Anti-Inflamma [Nsaids] Allergy (Verified 11/18/20 13:28) throat swelling pineapple [Pineapple] Allergy (Verified 11/18/20 13:28) Sulfa (Sulfonamide Antibiotics) Allergy (Verified 11/18/20 13:28) throat swelling tree nuts Allergy (Uncoded 11/18/20 13:28) Past Medical History - Social History Chew tobacco use (# tins/day): No Frequency of alcohol use: Rare Drug Abuse: None Family history: Reviewed & Not Pertinent Neurological Medical History: Reports: Hx Migraine Endocrine Medical History: Reports: Hx Hypothyroidism Renal/ Medical History: Denies: Hx Peritoneal Dialysis GI Medical History: Reports: Hx Gastritis Musculoskeltal Medical History: Reports Hx Musculoskeletal Deformity, Reports Hx Musculoskeletal Trauma Psychiatric Medical History: Reports: Hx Anxiety Traumatic Medical History: Reports: Hx Fractures - Elbow clavicle and ribs Past Surgical History: Reports: Hx Appendectomy - 2005, Hx Cholecystectomy - 2009, Hx Hysterectomy, Hx Thyroid Surgery - Thyroidectomy 2005 - Immunizations Immunizations up to date: Yes Hx Diphtheria, Pertussis, Tetanus Vaccination: Yes - 2010 Physical Exam - Vital signs Vitals: Temp Pulse Resp BP Pulse Ox 98.2 F 87 16 121/76 97 11/18/20 12:38 11/18/20 12:38 11/18/20 12:38 11/18/20 12:38 11/18/20 12:38 Course - Vital Signs Vital signs: Temp Pulse Resp BP Pulse Ox 98.2 F 87 16 121/76 97 11/18/20 12:38 11/18/20 12:38 11/18/20 12:38 11/18/20 12:38 11/18/20 12:38
[2020-11-18 14:51] LABS: ABSOLUTE EOSINOPHILS # (AUTO) 0.1 10^3/uL (0.0-0.6); ABSOLUTE LYMPHOCYTES (AUTO) 2.2 10^3/uL (0.5-4.7); ABSOLUTE MONOCYTES (AUTO) 0.3 10^3/uL (0.1-1.4); BASOPHILS % (AUTO) 0.4 % (0-2); HEMATOCRIT 38.5 % (36.0-47.0); HEMOGLOBIN 13.2 g/dL (12.0-15.5); LYMPHOCYTES % (AUTO) 33.2 % (13-45); MEAN CORPUSCULAR HEMOGLOBIN 29.5 pg (27.0-33.4); MEAN CORPUSCULAR HGB CONC 34.2 g/dL (32.0-36.0); MEAN CORPUSCULAR VOLUME 86 fl (80-97); MONOCYTES % (AUTO) 4.1 % (3-13); PLATELET COUNT 252 10^3/uL (150-450); RED BLOOD COUNT 4.46 10^6/uL (3.72-5.28); RED CELL DISTRIBUTION WIDTH 13.5 % (11.5-14.0); SEGMENTED NEUTROPHILS % (AUTO) 61.3 % (42-78); TOTAL CELLS COUNTED % (AUTO) 100 %; WHITE BLOOD COUNT 6.5 10^3/uL (4.0-10.5)
[2020-11-18 14:53] LABS: APPEARANCE,URINE CLEAR; BILIRUBIN,URINE NEGATIVE (NEGATIVE); COLOR,URINE STRAW; GLUCOSE, URINE NEGATIVE (NEGATIVE); KETONES,URINE NEGATIVE (NEGATIVE); LEUKOCYTE ESTERASE,URINE TRACE (NEGATIVE); NITRITE,URINE NEGATIVE (NEGATIVE); PROTEIN,URINE NEGATIVE (NEGATIVE); URINE SPECIFIC GRAVITY 1.008; UROBILINOGEN,URINE NEGATIVE mg/dL (<2.0)
[2020-11-18 15:02] LABS: ALBUMIN 4.5 g/dL (3.5-5.0); ALKALINE PHOSPHATASE 85 U/L (38-126); ANION GAP 8 (5-19); ASPARTATE AMINO TRANSFERASE 27 U/L (14-36); BILIRUBIN,TOTAL 0.5 mg/dL (0.2-1.3); BLOOD UREA NITROGEN 17 mg/dL (7-20); CALCIUM 10.2 mg/dL (8.4-10.2); CARBON DIOXIDE 24 mmol/L (22-30); CHLORIDE 107 mmol/L (98-107); GLUCOSE 92 mg/dL (75-110); POTASSIUM 4.1 mmol/L (3.6-5.0)
[2020-11-18 15:29] LABS: A TYPE INFLUENZA AG NEGATIVE (NEGATIVE); B INFLUENZA AG NEGATIVE (NEGATIVE)
[2020-11-18 21:09] VITALS: BP 121/79
== END 2020-11-18 21:08 | disposition home or self-care (01) ==
LOC: ER 12:35
DX: R10.9 Unspecified abdominal pain (principal); R19.7 Diarrhea, unspecified; R11.2 Nausea with vomiting, unspecified; Z87.891 Personal history of nicotine dependence; Z88.8 Allergy status to other drugs, medicaments and biological substances; Z88.2 Allergy status to sulfonamides
CPT/HCPCS: 99283; 36415; 87070; 87880; 85025; 80053; 81001; 87804; U0003; S0119; C9803; 87077; 87635

== ENCOUNTER 2020-12-05 00:17 | Emergency (ER) | payer BC ==
[2020-12-05 00:40] VITALS: BP 131/84
[2020-12-05 02:12] LABS: ABSOLUTE EOSINOPHILS # (AUTO) 0.1 10^3/uL (0.0-0.6); ABSOLUTE LYMPHOCYTES (AUTO) 2.7 10^3/uL (0.5-4.7); ABSOLUTE MONOCYTES (AUTO) 0.3 10^3/uL (0.1-1.4); ABSOLUTE NEUT (AUTO) 3.8 10^3/uL (1.7-8.2); BASOPHILS % (AUTO) 0.5 % (0-2); EOSINOPHILS % (AUTO) 1.9 % (0-6); HEMATOCRIT 38.8 % (36.0-47.0); HEMOGLOBIN 13.2 g/dL (12.0-15.5); LYMPHOCYTES % (AUTO) 38.3 % (13-45); MEAN CORPUSCULAR HEMOGLOBIN 29.2 pg (27.0-33.4); MEAN CORPUSCULAR VOLUME 86 fl (80-97); MONOCYTES % (AUTO) 4.8 % (3-13); PLATELET COUNT 296 10^3/uL (150-450); RED BLOOD COUNT 4.52 10^6/uL (3.72-5.28); RED CELL DISTRIBUTION WIDTH 13.4 % (11.5-14.0); SEGMENTED NEUTROPHILS % (AUTO) 54.5 % (42-78); TOTAL CELLS COUNTED % (AUTO) 100 %; WHITE BLOOD COUNT 7.1 10^3/uL (4.0-10.5)
[2020-12-05 02:27] LABS: APPEARANCE,URINE CLEAR; BILIRUBIN,URINE NEGATIVE (NEGATIVE); COLOR,URINE STRAW; GLUCOSE, URINE NEGATIVE (NEGATIVE); KETONES,URINE NEGATIVE (NEGATIVE); LEUKOCYTE ESTERASE,URINE MODERATE (NEGATIVE); NITRITE,URINE NEGATIVE (NEGATIVE); PROTEIN,URINE NEGATIVE (NEGATIVE); UROBILINOGEN,URINE NEGATIVE mg/dL (<2.0)
[2020-12-05 02:32] LABS: ALBUMIN 4.4 g/dL (3.5-5.0); ALKALINE PHOSPHATASE 73 U/L (38-126); ANION GAP 8 (5-19); ASPARTATE AMINO TRANSFERASE 30 U/L (14-36); BILIRUBIN,DIRECT 0.1 mg/dL (0.0-0.4); BILIRUBIN,TOTAL 0.5 mg/dL (0.2-1.3); BLOOD UREA NITROGEN 18 mg/dL (7-20); CALCIUM 9.8 mg/dL (8.4-10.2); CARBON DIOXIDE 28 mmol/L (22-30); CHLORIDE 104 mmol/L (98-107); GLUCOSE 99 mg/dL (75-110); POTASSIUM 4.1 mmol/L (3.6-5.0); TOTAL PROTEIN 7.6 g/dL (6.3-8.2)
== END 2020-12-05 04:00 | disposition left against medical advice (07) ==
LOC: ER 00:17
DX: Z53.21 Procedure and treatment not carried out due to patient leaving prior to being seen by health care provider (principal)
CPT/HCPCS: 36415; 80053; 81001; 83690; 85025

== ENCOUNTER 2020-12-10 00:22 | Emergency (ER) | payer BC ==
[2020-12-10] MEDS ORDERED: ONDANSETRON HCL INJ/PF 4 MG/2 ML SDV IV ONE (00:40)
--- NOTE | 2020-12-10 00:42 | ER Document Report ---
ED Medical Screen (RME) - General Chief Complaint: Abdominal Pain Stated Complaint: LOWER ABDOMINAL PAIN Time Seen by Provider: 12/10/20 00:33 Mode of Arrival: Ambulatory Information source: Patient TRAVEL OUTSIDE OF THE [place] IN LAST 30 DAYS: No - HPI Patient complains to provider of: Abdominal pain, diarrhea Notes: 12/10/20 00:41 Year with complaints of diarrhea with lower abdominal pain for the last several days. No blood in her stool. She states she saw her primary care doctor and was given Bentyl and Imodium without relief. She also reports that she had a stool culture done that was negative. She does work at [employer]. She denies any specific sick contacts. No recent travel. She denies any recent antibiotic use. Exam: Nontoxic, no distress. Lungs clear and equal throughout. Tenderness to palpation in the left lower quadrant and mid lower abdomen on limited triage abdominal exam. An initial examination was made on the patient as part of the triage process, and it was determined a more comprehensive evaluation was necessary. Initial orders were placed and patient was transferred to another provider in the ED who assumed care and finished evaluation and plan. - Related Data Allergies/Adverse Reactions: avocado [Avocado] Allergy (Severe, Verified 11/18/20 13:28) Anaphylaxis NSAIDS (Non-Steroidal Anti-Inflamma [Nsaids] Allergy (Verified 11/18/20 13:28) throat swelling pineapple [Pineapple] Allergy (Verified 11/18/20 13:28) Sulfa (Sulfonamide Antibiotics) Allergy (Verified 11/18/20 13:28) throat swelling tree nuts Allergy (Uncoded 11/18/20 13:28) Past Medical History - Social History Family history: Reviewed & Not Pertinent Neurological Medical History: Reports: Hx Migraine Endocrine Medical History: Reports: Hx Hypothyroidism Renal/ Medical History: Denies: Hx Peritoneal Dialysis GI Medical History: Reports: Hx Gastritis Musculoskeltal Medical History: Reports Hx Musculoskeletal Deformity, Reports Hx Musculoskeletal Trauma Psychiatric Medical History: Reports: Hx Anxiety Traumatic Medical History: Reports: Hx Fractures - Elbow clavicle and ribs Past Surgical History: Reports: Hx Appendectomy - 2005, Hx Cholecystectomy - 2009, Hx Hysterectomy, Hx Thyroid Surgery - Thyroidectomy 2005 - Immunizations Immunizations up to date: Yes Hx Diphtheria, Pertussis, Tetanus Vaccination: Yes - 2010 Physical Exam - Vital signs Vitals: Temp Pulse Resp BP Pulse Ox 98.5 F 89 20 118/86 H 100 12/10/20 00:38 12/10/20 00:38 12/10/20 00:38 12/10/20 00:38 12/10/20 00:38 Course - Vital Signs Vital signs: Temp Pulse Resp BP Pulse Ox 98.5 F 89 20 118/86 H 100 12/10/20 00:38 12/10/20 00:38 12/10/20 00:38 12/10/20 00:38 12/10/20 00:38
[2020-12-10] MEDS ORDERED: NORMAL SALINE 1000 ML 1,000 ML IV ONE (00:43)
[2020-12-10 02:06] LABS: ALBUMIN 4.6 g/dL (3.5-5.0); ALKALINE PHOSPHATASE 75 U/L (38-126); ANION GAP 8 (5-19); ASPARTATE AMINO TRANSFERASE 25 U/L (14-36); BILIRUBIN,DIRECT 0.2 mg/dL (0.0-0.4); BILIRUBIN,TOTAL 0.4 mg/dL (0.2-1.3); BLOOD UREA NITROGEN 24 mg/dL (7-20); CALCIUM 9.8 mg/dL (8.4-10.2); CARBON DIOXIDE 25 mmol/L (22-30); CHLORIDE 108 mmol/L (98-107); GLUCOSE 110 mg/dL (75-110); POTASSIUM 4.1 mmol/L (3.6-5.0); TOTAL PROTEIN 7.6 g/dL (6.3-8.2)
[2020-12-10 02:14] LABS: ABSOLUTE EOSINOPHILS # (AUTO) 0.1 10^3/uL (0.0-0.6); ABSOLUTE LYMPHOCYTES (AUTO) 2.3 10^3/uL (0.5-4.7); ABSOLUTE MONOCYTES (AUTO) 0.4 10^3/uL (0.1-1.4); ABSOLUTE NEUT (AUTO) 4.9 10^3/uL (1.7-8.2); BASOPHILS % (AUTO) 0.3 % (0-2); EOSINOPHILS % (AUTO) 1.6 % (0-6); HEMATOCRIT 39.7 % (36.0-47.0); HEMOGLOBIN 13.3 g/dL (12.0-15.5); MEAN CORPUSCULAR HEMOGLOBIN 28.7 pg (27.0-33.4); MEAN CORPUSCULAR HGB CONC 33.5 g/dL (32.0-36.0); MEAN CORPUSCULAR VOLUME 86 fl (80-97); MONOCYTES % (AUTO) 4.6 % (3-13); PLATELET COUNT 288 10^3/uL (150-450); RED BLOOD COUNT 4.63 10^6/uL (3.72-5.28); RED CELL DISTRIBUTION WIDTH 13.3 % (11.5-14.0); SEGMENTED NEUTROPHILS % (AUTO) 63.5 % (42-78); TOTAL CELLS COUNTED % (AUTO) 100 %; WHITE BLOOD COUNT 7.7 10^3/uL (4.0-10.5)
--- NOTE | 2020-12-10 03:01 | RADIOLOGY REPORT (SQ) ---
CT abdomen and pelvis with contrast on 12/10/2020 at 2:22 AM CLINICAL INDICATION: Left lower quadrant pain, diarrhea TECHNIQUE: Multiple axial images are obtained throughout the abdomen and pelvis following the administration of IV contrast, 99 mL of Omnipaque 350contrast was administered intravenously without complication. This exam was performed according to our departmental dose-optimization program, which includes automated exposure control, adjustment of the mA and/or kV according to patient size and/or use of iterative reconstruction technique. Total DLP is 1662.66 mGy*cm. COMPARISON: 07/22/2020 FINDINGS: Abdomen: The lung bases are clear. The patient is status post cholecystectomy. There is mild fatty infiltration of the liver. The solid abdominal organs are otherwise unremarkable. There is no abdominal adenopathy. There is no free fluid or free air within the abdomen. The abdominal portion of the GI tract is unremarkable. Pelvis: There is no free fluid in the pelvis. There is no pelvic adenopathy. The patient is status post appendectomy and hysterectomy. The pelvic portion of the GI tract is unremarkable. No acute bony abnormality is noted. IMPRESSION: No acute abnormality.
[2020-12-10] MEDS ORDERED: MORPHINE SULFATE 10 MG/ML INJ IV ONE (03:02)
--- NOTE | 2020-12-10 03:41 | ER Document Report ---
ED General - General Chief Complaint: Abdominal Pain Stated Complaint: LOWER ABDOMINAL PAIN Time Seen by Provider: 12/10/20 00:33 Primary Care Provider: JOEY CELIS MD [Primary Care Provider] - Follow up as needed Mode of Arrival: Ambulatory TRAVEL OUTSIDE OF THE [place] IN LAST 30 DAYS: No - HPI Notes: Chief Complaint: Abdominal pain Historian: History obtained from patient HPI: This is a 40-year-old female presents to the ER complaining of left-sided abdominal pain with associated diarrhea x2 weeks. Patient says she went to her PCP and was started on Imodium and Bentyl without relief. She is tolerating the p.o. intake. She denies fever chills, dysuria, vaginal discharge, flank pain chest pain, shortness of breath. Reports a history of cholecystectomy and has recurrent episodes of loose stools conically. She has followed up with GI in the past says she had episode of colitis many years ago. ROS: Constitutional: no fevers. HEENT: no ELY, sore throat, or vision changes. CV: no chest pain or palpitations. Resp: no cough or SOB. GI: Abdominal pain, nausea vomiting : no dysuria, hematuria, or incont. MSK: no back pain, no joint swelling/redness. Skin: no rashes or itching. Neuro: no seizures, weakness, numbness, or confusion. Hematological: no ecchymosis or easy bleeding. Endocrine: no polyuria/polydipsia, no heat/cold intolerance. Psych: no SI/HI, AH/VH or memory loss. PMHx: Reviewed and agree as charted by RN. PSHx: Reviewed and agree as charted by RN. SOCHx: Reviewed and agree as charted by RN. FHX: No significant familial comorbid conditions directly related to patient complaint Current Medications: Reviewed and agree with the patient medications as charted by the RN. Allergies: Reviewed and agree with the listed allergies as charted by the RN Physical Exam: Vitals: Reviewed in chart as documented by RN. General: Alert and in NAD. Head: Normocephalic; atraumatic Eyes: PERRLA, Conjunctivae clear sclerae non-icteric bilat ENT: no soft palate swelling or uvular deviation Neck: trachea midline, no unilateral swelling/tenderness/lymphadenopathy CV: RRR, no M/R/G; symmetric distal pulses Resp: respirations even and unlabored, CTA bilat. GI: abd soft and nondistended. Left lower abdominal pain, voluntary guarding, no rebound. normal BS. no masses/HSM. no CVAT bilat MSK: FROM of all extremities. No midline CTL spine tenderness/deformity Skin: warm, moist, good turgor. no rash/lesions Neuro: Alert and oriented X 4. following CN 2-12 intact. no unilateral weakness/numbness Psych: No SI/HI or AH/VH. Medical Decision-making/Differential Diagnosis: Consider various etiologies including but not limited to UTI, ectopic , pyelonephritis, STD, PID, ovarian cyst, ovarian torsion, abdominal pain, Hernia, Acute Gastritis, Appendicitis, Partial or Complete small bowel obstruction, Cholecysitis, Diverticulitis, Gastroenteritis, GERD, Nephrolithiasis, Pancreatitis, Peptic Ulcer Disease, Urinary Tract Infection, Pyelonephritis, Infection, metabolic derangement, ect plan - Labs, urine, CT abdomen and pelvis, IV fluid hydration, prn opiate analgesia, prn antiemetics, and a period of observation in the emergency department for frequent reassessments. This course of action was discussed with the patient and/or family. They were amenable to this, verbalized understanding, and were without further questions. - Related Data Allergies/Adverse Reactions: avocado [Avocado] Allergy (Severe, Verified 11/18/20 13:28) Anaphylaxis NSAIDS (Non-Steroidal Anti-Inflamma [Nsaids] Allergy (Verified 11/18/20 13:28) throat swelling pineapple [Pineapple] Allergy (Verified 11/18/20 13:28) Sulfa (Sulfonamide Antibiotics) Allergy (Verified 11/18/20 13:28) throat swelling tree nuts Allergy (Uncoded 11/18/20 13:28) Past Medical History - General Information source: Patient - Social History Smoking Status: Unknown if Ever Smoked Family History: Reviewed & Not Pertinent, DM, Hyperlipidemia, Hypertension, Thyroid Disfunction, Other - Epilepsy Neurological Medical History: Reports: Hx Migraine Endocrine Medical History: Reports: Hx Hypothyroidism Renal/ Medical History: Denies: Hx Peritoneal Dialysis GI Medical History: Reports: Hx Gastritis Musculoskeletal Medical History: Reports Hx Musculoskeletal Deformity, Reports Hx Musculoskeletal Trauma Psychiatric Medical History: Reports: Hx Anxiety Traumatic Medical History: Reports: Hx Fractures - Elbow clavicle and ribs Past Surgical History: Reports: Hx Appendectomy - 2005, Hx Cholecystectomy - 2009, Hx Hysterectomy, Hx Thyroid Surgery - Thyroidectomy 2005 - Immunizations Immunizations up to date: Yes Hx Diphtheria, Pertussis, Tetanus Vaccination: Yes - 2010 Physical Exam - Vital signs Vitals: Temp Pulse Resp BP Pulse Ox 98.5 F 89 20 118/86 H 100 12/10/20 00:38 12/10/20 00:38 12/10/20 00:38 12/10/20 00:38 12/10/20 00:38 Course - Re-evaluation Re-evalutation: 12/10/20 03:39 Labs and imaging reviewed with reassuring. No acute findings on CT scan. since pt does have a hx of colitis and has ongoing LLQ abdom pain w/ loose stools, will empirically treat her w/ cipro/flagyl and lomotil for possible early/subacute diverticulitis. pt is agreeable to this plan. she is afebrile and nontoxic appearing, VSS. will d/c home w/ pcp f/u in 2-3 days. she has upcoming GI appointment in 2 weeks. return factors discussed. 12/10/20 03:51 - Vital Signs Vital signs: Temp Pulse Resp BP Pulse Ox 98.5 F 89 20 118/86 H 100 12/10/20 00:38 12/10/20 00:38 12/10/20 00:38 12/10/20 00:38 12/10/20 00:38 - Laboratory Results Result Diagrams: 12/10/20 01:30 12/10/20 01:30 Laboratory Results Interpreted: 12/10/20 01:30 Chloride 108 H BUN 24 H Creatinine 1.35 H Est GFR ( Amer) 53 L Est GFR (MDRD) Non-Af 43 L Critical Laboratory Results Reviewed: No Critical Results - Radiology Results Critical Radiology Results Reviewed: No Critical Results Discharge - Discharge Clinical Impression: LLQ abdominal pain Abdominal pain Qualifiers: Abdominal location: left lower quadrant Qualified Code(s): R10.32 - Left lower quadrant pain Nausea & vomiting Qualifiers: Vomiting type: unspecified Vomiting Intractability: non-intractable Qualified Code(s): R11.2 - Nausea with vomiting, unspecified Diarrhea Qualifiers: Diarrhea type: unspecified type Qualified Code(s): R19.7 - Diarrhea, unspecified Condition: Stable Disposition: HOME, SELF-CARE Instructions: Diarrhea, Nonspecific ([facility]), Diverticulitis ([facility]) Additional Instructions: Follow all printed instructions. Take medications as prescribed. Follow up with your doctor in 2-3 days for re-check. Return to the ER if your condition worsens. Prescriptions: Diphenoxylate HCl/Atrop Sulf [Lomotil 2.5 mg Tablet] 1 tab PO Q6HP PRN #12 tablet PRN Reason: Ciprofloxacin HCl [Cipro 500 mg Tablet] 500 mg PO BID #14 tablet Metronidazole [Flagyl 500 mg Tablet] 500 mg PO Q6H #28 tablet Referrals: JOEY CELIS MD [Primary Care Provider] - Follow up as needed
[2020-12-10 03:54] LABS: APPEARANCE,URINE CLEAR; BILIRUBIN,URINE NEGATIVE (NEGATIVE); COLOR,URINE STRAW; GLUCOSE, URINE NEGATIVE (NEGATIVE); KETONES,URINE NEGATIVE (NEGATIVE); LEUKOCYTE ESTERASE,URINE TRACE (NEGATIVE); NITRITE,URINE NEGATIVE (NEGATIVE); PROTEIN,URINE NEGATIVE (NEGATIVE); URINE SPECIFIC GRAVITY 1.046; UROBILINOGEN,URINE NEGATIVE mg/dL (<2.0)
[2020-12-10 04:31] VITALS: BP 120/69
== END 2020-12-10 04:31 | disposition home or self-care (01) ==
LOC: ER 00:22
DX: R10.32 Left lower quadrant pain (principal); R19.7 Diarrhea, unspecified; R11.2 Nausea with vomiting, unspecified; Z90.49 Acquired absence of other specified parts of digestive tract; Z87.19 Personal history of other diseases of the digestive system; Z87.892 Personal history of anaphylaxis; Z91.018 Allergy to other foods; Z88.8 Allergy status to other drugs, medicaments and biological substances; Z88.2 Allergy status to sulfonamides
CPT/HCPCS: 99285; 96361; 96374; 96375; 36415; 83690; 85025; 80053; 81001; 74177; J2270; J2405; J7030